=== PATIENT | male | born 1945 | race American Indian/Alaskan Native ===

== ENCOUNTER 2018-05-25 11:56 | Emergency (ER) | payer MEDICARE ==
[2018-05-25 12:45] LABS: Basophils % (Auto) 0.8 % (0.0-1.8); Eosinophils # (Auto) 0.4 K/mm3 (0.0-0.4); Hematocrit 46.9 % (35.5-45.6); Hemoglobin 15.2 gm/dl (11.8-15.2); Lymphocytes # (Auto) 1.8 K/mm3 (1.2-5.4); Lymphocytes % (Auto) 29.6 % (13.4-35.0); Mean Corpuscular HGB Conc 33 % (32-34); Mean Corpuscular Volume 79 fl (84-94); Monocytes # (Auto) 0.9 K/mm3 (0.0-0.8); Monocytes % (Auto) 15.5 % (0.0-7.3); Platelet Count 230 K/mm3 (140-440); Red Blood Count 5.97 M/mm3 (3.65-5.03); Red Cell Distribution Width 16.4 % (13.2-15.2)
[2018-05-25 12:48] LABS: Mean Corpuscular Hemoglobin 26 pg (28-32)
[2018-05-25] MEDS ORDERED: SOLU-Medrol IV ONE (12:52)
[2018-05-25] MEDS ORDERED: ATROVENT IH ONE (12:52)
[2018-05-25] MEDS ORDERED: PROVENTIL IH ONE (12:52)
[2018-05-25 12:58] LABS: BUN/Creatinine Ratio 14; Blood Urea Nitrogen 14 mg/dL (9-20); Calcium 9.6 mg/dL (8.4-10.2); Hemolysis Index 6
--- NOTE | 2018-05-25 12:59 | Emergency Department Report ---
ED Shortness of Breath HPI - General Chief Complaint: Dyspnea/Respdistress Stated Complaint: COPD Time Seen by Provider: 05/25/18 12:44 Source: patient Mode of arrival: Ambulatory Limitations: No Limitations - History of Present Illness Initial Comments: 73-year-old male with history of COPD presents to ED with complaints of shortness of breath x 3-4 days. He states he lives in [place], is here visiting. States he arrived in [place] yesterday. He reported shortness of breath prior to leaving [place]. States has been unable to sleep the last 2 nights due to difficulty breathing. Patient states has been using his nebulizer treatments at home, without improvement. Patient also reports productive cough. Denies fever or chills. Denies leg pain or swelling. Pt states he is not on home O2 MD Complaint: shortness of breath, cough -: days(s) (4) Severity: moderate Consistency: constant Improves With: bronchodilators Worsens With: coughing Known History Of: COPD Associated Symptoms: cough, sputum production Treatments Prior to Arrival: bronchodilator - Related Data Home Oxygen Therapy: No Previous Rx's Medication Instructions Recorded Last Taken Type Metoprolol [Lopressor TAB] 25 mg PO TID #90 tablet 09/05/15 Unknown Rx Pravastatin [Pravachol] 0.5 tab PO QHS #15 tablet 09/05/15 Unknown Rx Guaifenesin/Pseudoephedrne HCl 1 each PO DAILY PRN #20 tab.er.12h 10/11/15 Unknown Rx [Mucinex D ER 600-60 mg Tablet] levoFLOXacin [Levaquin TAB] 500 mg PO Q24HR #7 tablet 10/11/15 Unknown Rx Aspirin EC [Aspirin Enteric Coated 81 mg PO QDAY #30 tablet.dr 11/06/15 Unknown Rx TAB] HYDROcodone/APAP 5-325 [Stanley 1 each PO Q6H PRN #15 tablet 11/06/15 Unknown Rx 5-325 mg TAB] Multivitamin Tab [Multiple Vitamin 1 each PO QDAY #30 tablet 11/06/15 Unknown Rx TAB (Theragran)] Nicotine [Habitrol] 21 mg TD QDAY #14 patch 11/06/15 Unknown Rx Omeprazole [PriLOSEC] 40 mg PO QDAY #30 cap 11/06/15 Unknown Rx Pantoprazole [Protonix TAB] 40 mg PO DAILY #30 tablet 11/06/15 Unknown Rx Simvastatin [Zocor TAB] 10 mg PO QHS #30 tablet 11/06/15 Unknown Rx hydrALAZINE [Apresoline TAB] 25 mg PO TID #90 tablet 11/06/15 Unknown Rx Albuterol Sulfate [Albuterol 0.63% 0.63 mg IH TID PRN #1 box 01/28/16 Unknown Rx NEBS] Azithromycin [Zithromax Z-KENNA] 250 mg PO DAILY #1 pack 01/28/16 Unknown Rx Ipratropium/Albuter (Nf) 2 puff IH QID #120 inha 01/28/16 Unknown Rx [Combivent Inhaler] Mometasone Furoate [Asmanex Hfa] 13 gm IH DAILY #1 hfa.aer.ad 01/28/16 Unknown Rx predniSONE [Deltasone] 40 mg PO QDAY #10 tab 01/28/16 Unknown Rx ALBUTEROL Inhaler(NF) [VENTOLIN 1 puff IH Q4HRT PRN #1 inha 05/25/18 Unknown Rx Inhaler(NF)] Benzonatate [Tessalon Perles] 100 mg PO Q8HR PRN #20 capsule 05/25/18 Unknown Rx predniSONE [Prednisone] 50 mg PO DAILY #5 tablet 05/25/18 Unknown Rx Allergies Allergy/AdvReac Type Severity Reaction Status Date / Time No Known Allergies Allergy Unverified 09/13/13 11:20 ED Review of Systems ROS: Stated complaint: COPD Other details as noted in HPI Comment: All other systems reviewed and negative Constitutional: denies: chills, fever Respiratory: cough, shortness of breath Cardiovascular: denies: chest pain Musculoskeletal: other (denies leg pain or swelling) ED Past Medical Hx - Past Medical History Hx Hypertension: Yes Hx CVA: Yes (generalized weakness, walks with a cane) Hx Congestive Heart Failure: No Hx Arthritis: Yes Hx Psychiatric Treatment: Yes (schizoprenic) Hx Asthma: Yes Hx COPD: Yes Hx HIV: No Additional medical history: Hx of Dissection?-AAA - Surgical History Hx Pacemaker: No Hx Cholecystectomy: Yes Hx Appendectomy: Yes - Social History Smoking Status: Former Smoker Substance Use Type: Marijuana - Medications Home Medications: Home Medications Medication Instructions Recorded Confirmed Last Taken Type Metoprolol [Lopressor TAB] 25 mg PO TID #90 tablet 09/05/15 11/05/15 Unknown Rx Pravastatin [Pravachol] 0.5 tab PO QHS #15 tablet 09/05/15 11/05/15 Unknown Rx Guaifenesin/Pseudoephedrne HCl 1 each PO DAILY PRN #20 tab.er.12h 10/11/1511/04 Unknown Rx [Mucinex D ER 600-60 mg Tablet] levoFLOXacin [Levaquin TAB] 500 mg PO Q24HR #7 tablet 10/11/15 11/05/15 Unknown Rx Aspirin EC [Aspirin Enteric Coated 81 mg PO QDAY #30 tablet.dr 11/06/15 Unknown Rx TAB] HYDROcodone/APAP 5-325 [Stanley 1 each PO Q6H PRN #15 tablet 11/06/15 Unknown Rx 5-325 mg TAB] Multivitamin Tab [Multiple Vitamin 1 each PO QDAY #30 tablet 11/06/15 Unknown Rx TAB (Theragran)] Nicotine [Habitrol] 21 mg TD QDAY #14 patch 11/06/15 Unknown Rx Omeprazole [PriLOSEC] 40 mg PO QDAY #30 cap 11/06/15 Unknown Rx Pantoprazole [Protonix TAB] 40 mg PO DAILY #30 tablet 11/06/15 Unknown Rx Simvastatin [Zocor TAB] 10 mg PO QHS #30 tablet 11/06/15 Unknown Rx hydrALAZINE [Apresoline TAB] 25 mg PO TID #90 tablet 11/06/15 Unknown Rx Albuterol Sulfate [Albuterol 0.63% 0.63 mg IH TID PRN #1 box 01/28/16 Unknown Rx NEBS] Azithromycin [Zithromax Z-KENNA] 250 mg PO DAILY #1 pack 01/28/16 Unknown Rx Ipratropium/Albuter (Nf) 2 puff IH QID #120 inha 01/28/16 Unknown Rx [Combivent Inhaler] Mometasone Furoate [Asmanex Hfa] 13 gm IH DAILY #1 hfa.aer.ad 01/28/16 Unknown Rx predniSONE [Deltasone] 40 mg PO QDAY #10 tab 01/28/16 Unknown Rx ALBUTEROL Inhaler(NF) [VENTOLIN 1 puff IH Q4HRT PRN #1 inha 05/25/18 Unknown Rx Inhaler(NF)] Benzonatate [Tessalon Perles] 100 mg PO Q8HR PRN #20 capsule 05/25/18 Unknown Rx predniSONE [Prednisone] 50 mg PO DAILY #5 tablet 05/25/18 Unknown Rx ED Physical Exam - General Limitations: No Limitations General appearance: alert - Head Head exam: Present: atraumatic, normocephalic - Eye Eye exam: Present: normal appearance - ENT ENT exam: Present: mucous membranes moist - Neck Neck exam: Present: normal inspection - Respiratory Respiratory exam: Present: respiratory distress (moderate), decreased breath sounds, prolonged expiratory, other (tachypnea present) - Cardiovascular Cardiovascular Exam: Present: regular rate, normal rhythm - GI/Abdominal GI/Abdominal exam: Present: soft. Absent: distended, tenderness - Extremities Exam Extremities exam: Present: normal inspection. Absent: pedal edema, calf tenderness - Neurological Exam Neurological exam: Present: alert, oriented X3 - Psychiatric Psychiatric exam: Present: normal affect, normal mood - Skin Skin exam: Present: warm, dry, intact, normal color ED Course Vital Signs 05/25/18 05/25/18 05/25/18 12:03 12:46 13:00 Temperature 97.8 F Pulse Rate 84 83 78 Pulse Rate [ Anterior Bilateral] Respiratory 18 22 32 H Rate Respiratory Rate [Anterior Bilateral] Blood Pressure 140/102 142/95 O2 Sat by Pulse 92 97 Oximetry 05/25/18 05/25/18 05/25/18 13:20 13:30 14:00 Temperature Pulse Rate 77 82 Pulse Rate [ 72 Anterior Bilateral] Respiratory 27 H 19 Rate Respiratory 33 H Rate [Anterior Bilateral] Blood Pressure 135/95 125/89 O2 Sat by Pulse 99 100 Oximetry 05/25/18 05/25/18 14:30 15:00 Temperature Pulse Rate 84 85 Pulse Rate [ Anterior Bilateral] Respiratory 26 H 30 H Rate Respiratory Rate [Anterior Bilateral] Blood Pressure 134/83 133/67 O2 Sat by Pulse 94 93 Oximetry ED Medical Decision Making - Lab Data Result diagrams: 05/25/18 12:21 05/25/18 12:21 - EKG Data -: EKG Interpreted by De EKG shows normal: sinus rhythm, axis, intervals, QRS complexes, ST-T waves - EKG Data Interpretation: no acute changes - Radiology Data Radiology results: report reviewed, image reviewed FINAL REPORT EXAM: XR CHEST 1V AP HISTORY: Shortness of breath COMPARISON: CT of the chest performed on 08/05/2015 TECHNIQUE: Frontal and lateral views of the chest. FINDINGS: The cardiomediastinal silhouette is normal in appearance. The lungs are clear without focal consolidation. There is no pleural effusion or pneumothorax. There is no acute soft tissue or osseous abnormality. IMPRESSION: No acute cardiopulmonary disease. Transcribed By: JENNIFER Dictated By: DON PASCUAL MD Electronically Authenticated By: DON PASCUAL MD Signed Date/Time: 05/25/18 1904 - Medical Decision Making 72-year-old male with COPD exacerbation. EKG, troponin, chest x-ray normal. Neb treatment, steroids given. Patient moving air much better at this time. Feeling much better. O2 sats between 92-95% on room air, acceptable range for patient with history of COPD. Patient ambulated around the ER, no respiratory distress, no O2 desaturation. Patient feeling much better and states he is ready to go. Will discharge at this time - Differential Diagnosis COPD exacerbation, pneumonia, pulm edema Critical care attestation.: If time is entered above; I have spent that time in minutes in the direct care of this critically ill patient, excluding procedure time. ED Disposition Clinical Impression: COPD with acute exacerbation Disposition: DC-01 TO HOME OR SELFCARE Is pt being admited?: No Condition: Stable Instructions: Chronic Obstructive Pulmonary Disease (ED) Prescriptions: ALBUTEROL Inhaler(NF) [VENTOLIN Inhaler(NF)] 1 puff IH Q4HRT PRN #1 inha PRN Reason: Shortness Of Breath Benzonatate [Tessalon Perles] 100 mg PO Q8HR PRN #20 capsule PRN Reason: Cough predniSONE [Prednisone] 50 mg PO DAILY #5 tablet Referrals: PRIMARY CAREMD [Primary Care Provider] - 3-5 Days JEANINE BANERJEE MD [Staff Physician] - 3-5 Days [facility] [Provider Group] - 3-5 Days
--- NOTE | 2018-05-25 13:46 | XRay Report ---
FINAL REPORT EXAM: XR CHEST 1V AP HISTORY: Shortness of breath COMPARISON: CT of the chest performed on 08/05/2015 TECHNIQUE: Frontal and lateral views of the chest. FINDINGS: The cardiomediastinal silhouette is normal in appearance. The lungs are clear without focal consolidation. There is no pleural effusion or pneumothorax. There is no acute soft tissue or osseous abnormality. IMPRESSION: No acute cardiopulmonary disease.
[2018-05-25] MEDS ORDERED: MAGNESIUM SULFATE 2GM/50ML 2 GM/50 ML BAG IV ONE (13:52)
[2018-05-25 15:16] VITALS: BP 133/67
== END 2018-05-25 15:51 | disposition home or self-care (01) ==
LOC: ED 11:56
DX: J44.1 Chronic obstructive pulmonary disease with (acute) exacerbation (principal); I10 Essential (primary) hypertension; M19.90 Unspecified osteoarthritis, unspecified site; F20.9 Schizophrenia, unspecified; F12.10 Cannabis abuse, uncomplicated; Z87.891 Personal history of nicotine dependence; Z90.49 Acquired absence of other specified parts of digestive tract
CPT/HCPCS: 36415; 71045; 80048; 83880; 84484; 85025; 93005; 93010; 94640; 96365; 96375; 99284; J2930; J3475

== ENCOUNTER 2018-10-09 18:28 | Emergency (ER) | payer MEDICARE ==
[2018-10-09 19:07] LABS: Basophils % (Auto) 0.6 % (0.0-1.8); Eosinophils # (Auto) 0.4 K/mm3 (0.0-0.4); Eosinophils % (Auto) 6.2 % (0.0-4.3); Hemoglobin 15.2 gm/dl (11.8-15.2); Lymphocytes # (Auto) 1.9 K/mm3 (1.2-5.4); Lymphocytes % (Auto) 27.6 % (13.4-35.0); Mean Corpuscular HGB Conc 34 % (32-34); Mean Corpuscular Volume 82 fl (84-94); Monocytes # (Auto) 0.9 K/mm3 (0.0-0.8); Monocytes % (Auto) 12.3 % (0.0-7.3); Platelet Count 195 K/mm3 (140-440); Red Cell Distribution Width 16.1 % (13.2-15.2)
--- NOTE | 2018-10-09 19:25 | XRay Report ---
FINAL REPORT PROCEDURE: XR CHEST 1V AP TECHNIQUE: Chest radiograph anteroposterior view. CPT 39748 HISTORY: Shortness of breath COMPARISON: 08/09/2018 FINDINGS: Heart: Normal. Mediastinum/Vessels: Normal. Lungs/Pleural space: No infiltrate, effusion, or pneumothorax. Bony thorax: No acute osseous abnormality. Life support devices: None. IMPRESSION: No radiographic evidence of acute cardiopulmonary abnormality.
[2018-10-09 19:27] LABS: BUN/Creatinine Ratio 14; Blood Urea Nitrogen 11 mg/dL (9-20); Calcium 8.7 mg/dL (8.4-10.2); Hemolysis Index 8
[2018-10-09] MEDS ORDERED: PROVENTIL IH ONE (19:55)
[2018-10-09] MEDS ORDERED: ATROVENT IH ONE (19:55)
--- NOTE | 2018-10-09 21:12 | Emergency Department Report ---
ED Shortness of Breath HPI - General Chief Complaint: Dyspnea/Respdistress Stated Complaint: RESPIRATORY DISTRESS Time Seen by Provider: 10/09/18 19:26 Source: patient Mode of arrival: Ambulatory Limitations: No Limitations - History of Present Illness Initial Comments: 73-year-old male with history of COPD presents to ED in respiratory distress. Initial O2 sats 88% on room air upon EMS arrival. Patient was placed on CPAP, given albuterol, magnesium sulfate 2 g, Solu-Medrol 125 mg. MD Complaint: shortness of breath -: This afternoon Severity: moderate Consistency: other (now improved) Improves With: oxygen, bronchodilators Worsens With: nothing Known History Of: COPD Associated Symptoms: denies other symptoms Treatments Prior to Arrival: oxygen, bronchodilator, NIPPV - Related Data Previous Rx's Medication Instructions Recorded Last Taken Type Benzonatate [Tessalon Perles] 100 mg PO Q8HR PRN #20 capsule 05/25/18 Unknown Rx ALBUTEROL Inhaler (OR & NICU) 1 puff IH Q4H PRN 30 Days #30 inha 06/27/18 Unknown Rx [Proair] Aspirin EC [Aspirin Enteric Coated 81 mg PO QDAY #30 tablet.dr 06/27/18 Unknown Rx TAB] AtorvaSTATin [Lipitor] 20 mg PO QHS #30 tab 06/27/18 Unknown Rx Budesonide/Formoterol Fumarate 10.2 gm IH BID 30 Days hfa.aer.ad 06/27/18 Un known Rx [Symbicort 160-4.5 Mcg Inhaler] Nicotine [Habitrol] 21 mg TD QDAY #3 patch 06/27/18 Unknown Rx amLODIPine [Norvasc] 10 mg PO DAILY #30 tab 06/27/18 Unknown Rx predniSONE [Deltasone] 40 mg PO QDAY #3 tablet 06/27/18 Unknown Rx ALBUTEROL Inhaler (OR & NICU) 2 puff IH Q4HR PRN #1 inhalation 07/22/18 Unknown Rx [ProAir HFA Inhaler] Azithromycin [Zithromax Z-RAPHAEL] 250 mg PO DAILY #6 tablet 07/22/18 Unknown Rx Prednisone [predniSONE 10 mg 10 mg PO .TAPER #1 tab.ds.pk 07/22/18 Unknown Rx (6-Day Pack, 21 Tabs)] Albuterol Sulfate [Proair 90 mcg IH Q4HR PRN #2 aer.pow.ba 08/09/18 Unknown Rx Respiclick] Benzonatate [Tessalon Perles] 100 mg PO Q8HR PRN #30 capsule 08/09/18 Unknown Rx EPINEPHrine [Epipen 2-Raphael] 0.3 mg IM DAILY PRN #2 ml 08/09/18 Unknown Rx Ipratropium [Atrovent NEB] 0.5 mg IH Q4HR #2 ml 08/09/18 Unknown Rx predniSONE [Deltasone] 40 mg PO QDAY #8 tab 08/09/18 Unknown Rx ALBUTEROL Inhaler(NF) [VENTOLIN 1 puff IH Q4HR PRN #1 inha 10/09/18 Unknown Rx Inhaler(NF)] predniSONE [Prednisone] 50 mg PO DAILY #5 tablet 10/09/18 Unknown Rx Allergies Allergy/AdvReac Type Severity Reaction Status Date / Time No Known Allergies Allergy Verified 08/09/18 11:38 ED Review of Systems ROS: Stated complaint: RESPIRATORY DISTRESS Other details as noted in HPI Comment: All other systems reviewed and negative Constitutional: denies: chills, fever Respiratory: cough, shortness of breath Cardiovascular: denies: chest pain ED Past Medical Hx - Past Medical History Previous Medical History?: Yes Hx Hypertension: Yes Hx CVA: Yes (generalized weakness, walks with a cane) Hx Heart Attack/AMI: No Hx Congestive Heart Failure: No Hx Diabetes: No Hx Deep Vein Thrombosis: No Hx Pulmonary Embolism: No Hx GERD: No Hx Liver Disease: No Hx Renal Disease: No Hx Sickle Cell Disease: No Hx Arthritis: Yes Hx Headaches / Migraines: No Hx Seizures: No Hx Kidney Stones: No Hx Psychiatric Treatment: Yes (schizoprenic) Hx Asthma: Yes Hx COPD: Yes (emphysema) Hx Tuberculosis: No Hx Dementia: No Hx HIV: No Additional medical history: Hx of Dissection?-AAA - Surgical History Past Surgical History?: Yes Hx Coronary Stent: No Hx Open Heart Surgery: No Hx Pacemaker: No Hx Internal Defibrillator: No Hx Cholecystectomy: Yes Hx Appendectomy: Yes Hx Breast Surgery: No - Social History Smoking Status: Never Smoker Substance Use Type: None - Medications Home Medications: Home Medications Medication Instructions Recorded Confirmed Last Taken Type Benzonatate [Tessalon Perles] 100 mg PO Q8HR PRN #20 capsule 05/25/18 06/20/18 Unknown Rx ALBUTEROL Inhaler (OR & NICU) 1 puff IH Q4H PRN 30 Days #30 inha 06/27/18 Unknown Rx [Proair] Aspirin EC [Aspirin Enteric Coated 81 mg PO QDAY #30 tablet.dr 06/27/18 Unknown Rx TAB] AtorvaSTATin [Lipitor] 20 mg PO QHS #30 tab 06/27/18 Unknown Rx Budesonide/Formoterol Fumarate 10.2 gm IH BID 30 Days hfa.aer.ad 06/27/18 Unknown Rx [Symbicort 160-4.5 Mcg Inhaler] Nicotine [Habitrol] 21 mg TD QDAY #3 patch 06/27/18 Unknown Rx amLODIPine [Norvasc] 10 mg PO DAILY #30 tab 06/27/18 Unknown Rx predniSONE [Deltasone] 40 mg PO QDAY #3 tablet 06/27/18 Unknown Rx ALBUTEROL Inhaler (OR & NICU) 2 puff IH Q4HR PRN #1 inhalation 07/22/18 Unknown Rx [ProAir HFA Inhaler] Azithromycin [Zithromax Z-RAPHAEL] 250 mg PO DAILY #6 tablet 07/22/18 Unknown Rx Prednisone [predniSONE 10 mg 10 mg PO .TAPER #1 tab.ds.pk 07/22/18 Unknown Rx (6-Day Pack, 21 Tabs)] Albuterol Sulfate [Proair 90 mcg IH Q4HR PRN #2 aer.pow.ba 08/09/18 Unknown Rx Respiclick] Benzonatate [Tessalon Perles] 100 mg PO Q8HR PRN #30 capsule 08/09/18 Unknown Rx EPINEPHrine [Epipen 2-Raphael] 0.3 mg IM DAILY PRN #2 ml 08/09/18 Unknown Rx Ipratropium [Atrovent NEB] 0.5 mg IH Q4HR #2 ml 08/09/18 Unknown Rx predniSONE [Deltasone] 40 mg PO QDAY #8 tab 08/09/18 Unknown Rx ALBUTEROL Inhaler(NF) [VENTOLIN 1 puff IH Q4HR PRN #1 inha 10/09/18 Unknown Rx Inhaler(NF)] predniSONE [Prednisone] 50 mg PO DAILY #5 tablet 10/09/18 Unknown Rx ED Physical Exam - General Limitations: No Limitations General appearance: alert - Head Head exam: Present: atraumatic, normocephalic - Eye Eye exam: Present: normal appearance - ENT ENT exam: Present: mucous membranes moist - Neck Neck exam: Present: normal inspection - Respiratory Respiratory exam: Present: decreased breath sounds, other (tachypneic) - Cardiovascular Cardiovascular Exam: Present: regular rate, normal rhythm - GI/Abdominal GI/Abdominal exam: Present: soft. Absent: distended - Extremities Exam Extremities exam: Present: normal inspection - Neurological Exam Neurological exam: Present: alert, oriented X3 - Psychiatric Psychiatric exam: Present: normal affect, normal mood - Skin Skin exam: Present: warm, dry, intact, normal color ED Course Vital Signs 10/09/18 10/09/18 10/09/18 18:47 19:00 19:30 Temperature 98.2 F Pulse Rate 95 H 93 H Pulse Rate [ Anterior Bilateral Throughout] Respiratory 16 26 H Rate Respiratory Rate [Anterior Bilateral Throughout] Blood Pressure 144/92 137/93 O2 Sat by Pulse 95 96 95 Oximetry 10/09/18 10/09/18 10/09/18 20:00 20:08 21:00 Temperature Pulse Rate 98 H 100 H Pulse Rate [ 95 H Anterior Bilateral Throughout] Respiratory 16 15 Rate Respiratory 18 Rate [Anterior Bilateral Throughout] Blood Pressure 138/91 138/91 O2 Sat by Pulse 92 94 Oximetry 10/09/18 21:27 Temperature Pulse Rate Pulse Rate [ 92 H Anterior Bilateral Throughout] Respiratory Rate Respiratory 16 Rate [Anterior Bilateral Throughout] Blood Pressure O2 Sat by Pulse Oximetry - Reevaluation(s) Reevaluation #1: 10/09/18 21:10 Patient feeling much better at this time following neb treatment. States he is feeling much better and wants to go home. Granddaughter states pt looks much better and feels that he will be ok if discharged. ED Medical Decision Making - Lab Data Result diagrams: 10/09/18 18:45 10/09/18 18:45 - EKG Data -: EKG Interpreted by Me EKG shows normal: sinus rhythm, axis, intervals, QRS complexes, ST-T waves Rate: normal - EKG Data Interpretation: no acute changes - Radiology Data Radiology results: report reviewed, image reviewed - Medical Decision Making 73-year-old male COPD exacerbation. Initially presented on CPAP from EMS. This is immediately removed upon arrival is patient was feeling much better. Another albuterol nebulizer treatment was given. Workup unremarkable with normal chest x-ray, normal EKG, normal troponin. Patient feels much better following nebulizer treatment in ED as well. Will discharge home, O2 sats nml. Tachypnea improved. Return precautions given. Prescription for prednisone given. Outpatient follow-up advised. - Differential Diagnosis COPD, ACS, pneumonia Critical care attestation.: If time is entered above; I have spent that time in minutes in the direct care of this critically ill patient, excluding procedure time. ED Disposition Clinical Impression: COPD exacerbation Disposition: TO HOME OR SELFCARE Is pt being admited?: No Condition: Stable Instructions: Chronic Obstructive Pulmonary Disease (ED) Prescriptions: ALBUTEROL Inhaler(NF) [VENTOLIN Inhaler(NF)] 1 puff IH Q4HR PRN #1 inha PRN Reason: Wheezing predniSONE [Prednisone] 50 mg PO DAILY #5 tablet Referrals: KOJO HILLMANLIGUORI MD NEW [Primary Care Provider] - 3-5 Days RUT ALEJANDRE MD [Staff Physician] - 3-5 Days [facility] [Provider Group] - 3-5 Days Time of Disposition: 21:11
[2018-10-09 21:34] VITALS: BP 138/91
== END 2018-10-09 21:39 | disposition home or self-care (01) ==
LOC: ED 18:28
DX: J44.1 Chronic obstructive pulmonary disease with (acute) exacerbation (principal); I10 Essential (primary) hypertension; M19.90 Unspecified osteoarthritis, unspecified site; Z90.49 Acquired absence of other specified parts of digestive tract
CPT/HCPCS: 36415; 71045; 80048; 84484; 85025; 93005; 93010; 94640

== ENCOUNTER 2018-11-12 05:42 | Inpatient (IN) | payer MEDICARE ==
[2018-11-12] MEDS ORDERED: PROVENTIL IH ONE ×2 (05:50→13:36)
[2018-11-12] MEDS ORDERED: ATROVENT IH ONE (05:50)
[2018-11-12 06:11] LABS: Basophils % (Auto) 0.7 % (0.0-1.8); Eosinophils # (Auto) 0.3 K/mm3 (0.0-0.4); Eosinophils % (Auto) 4.8 % (0.0-4.3); Hematocrit 42.5 % (35.5-45.6); Hemoglobin 14.5 gm/dl (11.8-15.2); Lymphocytes # (Auto) 1.7 K/mm3 (1.2-5.4); Mean Corpuscular HGB Conc 34 % (32-34); Mean Corpuscular Volume 81 fl (84-94); Monocytes # (Auto) 0.7 K/mm3 (0.0-0.8); Monocytes % (Auto) 12.7 % (0.0-7.3); Platelet Count 184 K/mm3 (140-440); Red Blood Count 5.26 M/mm3 (3.65-5.03); Red Cell Distribution Width 15.5 % (13.2-15.2)
--- NOTE | 2018-11-12 06:13 | Emergency Department Report ---
ED Shortness of Breath HPI - General Chief Complaint: Dyspnea/Respdistress Stated Complaint: MATY Time Seen by Provider: 11/12/18 06:03 Source: patient, EMS Mode of arrival: Stretcher Limitations: No Limitations - History of Present Illness Initial Comments: Patient is a 73-year-old male emergency room with complaints of difficulties in breathing and respiratory distress. Patient states shortness of breath started yesterday and is worsening. Patient states his inhalers and nebulizer not working. Patient states that he was brought in by EMS and was given meds in route. Patient denies chest pain. Patient states his shortness of breath has improved with the medications. Patient states that his shortness of breath was better with rest and worse with exertion. Patient is currently on BiPAP. Per report from the nurse, the patient received 2 g of mag, albuterol and Solu-Medrol in route. MD Complaint: shortness of breath, cough -: Sudden - Related Data Home Medications Medication Instructions Recorded Confirmed Last Taken ALBUTEROL Inhaler(NF) [VENTOLIN 3 puff IH Q6H PRN 11/12/18 11/12/18 Unknown Inhaler(NF)] Budesonide/Formoterol Fumarate 1 puff IH BID 11/12/18 11/12/18 Unknown [Symbicort 160-4.5 Mcg Inhaler] Previous Rx's Medication Instructions Recorded Last Taken Type amLODIPine [Norvasc] 10 mg PO DAILY #30 tab 06/27/18 Unknown Rx Allergies Allergy/AdvReac Type Severity Reaction Status Date / Time No Known Allergies Allergy Verified 08/09/18 11:38 ED Review of Systems ROS: Stated complaint: MATY Other details as noted in HPI Constitutional: denies: chills, fever Eyes: denies: eye pain, eye discharge, vision change ENT: denies: ear pain, throat pain Respiratory: cough, shortness of breath, SOB with exertion, SOB at rest, wheezing Cardiovascular: denies: chest pain, palpitations Endocrine: no symptoms reported Gastrointestinal: denies: abdominal pain, nausea, diarrhea Genitourinary: denies: urgency, dysuria Musculoskeletal: denies: back pain, joint swelling, arthralgia Skin: denies: rash, lesions Neurological: denies: headache, weakness, paresthesias Psychiatric: denies: anxiety, depression Hematological/Lymphatic: denies: easy bleeding, easy bruising ED Past Medical Hx - Past Medical History Previous Medical History?: Yes Hx Hypertension: Yes Hx CVA: Yes (generalized weakness, walks with a cane) Hx Heart Attack/AMI: No Hx Congestive Heart Failure: No Hx Diabetes: No Hx Deep Vein Thrombosis: No Hx Pulmonary Embolism: No Hx GERD: No Hx Liver Disease: No Hx Renal Disease: No Hx Sickle Cell Disease: No Hx Arthritis: Yes Hx Headaches / Migraines: No Hx Seizures: No Hx Kidney Stones: No Hx Psychiatric Treatment: Yes (schizoprenic) Hx Asthma: Yes Hx COPD: Yes (emphysema) Hx Tuberculosis: No Hx Dementia: No Hx HIV: No Additional medical history: Hx of Dissection?-AAA - Surgical History Past Surgical History?: Yes Hx Coronary Stent: No Hx Open Heart Surgery: No Hx Pacemaker: No Hx Internal Defibrillator: No Hx Cholecystectomy: Yes Hx Appendectomy: Yes Hx Breast Surgery: No - Family History Family history: no significant - Social History Smoking Status: Never Smoker Substance Use Type: None - Medications Home Medications: Home Medications Medication Instructions Recorded Confirmed Last Taken Type amLODIPine [Norvasc] 10 mg PO DAILY #30 tab 06/27/18 11/12/18 Unknown Rx ALBUTEROL Inhaler(NF) [VENTOLIN 3 puff IH Q6H PRN 11/12/18 11/12/18 Unknown History Inhaler(NF)] Budesonide/Formoterol Fumarate 1 puff IH BID 11/12/18 11/12/18 Unknown History [Symbicort 160-4.5 Mcg Inhaler] ED Physical Exam - General Limitations: No Limitations General appearance: alert, in no apparent distress - Head Head exam: Present: atraumatic, normocephalic - Eye Eye exam: Present: normal appearance - ENT ENT exam: Present: mucous membranes moist - Neck Neck exam: Present: normal inspection - Respiratory Respiratory exam: Present: normal lung sounds bilaterally, other (patient on BiPAP). Absent: respiratory distress - Cardiovascular Cardiovascular Exam: Present: regular rate, normal rhythm. Absent: systolic murmur, diastolic murmur, rubs, gallop - GI/Abdominal GI/Abdominal exam: Present: soft, normal bowel sounds - Rectal Rectal exam: Present: deferred - Extremities Exam Extremities exam: Present: normal inspection - Back Exam Back exam: Present: normal inspection - Neurological Exam Neurological exam: Present: alert, oriented X3 - Psychiatric Psychiatric exam: Present: normal affect, normal mood - Skin Skin exam: Present: warm, dry, intact, normal color. Absent: rash ED Course Vital Signs 11/12/18 11/12/18 11/12/18 05:48 05:49 05:51 Temperature 97.4 F L Pulse Rate 85 82 Pulse Rate [ 82 Anterior Bilateral Throughout] Respiratory 14 29 H Rate Respiratory 29 H Rate [Anterior Bilateral Throughout] Blood Pressure 148/102 148/102 Blood Pressure [Left] O2 Sat by Pulse 96 100 Oximetry 11/12/18 11/12/18 11/12/18 05:57 07:50 09:16 Temperature Pulse Rate 83 84 Pulse Rate [ Anterior Bilateral Throughout] Respiratory 25 H 17 16 Rate Respiratory Rate [Anterior Bilateral Throughout] Blood Pressure 119/65 Blood Pressure 152/104 [Left] O2 Sat by Pulse 98 99 96 Oximetry 11/12/18 11/12/18 13:30 13:40 Temperature Pulse Rate 98 H Pulse Rate [ 108 H 105 H Anterior Bilateral Throughout] Respiratory Rate Respiratory 22 24 Rate [Anterior Bilateral Throughout] Blood Pressure 129/95 Blood Pressure [Left] O2 Sat by Pulse Oximetry - Reevaluation(s) Reevaluation #1: Patient states she is feeling better. Patient remains on BiPAP. Patient sat 97%. Lungs are clear. 11/12/18 07:14 - Consultations Consultation #1: Hospitalist consulted for admission. Hospitalist to admit patient and assume care of patient. Bridging orders are placed 11/12/18 07:27 ED Medical Decision Making - Lab Data Result diagrams: 11/12/18 06:00 11/12/18 06:00 - EKG Data -: EKG Interpreted by Me EKG shows normal: sinus rhythm, axis, intervals, QRS complexes, ST-T waves Rate: normal - EKG Data Interpretation: other (PVCs noted) - Radiology Data Radiology results: report reviewed, image reviewed interpreted by me: No acute findings on chest x-ray PROCEDURE: XR CHEST 1V AP TECHNIQUE: AP portable chest radiograph HISTORY: MATY COMPARISONS: 10/09/2018, CT 08/09/2018 FINDINGS: No mediastinal shift. Cardiac silhouette is not enlarged. No pneumothorax, effusion, or focal airspace disease. Linear bibasilar atelectasis/scarring. No acute skeletal findings. IMPRESSION: No acute pulmonary finding identified. - Medical Decision Making Patient is a 73-year-old male presents to emergency room with shortness of breath and wheezing. Patient found to have COPD exacerbation. Patient was admitted to the hospitalist service for further evaluation and treatment. Chest x-ray negative. EKG normal except for PVCs. Patient's labs unremarkable except for hypokalemia and hypoxemia - Differential Diagnosis shortness of breath. COPD exacerbation. Hypoxia Critical Care Time: Yes Critical care attestation.: If time is entered above; I have spent that time in minutes in the direct care of this critically ill patient, excluding procedure time. Critical Care Time: 35 minutes ED Disposition Clinical Impression: Hypoxia, COPD exacerbation, Acute exacerbation of chronic obstructive pulmonary disease (COPD), SOB (shortness of breath), Hypokalemia COPD (chronic obstructive pulmonary disease) Qualifiers: COPD type: unspecified COPD Qualified Code(s): J44.9 - Chronic obstructive pulmonary disease, unspecified Disposition: OP ADMIT IP TO THIS HOSP Is pt being admited?: Yes Does the pt Need Aspirin: No Condition: Critical Time of Disposition: 07:20
[2018-11-12 06:27] LABS: Alanine Aminotransferase 10 units/L (7-56); Albumin 4.2 g/dL (3.9-5); BUN/Creatinine Ratio 17; Blood Urea Nitrogen 12 mg/dL (9-20); Calcium 8.7 mg/dL (8.4-10.2); Hemolysis Index 7
--- NOTE | 2018-11-12 06:36 | XRay Report ---
PROCEDURE: XR CHEST 1V AP TECHNIQUE: AP portable chest radiograph HISTORY: MATY COMPARISONS: 10/09/2018, CT 08/09/2018 FINDINGS: No mediastinal shift. Cardiac silhouette is not enlarged. No pneumothorax, effusion, or focal airspac e disease. Linear bibasilar atelectasis/scarring. No acute skeletal findings. IMPRESSION: No acute pulmonary finding identified. This document is electronically signed by Tito Agee MD., November 12 2018 06:34:14 AM ET
[2018-11-12] MEDS: KCL 10MEQ/100ML 10 MEQ/100 ML BAG IV SCH ×3 (07:55→09:16)
[2018-11-12] MEDS ORDERED: KCL 10MEQ/100ML 10 MEQ/100 ML BAG IV ONE (09:09)
[2018-11-12] MEDS ORDERED: D50W (25GM) Syringe IV PRN (11:44)
[2018-11-12] MEDS ORDERED: NON-FORMULARY (Budesonide/Formoterol Fumarate [Symbicort 160-4.5 Mcg Inhaler] 1 PUFF) IH SCH (11:45)
--- NOTE | 2018-11-12 11:46 | History and Physical Report ---
History of Present Illness Date of examination: 11/12/18 Date of admission: 11/12/18 07:27 Chief complaint: Shortness of breath, cough -one day duration History of present illness: Patient is a 73-year-old male was a history of COPD started having cough with progressive shortness of breath yesterday at home. He was therefore brought emergency room by EMS. Patient denies any fever, no chest pain, orthopnea paroxysmal dyspnea. No abdominal pain, nausea or vomiting. At the emergency department patient was given multiple nebulizer treatments. Symptoms persisted with very minimal improvement. Patient states that his shortness of breath was exertional. At the emergency department patient was placed on BiPAP, given 2 g of magnesium sulfate and IV Solu-Medrol. Chest x-ray shows no acute pulmonary process. Potassium was 3.1 and A1c was 6.5. LDL was 123. Admission was therefore requested Past History Past Medical History: COPD, hypertension, hyperlipidemia Medications and Allergies Allergies Allergy/AdvReac Type Severity Reaction Status Date / Time No Known Allergies Allergy Verified 08/09/18 11:38 Home Medications Medication Instructions Recorded Confirmed Last Taken Type amLODIPine [Norvasc] 10 mg PO DAILY #30 tab 06/27/18 11/12/18 Unknown Rx ALBUTEROL Inhaler(NF) [VENTOLIN 3 puff IH Q6H PRN 11/12/18 11/12/18 Unknown History Inhaler(NF)] Budesonide/Formoterol Fumarate 1 puff IH BID 11/12/18 11/12/18 Unknown History [Symbicort 160-4.5 Mcg Inhaler] Active Meds: Active Medications Albuterol (Proventil) 2.5 mg IH Q4HRT [facility] Amlodipine Besylate (Norvasc) 10 mg PO DAILY [facility] Dextrose (D50w (25gm) Syringe) 50 ml IV PRN PRN PRN Reason: Hypoglycemia Enoxaparin Sodium (Lovenox) 40 mg SUB-Q QDAY [facility] Azithromycin 500 mg/ Sodium (Chloride) 250 mls @ 250 mls/hr IV Q24HR [facility] Miscellaneous Medication (Budesonide/Formoterol Fumarate [Symbicort 160-4.5 Mcg Inhaler]) 1 puff IH BID [facility] Review of systems Constitutional: Well Nouridhed and Well developed. Head: NC/ AT Eyes: Denies any visual impairments. No discharge from the eyes Nose: Denies any rhinorrhea or epistaxis Throats: Denies any post nasal drainage. Ears: Denies any hearing deficits Cardiovascular system: Denies any chest pain, shortness of breath, orthopnea, paroxysmal nocturnal dyspnea, or palpitation. Respiratory system: Has cough, difficulty breathing. no wheezing, pleuritic chest pain, Gastrointestinal system: Denies any abdominal pain, nausea vomiting, hematemesis or melena. Neurological system: Denies any headache, slurred speech, facial droop, lateralizing weakness Genitalia system: Denies any dysuria, urinary frequency or urgency, urethral discharge Skin: No rashes, hyperpigmented spots. Hematological: Denies any cervical tenderness hemorrhages or petechia. Immunological: Denies any multiple septic spots, Lymphatic: Denies any generalized lymphadenopathy. Endocrine: Denies any polyuria, polydipsia, polyphagia. No heat or cold intolerance. Musculoskeletal system: No joint pain or swelling. Psych: No visual, tactile, auditory or hallucination Exam - Physical Exam Narrative exam: Constitutional: Well-nourished well-developed. In no distress Head: Normocephalic atraumatic Eyes: Pupils are equal round and reactive to light Nose: No enlarged turbinates, no septal deviation. Mouth: Moist mucous membranes. Neck: Supple no thyromegaly. No bruit. No JVD Heart: Regular rate and rhythm, S1-S2 normal. No rubs murmurs or gallop Lungs: Decreased breath sounds bilaterally. no rales or rhonchi Abdomen: Soft, nontender. Bowel sound are present. Extremities: No edema, no cyanosis, no clubbing. Neuro: Alert oriented Oriented x3. No focal sensory or motor deficit. Skin: No rashes or hyperpigmented spots Musculoskeletal system: No joint pain or swelling Hematological: No petechia or subcutanous hemorrhages. Immunological: No multiple septic spots on the skin Lymphatic: No generalized lymphadenopathy Psychiatry: Euthymic. Calm. - Constitutional Vitals: Temp Pulse Resp BP Pulse Ox 97.4 F L 84 16 152/104 96 11/12/18 05:48 11/12/18 09:16 11/12/18 09:16 11/12/18 09:16 11/12/18 09:16 Results - Labs CBC & Chem 7: 11/12/18 06:00 11/12/18 06:00 Labs: Abnormal lab results 11/12/18 11/12/18 11/12/18 Range/Units 06:00 06:00 06:00 RBC 5.26 H (3.65-5.03) M/mm3 MCV 81 L (84-94) fl RDW 15.5 H (13.2-15.2) % Ogle % (Auto) 12.7 H (0.0-7.3) % Eos % (Auto) 4.8 H (0.0-4.3) % POC ABG pO2 (80-105) Potassium 3.1 L (3.6-5.0) mmol/L Creatinine 0.7 L (0.8-1.5) mg/dL Glucose 149 H (75-100) mg/dL Magnesium 2.70 H (1.7-2.3) mg/dL 11/12/18 Range/Units 06:22 RBC (3.65-5.03) M/mm3 MCV (84-94) fl RDW (13.2-15.2) % Ogle % (Auto) (0.0-7.3) % Eos % (Auto) (0.0-4.3) % POC ABG pO2 70 L (80-105) Potassium (3.6-5.0) mmol/L Creatinine (0.8-1.5) mg/dL Glucose (75-100) mg/dL Magnesium (1.7-2.3) mg/dL Assessment and Plan - COPD exacerbation Continue supplemental oxygen, bronchodilators, IV Solu-Medrol, IV azithromycin. -Hypokalemia Supplements. Check magnesium level. - Diabetes mellitus with A1c of 6.5% Commence pt on consistent carbohydrate diet - Hyperlipidemia with an LDL of 133 Commence patient on statins -DVT prophylaxis with Lovenox and GI with Pepcid Time spent during this admission process was 40 minutes in direct patient care, review of laboratory and radiological data, discussing With the patient.
[2018-11-12] MEDS ORDERED: NORVASC ONE (13:07)
[2018-11-12] MEDS ORDERED: SOLU-Medrol ONE (13:07)
[2018-11-12] MEDS ORDERED: PEPCID IV ONE (13:07)
[2018-11-12] MEDS ORDERED: LOVENOX SUB-Q ONE (13:07)
[2018-11-12 13:24] LABS: Chol/HDL Ratio 4.85 %
[2018-11-12] MEDS: PROVENTIL IH SCH ×4 (13:30→21:24)
[2018-11-12] MEDS: LOVENOX SUB-Q SCH (13:40)
[2018-11-12] MEDS: NORVASC PO SCH (13:40)
[2018-11-12] MEDS: ZITHROMAX 500 MG in NACL 0.9% 250ML 250 ML IV SCH (13:41)
[2018-11-12] MEDS: PEPCID IV SCH (13:41)
[2018-11-12] MEDS: SOLU-Medrol IV SCH ×2 (14:00→22:12)
[2018-11-12] MEDS: HumaLOG SUB-Q SCH ×2 (19:00→22:13)
[2018-11-12] MEDS ORDERED: HumaLOG SUB-Q ONE (19:28)
[2018-11-12] MEDS: PULMICORT IH SCH ×2 (20:51→21:23)
[2018-11-12] MEDS: BROVANA NEBU IH SCH (20:51)
[2018-11-13] MEDS: PROVENTIL IH SCH ×4 (00:45→17:33)
[2018-11-13] MEDS: SOLU-Medrol IV SCH ×2 (05:43→15:03)
[2018-11-13] MEDS: LOVENOX SUB-Q SCH (09:00)
[2018-11-13] MEDS: NORVASC PO SCH (09:02)
[2018-11-13] MEDS: PEPCID IV SCH (09:02)
[2018-11-13] MEDS: HumaLOG SUB-Q SCH ×3 (09:04→16:02)
[2018-11-13] MEDS: ZITHROMAX 500 MG in NACL 0.9% 250ML 250 ML IV SCH (09:08)
[2018-11-13 10:43] LABS: Creatinine,Urine 91.8 mg/dL (0.1-20.0)
--- NOTE | 2018-11-13 10:44 | Discharge Summary ---
Providers - Providers Date of Admission: 11/12/18 07:27 Date of discharge: 11/13/18 Attending physician: RUTHIE HOLGUIN none [facility] Reason for admission: shortness of breath, COPD exacerbation Condition: Critical Pertinent studies: Chest x-ray was unremarkable for any acute event Procedures: none Hospital course: Patient is a 73-year-old male was a history of COPD started having cough with progressive shortness of breath yesterday at home. He was therefore brought emergency room by EMS. Patient denies any fever, no chest pain, orthopnea paroxysmal dyspnea. No abdominal pain, nausea or vomiting. At the emergency department patient was given multiple nebulizer treatments. Symptoms persisted with very minimal improvement. Patient states that his shortness of breath was exertional. At the emergency department patient was placed on BiPAP, given 2 g of magnesium sulfate and IV Solu-Medrol. Chest x-ray shows no acute pulmonary process. Potassium was 3.1 and A1c was 6.5. LDL was 123. Admission was therefore requested. Patient was continued on DuoNeb, IV Solu-Medrol, IV azithromycin and potassium supplementation. Sliding scale insulin for diabetes mellitus new-onset. His symptoms have resolved. Patient stated that he needed to be discharged for very importance from situations need to take. He was advised that it was necessary to taper his Solu-Medrol however he stated he was feeling much better. Patient does want to be discharged today with a by mouth prednisone at a high dose and taper on an outpatient basis. 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 Disposition: TO HOME OR SELFCARE Time spent for discharge: >40 mins - Discharge Diagnoses (1) Acute exacerbation of chronic obstructive pulmonary disease (COPD) Status: Acute (2) COPD (chronic obstructive pulmonary disease) Status: Acute Qualifiers: COPD type: unspecified COPD Qualified Code(s): J44.9 - Chronic obstructive pulmonary disease, unspecified (3) COPD exacerbation Status: Acute (4) Hypokalemia Status: Acute (5) SOB (shortness of breath) Status: Acute (6) Acute respiratory failure Status: Acute Qualifiers: Core Measure Documentation - Palliative Care Palliative Care/ Comfort Measures: Not Applicable - Core Measures Any of the following diagnoses?: none Exam - Physical Exam Narrative exam: Constitutional: Well-nourished well-developed. In no distress Head: Normocephalic atraumatic Eyes: Pupils are equal round and reactive to light Nose: No enlarged turbinates, no septal deviation. Mouth: Moist mucous membranes. Neck: Supple no thyromegaly. No bruit. No JVD Heart: Regular rate and rhythm, S1-S2 normal. No rubs murmurs or gallop Lungs: Decreased breath sounds improved bilaterally. no rales or rhonchi Abdomen: Soft, nontender. Bowel sound are present. Extremities: No edema, no cyanosis, no clubbing. Neuro: Alert oriented Oriented x3. No focal sensory or motor deficit. Skin: No rashes or hyperpigmented spots Musculoskeletal system: No joint pain or swelling Hematological: No petechia or subcutanous hemorrhages. Immunological: No multiple septic spots on the skin Lymphatic: No generalized lymphadenopathy Psychiatry: Euthymic. Calm. - Constitutional Vitals: Temp Pulse Resp BP Pulse Ox 97.9 F 73 20 139/96 86 11/13/18 07:53 11/13/18 09:02 11/13/18 07:53 11/13/18 09:02 11/13/18 07:53 Plan Activity: fall precautions Weight Bearing Status: Non-Weight Bearing Diet: diabetic Follow up with: KOJO HILLMANDARFUR MD NEW [Primary Care Provider] - 7 Days Prescriptions: Glimepiride [Amaryl] 2 mg PO BID #60 tablet amLODIPine [Norvasc] 10 mg PO DAILY #30 tablet Prednisone [predniSONE 5 mg (6-Day Pack, 21 Tabs)] 5 mg PO .TAPER #1 tab.ds.pk ALBUTEROL NEB's [Proventil 0.083% NEBS] 2.5 mg IH Q4HRT #1 nebu Budesonide/Formoterol Fumarate [Symbicort 160-4.5 Mcg Inhaler] 1 puff IH BID #1 hfa.aer.ad ALBUTEROL Inhaler(NF) [VENTOLIN Inhaler(NF)] 3 puff IH Q6H PRN #100 inha PRN Reason: Wheezing Azithromycin [Zithromax] 500 mg IV Q24HR #5 vial
[2018-11-13] MEDS: PULMICORT IH SCH (11:13)
[2018-11-13] MEDS: BROVANA NEBU IH SCH (11:14)
[2018-11-13 11:27] LABS: Basophils % (Auto) 0.1 % (0.0-1.8); Hemoglobin 14.8 gm/dl (11.8-15.2); Lymphocytes # (Auto) 0.6 K/mm3 (1.2-5.4); Lymphocytes % (Auto) 6.2 % (13.4-35.0); Mean Corpuscular HGB Conc 34 % (32-34); Mean Corpuscular Volume 82 fl (84-94); Monocytes # (Auto) 0.7 K/mm3 (0.0-0.8); Monocytes % (Auto) 7.2 % (0.0-7.3); Platelet Count 220 K/mm3 (140-440); Red Blood Count 5.34 M/mm3 (3.65-5.03); Red Cell Distribution Width 15.1 % (13.2-15.2)
[2018-11-13 11:47] LABS: BUN/Creatinine Ratio 19; Blood Urea Nitrogen 13 mg/dL (9-20); Calcium 9.2 mg/dL (8.4-10.2); Hemolysis Index 19
[2018-11-13 17:23] VITALS: BP 120/83
== END 2018-11-13 17:35 | disposition home or self-care (01) | DRG 189 ==
LOC: ED 05:42 → 4A 07:27
PROVIDERS: ADMIT Family Medicine; ATTEND Family Medicine
PROC: 5A09357 Assistance with Respiratory Ventilation, Less than 24 Consecutive Hours, Continuous Positive Airway Pressure (ICD-10-PCS; principal; 2018-11-12)
PROC: 4A033R1 Measurement of Arterial Saturation, Peripheral, Percutaneous Approach (ICD-10-PCS; 2018-11-12)
DX: J96.01 Acute respiratory failure with hypoxia (principal); J44.1 Chronic obstructive pulmonary disease with (acute) exacerbation; E87.6 Hypokalemia; E11.9 Type 2 diabetes mellitus without complications; E78.5 Hyperlipidemia, unspecified; M19.90 Unspecified osteoarthritis, unspecified site; I10 Essential (primary) hypertension; Z79.899 Other long term (current) drug therapy; Z86.73 Personal history of transient ischemic attack (TIA), and cerebral infarction without residual deficits; Z90.49 Acquired absence of other specified parts of digestive tract
CPT/HCPCS: 36415; 71045; 80048; 80053; 80061; 82043; 82140; 82803; 82805; 82962; 83036; 83735; 85025; 93005; 93010; 94640; 94760; G0378; J0456; J1650; J1815; J2920; J3480; J7050

== ENCOUNTER 2019-01-12 08:53 | Emergency (ER) | payer MEDICARE ==
[2019-01-12] MEDS ORDERED: DUONEB *Not for PRN Use IH ONE ×2 (09:15→11:11)
[2019-01-12] MEDS ORDERED: PROVENTIL IH ONE (10:00)
[2019-01-12] MEDS ORDERED: NACL 0.9% 500 ML 500 ML IV ONE (10:00)
--- NOTE | 2019-01-12 10:05 | Emergency Department Report ---
ED General Adult HPI - General Chief complaint: Dyspnea/Respdistress Stated complaint: MATY Time Seen by Provider: 01/12/19 09:52 Source: patient, EMS (ems notes not available at time of chart dictation), RN notes reviewed, old records reviewed Mode of arrival: Stretcher Limitations: No Limitations - History of Present Illness Initial comments: This is a 73-year-old gentleman. I have evaluated this patient in the past. His past medical history includes COPD, supposed to be on home oxygen, reportedly noncompliant, asthma, hypertension, nicotine dependence, schizophrenia The patient is brought to the hospital by emergency medical services for rep orted shortness of breath and cough. The symptoms have been present for 3 weeks. They are painless. The increased physical exertion, and decreased with rest, and oxygen, and nebulizer therapy. Patient was given nebulizer therapy and oxygen in the emergency room prior to my evaluation. The patient endorses no complaints at this time, and states he is ready for discharge. He specifically denies headache, neck pain, chest pain, abdominal pain, urinary symptoms, musculoskeletal pain, rash, and easy bleeding, bruising. He has a chronic cough, chronic shortness of breath. However, these are not new, worsening or different, the patient states he is ready for discharge. -: Gradual, week(s) Quality: other Consistency: other Improves with: other Worsens with: other Associated Symptoms: shortness of breath - Related Data Previous Rx's Medication Instructions Recorded Last Taken Type ALBUTEROL Inhaler(NF) [VENTOLIN 3 puff IH Q6H PRN #100 inha 11/13/18 Unknown Rx Inhaler(NF)] ALBUTEROL NEB's [Proventil 0.083% 2.5 mg IH Q4HRT #1 nebu 11/13/18 Unknown Rx NEBS] Budesonide/Formoterol Fumarate 1 puff IH BID #1 hfa.aer.ad 11/13/18 Unknown Rx [Symbicort 160-4.5 Mcg Inhaler] amLODIPine [Norvasc] 10 mg PO DAILY #30 tablet 11/13/18 Unknown Rx ALPRAZolam [Xanax TAB] 0.25 mg PO Q12HR PRN #14 tablet 12/14/18 Unknown Rx Albuterol Sulfate [Albuterol 0.63% 0.63 mg IH TID PRN 30 Days ml 12/14/18 Unknown Rx NEBS] Azithromycin [Zithromax TAB] 500 mg PO QHS #5 tablet 12/14/18 Unknown Rx Prednisone [predniSONE 10 mg 10 mg PO .TAPER #1 tab.ds.pk 12/14/18 Unknown Rx (6-Day Pack, 21 Tabs)] Roflumilast [Daliresp] 500 mcg PO QDAY #30 tab 12/14/18 Unknown Rx Tiotropium [place] [Spiriva] 1 puff IH DAILY 30 Days cap.w.dev 12/14/18 Unknown Rx guaiFENesin [Robitussin] 200 mg PO Q6H PRN 7 Days tablet 12/14/18 Unknown Rx Albuterol Sulfate [Albuterol 0.63% 0.63 mg IH Q4HR PRN #2 ml 01/12/19 Unknown Rx NEBS] Albuterol Sulfate [Proair 90 mcg IH Q4HR PRN #2 aer.pow.ba 01/12/19 Unknown Rx Respiclick] Ipratropium (Nf) [Atrovent] 2 puff IH Q6HR PRN #5 inha 01/12/19 Unknown Rx Ipratropium [Atrovent NEB] 0.5 mg IH Q4HR #2 ml 01/12/19 Unknown Rx Allergies Allergy/AdvReac Type Severity Reaction Status Date / Time No Known Allergies Allergy Verified 08/09/18 11:38 ED Review of Systems ROS: Stated complaint: MATY Other details as noted in HPI Constitutional: denies: fever Eyes: denies: eye discharge ENT: congestion Respiratory: cough, shortness of breath, SOB with exertion, wheezing Cardiovascular: denies: chest pain Gastrointestinal: denies: abdominal pain, nausea, vomiting Genitourinary: denies: dysuria Musculoskeletal: denies: back pain Skin: denies: lesions Neurological: denies: headache Psychiatric: denies: anxiety Hematological/Lymphatic: denies: easy bleeding ED Past Medical Hx - Past Medical History Previous Medical History?: Yes Hx Hypertension: Yes Hx CVA: Yes (generalized weakness, walks with a cane) Hx Heart Attack/AMI: No Hx Congestive Heart Failure: Yes Hx Diabetes: Yes Hx Deep Vein Thrombosis: No Hx Pulmonary Embolism: No Hx GERD: No Hx Liver Disease: No Hx Renal Disease: No Hx Sickle Cell Disease: No Hx Arthritis: Yes Hx Headaches / Migraines: No Hx Seizures: No Hx Kidney Stones: No Hx Psychiatric Treatment: Yes (schizoprenic) Hx Asthma: Yes Hx COPD: Yes Hx Tuberculosis: No Hx Dementia: No Hx HIV: No Additional medical history: Hx of Dissection?-AAA - Surgical History Past Surgical History?: Yes Hx Coronary Stent: No Hx Open Heart Surgery: No Hx Pacemaker: No Hx Internal Defibrillator: No Hx Cholecystectomy: Yes Hx Appendectomy: Yes Hx Breast Surgery: No - Social History Smoking Status: Former Smoker Substance Use Type: None - Medications Home Medications: Home Medications Medication Instructions Recorded Confirmed Last Taken Type ALBUTEROL Inhaler(NF) [VENTOLIN 3 puff IH Q6H PRN #100 inha 11/13/18 12/11/18 Unknown Rx Inhaler(NF)] ALBUTEROL NEB's [Proventil 0.083% 2.5 mg IH Q4HRT #1 nebu 11/13/18 12/11/18 Unknown Rx NEBS] Budesonide/Formoterol Fumarate 1 puff IH BID #1 hfa.aer.ad 11/13/18 12/11/18 Unknown Rx [Symbicort 160-4.5 Mcg Inhaler] amLODIPine [Norvasc] 10 mg PO DAILY #30 tablet 11/13/18 12/11/18 Unknown Rx ALPRAZolam [Xanax TAB] 0.25 mg PO Q12HR PRN #14 tablet 12/14/18 Unknown Rx Albuterol Sulfate [Albuterol 0.63% 0.63 mg IH TID PRN 30 Days ml 12/14/18 Unknown Rx NEBS] Azithromycin [Zithromax TAB] 500 mg PO QHS #5 tablet 12/14/18 Unknown Rx Prednisone [predniSONE 10 mg 10 mg PO .TAPER #1 tab.ds.pk 12/14/18 Unknown Rx (6-Day Pack, 21 Tabs)] Roflumilast [Daliresp] 500 mcg PO QDAY #30 tab 12/14/18 Unknown Rx Tiotropium [place] [Spiriva] 1 puff IH DAILY 30 Days cap.w.dev 12/14/18 Unknown Rx guaiFENesin [Robitussin] 200 mg PO Q6H PRN 7 Days tablet 12/14/18 Unknown Rx Albuterol Sulfate [Albuterol 0.63% 0.63 mg IH Q4HR PRN #2 ml 01/12/19 Unknown Rx NEBS] Albuterol Sulfate [Proair 90 mcg IH Q4HR PRN #2 aer.pow.ba 01/12/19 Unknown Rx Respiclick] Ipratropium (Nf) [Atrovent] 2 puff IH Q6HR PRN #5 inha 01/12/19 Unknown Rx Ipratropium [Atrovent NEB] 0.5 mg IH Q4HR #2 ml 01/12/19 Unknown Rx ED Physical Exam - General Limitations: No Limitations General appearance: alert, in no apparent distress - Head Head exam: Present: atraumatic, normocephalic - Eye Eye exam: Present: normal appearance, EOMI. Absent: nystagmus - ENT ENT exam: Present: normal exam, normal orophraynx, mucous membranes moist, normal external ear exam - Neck Neck exam: Present: normal inspection, full ROM. Absent: tenderness, meningismus - Respiratory Respiratory exam: Present: decreased breath sounds. Absent: rales, rhonchi, stridor - Cardiovascular Cardiovascular Exam: Present: regular rate, normal rhythm, normal heart sounds. Absent: bradycardia, tachycardia, irregular rhythm, systolic murmur, diastolic murmur, rubs, gallop - GI/Abdominal GI/Abdominal exam: Present: soft. Absent: distended, tenderness, guarding, r ebound, rigid, pulsatile mass - Rectal Rectal exam: Present: deferred - Extremities Exam Extremities exam: Present: normal inspection, full ROM, other (2+ pulses noted in the bilateral upper, lower extremities. Compartments soft. No long bony tenderness. The pelvis is stable.). Absent: tenderness, calf tenderness - Back Exam Back exam: Present: normal inspection, full ROM. Absent: tenderness, CVA tenderness (R), CVA tenderness (L), paraspinal tenderness, vertebral tenderness - Neurological Exam Neurological exam: Present: alert, normal gait, other (Extraocular movements intact. Tongue midline. No facial droop. Facial sensation intact to light touch in the V1, V2, V3 distribution bilaterally. 5 and 5 strength in 4 extremities.. Sensation is intact to light touch in 4 extremities.). Absent: motor sensory deficit - Psychiatric Psychiatric exam: Present: flat affect - Skin Skin exam: Present: warm, dry, intact, normal color. Absent: rash ED Course Vital Signs 01/12/19 01/12/19 01/12/19 09:06 09:15 09:37 Temperature Pulse Rate 88 Respiratory 23 Rate Blood Pressure 126/86 137/94 O2 Sat by Pulse 93 91 92 Oximetry 01/12/19 01/12/19 01/12/19 09:45 10:00 10:15 Temperature Pulse Rate 86 84 82 Respiratory 34 H 29 H 17 Rate Blood Pressure 133/97 129/93 131/93 O2 Sat by Pulse 91 91 91 Oximetry 01/12/19 10:23 Temperature 97.7 F Pulse Rate Respiratory Rate Blood Pressure O2 Sat by Pulse Oximetry ED Medical Decision Making - Lab Data Result diagrams: 01/12/19 10:04 Vital Signs 01/12/19 01/12/19 01/12/19 09:06 09:15 09:37 Temperature Pulse Rate 88 Respiratory 23 Rate Blood Pressure 126/86 137/94 O2 Sat by Pulse 93 91 92 Oximetry 01/12/19 01/12/19 01/12/19 09:45 10:00 10:15 Temperature Pulse Rate 86 84 82 Respiratory 34 H 29 H 17 Rate Blood Pressure 133/97 129/93 131/93 O2 Sat by Pulse 91 91 91 Oximetry 01/12/19 10:23 Temperature 97.7 F Pulse Rate Respiratory Rate Blood Pressure O2 Sat by Pulse Oximetry Lab Results 01/12/19 01/12/19 Range/Units 10:04 10:04 PT 14.0 (12.2-14.9) Sec. INR 1.02 (0.87-1.13) APTT 37.7 H (24.2-36.6) Sec. Sodium 140 (137-145) mmol/L Potassium 3.9 (3.6-5.0) mmol/L Chloride 102.2 (98-107) mmol/L Carbon Dioxide 27 (22-30) mmol/L Anion Gap 15 mmol/L BUN 11 (9-20) mg/dL Creatinine 0.9 (0.8-1.5) mg/dL Estimated GFR > 60 ml/min BUN/Creatinine Ratio 12 % Glucose 116 H (75-100) mg/dL Calcium 9.0 (8.4-10.2) mg/dL Magnesium 2.20 (1.7-2.3) mg/dL Total Creatine Kinase 62 (55-170) units/L - EKG Data 01/12/19 10:45 This is a sinus rhythm, 84 bpm, borderline leftward axis, low voltage, QTC 447 ms, no endorsement of chest pain, motion artifact, this EKG is not consistent with ST elevation myocardial infarction. His EKG appears to be unchanged from prior EKG from 12/11/2018. - Radiology Data Radiology results: pending, report reviewed, image reviewed Print Report Referring Physician: FANG COOPER Patient Name: UBALDO DIAZ Date of : 1945 Sex: Male Report Date: 2019-01-12 Report Status: Finalized Findings [facility] [address] [place] [address] XRay Report Signed Patient: UBALDO DIAZ MR#: [id number] : 1945 Acct:[id number] Age/Sex: 73 / M ADM Date: 01/12/19 Loc: ED Attending Dr: Ordering Physician: FANG COOPER MD Date of Service: 01/12/19 Procedure(s): XR chest routine 2V Accession Number(s): [id number] cc: FANG COOPER MD Fluoro Time In Minutes: CHEST XRAY, 2 VIEWS: History: Shortness of breath. Findings: There is mild diffuse interstitial coarsening. The lungs are hyperexpanded but clear. No infiltrate, pleural fluid or pneumothorax is detected. The cardiac silhouette and pulmonary vasculature are within normal limits for technique. The bony thorax is unremarkable. IMPRESSION: Changes consistent with COPD. No acute cardiopulmonary process. No significant change since 12/11/18. Transcribed By: TTR Dictated By: REGINALD APPIAH JR, MD Electronically Authenticated By: REGINALD APPIAH JR, MD Signed Date/Time: 01/12/19 1045 - Medical Decision Making Differential diagnosis, including but not limited to: Oxygen noncompliance, chronic COPD, progression of COPD, bronchitis, pneumonia, pneumothorax Assessment and plan: 73-year-old gentleman with resolved shortness of breath. He is not tachycardic. O2 sat 93-95% on supplemental oxygen. We would expect this for patient who has chronic COPD. He endorses no leg pain, no leg swelling, he is not tachycardic, and he had a negative CT scan of the chest in November 2018 for evaluation of potential pulmonary embolus. I suspect that the patient is experiencing the natural history of his chronic COPD. He was counseled to remain compliant with home oxygen therapy. Case management saw and evaluated the patient, and got in touch with his home medical researcher supplier, and they stated to the disability case manager that they would come to the patient's house later on today, and reinstruct him as to the use of his home oxygen, and also instructed family members. The patient is currently resting comfortably, and his stretcher, does not appear to have significant work of breathing. The patient at this point in time does not meet criteria for hospitalization. He will be discharged with instructions to follow-up with an outpatient producer arborist manager and/or primary care doctor. Critical care attestation.: If time is entered above; I have spent that time in minutes in the direct care of this critically ill patient, excluding procedure time. ED Disposition Clinical Impression: Noncompliance COPD (chronic obstructive pulmonary disease) Qualifiers: COPD type: unspecified COPD Qualified Code(s): J44.9 - Chronic obstructive pulmonary disease, unspecified Disposition: DC-01 TO HOME OR SELFCARE Is pt being admited?: No Does the pt Need Aspirin: No Condition: Stable Instructions: Chronic Obstructive Pulmonary Disease (ED) Additional Instructions: Make certain to use the home oxygen as instructed by the medical researcher shift production associate. Use the breathing therapies as needed/directed. Noncompliance with home oxygen therapy may result in increased work of breathing, worsening shortness of breath, disability, and extreme cases, , paralysis, permanent loss of quality of life. Please continue current outpatient medications. Follow-up with the primary care doctor or radiology specialist within the next 7-10 days. Please return to the emergency room right away with new, worsened or different symptoms. Prescriptions: Albuterol Sulfate [Albuterol 0.63% NEBS] 0.63 mg IH Q4HR PRN #2 ml PRN Reason: Wheezing Ipratropium (Nf) [Atrovent] 2 puff IH Q6HR PRN #5 inha PRN Reason: Wheezing Ipratropium [Atrovent NEB] 0.5 mg IH Q4HR #2 ml Albuterol Sulfate [Proair Respiclick] 90 mcg IH Q4HR PRN #2 aer.pow.ba PRN Reason: Wheezing Referrals: STANLEY HAWLEY MD [Staff Physician] - 7-10 days [facility] [Provider Group] - 7-10 days
[2019-01-12 10:32] LABS: INR 1.02 (0.87-1.13)
[2019-01-12 10:34] LABS: Partial Thromboplastin Time 37.7 Sec. (24.2-36.6)
[2019-01-12 10:38] LABS: BUN/Creatinine Ratio 12; Blood Urea Nitrogen 11 mg/dL (9-20); Hemolysis Index 2
--- NOTE | 2019-01-12 10:50 | XRay Report ---
CHEST XRAY, 2 VIEWS: History: Shortness of breath. Findings: There is mild diffuse interstitial coarsening. The lungs are hyperexpanded but clear. No infiltrate, pleural fluid or pneumothorax is detected. The cardiac silhouette and pulmonary vasculature are within normal limits for technique. The bony thorax is unremarkable. IMPRESSION: Changes consistent with COPD. No acute cardiopulmonary process. No significant change since 12/11/18.
[2019-01-12 12:05] VITALS: BP 141/91
== END 2019-01-12 12:05 | disposition home or self-care (01) ==
LOC: ED 08:53
DX: J44.9 Chronic obstructive pulmonary disease, unspecified (principal); I11.0 Hypertensive heart disease with heart failure; I50.9 Heart failure, unspecified; M19.90 Unspecified osteoarthritis, unspecified site; Z86.73 Personal history of transient ischemic attack (TIA), and cerebral infarction without residual deficits; Z90.49 Acquired absence of other specified parts of digestive tract; Z87.891 Personal history of nicotine dependence
CPT/HCPCS: 36415; 71046; 80048; 82550; 83735; 85610; 85730; 93005; 93010; 94640; 99284; J7040

== ENCOUNTER 2019-01-14 18:31 | Inpatient (IN) | payer MEDICARE ==
--- NOTE | 2019-01-14 18:39 | Emergency Department Report ---
Blank Doc - Documentation Documentation: This is a 73-year-old male that presents with SOB. HX of COPD. This initial assessment/diagnostic orders/clinical plan/treatment(s) is/are subject to change based on patient's health status, clinical progression and re- assessment by fellow clinical providers in the ED. Further treatment and workup at subsequent clinical providers discretion. Patient/guardians urged not to elope from the ED as their condition may be serious if not clinically assessed and managed. Initial orders include: 1- Patient sent to MAIN ED for further evaluation and treatment 2- labs 3- EKG 4- CXR 5- O2 2 liters
[2019-01-14] MEDS ORDERED: MAGNESIUM SULFATE 2GM/50ML 2 GM/50 ML BAG IV ONE (19:01)
[2019-01-14] MEDS ORDERED: SOLU-Medrol IV ONE (19:01)
[2019-01-14] MEDS ORDERED: MAXIPIME/NS 2 GM/100 ML 2 GM/100 ML BAG IV ONE (19:01)
[2019-01-14] MEDS ORDERED: DUONEB *Not for PRN Use IH ONE ×2 (19:01→23:56)
--- NOTE | 2019-01-14 19:04 | Emergency Department Report ---
ED Shortness of Breath HPI - General Chief Complaint: Dyspnea/Respdistress Stated Complaint: MATY Time Seen by Provider: 01/14/19 18:57 Source: patient Mode of arrival: Wheelchair Limitations: No Limitations - History of Present Illness Initial Comments: Patient is a 73-year-old that presents emergency room with complaints of shortness of breath. Patient states he is having difficulties breathing. Patient states all the symptoms started today approximately 11 AM. Patient states he is having increased work to breathe. Patient denies chest pain. P atient denies cough. Patient denies fever and chills. She states she has a known history of COPD. MD Complaint: shortness of breath -: Sudden Severity: severe Improves With: oxygen, rest, bronchodilators Worsens With: exertion, movement, coughing, inspiration Known History Of: COPD Associated Symptoms: cough Treatments Prior to Arrival: none - Related Data Home Oxygen Therapy: Yes Home Oxygen Amount: 4 Liters Previous Rx's Medication Instructions Recorded Last Taken Type ALBUTEROL Inhaler(NF) [VENTOLIN 3 puff IH Q6H PRN #100 inha 11/13/18 Unknown Rx Inhaler(NF)] ALBUTEROL NEB's [Proventil 0.083% 2.5 mg IH Q4HRT #1 nebu 11/13/18 Unknown Rx NEBS] Budesonide/Formoterol Fumarate 1 puff IH BID #1 hfa.aer.ad 11/13/18 Unknown Rx [Symbicort 160-4.5 Mcg Inhaler] amLODIPine [Norvasc] 10 mg PO DAILY #30 tablet 11/13/18 Unknown Rx ALPRAZolam [Xanax TAB] 0.25 mg PO Q12HR PRN #14 tablet 12/14/18 Unknown Rx Albuterol Sulfate [Albuterol 0.63% 0.63 mg IH TID PRN 30 Days ml 12/14/18 Unknown Rx NEBS] Prednisone [predniSONE 10 mg 10 mg PO .TAPER #1 tab.ds.pk 12/14/18 Unknown Rx (6-Day Pack, 21 Tabs)] Roflumilast [Daliresp] 500 mcg PO QDAY #30 tab 12/14/18 Unknown Rx Tiotropium [place] [Spiriva] 1 puff IH DAILY 30 Days cap.w.dev 12/14/18 Unknown Rx guaiFENesin [Robitussin] 200 mg PO Q6H PRN 7 Days tablet 12/14/18 Unknown Rx Albuterol Sulfate [Albuterol 0.63% 0.63 mg IH Q4HR PRN #2 ml 01/12/19 Unknown Rx NEBS] Albuterol Sulfate [Proair 90 mcg IH Q4HR PRN #2 aer.pow.ba 01/12/19 Unknown Rx Respiclick] Ipratropium (Nf) [Atrovent] 2 puff IH Q6HR PRN #5 inha 01/12/19 Unknown Rx Ipratropium [Atrovent NEB] 0.5 mg IH Q4HR #2 ml 01/12/19 Unknown Rx Allergies Allergy/AdvReac Type Severity Reaction Status Date / Time No Known Allergies Allergy Verified 01/14/19 18:32 ED Review of Systems ROS: Stated complaint: MATY Other details as noted in HPI Constitutional: denies: chills, fever Eyes: denies: eye pain, eye discharge, vision change ENT: denies: ear pain, throat pain Respiratory: cough, shortness of breath, SOB with exertion, SOB at rest, wheezing Cardiovascular: denies: chest pain, palpitations Endocrine: no symptoms reported Gastrointestinal: denies: abdominal pain, nausea, diarrhea Genitourinary: denies: urgency, dysuria Musculoskeletal: denies: back pain, joint swelling, arthralgia Skin: denies: rash, lesions Neurological: denies: headache, weakness, paresthesias Psychiatric: denies: anxiety, depression Hematological/Lymphatic: denies: easy bleeding, easy bruising ED Past Medical Hx - Past Medical History Previous Medical History?: Yes Hx Hypertension: Yes Hx CVA: Yes (generalized weakness, walks with a cane) Hx Heart Attack/AMI: No Hx Congestive Heart Failure: Yes Hx Diabetes: Yes Hx Deep Vein Thrombosis: No Hx Pulmonary Embolism: No Hx GERD: No Hx Liver Disease: No Hx Renal Disease: No Hx Sickle Cell Disease: No Hx Arthritis: Yes Hx Headaches / Migraines: No Hx Seizures: No Hx Kidney Stones: No Hx Psychiatric Treatment: Yes (schizoprenic) Hx Asthma: Yes Hx COPD: Yes Hx Tuberculosis: No Hx Dementia: No Hx HIV: No Additional medical history: Hx of Dissection?-AAA - Surgical History Past Surgical History?: Yes Hx Coronary Stent: No Hx Open Heart Surgery: No Hx Pacemaker: No Hx Internal Defibrillator: No Hx Cholecystectomy: Yes Hx Appendectomy: Yes Hx Breast Surgery: No - Family History Family history: no significant - Social History Smoking Status: Never Smoker Substance Use Type: None - Medications Home Medications: Home Medications Medication Instructions Recorded Confirmed Last Taken Type ALBUTEROL Inhaler(NF) [VENTOLIN 3 puff IH Q6H PRN #100 inha 11/13/18 01/14/19 Unknown Rx Inhaler(NF)] ALBUTEROL NEB's [Proventil 0.083% 2.5 mg IH Q4HRT #1 nebu 11/13/18 01/14/19 Unknown Rx NEBS] Budesonide/Formoterol Fumarate 1 puff IH BID #1 hfa.aer.ad 11/13/18 01/14/19 Unknown Rx [Symbicort 160-4.5 Mcg Inhaler] amLODIPine [Norvasc] 10 mg PO DAILY #30 tablet 11/13/18 01/14/19 Unknown Rx ALPRAZolam [Xanax TAB] 0.25 mg PO Q12HR PRN #14 tablet 12/14/18 01/14/19 Unknown Rx Albuterol Sulfate [Albuterol 0.63% 0.63 mg IH TID PRN 30 Days ml 12/14/18 01/14/19 Unknown Rx NEBS] Prednisone [predniSONE 10 mg 10 mg PO .TAPER #1 tab.ds.pk 12/14/18 01/14/19 Unknown Rx (6-Day Pack, 21 Tabs)] Roflumilast [Daliresp] 500 mcg PO QDAY #30 tab 12/14/18 01/14/19 Unknown Rx Tiotropium [place] [Spiriva] 1 puff IH DAILY 30 Days cap.w.dev 12/14/18 01/14/19 Unknown Rx guaiFENesin [Robitussin] 200 mg PO Q6H PRN 7 Days tablet 12/14/18 01/14/19 Unknown Rx Albuterol Sulfate [Albuterol 0.63% 0.63 mg IH Q4HR PRN #2 ml 01/12/19 01/14/19 Unknown Rx NEBS] Albuterol Sulfate [Proair 90 mcg IH Q4HR PRN #2 aer.pow.ba 01/12/19 01/14/19 Unknown Rx Respiclick] Ipratropium (Nf) [Atrovent] 2 puff IH Q6HR PRN #5 inha 01/12/19 01/14/19 Unknown Rx Ipratropium [Atrovent NEB] 0.5 mg IH Q4HR #2 ml 01/12/19 01/14/19 Unknown Rx ED Physical Exam - General Limitations: No Limitations General appearance: alert, in distress - Head Head exam: Present: atraumatic, normocephalic - Eye Eye exam: Present: normal appearance, PERRL Pupils: Present: normal accommodation - ENT ENT exam: Present: mucous membranes moist - Neck Neck exam: Present: normal inspection - Respiratory Respiratory exam: Present: respiratory distress, wheezes, accessory muscle use, decreased breath sounds, prolonged expiratory - Cardiovascular Cardiovascular Exam: Present: regular rate, normal rhythm. Absent: systolic murmur, diastolic murmur, rubs, gallop - GI/Abdominal GI/Abdominal exam: Present: soft, normal bowel sounds. Absent: distended, tenderness, guarding - Rectal Rectal exam: Present: deferred - Extremities Exam Extremities exam: Present: normal inspection - Back Exam Back exam: Present: normal inspection - Neurological Exam Neurological exam: Present: alert, oriented X3 - Psychiatric Psychiatric exam: Present: normal affect, normal mood - Skin Skin exam: Present: warm, dry, intact, normal color. Absent: rash ED Course Vital Signs 01/14/19 01/14/19 01/14/19 18:36 19:15 19:48 Temperature 97.6 F 98.3 F Pulse Rate 107 H 104 H Pulse Rate [ 87 Anterior Bilateral] Respiratory 26 H 30 H Rate Respiratory 35 H Rate [Anterior Bilateral] Blood Pressure 137/88 Blood Pressure 121/80 [Left] O2 Sat by Pulse 87 90 Oximetry 01/14/19 01/14/19 01/14/19 19:58 20:00 20:30 Temperature Pulse Rate 86 84 Pulse Rate [ 91 H Anterior Bilateral] Respiratory 17 31 H Rate Respiratory 30 H Rate [Anterior Bilateral] Blood Pressure 129/85 129/85 Blood Pressure [Left] O2 Sat by Pulse 97 98 Oximetry 01/14/19 01/14/19 01/14/19 21:00 21:30 22:00 Temperature Pulse Rate 87 85 88 Pulse Rate [ Anterior Bilateral] Respiratory 21 25 H 41 H Rate Respiratory Rate [Anterior Bilateral] Blood Pressure 142/98 142/98 146/96 Blood Pressure [Left] O2 Sat by Pulse 97 97 94 Oximetry 01/14/19 01/14/19 22:30 23:37 Temperature Pulse Rate 83 Pulse Rate [ 90 Anterior Bilateral] Respiratory 22 Rate Respiratory 32 H Rate [Anterior Bilateral] Blood Pressure 142/98 Blood Pressure [Left] O2 Sat by Pulse 96 Oximetry - Reevaluation(s) Reevaluation #1: Initial evaluation done. Patient having increased work of breathing. Patient will be placed on BiPAP and given duo nebs as well as magnesium and Solu-Medrol. 01/14/19 19:03 Patient on BiPAP and work to breath has improved. Patient's distress has decreased. 01/14/19 19:39 Resting comfortably. Patient's work of breathing continues to improve. patient still having some retractions. 01/14/19 20:21 Reevaluation #2: Discussed all results with patient. Patient will be admitted to the hospitalist service. Patient agrees to plan of care. 01/14/19 20:32 Reevaluation #3: Patient became acutely worse. Patient removed his BiPAP because he said it was choking him. Patient has increased work of breathing respiratory distress. Patient wheezing. Patient be given another breathing treatment and replaced on BiPAP. 01/14/19 23:20 Patient's respiratory distress has improved. Patient's work to breathe has improved. Patient on BiPAP with duo neb going. Hospitalist updated with changes. 01/14/19 23:35 Patient resting. Patient will be transferred upstairs. 01/14/19 23:54 - Consultations Consultation #1: Hospitalist consultation for admission. Hospitalist to admit patient. Hospitalist to assume care patient. 01/14/19 20:32 ED Medical Decision Making - Lab Data Result diagrams: 01/14/19 18:45 01/14/19 18:45 - EKG Data -: EKG Interpreted by Me EKG shows normal: sinus rhythm, axis, intervals, QRS complexes, ST-T waves Rate: normal - Radiology Data Radiology results: report reviewed, image reviewed PROCEDURE: XR CHEST 1V AP TECHNIQUE: Chest radiograph single view. HISTORY: sob COMPARISONS: November 12, 2018 . FINDINGS: Heart: Normal. Mediastinum/Vessels: Normal. Lungs/Pleural space: Lungs are hyperinflated. Subsegmental atelectatic changes are noted in the right lung base. There are no confluent infiltrates or mass lesions. Pleural spaces are clear.. Bony thorax: No acute osseous abnormality. Life support devices: None. IMPRESSION: COPD No acute pulmonary process.. - Medical Decision Making Gennaro is a 73-year-old male that presents to emergency room with complaints of shortness of breath 1 day. Patient found to have respiratory distress and increased work of breathing. Patient was placed on BiPAP and his symptoms improve. Patient was also given multiple medications. Patient's labs are unremarkable. Patient states her negative. Patient will be admitted to the hospitalist service for further outpatient treatment. - Differential Diagnosis hypoxia. Shortness of breath. Respiratory distress. COPD exacerbation Critical Care Time: Yes Critical care attestation.: If time is entered above; I have spent that time in minutes in the direct care of this critically ill patient, excluding procedure time. Critical Care Time: 55 minutes ED Disposition Clinical Impression: Respiratory distress, SOB (shortness of breath), Hypoxia, COPD exacerbation COPD (chronic obstructive pulmonary disease) Qualifiers: COPD type: unspecified COPD Qualified Code(s): J44.9 - Chronic obstructive pulmonary disease, unspecified Disposition: OP ADMIT IP TO THIS HOSP Is pt being admited?: Yes Does the pt Need Aspirin: No Condition: Critical Time of Disposition: 20:31
[2019-01-14 19:15] LABS: Basophils # (Auto) 0.1 K/mm3 (0.0-0.1); Basophils % (Auto) 0.8 % (0.0-1.8); Eosinophils # (Auto) 0.3 K/mm3 (0.0-0.4); Eosinophils % (Auto) 3.8 % (0.0-4.3); Hematocrit 45.7 % (35.5-45.6); Hemoglobin 15.4 gm/dl (11.8-15.2); Lymphocytes # (Auto) 1.9 K/mm3 (1.2-5.4); Lymphocytes % (Auto) 25.5 % (13.4-35.0); Mean Corpuscular HGB Conc 34 % (32-34); Mean Corpuscular Volume 82 fl (84-94); Monocytes # (Auto) 1.1 K/mm3 (0.0-0.8); Platelet Count 206 K/mm3 (140-440); Red Blood Count 5.57 M/mm3 (3.65-5.03); Red Cell Distribution Width 17.9 % (13.2-15.2)
[2019-01-14 19:18] LABS: INR 0.96 (0.87-1.13)
[2019-01-14 19:19] LABS: Partial Thromboplastin Time 37.2 Sec. (24.2-36.6)
[2019-01-14 19:23] LABS: Alanine Aminotransferase 14 units/L (7-56); Albumin 4.5 g/dL (3.9-5); BUN/Creatinine Ratio 13; Blood Urea Nitrogen 12 mg/dL (9-20); Calcium 9.2 mg/dL (8.4-10.2); Hemolysis Index 3
[2019-01-14 19:36] LABS: Creatine Kinase MB 2.6 ng/mL (0.0-4.0)
--- NOTE | 2019-01-14 21:04 | XRay Report ---
PROCEDURE: XR CHEST 1V AP TECHNIQUE: Chest radiograph single view. HISTORY: sob COMPARISONS: November 12, 2018 . FINDINGS: Heart: Normal. Mediastinum/Vessels: Normal. Lungs/Pleural space: Lungs are hyperinflated. Subsegmental atelectatic changes are noted in the righ t lung base. There are no confluent infiltrates or mass lesions. Pleural spaces are clear.. Bony thorax: No acute osseous abnormality. Life support devices: None. IMPRESSION: COPD No acute pulmonary process.. This document is electronically signed by Carl Johnston MD., Jan 14 2019 09:02:29 PM ET
[2019-01-14] MEDS ORDERED: SODIUM CHLORIDE FLUSH SYRINGE 10 ML IV PRN (23:05)
[2019-01-14] MEDS ORDERED: TYLENOL PO PRN (23:05)
[2019-01-14] MEDS ORDERED: ZOFRAN IV PRN (23:05)
[2019-01-14] MEDS ORDERED: MORPHINE IV PRN (23:05)
[2019-01-14] MEDS ORDERED: PERCOCET 5/325 PO PRN (23:05)
[2019-01-14] MEDS ORDERED: D50W (25GM) Syringe IV PRN (23:13)
[2019-01-14] MEDS: DUONEB *Not for PRN Use IH SCH (23:37)
--- NOTE | 2019-01-14 23:39 | History and Physical Report ---
History of Present Illness Date of examination: 01/14/19 Date of admission: 01/14/19 23:05 Chief complaint: Shortness of breath History of present illness: Patient is a 73-year-old male with history of COPD on home oxygen (2-3 L) who presented to the ED on account of a day history of worsening shortness of breath. He has associated cough productive of whitish sputum, headaches and lightheadedness. He denies chest pain, fever, chills, palpitation, sore throat, runny nose or congestion, leg swelling, orthopnea or PND. No nausea, vomiting, syncope or loss of consciousness. No abdominal pain, constipation, diarrhea, dysuria or frequency. No reported history of ill contacts. Past History Past Medical History: arthritis, COPD, diabetes, hypertension, other (schizophrenia) Past Surgical History: appendectomy, cholecystectomy Social history: smoking (patient smoked cigarettes for 50 years but quit 3 years ago. He admits to occasional marijuana use. He denies alcohol or other illicit drug use) Family history: other (reviewed and noncontributory to COPD) Medications and Allergies Allergies Allergy/AdvReac Type Severity Reaction Status Date / Time No Known Allergies Allergy Verified 01/14/19 18:32 Home Medications Medication Instructions Recorded Confirmed Last Taken Type ALBUTEROL Inhaler(NF) [VENTOLIN 3 puff IH Q6H PRN #100 inha 11/13/18 01/14/19 Unknown Rx Inhaler(NF)] ALBUTEROL NEB's [Proventil 0.083% 2.5 mg IH Q4HRT #1 nebu 11/13/18 01/14/19 Unknown Rx NEBS] Budesonide/Formoterol Fumarate 1 puff IH BID #1 hfa.aer.ad 11/13/18 01/14/19 Unknown Rx [Symbicort 160-4.5 Mcg Inhaler] amLODIPine [Norvasc] 10 mg PO DAILY #30 tablet 11/13/18 01/14/19 Unknown Rx ALPRAZolam [Xanax TAB] 0.25 mg PO Q12HR PRN #14 tablet 12/14/18 01/14/19 Unknown Rx Albuterol Sulfate [Albuterol 0.63% 0.63 mg IH TID PRN 30 Days ml 12/14/18 01/14/19 Unknown Rx NEBS] Prednisone [predniSONE 10 mg 10 mg PO .TAPER #1 tab.ds.pk 12/14/18 01/14/19 Unknown Rx (6-Day Pack, 21 Tabs)] Roflumilast [Daliresp] 500 mcg PO QDAY #30 tab 12/14/18 01/14/19 Unknown Rx Tiotropium [place] [Spiriva] 1 puff IH DAILY 30 Days cap.w.dev 12/14/18 01/14/19 Unknown Rx guaiFENesin [Robitussin] 200 mg PO Q6H PRN 7 Days tablet 12/14/18 01/14/19 Unknown Rx Albuterol Sulfate [Albuterol 0.63% 0.63 mg IH Q4HR PRN #2 ml 01/12/19 01/14/19 Unknown Rx NEBS] Albuterol Sulfate [Proair 90 mcg IH Q4HR PRN #2 aer.pow.ba 01/12/19 01/14/19 Unknown Rx Respiclick] Ipratropium (Nf) [Atrovent] 2 puff IH Q6HR PRN #5 inha 01/12/19 01/14/19 Unknown Rx Ipratropium [Atrovent NEB] 0.5 mg IH Q4HR #2 ml 01/12/19 01/14/19 Unknown Rx Active Meds: Active Medications Acetaminophen (Tylenol) 650 mg PO Q4H PRN PRN Reason: Pain MILD(1-3)/Fever >100.5/PALACIOS Albuterol/Ipratropium (Duoneb *Not For Prn Use*) 1 ampul IH Q4HRT [facility] Last Admin: 01/14/19 23:37 Dose: 1 ampul Documented by: Dextrose (D50w (25gm) Syringe) 50 ml IV PRN PRN PRN Reason: Hypoglycemia Enoxaparin Sodium (Lovenox) 40 mg SUB-Q QDAY [facility] Guaifenesin (Mucinex Er) 600 mg PO BID DARBY Hydrocodone Bit/Homatropine Methylb (Hydromet) 5 ml PO Q6H PRN PRN Reason: Cough Azithromycin 500 mg/ Sodium (Chloride) 250 mls @ 250 mls/hr IV Q24HR [facility] Insulin Glargine (Lantus) 10 units SUB-Q QHS [facility] Insulin Human Lispro (Humalog) 0 unit SUB-Q ACHS DARBY; Protocol Methylprednisolone Sodium Succinate (Solu-Medrol) 125 mg IV Q6HR [facility]AR[facility] Morphine Sulfate (Morphine) 2 mg IV Q4H PRN PRN Reason: Pain, Moderate (4-6) Ondansetron HCl (Zofran) 4 mg IV Q8H PRN PRN Reason: Nausea And Vomiting Oxycodone/Acetaminophen (Percocet 5/325) 1 tab PO Q6H PRN PRN Reason: Pain, Moderate (4-6) Sodium Chloride (Sodium Chloride Flush Syringe 10 Ml) 10 ml IV BID DARBY Sodium Chloride (Sodium Chloride Flush Syringe 10 Ml) 10 ml IV PRN PRN PRN Reason: LINE FLUSH Review of Systems All systems: negative (except as documented in the HPI, 14 point system reviewed were negative) Exam - Constitutional Vitals: Temp Pulse Resp BP Pulse Ox 98.3 F 83 22 142/98 96 01/14/19 19:15 01/14/19 22:30 01/14/19 22:30 01/14/19 22:30 01/14/19 22:30 General appearance: Present: mild distress, other (on BiPAP) - EENT Eyes: Present: PERRL, EOM intact ENT: hearing intact, clear oral mucosa - Neck Neck: Present: supple - Respiratory Respiratory effort: labored Respiratory: bilateral: diminished - Cardiovascular Rhythm: regular Heart Sounds: Present: S1 & S2 - Extremities Extremities: pulses symmetrical, No edema - Abdominal General gastrointestinal: Present: soft, non-tender, normal bowel sounds Male genitourinary: Present: deferred - Integumentary Integumentary: Present: clear, warm, dry - Musculoskeletal Musculoskeletal: strength equal bilaterally - Psychiatric Psychiatric: appropriate mood/affect, intact judgment & insight - Neurologic Neurologic: CNII-XII intact Results - Labs CBC & Chem 7: 01/14/19 18:45 01/14/19 18:45 Labs: Laboratory Last Values WBC 7.3 K/mm3 (4.5-11.0) 01/14/19 18:45 RBC 5.57 M/mm3 (3.65-5.03) H 01/14/19 18:45 Hgb 15.4 gm/dl (11.8-15.2) H 01/14/19 18:45 Hct 45.7 % (35.5-45.6) H 01/14/19 18:45 MCV 82 fl (84-94) L 01/14/19 18:45 MCH 28 pg (28-32) 01/14/19 18:45 MCHC 34 % (32-34) 01/14/19 18:45 RDW 17.9 % (13.2-15.2) H 01/14/19 18:45 Plt Count 206 K/mm3 (140-440) 01/14/19 18:45 Lymph % (Auto) 25.5 % (13.4-35.0) 01/14/19 18:45 [place] % (Auto) 15.0 % (0.0-7.3) H 01/14/19 18:45 Eos % (Auto) 3.8 % (0.0-4.3) 01/14/19 18:45 Baso % (Auto) 0.8 % (0.0-1.8) 01/14/19 18:45 Lymph # 1.9 K/mm3 (1.2-5.4) 01/14/19 18:45 [place] # 1.1 K/mm3 (0.0-0.8) H 01/14/19 18:45 Eos # 0.3 K/mm3 (0.0-0.4) 01/14/19 18:45 Baso # 0.1 K/mm3 (0.0-0.1) 01/14/19 18:45 Seg Neutrophils % 54.9 % (40.0-70.0) 01/14/19 18:45 Seg Neutrophils # 4.0 K/mm3 (1.8-7.7) 01/14/19 18:45 PT 13.4 Sec. (12.2-14.9) 01/14/19 18:45 INR 0.96 (0.87-1.13) 01/14/19 18:45 APTT 37.2 Sec. (24.2-36.6) H 01/14/19 18:45 Sodium 141 mmol/L (137-145) 01/14/19 18:45 Potassium 3.6 mmol/L (3.6-5.0) 01/14/19 18:45 Chloride 102.8 mmol/L (98-107) 01/14/19 18:45 Carbon Dioxide 24 mmol/L (22-30) 01/14/19 18:45 18 mmol/L 01/14/19 18:45 BUN 12 mg/dL (9-20) 01/14/19 18:45 0.9 mg/dL (0.8-1.5) 01/14/19 18:45 Estimated GFR > 60 ml/min 01/14/19 18:45 13 % 01/14/19 18:45 Glucose 102 mg/dL (75-100) H 01/14/19 18:45 Calcium 9.2 mg/dL (8.4-10.2) 01/14/19 18:45 0.50 mg/dL (0.1-1.2) 01/14/19 18:45 AST 13 units/L (5-40) 01/14/19 18:45 ALT 14 units/L (7-56) 01/14/19 18:45 106 units/L (35-129) 01/14/19 18:45 61 units/L (55-170) 01/14/19 18:45 CK-MB (CK-2) 2.6 ng/mL (0.0-4.0) 01/14/19 18:45 CK-MB (CK-2) Rel Index 4.2 (0-4) H 01/14/19 18:45 < 0.010 ng/mL (0.00-0.029) 01/14/19 18:45 7.6 g/dL (6.3-8.2) 01/14/19 18:45 4.5 g/dL (3.9-5) 01/14/19 18:45 1.5 % 01/14/19 18:45 Assessment and Plan Assessment and plan: Acute COPD exacerbation -Probably secondary to acute bronchitis -On IV steroids, antibiotic, Mucinex and nebulizer breathing treatments Acute on chronic respiratory failure with hypoxia -On BiPAP -Continue oxygen supplementation as needed and duonebs Hypertension -Stable DM2 -Controlled Schizophrenia -Stable DVT prophylaxis with Lovenox Disposition: For discharge when medically stable Time spent: 40 minutes
[2019-01-15] MEDS ORDERED: XANAX PO PRN ×2 (00:23→10:00)
[2019-01-15] MEDS: MUCINEX ER PO SCH ×3 (00:35→21:33)
[2019-01-15] MEDS: SOLU-Medrol IV SCH ×5 (00:35→23:41)
[2019-01-15] MEDS: HYDROMET PO PRN ×2 (00:36→21:32)
[2019-01-15] MEDS: DUONEB *Not for PRN Use IH SCH ×5 (03:45→19:35)
--- NOTE | 2019-01-15 07:37 | Progress Note ---
Assessment and Plan Assessment and plan: Acute COPD exacerbation Probably secondary to acute bronchitis On IV steroids, antibiotic, Mucinex and nebulizer breathing treatments --Acute on chronic respiratory failure with hypoxia Secondary to COPD exacerbation, oxygen titrate O2 sats to more than 90% BiPAP as needed, evaluate for home oxygen at discharge --Hypertension; moderate control Continue current antihypertensives and when necessary medications --DM2;Accu-Chek sliding scale coverage and ADA diet and insulin as needed --Schizophrenia; Stable, continue current management --DVT prophylaxis with Lovenox Monitor closely and adjust management as needed Possible discharge in 1-2 days if stable Plan of care to the patient and his nurse History Interval history: Patient seen and examined medical records reviewed Admitted with acute on chronic respiratory failure Secondary to COPD exacerbation Patient feels slightly better, still has mild wheezing Vital signs reviewed Hospitalist Physical - Constitutional Vitals: Temp Pulse Resp BP Pulse Ox 98.2 F 87 18 146/97 97 01/15/19 04:18 01/15/19 04:18 01/15/19 04:18 01/15/19 04:18 01/15/19 04:18 General appearance: Present: mild distress, well-nourished, other (on BiPAP) - EENT Eyes: Present: PERRL, EOM intact - Neck Neck: Present: supple, normal ROM - Respiratory Respiratory effort: normal Respiratory: bilateral: diminished, rhonchi, wheezing, negative: rales - Cardiovascular Rhythm: regular Heart Sounds: Present: S1 & S2 - Extremities Extremities: no ischemia, No edema - Abdominal General gastrointestinal: soft, non-tender, non-distended, normal bowel sounds - Integumentary Integumentary: Present: clear, warm - Psychiatric Psychiatric: appropriate mood/affect, cooperative - Neurologic Neurologic: CNII-XII intact, moves all extremities Results - Labs CBC & Chem 7: 01/14/19 18:45 01/14/19 18:45 Labs: Laboratory Last Values WBC 7.3 K/mm3 (4.5-11.0) 01/14/19 18:45 RBC 5.57 M/mm3 (3.65-5.03) H 01/14/19 18:45 Hgb 15.4 gm/dl (11.8-15.2) H 01/14/19 18:45 Hct 45.7 % (35.5-45.6) H 01/14/19 18:45 MCV 82 fl (84-94) L 01/14/19 18:45 MCH 28 pg (28-32) 01/14/19 18:45 MCHC 34 % (32-34) 01/14/19 18:45 RDW 17.9 % (13.2-15.2) H 01/14/19 18:45 Plt Count 206 K/mm3 (140-440) 01/14/19 18:45 Lymph % (Auto) 25.5 % (13.4-35.0) 01/14/19 18:45 Mclennan % (Auto) 15.0 % (0.0-7.3) H 01/14/19 18:45 Eos % (Auto) 3.8 % (0.0-4.3) 01/14/19 18:45 Baso % (Auto) 0.8 % (0.0-1.8) 01/14/19 18:45 Lymph # 1.9 K/mm3 (1.2-5.4) 01/14/19 18:45 Mclennan # 1.1 K/mm3 (0.0-0.8) H 01/14/19 18:45 Eos # 0.3 K/mm3 (0.0-0.4) 01/14/19 18:45 Baso # 0.1 K/mm3 (0.0-0.1) 01/14/19 18:45 Seg Neutrophils % 54.9 % (40.0-70.0) 01/14/19 18:45 Seg Neutrophils # 4.0 K/mm3 (1.8-7.7) 01/14/19 18:45 PT 13.4 Sec. (12.2-14.9) 01/14/19 18:45 INR 0.96 (0.87-1.13) 01/14/19 18:45 APTT 37.2 Sec. (24.2-36.6) H 01/14/19 18:45 POC ABG pH 7.339 (7.35-7.45) L 01/14/19 23:56 POC ABG pCO2 41.6 (35-45) 01/14/19 23:56 POC ABG pO2 104 (80-105) 01/14/19 23:56 POC ABG HCO3 22.4 (22-26 mml/L) 01/14/19 23:56 POC ABG Total CO2 24 (23-27mmol/L) 01/14/19 23:56 POC ABG O2 Sat 98 01/14/19 23:56 POC ABG Base Excess -3 ((-2) - (+3)mmol/L) 01/14/19 23:56 40 % 01/14/19 23:56 Sodium 141 mmol/L (137-145) 01/14/19 18:45 Potassium 3.6 mmol/L (3.6-5.0) 01/14/19 18:45 Chloride 102.8 mmol/L (98-107) 01/14/19 18:45 Carbon Dioxide 24 mmol/L (22-30) 01/14/19 18:45 18 mmol/L 01/14/19 18:45 BUN 12 mg/dL (9-20) 01/14/19 18:45 0.9 mg/dL (0.8-1.5) 01/14/19 18:45 Estimated GFR > 60 ml/min 01/14/19 18:45 13 % 01/14/19 18:45 Glucose 102 mg/dL (75-100) H 01/14/19 18:45 Calcium 9.2 mg/dL (8.4-10.2) 01/14/19 18:45 0.50 mg/dL (0.1-1.2) 01/14/19 18:45 AST 13 units/L (5-40) 01/14/19 18:45 ALT 14 units/L (7-56) 01/14/19 18:45 106 units/L (35-129) 01/14/19 18:45 61 units/L (55-170) 01/14/19 18:45 CK-MB (CK-2) 2.6 ng/mL (0.0-4.0) 01/14/19 18:45 CK-MB (CK-2) Rel Index 4.2 (0-4) H 01/14/19 18:45 < 0.010 ng/mL (0.00-0.029) 01/15/19 00:52 7.6 g/dL (6.3-8.2) 01/14/19 18:45 4.5 g/dL (3.9-5) 01/14/19 18:45 1.5 % 01/14/19 18:45 Active Medications - Current Medications Current Medications: Generic Name Dose Route Start Last Admin Trade Name Freq PRN Reason Stop Dose Admin Acetaminophen 650 mg 01/14/19 23:05 Tylenol PO Q4H PRN Pain MILD(1-3)/Fever >100.5/PALACIOS Albuterol/Ipratropium 1 ampul 01/15/19 00:00 01/15/19 03:45 Duoneb *Not For Prn Use* IH Not Given Q4HRT [facility] Alprazolam 0.25 mg 01/15/19 00:23 01/15/19 02:25 Xanax PO 0.25 mg Q8H PRN Administration Anxiety Dextrose 50 ml 01/14/19 23:13 D50w (25gm) Syringe IV PRN PRN Hypoglycemia Enoxaparin Sodium 40 mg 01/15/19 10:00 Lovenox SUB-Q QDAY [facility] Guaifenesin 600 mg 01/14/19 23:45 01/15/19 00:35 Mucinex Er PO 600 mg BID [facility] Administration Hydrocodone Bit/Homatropine Methylb 5 ml 01/14/19 23:10 01/15/19 00:36 Hydromet PO 5 ml Q6H PRN Administration Cough Azithromycin 500 mg/ Sodium 250 mls @ 250 mls/hr 01/15/19 10:00 Chloride IV Q24HR [facility] Insulin Glargine 10 units 01/15/19 22:00 Lantus SUB-Q QHS [facility] Insulin Human Lispro 0 unit 01/15/19 07:30 Humalog SUB-Q ACHS [facility] Protocol Methylprednisolone Sodium Succinate 125 mg 01/15/19 00:00 01/15/19 05:14 Solu-Medrol IV 125 mg Q6HR [facility] Administration Morphine Sulfate 2 mg 01/14/19 23:05 Morphine IV Q4H PRN Pain, Moderate (4-6) Ondansetron HCl 4 mg 01/14/19 23:05 Zofran IV Q8H PRN Nausea And Vomiting Oxycodone/Acetaminophen 1 tab 01/14/19 23:05 Percocet 5/325 PO Q6H PRN Pain, Moderate (4-6) Sodium Chloride 10 ml 01/15/19 10:00 Sodium Chloride Flush Syringe 10 Ml IV BID DARBY Sodium Chloride 10 ml 01/14/19 23:05 Sodium Chloride Flush Syringe 10 Ml IV PRN PRN LINE FLUSH
[2019-01-15] MEDS: HumaLOG SUB-Q SCH ×4 (09:04→21:34)
[2019-01-15] MEDS: SPIRIVA IH SCH (10:22)
[2019-01-15] MEDS: LOVENOX SUB-Q SCH (10:55)
[2019-01-15] MEDS: SODIUM CHLORIDE FLUSH SYRINGE 10 ML IV SCH ×2 (10:56→21:34)
[2019-01-15] MEDS: NORVASC PO SCH (10:58)
[2019-01-15] MEDS: ZITHROMAX 500 MG in NACL 0.9% 250ML 250 ML IV SCH (11:09)
[2019-01-15] MEDS ORDERED: LANTUS SUB-Q SCH (22:00)
[2019-01-16] MEDS: DUONEB *Not for PRN Use IH SCH ×5 (00:04→15:00)
[2019-01-16] MEDS: SOLU-Medrol IV SCH ×2 (05:35→12:05)
[2019-01-16] MEDS: HumaLOG SUB-Q SCH ×2 (08:55→12:05)
[2019-01-16] MEDS: MUCINEX ER PO SCH (09:53)
[2019-01-16] MEDS: NORVASC PO SCH (09:53)
[2019-01-16] MEDS: LOVENOX SUB-Q SCH (09:53)
[2019-01-16] MEDS: ZITHROMAX 500 MG in NACL 0.9% 250ML 250 ML IV SCH (09:54)
[2019-01-16] MEDS: SODIUM CHLORIDE FLUSH SYRINGE 10 ML IV SCH (09:54)
[2019-01-16] MEDS: SPIRIVA IH SCH (10:00)
--- NOTE | 2019-01-16 15:47 | Discharge Summary ---
Providers - Providers Date of Admission: 01/14/19 23:05 Date of discharge: 01/16/19 Attending physician: YAMILE LYNNE Primary care physician: KELSEY ARREDONDO Hospitalization Reason for admission: Worsening shortness of breath Condition: Stable Pertinent studies: CXR : no acute abnormality Hospital course: 73-year-old male with history of COPD on home oxygen (2-3 L) was admitted through ER with history of worsening shortness of breath. He has associated cough productive of whitish sputum, headaches and lightheadedness. He denies chest pain, noted to be in acute on chronic resp failure requiring Bipap, due to acute exacerbation of COPD. Admitted,symptomatically managed,on tapering doses of steroids. Symptoms improved,today patient is comfortable,no new complaints,vitals stable,physical exam is unremarkable. Stable at discharge, advised to cont home o2 as before Diacharge Diagnosis: and management --Acute COPD exacerbation Probably secondary to acute bronchitis On IV steroids, antibiotic, Mucinex and nebulizer breathing treatments --Acute on chronic respiratory failure with hypoxia Secondary to COPD exacerbation, oxygen titrate O2 sats to more than 90% BiPAP as needed, evaluate for home oxygen at discharge --Hypertension; moderate control Continue current antihypertensives and when necessary medications --DM2;Accu-Chek sliding scale coverage and ADA diet and insulin as needed --Schizophrenia; Stable, continue current management --DVT prophylaxis with Lovenox Stable at discharge Disposition: DC-01 TO HOME OR SELFCARE Time spent for discharge: 32 min Core Measure Documentation - Palliative Care Palliative Care/ Comfort Measures: Not Applicable - Core Measures Any of the following diagnoses?: none Exam - Constitutional Vitals: Temp Pulse Resp BP Pulse Ox 98.8 F 95 H 18 142/94 96 01/16/19 11:31 01/16/19 12:37 01/16/19 12:37 01/16/19 11:31 01/16/19 11:30 General appearance: Present: no acute distress, well-nourished - EENT Eyes: Present: PERRL, EOM intact - Neck Neck: Present: supple, normal ROM - Respiratory Respiratory effort: normal Respiratory: bilateral: diminished, wheezing (scanty), negative: rales, rhonchi - Cardiovascular Rhythm: regular Heart Sounds: Present: S1 & S2 - Extremities Extremities: no ischemia, No edema - Abdominal General gastrointestinal: Present: soft, non-tender, non-distended, normal bowel sounds - Integumentary Integumentary: Present: clear, warm - Musculoskeletal Musculoskeletal: strength equal bilaterally - Psychiatric Psychiatric: appropriate mood/affect, cooperative - Neurologic Neurologic: CNII-XII intact, moves all extremities Plan Activity: advance as tolerated, fall precautions Diet: diabetic Follow up with: KELSEY ARREDONDO MD [Primary Care Provider] - 3-5 Days Prescriptions: guaiFENesin ER [Mucinex ER] 600 mg PO BID #30 tablet Prednisone [predniSONE 10 mg (6-Day Pack, 21 Tabs)] 10 mg PO .TAPER #1 tab.ds.pk Azithromycin [Zithromax Z-KENNA] 0 mg PO DAILY #1 tab
[2019-01-16 16:47] VITALS: BP 140/94
== END 2019-01-16 17:11 | disposition home or self-care (01) | DRG 189 ==
LOC: ED 18:31 → 4A 23:05
PROVIDERS: ADMIT Internal Medicine; ATTEND Internal Medicine
PROC: 4A033R1 Measurement of Arterial Saturation, Peripheral, Percutaneous Approach (ICD-10-PCS; principal; 2019-01-14)
PROC: 5A09357 Assistance with Respiratory Ventilation, Less than 24 Consecutive Hours, Continuous Positive Airway Pressure (ICD-10-PCS; 2019-01-14)
PROC: 5A09457 Assistance with Respiratory Ventilation, 24-96 Consecutive Hours, Continuous Positive Airway Pressure (ICD-10-PCS; 2019-01-15)
DX: J96.21 Acute and chronic respiratory failure with hypoxia (principal); J44.1 Chronic obstructive pulmonary disease with (acute) exacerbation; J44.0 Chronic obstructive pulmonary disease with (acute) lower respiratory infection; J20.9 Acute bronchitis, unspecified; E11.9 Type 2 diabetes mellitus without complications; F20.9 Schizophrenia, unspecified; M19.90 Unspecified osteoarthritis, unspecified site; I11.0 Hypertensive heart disease with heart failure; I50.9 Heart failure, unspecified; Z90.49 Acquired absence of other specified parts of digestive tract; Z87.891 Personal history of nicotine dependence; Z79.899 Other long term (current) drug therapy; Z86.73 Personal history of transient ischemic attack (TIA), and cerebral infarction without residual deficits
CPT/HCPCS: 36415; 36600; 71045; 71046; 80048; 80053; 82550; 82553; 82803; 82962; 83735; 84484; 85025; 85610; 85730; 87116; 93005; 93010; 94640; 94660; 94760; 96365; 96367; 96375; 99284; G0378; J0456; J0692; J1650; J1815; J2930; J3475; J7040; J7050

== ENCOUNTER 2019-02-22 04:38 | Inpatient (IN) | payer MEDICARE ==
[2019-02-22] MEDS ORDERED: PROVENTIL IH ONE ×3 (04:42→06:26)
--- NOTE | 2019-02-22 04:44 | Event Note ---
Date: 02/22/19 Medical screening examination: 73-year-old gentleman with chronic respiratory failure, noncompliant with therapy, still consuming tobacco, as per EMS, presenting with resolve cough, wheezing, shortness of breath 1 week. Patient given albuterol, steroids and magnesium in the field. This appears to have resolved patient's symptoms. Patient denies pain at this time, with the exception of frontal sinus headache secondary to coughing. Patient appears comfortable, we will obtain screening laboratory studies, EKG, x-ray of the chest, and given additional albuterol. Patient endorses no pulmonary embolism or DVT risk factors.
[2019-02-22] MEDS ORDERED: ATROVENT IH ONE ×2 (05:22→06:26)
[2019-02-22 05:32] LABS: Hematocrit 45.6 % (35.5-45.6); Hemoglobin 15.2 gm/dl (11.8-15.2); Mean Corpuscular HGB Conc 33 % (32-34); Mean Corpuscular Volume 83 fl (84-94); Platelet Count 187 K/mm3 (140-440); Red Blood Count 5.47 M/mm3 (3.65-5.03); Red Cell Distribution Width 17.4 % (13.2-15.2)
[2019-02-22 05:46] LABS: BUN/Creatinine Ratio 11; Blood Urea Nitrogen 11 mg/dL (9-20); Calcium 9.4 mg/dL (8.4-10.2); Hemolysis Index 10
[2019-02-22 05:50] LABS: INR 0.95 (0.87-1.13)
[2019-02-22] MEDS ORDERED: TESSALON PERLES PO ONE (06:13)
--- NOTE | 2019-02-22 06:17 | XRay Report ---
PROCEDURE: XR CHEST ROUTINE 2V TECHNIQUE: PA and lateral chest radiographs were obtained. HISTORY: Dyspnea COMPARISONS: 01/14/2019. FINDINGS: No mediastinal shift. Cardiac silhouette is not enlarged. Linear bibasilar atelectasis/scarring. Mil d hyperaeration of the lungs. No pneumothorax, effusion, or focal pulmonary opacity. No acute skeleta l finding. IMPRESSION: No acute pulmonary findings identified. This document is electronically signed by Tito Agee MD., February 22 2019 06:15:58 AM ET
[2019-02-22] MEDS ORDERED: MUCINEX ER PO ONE (06:24)
--- NOTE | 2019-02-22 06:48 | Emergency Department Report ---
ED Shortness of Breath HPI - General Chief Complaint: Dyspnea/Respdistress Stated Complaint: MATY Time Seen by Provider: 02/22/19 06:12 Source: patient, EMS, old records reviewed Mode of arrival: Stretcher Limitations: No Limitations - History of Present Illness Initial Comments: 73-year-old male with a past medical history of COPD on 2 to 3 L of home oxygen, asthma, CHF, diabetes, hypertension, and schizophrenia presents to Hospital complaints of shortness of breath with cough 2 weeks. Cough is productive of white foamy sputum. Symptoms acutely worsened this a.m. with a increased wheezing and dyspnea. Patient received albuterol 5 mg, Solu-Medrol 125 mg, and magnesium 2 g and routes with some improvement in symptoms but persistent wheezing. He had received an additional 5 mg of albuterol after ED arrival and prior to my evaluation. Patient has history of previous intubations but he cannot recall how many. He was recently admitted here in May require BiPAP support her COPD exacerbation. Patient apparently has seen Dr. George ortiz in the past but "I have not seen her in a long time". Patient denies fever. Patient complains of pain to the head and head secondary to cough. Patient states he stopped smoking one week ago that he was tired of coughing. - Related Data Previous Rx's Medication Instructions Recorded Last Taken Type ALBUTEROL Inhaler(NF) [VENTOLIN 3 puff IH Q6H PRN #100 inha 11/13/18 Unknown Rx Inhaler(NF)] ALBUTEROL NEB's [Proventil 0.083% 2.5 mg IH Q4HRT #1 nebu 11/13/18 Unknown Rx NEBS] Budesonide/Formoterol Fumarate 1 puff IH BID #1 hfa.aer.ad 11/13/18 Unknown Rx [Symbicort 160-4.5 Mcg Inhaler] amLODIPine [Norvasc] 10 mg PO DAILY #30 tablet 11/13/18 Unknown Rx ALPRAZolam [Xanax TAB] 0.25 mg PO Q12HR PRN #14 tablet 12/14/18 Unknown Rx Roflumilast [Daliresp] 500 mcg PO QDAY #30 tab 12/14/18 Unknown Rx Tiotropium Weiner [Spiriva] 1 puff IH DAILY 30 Days cap.w.dev 12/14/18 Unknown Rx guaiFENesin [Robitussin] 200 mg PO Q6H PRN 7 Days tablet 12/14/18 Unknown Rx Ipratropium (Nf) [Atrovent HFA 2 puff IH Q6HR PRN #5 inha 01/12/19 Unknown Rx 17MCG/PUFF] Ipratropium [Atrovent NEB] 0.5 mg IH Q4HR #2 ml 01/12/19 Unknown Rx Azithromycin [Zithromax Z-KENNA] 0 mg PO DAILY #1 tab 01/16/19 Unknown Rx Prednisone [predniSONE 10 mg 10 mg PO .TAPER #1 tab.ds.pk 01/16/19 Unknown Rx (6-Day Pack, 21 Tabs)] guaiFENesin ER [Mucinex ER] 600 mg PO BID #30 tablet 01/16/19 Unknown Rx Allergies Allergy/AdvReac Type Severity Reaction Status Date / Time No Known Allergies Allergy Verified 01/14/19 18:32 ED Review of Systems ROS: Stated complaint: MATY Other details as noted in HPI Comment: All other systems reviewed and negative ED Past Medical Hx - Past Medical History Previous Medical History?: Yes Hx Hypertension: Yes Hx CVA: Yes (generalized weakness, walks with a cane) Hx Heart Attack/AMI: No Hx Congestive Heart Failure: Yes Hx Diabetes: Yes Hx Deep Vein Thrombosis: No Hx Pulmonary Embolism: No Hx GERD: No Hx Liver Disease: No Hx Renal Disease: No Hx Sickle Cell Disease: No Hx Arthritis: Yes Hx Headaches / Migraines: No Hx Seizures: No Hx Kidney Stones: No Hx Psychiatric Treatment: Yes (schizoprenic) Hx Asthma: Yes Hx COPD: Yes Hx Tuberculosis: No Hx Dementia: No Hx HIV: No Additional medical history: Hx of Dissection?-AAA - Surgical History Past Surgical History?: Yes Hx Coronary Stent: No Hx Open Heart Surgery: No Hx Pacemaker: No Hx Internal Defibrillator: No Hx Cholecystectomy: Yes Hx Appendectomy: Yes Hx Breast Surgery: No - Social History Smoking Status: Never Smoker Substance Use Type: None - Medications Home Medications: Home Medications Medication Instructions Recorded Confirmed Last Taken Type ALBUTEROL Inhaler(NF) [VENTOLIN 3 puff IH Q6H PRN #100 inha 11/13/18 01/14/19 Unknown Rx Inhaler(NF)] ALBUTEROL NEB's [Proventil 0.083% 2.5 mg IH Q4HRT #1 nebu 11/13/18 01/14/19 Unknown Rx NEBS] Budesonide/Formoterol Fumarate 1 puff IH BID #1 hfa.aer.ad 11/13/18 01/14/19 Unknown Rx [Symbicort 160-4.5 Mcg Inhaler] amLODIPine [Norvasc] 10 mg PO DAILY #30 tablet 11/13/18 01/14/19 Unknown Rx ALPRAZolam [Xanax TAB] 0.25 mg PO Q12HR PRN #14 tablet 12/14/18 01/14/19 Unknown Rx Roflumilast [Daliresp] 500 mcg PO QDAY #30 tab 12/14/18 01/14/19 Unknown Rx Tiotropium Weiner [Spiriva] 1 puff IH DAILY 30 Days cap.w.dev 12/14/18 01/14/19 Unknown Rx guaiFENesin [Robitussin] 200 mg PO Q6H PRN 7 Days tablet 12/14/18 01/14/19 Unknown Rx Ipratropium (Nf) [Atrovent HFA 2 puff IH Q6HR PRN #5 inha 01/12/19 01/14/19 Unknown Rx 17MCG/PUFF] Ipratropium [Atrovent NEB] 0.5 mg IH Q4HR #2 ml 01/12/19 01/14/19 Unknown Rx Azithromycin [Zithromax Z-KENNA] 0 mg PO DAILY #1 tab 01/16/19 Unknown Rx Prednisone [predniSONE 10 mg 10 mg PO .TAPER #1 tab.ds.pk 01/16/19 Unknown Rx (6-Day Pack, 21 Tabs)] guaiFENesin ER [Mucinex ER] 600 mg PO BID #30 tablet 01/16/19 Unknown Rx ED Physical Exam - General Limitations: No Limitations - Other Other exam information: General: Mild distress secondary to dyspnea Head exam: Atraumatic, normocephalic Eyes exam: Normal appearance ENT: Moist mucous membrane Neck exam: Normal inspection, full range of motion, no meningismus nontender Respiratory exam: Diminished breath sounds, scattered wheezing, tachypnea and moderate accessory muscle use Cardiovascular: Normal rate and rhythm Abdomen: Soft, nondistended, and nontender, with normal bowel sounds, no rebound, or guarding Extremity: Full range of motion normal inspection no deformity, no calf t enderness Back: Normal Inspection, full range of motion, no tenderness Neurologic: Alert, oriented x3, cranial nerves intact, no motor or sensory deficit Psychiatric: normal affect, normal mood Skin: Warm, dry, intact ED Course Vital Signs 02/22/19 02/22/19 02/22/19 04:44 04:45 04:50 Temperature 97.8 F Pulse Rate 87 Pulse Rate [ Bilateral Throughout] Respiratory 11 L 44 H Rate Respiratory Rate [Bilateral Throughout] Blood Pressure 120/83 120/83 120/83 Blood Pressure 120/83 [Left] O2 Sat by Pulse 96 Oximetry 02/22/19 02/22/19 02/22/19 05:09 05:16 05:30 Temperature Pulse Rate 78 Pulse Rate [ Bilateral Throughout] Respiratory 22 Rate Respiratory Rate [Bilateral Throughout] Blood Pressure 120/83 130/91 130/91 Blood Pressure [Left] O2 Sat by Pulse 95 94 Oximetry 02/22/19 02/22/19 02/22/19 05:33 05:46 06:00 Temperature Pulse Rate 86 Pulse Rate [ 80 Bilateral Throughout] Respiratory 33 H Rate Respiratory 21 Rate [Bilateral Throughout] Blood Pressure 127/82 122/74 Blood Pressure 127/82 [Left] O2 Sat by Pulse 96 98 Oximetry 02/22/19 02/22/19 02/22/19 06:15 06:16 06:30 Temperature Pulse Rate 107 H 81 Pulse Rate [ 85 Bilateral Throughout] Respiratory 27 H 20 Rate Respiratory 24 Rate [Bilateral Throughout] Blood Pressure 122/74 128/83 Blood Pressure [Left] O2 Sat by Pulse 93 96 Oximetry 02/22/19 02/22/19 02/22/19 06:33 06:46 07:00 Temperature Pulse Rate 79 80 Pulse Rate [ 85 Bilateral Throughout] Respiratory 25 H 24 Rate Respiratory 25 H Rate [Bilateral Throughout] Blood Pressure 128/83 133/85 Blood Pressure [Left] O2 Sat by Pulse 96 97 Oximetry 02/22/19 02/22/19 02/22/19 07:16 07:30 07:46 Temperature Pulse Rate 82 88 86 Pulse Rate [ Bilateral Throughout] Respiratory 26 H 29 H 29 H Rate Respiratory Rate [Bilateral Throughout] Blood Pressure 133/85 124/83 124/83 Blood Pressure [Left] O2 Sat by Pulse 99 94 93 Oximetry 02/22/19 02/22/19 02/22/19 08:00 08:16 08:30 Temperature Pulse Rate 100 H 84 89 Pulse Rate [ Bilateral Throughout] Respiratory 18 29 H 27 H Rate Respiratory Rate [Bilateral Throughout] Blood Pressure 142/95 142/95 133/72 Blood Pressure [Left] O2 Sat by Pulse 92 91 90 Oximetry 02/22/19 08:46 Temperature Pulse Rate 89 Pulse Rate [ Bilateral Throughout] Respiratory 27 H Rate Respiratory Rate [Bilateral Throughout] Blood Pressure 133/72 Blood Pressure [Left] O2 Sat by Pulse 91 Oximetry - ABG Interpretation Ph: 7.37 PCO2: 38 PO2: 61 Bicarbonate: 22 Additional Comments: sat 91% on 2 L of O2 Interpretation: Hypoxia otherwise unremarkable ED Medical Decision Making - Lab Data Result diagrams: 02/22/19 05:18 02/22/19 05:18 Lab Results 02/22/19 02/22/19 02/22/19 Range/Units 05:18 05:18 05:18 WBC 6.2 (4.5-11.0) K/mm3 RBC 5.47 H (3.65-5.03) M/mm3 Hgb 15.2 (11.8-15.2) gm/dl Hct 45.6 (35.5-45.6) % MCV 83 L (84-94) fl MCH 28 (28-32) pg MCHC 33 (32-34) % RDW 17.4 H (13.2-15.2) % Plt Count 187 (140-440) K/mm3 PT (12.2-14.9) Sec. INR (0.87-1.13) Sodium 141 (137-145) mmol/L Potassium 3.7 (3.6-5.0) mmol/L Chloride 100.7 (98-107) mmol/L Carbon Dioxide 27 (22-30) mmol/L Anion Gap 17 mmol/L BUN 11 (9-20) mg/dL Creatinine 1.0 (0.8-1.5) mg/dL Estimated GFR > 60 ml/min BUN/Creatinine Ratio 11 % Glucose 129 H (75-100) mg/dL Calcium 9.4 (8.4-10.2) mg/dL Magnesium 3.00 H (1.7-2.3) mg/dL Total Creatine Kinase 50 L (55-170) units/L 02/22/19 Range/Units 05:18 WBC (4.5-11.0) K/mm3 RBC (3.65-5.03) M/mm3 Hgb (11.8-15.2) gm/dl Hct (35.5-45.6) % MCV (84-94) fl MCH (28-32) pg MCHC (32-34) % RDW (13.2-15.2) % Plt Count (140-440) K/mm3 PT 12.4 (12.2-14.9) Sec. INR 0.95 (0.87-1.13) Sodium (137-145) mmol/L Potassium (3.6-5.0) mmol/L Chloride (98-107) mmol/L Carbon Dioxide (22-30) mmol/L Anion Gap mmol/L BUN (9-20) mg/dL Creatinine (0.8-1.5) mg/dL Estimated GFR ml/min BUN/Creatinine Ratio % Glucose (75-100) mg/dL Calcium (8.4-10.2) mg/dL Magnesium (1.7-2.3) mg/dL Total Creatine Kinase (55-170) units/L - EKG Data -: EKG Interpreted by [place] EKG shows normal: sinus rhythm, axis (qrs 2), QRS complexes (qrsd 98), ST-T waves (no stemi) Rate: normal (77) - Radiology Data Radiology results: report reviewed PROCEDURE: XR CHEST ROUTINE 2V TECHNIQUE: PA and lateral chest radiographs were obtained. HISTORY: Dyspnea COMPARISONS: 01/14/2019. FINDINGS: No mediastinal shift. Cardiac silhouette is not enlarged. Linear bibasilar atelectasis/scarring. Mild hyperaeration of the lungs. No pneumothorax, effusion, or focal pulmonary opacity. No acute skeletal finding. IMPRESSION: No acute pulmonary findings identified. - Medical Decision Making copd exacerbation improving with treatment that includes albuterol, Atrovent, Solu-Medrol, magnesium, Tessalon Perles, and Mucinex Chest x-ray unremarkable Empirically treated with azithromycin IV Hospitalist informed for admission ABG ordered and requested and pending at time of dispo, reviewed after admission orders placed and only significant for hypoxia without any acid-base disturbance. - Differential Diagnosis COPD, CHF, pneumonia, bronchitis Critical Care Time: No Critical care attestation.: If time is entered above; I have spent that time in minutes in the direct care o f this critically ill patient, excluding procedure time. ED Disposition Clinical Impression: COPD with acute exacerbation, O2 dependent Disposition: DC-09 OP ADMIT IP TO THIS HOSP Is pt being admited?: Yes Condition: Stable Time of Disposition: 07:22 (DR Copeland/chuy)
[2019-02-22] MEDS ORDERED: ZITHROMAX 500 MG in NACL 0.9% 250ML 250 ML IV ONE (07:15)
[2019-02-22] MEDS ORDERED: XANAX PO PRN (08:40)
--- NOTE | 2019-02-22 08:40 | History and Physical Report ---
History of Present Illness Date of examination: 02/22/19 Date of admission: 02/22/19 08:31 Chief complaint: Worsening shortness of breath the last 2 weeks, worse since morning History of present illness: Very pleasant 73-year-old male patient with significant past medical history of COPD on 2 to 3 L of home oxygen dependent , CHF, diabetes, hypertension, and schizophrenia presents to the emergency room with the complaints of shortness of breath , cough with white sputumof 2 weeks duration. Symptoms became worsened this a.m. with worsening shortness of breath and wheezing . Patient was found to be hypoxic, requiring BiPAP, patient also received high-dose Solu-Medrol and nebulizer treatments in the emergency room with very minimal improvement. Patient denies any fever, denies chest pain or palpitations, Claims compliance with his medications, has h istory of ongoing tobacco use just quit a couple of weeks ago., Patient follows with Dr. Vazquez. Initial Chest x-ray no acute abnormalities noted, ABG 7.37/38.6/61/22.5/O2 sats 91%/on FiO2 of 28% At the time of my evaluation patient's symptoms slightly improved Denies nausea vomiting or abdominal pain On 3 L oxygen with intermittent BiPAP as needed Past History Past Medical History: arthritis, COPD, hypertension Medications and Allergies Allergies Allergy/AdvReac Type Severity Reaction Status Date / Time No Known Allergies Allergy Verified 01/14/19 18:32 Home Medications Medication Instructions Recorded Confirmed Last Taken Type ALBUTEROL Inhaler(NF) [VENTOLIN 3 puff IH Q6H PRN #100 inha 11/13/18 02/22/19 Unknown Rx Inhaler(NF)] ALBUTEROL NEB's [Proventil 0.083% 2.5 mg IH Q4HRT #1 nebu 11/13/18 02/22/19 Unknown Rx NEBS] Budesonide/Formoterol Fumarate 1 puff IH BID #1 hfa.aer.ad 11/13/18 02/22/19 Unknown Rx [Symbicort 160-4.5 Mcg Inhaler] amLODIPine [Norvasc] 10 mg PO DAILY #30 tablet 11/13/18 02/22/19 Unknown Rx ALPRAZolam [Xanax TAB] 0.25 mg PO Q12HR PRN #14 tablet 12/14/18 02/22/19 Unknown Rx Roflumilast [Daliresp] 500 mcg PO QDAY #30 tab 12/14/18 02/22/19 Unknown Rx Tiotropium [place] [Spiriva] 1 puff IH DAILY 30 Days cap.w.dev 12/14/18 02/22/19 Unknown Rx guaiFENesin [Robitussin] 200 mg PO Q6H PRN 7 Days tablet 12/14/18 02/22/19 Unknown Rx Ipratropium (Nf) [Atrovent HFA 2 puff IH Q6HR PRN #5 inha 01/12/19 02/22/19 Unknown Rx 17MCG/PUFF] Ipratropium [Atrovent NEB] 0.5 mg IH Q4HR #2 ml 01/12/19 02/22/19 Unknown Rx Azithromycin [Zithromax Z-KENNA] 0 mg PO DAILY #1 tab 01/16/19 02/22/19 Unknown Rx Prednisone [predniSONE 10 mg 10 mg PO .TAPER #1 tab.ds.pk 01/16/19 02/22/19 Unknown Rx (6-Day Pack, 21 Tabs)] guaiFENesin ER [Mucinex ER] 600 mg PO BID #30 tablet 01/16/19 02/22/19 Unknown Rx Review of Systems Constitutional: fatigue, weakness, no fever, no chills Ears, nose, mouth and throat: no nasal congestion, no nasal discharge Cardiovascular: shortness of breath, no chest pain, no orthopnea, no palpitations Respiratory: cough with sputum, shortness of breath, wheezing Gastrointestinal: no abdominal pain, no nausea, no vomiting Genitourinary Male: no dysuria, no hematuria, no flank pain Musculoskeletal: no myalgias, no arthritis Integumentary: no rash, no pruritis, no redness, no lesions Neurological: no weakness, no parathesias, no seizures, no syncope Psychiatric: no anxiety, no depression Endocrine: no cold intolerance, no heat intolerance, no polydipsia, no polyuria Hematologic/Lymphatic: no easy bruising, no easy bleeding Allergic/Immunologic: no urticaria, no allergic rhinitis Exam - Constitutional Vitals: Temp Pulse Resp BP Pulse Ox 97.8 F 85 25 H 127/82 99 02/22/19 04:50 02/22/19 06:33 02/22/19 06:33 02/22/19 06:00 02/22/19 06:00 General appearance: Present: mild distress, well-nourished - EENT Eyes: Present: PERRL, EOM intact - Neck Neck: Present: supple, normal ROM - Respiratory Respiratory effort: labored Respiratory: bilateral: diminished, rhonchi, wheezing, negative: rales - Cardiovascular Rhythm: regular Heart Sounds: Present: S1 & S2 (tachycardia) - Extremities Extremities: no ischemia, No edema - Abdominal General gastrointestinal: Present: soft, non-tender, non-distended, normal bowel sounds - Integumentary Integumentary: Present: clear, warm - Musculoskeletal Musculoskeletal: strength equal bilaterally - Psychiatric Psychiatric: appropriate mood/affect, cooperative - Neurologic Neurologic: CNII-XII intact, moves all extremities Results - Labs CBC & Chem 7: 02/22/19 05:18 02/22/19 05:18 Labs: Abnormal lab results 02/22/19 02/22/19 02/22/19 Range/Units 05:18 05:18 05:18 RBC 5.47 H (3.65-5.03) M/mm3 MCV 83 L (84-94) fl RDW 17.4 H (13.2-15.2) % Glucose 129 H (75-100) mg/dL Magnesium 3.00 H (1.7-2.3) mg/dL Total Creatine Kinase 50 L (55-170) units/L Assessment and Plan --Acute on chronic hypoxic respiratory failure Secondary to acute exacerbation of COPD Oxygen titrate to O2 sats more than 90% Nebulizers IV steroids IV antibiotics Inhalation steroids and supportive care --Acute exacerbation of COPD; About treatment, pulmonary consult Optimize medications --Acute bronchitis; oxygen Bronchodilators, empiric antibiotics, supportive care --History of tobacco use; patient quit 1 week ago Smoking cessation counseling and patch if needed --DVT prophylaxis; Lovenox --Full CODE STATUS Monitor the patient closely and adjust management as needed Plan of care reviewed with the patient and his nurse Follow-up pulmonary evaluation and recommendations Spent 50 minutes coordinating this admission
[2019-02-22] MEDS: PEPCID PO SCH ×2 (09:37→21:35)
[2019-02-22] MEDS: NORVASC PO SCH (09:37)
[2019-02-22] MEDS: MUCINEX ER PO SCH ×2 (09:37→21:35)
[2019-02-22] MEDS ORDERED: NON-FORMULARY (Budesonide/Formoterol Fumarate [Symbicort 160-4.5 Mcg Inhaler] 1 PUFF) IH SCH (10:00)
[2019-02-22] MEDS ORDERED: NON-FORMULARY (Roflumilast [Daliresp] 500 MCG) PO SCH (10:00)
[2019-02-22] MEDS ORDERED: DUONEB *Not for PRN Use IH ONE (11:47)
--- NOTE | 2019-02-22 13:43 | Consultation ---
History of Present Illness Consult date: 02/22/19 Requesting physician: YAMILE LYNNE Reason for consult: COPD History of present illness: 73 y/o male, who apparently follows Dr. Vazquez or did at some point admitted for [employer] exacerbation. Patient has been to the hospital every month since September. He has been admitted in October/November/and December. We saw him only one time for all these admits and that was in November. Does not remember the last time he saw George. Past History Past Medical History: arthritis, COPD, hypertension Medications and Allergies Allergies Allergy/AdvReac Type Severity Reaction Status Date / Time No Known Allergies Allergy Verified 01/14/19 18:32 Home Medications Medication Instructions Recorded Confirmed Last Taken Type ALBUTEROL Inhaler(NF) [VENTOLIN 3 puff IH Q6H PRN #100 inha 11/13/18 02/22/19 Unknown Rx Inhaler(NF)] ALBUTEROL NEB's [Proventil 0.083% 2.5 mg IH Q4HRT #1 nebu 11/13/18 02/22/19 Unk nown Rx NEBS] Budesonide/Formoterol Fumarate 1 puff IH BID #1 hfa.aer.ad 11/13/18 02/22/19 U nknown Rx [Symbicort 160-4.5 Mcg Inhaler] amLODIPine [Norvasc] 10 mg PO DAILY #30 tablet 11/13/18 02/22/19 Unknown Rx ALPRAZolam [Xanax TAB] 0.25 mg PO Q12HR PRN #14 tablet 12/14/18 02/22/19 Unknown Rx Roflumilast [Daliresp] 500 mcg PO QDAY #30 tab 12/14/18 02/22/19 Unknown Rx Tiotropium [place] [Spiriva] 1 puff IH DAILY 30 Days cap.w.dev 12/14/18 02/22/19 Unknown Rx guaiFENesin [Robitussin] 200 mg PO Q6H PRN 7 Days tablet 12/14/18 02/22/19 Unknown Rx Ipratropium (Nf) [Atrovent HFA 2 puff IH Q6HR PRN #5 inha 01/12/19 02/22/19 Unknown Rx 17MCG/PUFF] Ipratropium [Atrovent NEB] 0.5 mg IH Q4HR #2 ml 01/12/19 02/22/19 Unknown Rx Azithromycin [Zithromax Z-KENNA] 0 mg PO DAILY #1 tab 01/16/19 02/22/19 Unknown Rx Prednisone [predniSONE 10 mg 10 mg PO .TAPER #1 tab.ds.pk 01/16/19 02/22/19 Unknown Rx (6-Day Pack, 21 Tabs)] guaiFENesin ER [Mucinex ER] 600 mg PO BID #30 tablet 01/16/19 02/22/19 Unknown Rx Active Meds: Active Medications Albuterol (Proventil) 2.5 mg IH Q6HRT [facility] Albuterol/Ipratropium (Duoneb *Not For Prn Use*) 1 ampul IH Q6HRT [facility] Alprazolam (Xanax) 0.25 mg PO Q12H PRN PRN Reason: Anxiety Amlodipine Besylate (Norvasc) 10 mg PO DAILY [facility] Last Admin: 02/22/19 09:37 Dose: 10 mg Documented by: Arformoterol Tartrate (Brovana Nebu) 15 mcg IH Q12HRT [facility] Budesonide (Pulmicort) 1 mg IH Q12HRT [facility] Enoxaparin Sodium (Lovenox) 40 mg SUB-Q QDAY@2200 [facility] Famotidine (Pepcid) 20 mg PO BID [facility] Last Admin: 02/22/19 09:37 Dose: 20 mg Documented by: Guaifenesin (Mucinex Er) 600 mg PO BID [facility] Last Admin: 02/22/19 09:37 Dose: 600 mg Documented by: Levofloxacin/Dextrose (Levaquin 750mg/150ml) 750 mg in 150 mls @ 100 mls/hr IV Q24HR [facility]; Protocol Methylprednisolone Sodium Succinate (Solu-Medrol) 80 mg IV Q8HR [facility] Miscellaneous Medication (Roflumilast [Daliresp]) 500 mcg PO QDAY [facility] Zolpidem Tartrate (Ambien) 5 mg PO QHS PRN PRN Reason: Sleep Physical Examination Vital signs: Vital Signs BP 120/83 02/22/19 04:44 General appearance: no acute distress, alert Eyes: non-icteric ENT: oropharynx moist Neck: supple Effort: normal Ascultation: Bilateral: diminished breath sounds, wheezes Cardiovascular: regular rate and rhythm Gastrointestinal: normoactive bowel sounds, soft, non-tender, non-distended Results - Laboratory Findings CBC and BMP: 02/22/19 05:18 02/22/19 05:18 ABG POC ABG pH 7.372 (7.35-7.45) 02/22/19 08:47 POC ABG pCO2 38.6 (35-45) 02/22/19 08:47 POC ABG pO2 61 (80-105) L 02/22/19 08:47 POC ABG HCO3 22.5 (22-26 mml/L) 02/22/19 08:47 POC ABG Total CO2 24 (23-27mmol/L) 02/22/19 08:47 POC ABG O2 Sat 91 02/22/19 08:47 PT/INR, D-dimer PT 12.4 Sec. (12.2-14.9) 02/22/19 05:18 INR 0.95 (0.87-1.13) 02/22/19 05:18 Abnormal lab findings: Abnormal Labs 02/22/19 02/22/19 02/22/19 05:18 05:18 05:18 RBC 5.47 H MCV 83 L RDW 17.4 H POC ABG pO2 Glucose 129 H Magnesium 3.00 H Total Creatine Kinase 50 L 02/22/19 08:47 RBC MCV RDW POC ABG pO2 61 L Glucose Magnesium Total Creatine Kinase - Diagnostic Findings Chest x-ray: image reviewed (no evidence of acute lung disease) Assessment and Plan 73 y/o male with acute exacerbation of COPD. 1. Will change steroids to 60q6 2. Continue pulmicort and brovana 3. Stopped scheduled duonebs 4. Made albuterol PRN 5. Continue supplemental O2.
[2019-02-22] MEDS: LEVAQUIN 750MG/150ML 750 MG/150 ML BAG IV SCH (13:48)
[2019-02-22] MEDS ORDERED: PROVENTIL IH SCH (14:00)
[2019-02-22] MEDS ORDERED: DUONEB *Not for PRN Use IH SCH (14:00)
[2019-02-22] MEDS ORDERED: SOLU-Medrol IV SCH (14:00)
[2019-02-22] MEDS: SOLU-Medrol IV SCH ×2 (14:11→21:37)
[2019-02-22] MEDS: BROVANA NEBU IH SCH ×3 (15:01→20:55)
[2019-02-22] MEDS: PULMICORT IH SCH ×3 (15:01→20:54)
[2019-02-22] MEDS: PROVENTIL IH PRN (15:03)
[2019-02-22] MEDS: LOVENOX SUB-Q SCH (21:36)
[2019-02-22] MEDS ORDERED: AMBIEN PO PRN (22:00)
[2019-02-23] MEDS: XANAX PO PRN ×2 (01:53→21:08)
[2019-02-23] MEDS: SOLU-Medrol IV SCH ×4 (01:59→20:56)
[2019-02-23] MEDS: PULMICORT IH SCH ×2 (08:30→20:39)
[2019-02-23] MEDS: BROVANA NEBU IH SCH ×2 (08:31→20:40)
[2019-02-23] MEDS: PEPCID PO SCH ×2 (10:33→21:08)
[2019-02-23] MEDS: NORVASC PO SCH (10:33)
[2019-02-23] MEDS: MUCINEX ER PO SCH ×2 (10:33→21:08)
--- NOTE | 2019-02-23 12:11 | Progress Note ---
Assessment and Plan 73 y/o male with acute exacerbation of COPD. 1. Continue steroids at 60q6, could likely drop to PO today or tomorrow (60 daily) and then taper from there over 2 weeks time. 2. Continue pulmicort and brovana 3. Stopped scheduled duonebs 4. Made albuterol PRN 5. Continue supplemental O2. Subjective Date of service: 02/23/19 Interval history: No acute events. Patient up at the sink doing some form of exercises. Feels better. Objective Vital Signs - 12hr 02/23/19 02/23/19 02/23/19 01:56 07:29 08:29 Temperature 97.6 F 97.2 F L Pulse Rate 102 H 92 H Pulse Rate [ Bilateral Throughout] Respiratory 20 22 Rate Respiratory Rate [Bilateral Throughout] Blood Pressure 126/83 144/97 O2 Sat by Pulse 94 93 96 Oximetry 02/23/19 02/23/19 02/23/19 08:31 08:42 10:33 Temperature Pulse Rate 92 H Pulse Rate [ 98 H 100 H Bilateral Throughout] Respiratory Rate Respiratory 20 20 Rate [Bilateral Throughout] Blood Pressure 144/97 O2 Sat by Pulse Oximetry Constitutional: no acute distress, alert Eyes: non-icteric ENT: oropharynx moist Neck: supple Effort: normal Ascultation: Bilateral: diminished breath sounds, wheezes Cardiovascular: regular rate and rhythm Gastrointestinal: normoactive bowel sounds, soft, non-tender, non-distended CBC and BMP: 02/22/19 05:18 02/22/19 05:18 ABG, PT/INR, D-dimer: ABG POC ABG pH 7.372 (7.35-7.45) 02/22/19 08:47 POC ABG pCO2 38.6 (35-45) 02/22/19 08:47 POC ABG pO2 61 (80-105) L 02/22/19 08:47 POC ABG HCO3 22.5 (22-26 mml/L) 02/22/19 08:47 POC ABG Total CO2 24 (23-27mmol/L) 02/22/19 08:47 POC ABG O2 Sat 91 02/22/19 08:47 PT/INR, D-dimer PT 12.4 Sec. (12.2-14.9) 02/22/19 05:18 INR 0.95 (0.87-1.13) 02/22/19 05:18 Abnormal lab findings: Abnormal Labs 02/22/19 02/22/19 02/22/19 05:18 05:18 05:18 RBC 5.47 H MCV 83 L RDW 17.4 H POC ABG pO2 Glucose 129 H Magnesium 3.00 H Total Creatine Kinase 50 L 02/22/19 08:47 RBC MCV RDW POC ABG pO2 61 L Glucose Magnesium Total Creatine Kinase
[2019-02-23] MEDS: PROVENTIL IH PRN (14:10)
--- NOTE | 2019-02-23 14:37 | Progress Note ---
Assessment and Plan Assessment and plan: --Acute on chronic hypoxic respiratory failure Secondary to acute exacerbation of COPD Oxygen titrate to O2 sats more than 90% Nebulizers IV steroids IV antibiotics Inhalation steroids and supportive care --Acute exacerbation of COPD; Continue abover treatment --Acute bronchitis; oxygen Bronchodilators, empiric antibiotics, supportive care --History of tobacco use; patient quit 1 week ago Smoking cessation counseling and patch if needed --DVT prophylaxis; Lovenox --Full CODE STATUS Monitor the patient closely and adjust management as needed Plan of care reviewed with the patient and his nurse Follow-up pulmonary evaluation and recommendations Possible discharge in 1-2 days if stable Home PT, patient has home oxygen History Interval history: Patient seen and examined this morning medical records reviewed Slightly better still complains of shortness of breath and wheezing mild cough whitish sputum Denies chest pain, palpitations Alert awake oriented 3 Vital signs noted Hospitalist Physical - Constitutional Vitals: Temp Pulse Resp BP Pulse Ox 97.2 F L 92 H 20 144/97 96 02/23/19 07:29 02/23/19 10:33 02/23/19 08:42 02/23/19 10:33 02/23/19 08:29 General appearance: Present: mild distress, well-nourished - EENT Eyes: Present: PERRL, EOM intact - Neck Neck: Present: supple, normal ROM - Respiratory Respiratory effort: normal Respiratory: bilateral: diminished, rhonchi, negative: rales, wheezing - Cardiovascular Rhythm: regular Heart Sounds: Present: S1 & S2 - Extremities Extremities: no ischemia, No edema - Abdominal General gastrointestinal: soft, non-tender, non-distended, normal bowel sounds - Integumentary Integumentary: Present: clear, warm - Psychiatric Psychiatric: appropriate mood/affect, cooperative - Neurologic Neurologic: CNII-XII intact, moves all extremities Results - Labs CBC & Chem 7: 02/22/19 05:18 02/22/19 05:18 Labs: Laboratory Last Values WBC 6.2 K/mm3 (4.5-11.0) 02/22/19 05:18 RBC 5.47 M/mm3 (3.65-5.03) H 02/22/19 05:18 Hgb 15.2 gm/dl (11.8-15.2) 02/22/19 05:18 Hct 45.6 % (35.5-45.6) 02/22/19 05:18 MCV 83 fl (84-94) L 02/22/19 05:18 MCH 28 pg (28-32) 02/22/19 05:18 MCHC 33 % (32-34) 02/22/19 05:18 RDW 17.4 % (13.2-15.2) H 02/22/19 05:18 Plt Count 187 K/mm3 (140-440) 02/22/19 05:18 PT 12.4 Sec. (12.2-14.9) 02/22/19 05:18 INR 0.95 (0.87-1.13) 02/22/19 05:18 POC ABG pH 7.372 (7.35-7.45) 02/22/19 08:47 POC ABG pCO2 38.6 (35-45) 02/22/19 08:47 POC ABG pO2 61 (80-105) L 02/22/19 08:47 POC ABG HCO3 22.5 (22-26 mml/L) 02/22/19 08:47 POC ABG Total CO2 24 (23-27mmol/L) 02/22/19 08:47 POC ABG O2 Sat 91 02/22/19 08:47 POC ABG Base Excess -3 ((-2) - (+3)mmol/L) 02/22/19 08:47 28 % 02/22/19 08:47 Sodium 141 mmol/L (137-145) 02/22/19 05:18 Potassium 3.7 mmol/L (3.6-5.0) 02/22/19 05:18 Chloride 100.7 mmol/L (98-107) 02/22/19 05:18 Carbon Dioxide 27 mmol/L (22-30) 02/22/19 05:18 17 mmol/L 02/22/19 05:18 BUN 11 mg/dL (9-20) 02/22/19 05:18 1.0 mg/dL (0.8-1.5) 02/22/19 05:18 Estimated GFR > 60 ml/min 02/22/19 05:18 11 % 02/22/19 05:18 Glucose 129 mg/dL (75-100) H 02/22/19 05:18 Calcium 9.4 mg/dL (8.4-10.2) 02/22/19 05:18 Magnesium 3.00 mg/dL (1.7-2.3) H 02/22/19 05:18 50 units/L (55-170) L 02/22/19 05:18 Active Medications - Current Medications Current Medications: Generic Name Dose Route Start Last Admin Trade Name Freq PRN Reason Stop Dose Admin Albuterol 2.5 mg 02/22/19 13:44 02/22/19 15:03 Proventil IH 2.5 mg Q6H PRN Administration Dyspnea Alprazolam 0.25 mg 02/22/19 09:00 02/23/19 01:53 Xanax PO 0.25 mg Q12H PRN Administration Anxiety Amlodipine Besylate 10 mg 02/22/19 10:00 02/23/19 10:33 Norvasc PO 10 mg DAILY [facility] Administration Arformoterol Tartrate 15 mcg 02/22/19 10:00 02/23/19 08:31 Brovana Nebu IH 15 mcg Q12HRT [facility] Administration Budesonide 1 mg 02/22/19 10:00 02/23/19 08:30 Pulmicort IH 1 mg Q12HRT [facility] Administration Enoxaparin Sodium 40 mg 02/22/19 22:00 02/22/19 21:36 Lovenox SUB-Q 40 mg QDAY@2200 [facility] Administration Famotidine 20 mg 02/22/19 10:00 02/23/19 10:33 Pepcid PO 20 mg BID [facility]BY Administration Guaifenesin 600 mg 02/22/19 10:00 02/23/19 10:33 Mucinex Er PO 600 mg BID [facility]BY Administration Levofloxacin/Dextrose 750 mg in 150 mls @ 100 mls/hr 02/22/19 14:00 02/22/19 13:48 Levaquin 750mg/150ml IV 100 mls/hr Q24H [facility] Administration Protocol Methylprednisolone Sodium Succinate 60 mg 02/22/19 14:00 02/23/19 08:29 Solu-Medrol IV 60 mg Q6H [facility]BY Administration Miscellaneous Medication 500 mcg 02/22/19 10:00 Roflumilast [Daliresp] PO QDAY [facility] Zolpidem Tartrate 5 mg 02/22/19 22:00 02/22/19 21:43 Ambien PO 5 mg QHS PRN Administration Sleep
[2019-02-23] MEDS: LEVAQUIN 750MG/150ML 750 MG/150 ML BAG IV SCH (14:56)
[2019-02-23] MEDS: LOVENOX SUB-Q SCH (21:08)
[2019-02-24] MEDS: SOLU-Medrol IV SCH ×2 (01:04→09:50)
[2019-02-24] MEDS: PULMICORT IH SCH (06:59)
[2019-02-24] MEDS: BROVANA NEBU IH SCH (07:00)
[2019-02-24 07:57] VITALS: BP 132/90
--- NOTE | 2019-02-24 09:33 | Progress Note ---
Assessment and Plan 73 y/o male with acute exacerbation of COPD. 1. No objection to discharge today. Send out of Prednisone 60 daily for 3 days, 40 daily for 3 days, 20 daily for 3 days then 10 daily for 3 days then stop. 2. Resume home COPD regimen. 3. Follow up with George in 10-14 days. Subjective Date of service: 02/24/19 Interval history: No acute events. Objective Vital Signs - 12hr 02/23/19 02/24/19 02/24/19 23:00 02:09 02:34 Temperature 97.4 F L Pulse Rate 92 H Pulse Rate [ Bilateral Throughout] Respiratory 20 Rate Respiratory Rate [Bilateral Throughout] Blood Pressure 124/83 O2 Sat by Pulse 91 89 Oximetry 02/24/19 02/24/19 02/24/19 02:37 02:44 06:59 Temperature 97.4 F L Pulse Rate 92 H Pulse Rate [ Bilateral Throughout] Respiratory 20 20 Rate Respiratory Rate [Bilateral Throughout] Blood Pressure O2 Sat by Pulse 91 96 Oximetry 02/24/19 02/24/19 02/24/19 07:00 07:17 07:29 Temperature 97.7 F Pulse Rate 93 H Pulse Rate [ 92 H 89 Bilateral Throughout] Respiratory 22 Rate Respiratory 24 20 Rate [Bilateral Throughout] Blood Pressure 132/90 O2 Sat by Pulse 93 Oximetry Constitutional: no acute distress, alert Eyes: non-icteric ENT: oropharynx moist Neck: supple Effort: normal Ascultation: Bilateral: diminished breath sounds, wheezes Cardiovascular: regular rate and rhythm Gastrointestinal: normoactive bowel sounds, soft, non-tender, non-distended CBC and BMP: 02/22/19 05:18 02/22/19 05:18 ABG, PT/INR, D-dimer: ABG POC ABG pH 7.372 (7.35-7.45) 02/22/19 08:47 POC ABG pCO2 38.6 (35-45) 02/22/19 08:47 POC ABG pO2 61 (80-105) L 02/22/19 08:47 POC ABG HCO3 22.5 (22-26 mml/L) 02/22/19 08:47 POC ABG Total CO2 24 (23-27mmol/L) 02/22/19 08:47 POC ABG O2 Sat 91 02/22/19 08:47 PT/INR, D-dimer PT 12.4 Sec. (12.2-14.9) 02/22/19 05:18 INR 0.95 (0.87-1.13) 02/22/19 05:18 Abnormal lab findings: Abnormal Labs 02/22/19 02/22/19 02/22/19 05:18 05:18 05:18 RBC 5.47 H MCV 83 L RDW 17.4 H POC ABG pO2 Glucose 129 H Magnesium 3.00 H Total Creatine Kinase 50 L 02/22/19 08:47 RBC MCV RDW POC ABG pO2 61 L Glucose Magnesium Total Creatine Kinase
[2019-02-24] MEDS: MUCINEX ER PO SCH (09:50)
[2019-02-24] MEDS: PEPCID PO SCH (09:51)
[2019-02-24] MEDS: NORVASC PO SCH (09:51)
[2019-02-24] MEDS ORDERED: LEVAQUIN PO SCH (10:00)
--- NOTE | 2019-02-24 10:03 | Discharge Summary ---
Providers - Providers Date of Admission: 02/22/19 08:31 Date of discharge: 02/24/19 Attending physician: YAMILE LYNNE 02/22/19 12:24 Consult to Physician [CONS] Routine Comment: Consulting Provider: MURTAZA LÓPEZ Physician Instructions: Reason For Exam: Ac on Chr resp failure/COPD exacerbation 02/24/19 09:18 Physical Therapy Evaluation and Treat [CONS] Routine Comment: Reason For Exam: Weakness Primary care physician: KELSEY ARREDONDO Hospitalization Reason for admission: wordening shortness of breath and cough Condition: Stable Pertinent studies: CXR : no acute abnormality noted. Hospital course: Very pleasant 73-year-old male patient with significant past medical history of COPD on 2 to 3 L of home oxygen dependent , CHF, diabetes, hypertension, and schizophrenia presents to the emergency room with the complaints of shortness of breath , cough with white sputumof 2 weeks duration. Symptoms became worsened this a.m. with worsening shortness of breath and wheezing . Patient was found to be hypoxic, requiring BiPAP, patient also received high- dose Solu-Medrol and nebulizer treatments in the emergency room with very minimal improvement. Patient denies any fever, denies chest pain or palpitations, Claims compliance with his medications, has history of ongoing tobacco use just quit a couple of weeks ago., Patient follows with Dr. Vazquez. Initial Chest x-ray no acute abnormalities noted, ABG 7.37/38.6/61/22.5/O2 sats 91%/on FiO2 of 28%. Admitted,managed with o2,nebulisers,steroids and antibiotics,Evaluated by automatic equipment technician,medications optimised Symptoms significantly improved., Today patient is comfortable,no new complaints,vital signs stable. Physical exam prior to discharge is stable. Smoking cessation counselling done. Discharge Diagnosis: --Acute on chronic hypoxic respiratory failure Secondary to acute exacerbation of COPD Oxygen titrate to O2 sats more than 90% Nebulizers IV steroids IV antibiotics Inhalation steroids and supportive care --Acute exacerbation of COPD; Continue abover treatment --Acute bronchitis; oxygen Bronchodilators, empiric antibiotics, supportive care --History of tobacco use; patient quit 1 week ago Smoking cessation counseling and patch if needed Disposition: TO HOME OR SELFCARE Time spent for discharge: 32 min Core Measure Documentation - Palliative Care Palliative Care/ Comfort Measures: Not Applicable - Core Measures Any of the following diagnoses?: none Exam - Constitutional Vitals: Temp Pulse Resp BP Pulse Ox 97.7 F 93 H 22 132/90 93 02/24/19 07:29 02/24/19 09:51 02/24/19 07:29 02/24/19 09:51 02/24/19 07:29 General appearance: Present: no acute distress, well-nourished - EENT Eyes: Present: PERRL, EOM intact - Neck Neck: Present: supple, normal ROM - Respiratory Respiratory effort: normal Respiratory: bilateral: diminished, wheezing, negative: rales, rhonchi - Cardiovascular Rhythm: regular Heart Sounds: Present: S1 & S2 - Extremities Extremities: no ischemia, No edema - Abdominal General gastrointestinal: Present: soft, non-tender, non-distended, normal bowel sounds - Integumentary Integumentary: Present: clear, warm - Musculoskeletal Musculoskeletal: strength equal bilaterally, generalized weakness - Psychiatric Psychiatric: appropriate mood/affect, cooperative - Neurologic Neurologic: CNII-XII intact, moves all extremities Plan Activity: advance as tolerated, fall precautions Diet: regular Special Instructions: smoking cessation Additional Instructions: Continue home oxygen as before. If you have shortness of breath or chest pain contact and emergency Follow up with: KELSEY ARREDONDO MD [Primary Care Provider] - 7 Days RUT VAZQUEZ MD [Staff Physician] - 7 Days Prescriptions: predniSONE [Deltasone] 10 mg PO QDAY #40 tab levoFLOXacin [Levaquin TAB] 500 mg PO QDAY #5 tablet ALBUTEROL Inhaler (OR & NICU) [ProAir HFA Inhaler] 1 puff IH QID PRN #1 inha PRN Reason: Shortness Of Breath ALBUTEROL NEB's [Proventil 0.083% NEBS] 2.5 mg IH Q6H PRN 30 Days nebu PRN Reason: Dyspnea
== END 2019-02-24 12:35 | disposition home or self-care (01) | DRG 189 ==
LOC: ED 04:38 → 2B-ACE 08:31
PROVIDERS: ADMIT Internal Medicine; ATTEND Internal Medicine
PROC: 4A033R1 Measurement of Arterial Saturation, Peripheral, Percutaneous Approach (ICD-10-PCS; principal; 2019-02-22)
DX: J96.21 Acute and chronic respiratory failure with hypoxia (principal); J44.1 Chronic obstructive pulmonary disease with (acute) exacerbation; J44.0 Chronic obstructive pulmonary disease with (acute) lower respiratory infection; J20.9 Acute bronchitis, unspecified; F17.200 Nicotine dependence, unspecified, uncomplicated; I50.9 Heart failure, unspecified; I11.0 Hypertensive heart disease with heart failure; E11.9 Type 2 diabetes mellitus without complications; F20.9 Schizophrenia, unspecified; M19.90 Unspecified osteoarthritis, unspecified site; Z79.899 Other long term (current) drug therapy; Z71.6 Tobacco abuse counseling; Z99.81 Dependence on supplemental oxygen; Z90.49 Acquired absence of other specified parts of digestive tract
CPT/HCPCS: 36415; 36600; 71046; 80048; 82550; 82803; 83735; 85027; 85610; 93005; 93010; 94640; 94644; 94760; 96365; G0378; J0456; J1650; J1956; J2930; J7050

== ENCOUNTER 2019-04-04 06:28 | Inpatient (IN) | payer MEDICARE ==
[2019-04-04] MEDS ORDERED: MAGNESIUM SULFATE 2GM/50ML 2 GM/50 ML BAG IV ONE (06:35)
--- NOTE | 2019-04-04 06:41 | Emergency Department Report ---
ED Shortness of Breath HPI - General Chief Complaint: Dyspnea/Respdistress Stated Complaint: SHORTNESS OF BREATH Time Seen by Provider: 04/04/19 06:33 Source: patient, EMS Mode of arrival: Stretcher Limitations: No Limitations - History of Present Illness Initial Comments: 73-year-old male with a known history of chronic hypercapnic respiratory failure and frequent admissions for COPD exacerbation with home dependence the last admitted in January and discharged on 02/24/2019 for the same. Medics state he has been using his inhaler frequently for the last day without improvement. They state they found him on the scene with respiratory distress and a pulse oximetry of 91%. They placed him on BiPAP and transported him to this facility for further evaluation. Patient is on BiPAP and not currently able to provide much historical information. MD Complaint: shortness of breath -: days(s) Known History Of: COPD - Related Data Previous Rx's Medication Instructions Recorded Last Taken Type ALBUTEROL Inhaler(NF) [VENTOLIN 3 puff IH Q6H PRN #100 inha 11/13/18 Unknown Rx Inhaler(NF)] ALBUTEROL NEB's [Proventil 0.083% 2.5 mg IH Q4HRT #1 nebu 11/13/18 Unknown Rx NEBS] Budesonide/Formoterol Fumarate 1 puff IH BID #1 hfa.aer.ad 11/13/18 Unknown Rx [Symbicort 160-4.5 Mcg Inhaler] amLODIPine [Norvasc] 10 mg PO DAILY #30 tablet 11/13/18 Unknown Rx ALPRAZolam [Xanax TAB] 0.25 mg PO Q12HR PRN #14 tablet 12/14/18 Unknown Rx Roflumilast [Daliresp] 500 mcg PO QDAY #30 tab 12/14/18 Unknown Rx Tiotropium [place] [Spiriva] 1 puff IH DAILY 30 Days cap.w.dev 12/14/18 Unknown Rx guaiFENesin [Robitussin] 200 mg PO Q6H PRN 7 Days tablet 12/14/18 Unknown Rx Ipratropium (Nf) [Atrovent HFA 2 puff IH Q6HR PRN #5 inha 01/12/19 Unknown Rx 17MCG/PUFF] Ipratropium [Atrovent NEB] 0.5 mg IH Q4HR #2 ml 01/12/19 Unknown Rx guaiFENesin ER [Mucinex ER] 600 mg PO BID #30 tablet 01/16/19 Unknown Rx ALBUTEROL Inhaler (OR & NICU) 1 puff IH QID PRN #1 inha 02/24/19 Unknown Rx [ProAir HFA Inhaler] ALBUTEROL NEB's [Proventil 0.083% 2.5 mg IH Q6H PRN 30 Days nebu 02/24/19 Unknown Rx NEBS] levoFLOXacin [Levaquin TAB] 500 mg PO QDAY #5 tablet 02/24/19 Unknown Rx predniSONE [Deltasone] 10 mg PO QDAY #40 tab 02/24/19 Unknown Rx Allergies Allergy/AdvReac Type Severity Reaction Status Date / Time No Known Allergies Allergy Verified 01/14/19 18:32 ED Review of Systems ROS: Stated complaint: SHORTNESS OF BREATH Other details as noted in HPI Comment: Unobtainable due to pts medical conditions ED Past Medical Hx - Past Medical History Previous Medical History?: Yes Hx Hypertension: Yes Hx CVA: Yes (generalized weakness, walks with a cane) Hx Heart Attack/AMI: No Hx Congestive Heart Failure: Yes Hx Diabetes: Yes Hx Deep Vein Thrombosis: No Hx Pulmonary Embolism: No Hx GERD: No Hx Liver Disease: No Hx Renal Disease: No Hx Sickle Cell Disease: No Hx Arthritis: Yes Hx Headaches / Migraines: No Hx Seizures: No Hx Kidney Stones: No Hx Psychiatric Treatment: Yes (schizophrenic) Hx Asthma: Yes Hx COPD: Yes Hx Tuberculosis: No Hx Dementia: No Hx HIV: No Additional medical history: Hx of Dissection?-AAA - Surgical History Past Surgical History?: Yes Hx Coronary Stent: No Hx Open Heart Surgery: No Hx Pacemaker: No Hx Internal Defibrillator: No Hx Cholecystectomy: Yes Hx Appendectomy: Yes Hx Breast Surgery: No - Social History Smoking Status: Current Every Day Smoker - Medications Home Medications: Home Medications Medication Instructions Recorded Confirmed Last Taken Type ALBUTEROL Inhaler(NF) [VENTOLIN 3 puff IH Q6H PRN #100 inha 11/13/18 02/22/19 Unknown Rx Inhaler(NF)] ALBUTEROL NEB's [Proventil 0.083% 2.5 mg IH Q4HRT #1 nebu 11/13/18 02/22/19 Unknown Rx NEBS] Budesonide/Formoterol Fumarate 1 puff IH BID #1 hfa.aer.ad 11/13/18 02/22/19 Unknown Rx [Symbicort 160-4.5 Mcg Inhaler] amLODIPine [Norvasc] 10 mg PO DAILY #30 tablet 11/13/18 02/22/19 Unknown Rx ALPRAZolam [Xanax TAB] 0.25 mg PO Q12HR PRN #14 tablet 12/14/18 02/22/19 Unknown Rx Roflumilast [Daliresp] 500 mcg PO QDAY #30 tab 12/14/18 02/22/19 Unknown Rx Tiotropium [place] [Spiriva] 1 puff IH DAILY 30 Days cap.w.dev 12/14/18 02/22/19 Unknown Rx guaiFENesin [Robitussin] 200 mg PO Q6H PRN 7 Days tablet 12/14/18 02/22/19 Unknown Rx Ipratropium (Nf) [Atrovent HFA 2 puff IH Q6HR PRN #5 inha 01/12/19 02/22/19 Unknown Rx 17MCG/PUFF] Ipratropium [Atrovent NEB] 0.5 mg IH Q4HR #2 ml 01/12/19 02/22/19 Unknown Rx guaiFENesin ER [Mucinex ER] 600 mg PO BID #30 tablet 01/16/19 02/22/19 Unknown Rx ALBUTEROL Inhaler (OR & NICU) 1 puff IH QID PRN #1 inha 02/24/19 Unknown Rx [ProAir HFA Inhaler] ALBUTEROL NEB's [Proventil 0.083% 2.5 mg IH Q6H PRN 30 Days nebu 02/24/19 Unknown Rx NEBS] levoFLOXacin [Levaquin TAB] 500 mg PO QDAY #5 tablet 02/24/19 Unknown Rx predniSONE [Deltasone] 10 mg PO QDAY #40 tab 02/24/19 Unknown Rx ED Physical Exam - General Limitations: Physical Limitation General appearance: in no apparent distress, lethargic - Head Head exam: Present: atraumatic, normocephalic - Eye Eye exam: Present: normal appearance. Absent: scleral icterus (on BiPAP) - ENT ENT exam: Present: mucous membranes moist - Neck Neck exam: Present: normal inspection. Absent: meningismus - Respiratory Respiratory exam: Present: other (patient is moving air adequately. He has assisted ventilation with BiPAP. He has somewhat decreased breath sounds with prolonged expiratory phase. I don't appreciate active wheezing.) - Cardiovascular Cardiovascular Exam: Present: regular rate, normal rhythm. Absent: systolic murmur, diastolic murmur, rubs, gallop - GI/Abdominal GI/Abdominal exam: Present: soft. Absent: distended, tenderness, guarding, rebound - Extremities Exam Extremities exam: Present: normal inspection - Back Exam Back exam: Present: normal inspection - Neurological Exam Neurological exam: Present: alert, oriented X3, CN II-XII intact. Absent: motor sensory deficit - Psychiatric Psychiatric exam: Present: flat affect - Skin Skin exam: Present: warm, dry, intact, normal color. Absent: rash ED Course Vital Signs 04/04/19 04/04/19 04/04/19 06:30 06:37 07:02 Temperature 98.1 F Pulse Rate 90 77 75 Pulse Rate [ 77 Anterior Bilateral Throughout] Respiratory 35 H 22 23 Rate Respiratory 36 H Rate [Anterior Bilateral Throughout] Blood Pressure 125/87 130/83 Blood Pressure 132/94 [Right] O2 Sat by Pulse 93 99 95 Oximetry 04/04/19 04/04/19 04/04/19 07:06 07:10 08:01 Temperature Pulse Rate 75 Pulse Rate [ 78 Anterior Bilateral Throughout] Respiratory 22 22 Rate Respiratory 32 H Rate [Anterior Bilateral Throughout] Blood Pressure 130/83 Blood Pressure [Right] O2 Sat by Pulse 95 Oximetry 04/04/19 04/04/19 04/04/19 08:28 08:31 08:34 Temperature Pulse Rate 81 95 H 82 Pulse Rate [ Anterior Bilateral Throughout] Respiratory 19 42 H 18 Rate Respiratory Rate [Anterior Bilateral Throughout] Blood Pressure Blood Pressure 130/84 [Right] O2 Sat by Pulse 94 93 94 Oximetry - Reevaluation(s) Reevaluation #1: Pulse oximetry 93%, improved work of breathing, no wheezes, patient agrees he is ready to remove BiPAP. 04/04/19 07:30 Reevaluation #2: Patient was some residual use, normal work of breathing. Will order another neb and admit to the hospitalist service. 04/04/19 09:43 ED Medical Decision Making - Lab Data Result diagrams: 04/04/19 06:48 04/04/19 06:48 Laboratory Results - last 24 hr 04/04/19 04/04/19 04/04/19 06:48 06:48 06:48 WBC 6.9 RBC 5.49 H Hgb 15.4 H Hct 46.3 H MCV 84 MCH 28 MCHC 33 RDW 16.4 H Plt Count 195 Lymph % (Auto) 26.2 [place] % (Auto) 14.9 H Eos % (Auto) 4.8 H Baso % (Auto) 0.7 Lymph # 1.8 [place] # 1.0 H Eos # 0.3 Baso # 0.1 Seg Neutrophils % 53.4 Seg Neutrophils # 3.7 PT 13.0 INR 1.01 APTT 38.0 H Sodium 137 Potassium 3.7 Chloride 101.3 Carbon Dioxide 24 Anion Gap 15 BUN 10 Creatinine 0.9 Estimated GFR > 60 BUN/Creatinine Ratio 11 Glucose 134 H Calcium 9.3 Magnesium 2.10 Total Bilirubin 0.60 Direct Bilirubin < 0.2 AST 9 ALT 9 Alkaline Phosphatase 100 Troponin T NT-Pro-B Natriuret Pep 51.90 Total Protein 7.3 Albumin 4.2 Albumin/Globulin Ratio 1.4 Plasma/Serum Alcohol 04/04/19 04/04/19 06:48 06:48 WBC RBC Hgb Hct MCV MCH MCHC RDW Plt Count Lymph % (Auto) [place] % (Auto) Eos % (Auto) Baso % (Auto) Lymph # [place] # Eos # Baso # Seg Neutrophils % Seg Neutrophils # PT INR APTT Sodium Potassium Chloride Carbon Dioxide Anion Gap BUN Creatinine Estimated GFR BUN/Creatinine Ratio Glucose Calcium Magnesium Total Bilirubin Direct Bilirubin AST ALT Alkaline Phosphatase Troponin T < 0.010 NT-Pro-B Natriuret Pep Total Protein Albumin Albumin/Globulin Ratio Plasma/Serum Alcohol < 0.01 - EKG Data -: EKG Interpreted by Nd EKG shows normal: sinus rhythm, axis, intervals, ST-T waves Rate: normal - EKG Data Interpretation: other (inferior Q's consistent with old inferior zone ) - Radiology Data Radiology results: report reviewed, image reviewed findings on chest x-ray Critical care attestation.: If time is entered above; I have spent that time in minutes in the direct care of this critically ill patient, excluding procedure time. ED Disposition Clinical Impression: COPD with acute exacerbation Chronic respiratory failure Qualifiers: Respiratory failure complication: unspecified whether with hypoxia or hypercapnia Qualified Code(s): J96.10 - Chronic respiratory failure, unspecified whether with hypoxia or hypercapnia Disposition: DC-09 OP ADMIT IP TO THIS HOSP Is pt being admited?: Yes Does the pt Need Aspirin: Yes Condition: Stable Instructions: Chronic Obstructive Pulmonary Disease (ED) Time of Disposition: 09:44
[2019-04-04] MEDS ORDERED: PROVENTIL IH ONE (06:42)
[2019-04-04] MEDS ORDERED: ATROVENT IH ONE (06:42)
--- NOTE | 2019-04-04 07:02 | XRay Report ---
CHEST 2 VIEWS INDICATION: MATY. COMPARISON: 02/22/2015 FINDINGS: Support devices: None. Heart: Within normal limits. Lungs/pleura: No acute air space or interstitial disease. No pneumothorax. Additional findings: None. IMPRESSION: 1. No acute findings. Signer Name: Alberto Hughes MD Signed: 04/04/2019 6:57 AM Workstation Name: [id number]
[2019-04-04 07:21] LABS: Basophils # (Auto) 0.1 K/mm3 (0.0-0.1); Basophils % (Auto) 0.7 % (0.0-1.8); Eosinophils # (Auto) 0.3 K/mm3 (0.0-0.4); Eosinophils % (Auto) 4.8 % (0.0-4.3); Hematocrit 46.3 % (35.5-45.6); Hemoglobin 15.4 gm/dl (11.8-15.2); Lymphocytes # (Auto) 1.8 K/mm3 (1.2-5.4); Lymphocytes % (Auto) 26.2 % (13.4-35.0); Mean Corpuscular HGB Conc 33 % (32-34); Mean Corpuscular Volume 84 fl (84-94); Monocytes % (Auto) 14.9 % (0.0-7.3); Platelet Count 195 K/mm3 (140-440); Red Blood Count 5.49 M/mm3 (3.65-5.03); Red Cell Distribution Width 16.4 % (13.2-15.2)
[2019-04-04 07:29] LABS: Alanine Aminotransferase 9 units/L (7-56); Albumin 4.2 g/dL (3.9-5); BUN/Creatinine Ratio 11; Blood Urea Nitrogen 10 mg/dL (9-20); Calcium 9.3 mg/dL (8.4-10.2); Hemolysis Index 9
[2019-04-04 07:32] LABS: INR 1.01 (0.87-1.13)
[2019-04-04 07:33] LABS: Bilirubin,Direct < 0.2 mg/dL (0-0.2)
[2019-04-04] MEDS ORDERED: BABY ASPIRIN PO ONE (09:45)
[2019-04-04] MEDS ORDERED: DUONEB *Not for PRN Use IH ONE (09:47)
--- NOTE | 2019-04-04 11:24 | History and Physical Report ---
History of Present Illness Date of examination: 04/04/19 Date of admission: 04/04/19 09:46 Chief complaint: COPD exac History of present illness: 73-year-old male with a known history of chronic hypercapnic respiratory failure and frequent admissions for COPD exacerbation with home oxygen. The patient was last admitted in January and discharged on 02/24/2019 for the same. EMS reports he has been using his inhaler frequently for the last day without improvement. EMS reports that upon arrival to the scene, he was found to be in respiratory distress with a pulse oximetry of 91%. He was placed on BiPAP and transported to our facility for further evaluation. Patient is on BiPAP and not currently able to provide much historical information. Patient follows commands. No reports of nausea vomiting or diarrhea. Past History Past Medical History: COPD Past Surgical History: No surgical history Social history: smoking Family history: no significant family history Medications and Allergies Allergies Allergy/AdvReac Type Severity Reaction Status Date / Time No Known Allergies Allergy Verified 01/14/19 18:32 Home Medications Medication Instructions Recorded Confirmed Last Taken Type ALBUTEROL Inhaler(NF) [VENTOLIN 3 puff IH Q6H PRN #100 inha 11/13/18 02/22/19 Unknown Rx Inhaler(NF)] ALBUTEROL NEB's [Proventil 0.083% 2.5 mg IH Q4HRT #1 nebu 11/13/18 02/22/19 Unknown Rx NEBS] Budesonide/Formoterol Fumarate 1 puff IH BID #1 hfa.aer.ad 11/13/18 02/22/19 Unknown Rx [Symbicort 160-4.5 Mcg Inhaler] amLODIPine [Norvasc] 10 mg PO DAILY #30 tablet 11/13/18 02/22/19 Unknown Rx ALPRAZolam [Xanax TAB] 0.25 mg PO Q12HR PRN #14 tablet 12/14/18 02/22/19 Unknown Rx Roflumilast [Daliresp] 500 mcg PO QDAY #30 tab 12/14/18 02/22/19 Unknown Rx Tiotropium [place] [Spiriva] 1 puff IH DAILY 30 Days cap.w.dev 12/14/18 02/22/19 Unknown Rx guaiFENesin [Robitussin] 200 mg PO Q6H PRN 7 Days tablet 12/14/18 02/22/19 Unknown Rx Ipratropium (Nf) [Atrovent HFA 2 puff IH Q6HR PRN #5 inha 01/12/19 02/22/19 Unknown Rx 17MCG/PUFF] Ipratropium [Atrovent NEB] 0.5 mg IH Q4HR #2 ml 01/12/19 02/22/19 Unknown Rx guaiFENesin ER [Mucinex ER] 600 mg PO BID #30 tablet 01/16/19 02/22/19 Unknown Rx ALBUTEROL Inhaler (OR & NICU) 1 puff IH QID PRN #1 inha 02/24/19 Unknown Rx [ProAir HFA Inhaler] ALBUTEROL NEB's [Proventil 0.083% 2.5 mg IH Q6H PRN 30 Days nebu 02/24/19 Unknown Rx NEBS] levoFLOXacin [Levaquin TAB] 500 mg PO QDAY #5 tablet 02/24/19 Unknown Rx predniSONE [Deltasone] 10 mg PO QDAY #40 tab 02/24/19 Unknown Rx Review of Systems All systems: negative Exam - Constitutional Vitals: Temp Pulse Resp BP Pulse Ox 98.1 F 93 H 20 128/88 95 04/04/19 06:37 04/04/19 10:45 04/04/19 10:45 04/04/19 10:45 04/04/19 10:45 General appearance: Present: no acute distress, well-nourished - EENT Eyes: Present: PERRL ENT: hearing intact, clear oral mucosa - Neck Neck: Present: supple, normal ROM - Respiratory Respiratory effort: normal Respiratory: bilateral: diminished, wheezing - Cardiovascular Heart Sounds: Present: S1 & S2. Absent: rub, click - Extremities Extremities: pulses symmetrical, No edema Peripheral Pulses: within normal limits - Abdominal General gastrointestinal: Present: soft, non-tender, non-distended, normal bowel sounds Male genitourinary: Present: normal - Integumentary Integumentary: Present: clear, warm, dry - Musculoskeletal Musculoskeletal: gait normal, strength equal bilaterally - Psychiatric Psychiatric: appropriate mood/affect, intact judgment & insight - Neurologic Neurologic: CNII-XII intact, moves all extremities Results - Labs CBC & Chem 7: 04/04/19 06:48 04/04/19 06:48 Labs: Laboratory Last Values WBC 6.9 K/mm3 (4.5-11.0) 04/04/19 06:48 RBC 5.49 M/mm3 (3.65-5.03) H 04/04/19 06:48 Hgb 15.4 gm/dl (11.8-15.2) H 04/04/19 06:48 Hct 46.3 % (35.5-45.6) H 04/04/19 06:48 MCV 84 fl (84-94) 04/04/19 06:48 MCH 28 pg (28-32) 04/04/19 06:48 MCHC 33 % (32-34) 04/04/19 06:48 RDW 16.4 % (13.2-15.2) H 04/04/19 06:48 Plt Count 195 K/mm3 (140-440) 04/04/19 06:48 Lymph % (Auto) 26.2 % (13.4-35.0) 04/04/19 06:48 [place] % (Auto) 14.9 % (0.0-7.3) H 04/04/19 06:48 Eos % (Auto) 4.8 % (0.0-4.3) H 04/04/19 06:48 Baso % (Auto) 0.7 % (0.0-1.8) 04/04/19 06:48 Lymph # 1.8 K/mm3 (1.2-5.4) 04/04/19 06:48 [place] # 1.0 K/mm3 (0.0-0.8) H 04/04/19 06:48 Eos # 0.3 K/mm3 (0.0-0.4) 04/04/19 06:48 Baso # 0.1 K/mm3 (0.0-0.1) 04/04/19 06:48 Seg Neutrophils % 53.4 % (40.0-70.0) 04/04/19 06:48 Seg Neutrophils # 3.7 K/mm3 (1.8-7.7) 04/04/19 06:48 PT 13.0 Sec. (12.2-14.9) 04/04/19 06:48 INR 1.01 (0.87-1.13) 04/04/19 06:48 APTT 38.0 Sec. (24.2-36.6) H 04/04/19 06:48 Sodium 137 mmol/L (137-145) 04/04/19 06:48 Potassium 3.7 mmol/L (3.6-5.0) 04/04/19 06:48 Chloride 101.3 mmol/L (98-107) 04/04/19 06:48 Carbon Dioxide 24 mmol/L (22-30) 04/04/19 06:48 15 mmol/L 04/04/19 06:48 BUN 10 mg/dL (9-20) 04/04/19 06:48 0.9 mg/dL (0.8-1.5) 04/04/19 06:48 Estimated GFR > 60 ml/min 04/04/19 06:48 11 % 04/04/19 06:48 Glucose 134 mg/dL (75-100) H 04/04/19 06:48 Calcium 9.3 mg/dL (8.4-10.2) 04/04/19 06:48 Magnesium 2.10 mg/dL (1.7-2.3) 04/04/19 06:48 0.60 mg/dL (0.1-1.2) 04/04/19 06:48 < 0.2 mg/dL (0-0.2) 04/04/19 06:48 AST 9 units/L (5-40) 04/04/19 06:48 ALT 9 units/L (7-56) 04/04/19 06:48 100 units/L (35-129) 04/04/19 06:48 < 0.010 ng/mL (0.00-0.029) 04/04/19 06:48 NT-Pro-B Natriuret Pep 51.90 pg/mL (0-900) 04/04/19 06:48 7.3 g/dL (6.3-8.2) 04/04/19 06:48 4.2 g/dL (3.9-5) 04/04/19 06:48 1.4 % 04/04/19 06:48 Plasma/Serum Alcohol < 0.01 % (0-0.07) 04/04/19 06:48 Assessment and Plan Assessment and plan: Acute on chronic hypoxic respiratory failure. Etiology is Secondary to acute exacerbation of COPD Continue BiPAP as clinically indicated. Oxygen titrate to O2 sats more than 92% Bronchodilator/Nebulizers, IV steroids, IV antibiotics Inhalation steroids and supportive care --Acute exacerbation of COPD; Continue above treatment --Acute bronchitis Empiric antibiotics, supportive care --History of tobacco use; Smoking cessation counseling and patch if needed --DVT prophylaxis; Lovenox --Full CODE STATUS
[2019-04-04] MEDS ORDERED: SODIUM CHLORIDE FLUSH SYRINGE 10 ML IV PRN (11:25)
[2019-04-04] MEDS ORDERED: ZOFRAN IV PRN (11:25)
[2019-04-04] MEDS ORDERED: TYLENOL PO PRN (11:25)
[2019-04-04] MEDS ORDERED: PROVENTIL IH PRN (11:25)
--- NOTE | 2019-04-04 12:49 | Consultation ---
History of Present Illness Consult date: 04/04/19 Requesting physician: WES WASHINGTON Reason for consult: dyspnea, COPD History of present illness: 73 y/o male with known COPD, unsure if he has ever followed up in our office but we have seen him in the hospital at least twice before this admission who presents with acute exacerbation of COPD. Patient is a very very poor historian and will not answer questions with a direct answer. Patient states that he does not know what meds that she should be on for COPD and also states that he has been out of medication but unsure of what the meds do. Granddaughter at bedside who does not know the medications as well. Remainder is negative. Past History Past Medical History: COPD, hypertension Past Surgical History: No surgical history Social history: smoking Family history: no significant family history Medications and Allergies Allergies Allergy/AdvReac Type Severity Reaction Status Date / Time No Known Allergies Allergy Verified 01/14/19 18:32 Home Medications Medication Instructions Recorded Confirmed Last Taken Type ALBUTEROL Inhaler(NF) [VENTOLIN 3 puff IH Q6H PRN #100 inha 11/13/18 02/22/19 Unknown Rx Inhaler(NF)] ALBUTEROL NEB's [Proventil 0.083% 2.5 mg IH Q4HRT #1 nebu 11/13/18 02/22/19 Unknown Rx NEBS] Budesonide/Formoterol Fumarate 1 puff IH BID #1 hfa.aer.ad 11/13/18 02/22/19 Unknown Rx [Symbicort 160-4.5 Mcg Inhaler] amLODIPine [Norvasc] 10 mg PO DAILY #30 tablet 11/13/18 02/22/19 Unknown Rx ALPRAZolam [Xanax TAB] 0.25 mg PO Q12HR PRN #14 tablet 12/14/18 02/22/19 Unknown Rx Roflumilast [Daliresp] 500 mcg PO QDAY #30 tab 12/14/18 02/22/19 Unknown Rx Tiotropium [place] [Spiriva] 1 puff IH DAILY 30 Days cap.w.dev 12/14/18 02/22/19 Unknown Rx guaiFENesin [Robitussin] 200 mg PO Q6H PRN 7 Days tablet 12/14/18 02/22/19 Unknown Rx Ipratropium (Nf) [Atrovent HFA 2 puff IH Q6HR PRN #5 inha 01/12/19 02/22/19 Unknown Rx 17MCG/PUFF] Ipratropium [Atrovent NEB] 0.5 mg IH Q4HR #2 ml 01/12/19 02/22/19 Unknown Rx guaiFENesin ER [Mucinex ER] 600 mg PO BID #30 tablet 01/16/19 02/22/19 Unknown Rx ALBUTEROL Inhaler (OR & NICU) 1 puff IH QID PRN #1 inha 02/24/19 Unknown Rx [ProAir HFA Inhaler] ALBUTEROL NEB's [Proventil 0.083% 2.5 mg IH Q6H PRN 30 Days nebu 02/24/19 Unknown Rx NEBS] levoFLOXacin [Levaquin TAB] 500 mg PO QDAY #5 tablet 02/24/19 Unknown Rx predniSONE [Deltasone] 10 mg PO QDAY #40 tab 02/24/19 Unknown Rx Active Meds: Active Medications Acetaminophen (Tylenol) 650 mg PO Q4H PRN PRN Reason: Pain MILD(1-3)/Fever >100.5/PALACIOS Albuterol/Ipratropium (Duoneb *Not For Prn Use*) 1 ampul IH Q4HRT DARBY Budesonide (Pulmicort) 0.5 mg IH Q12HRT DARBY Enoxaparin Sodium (Lovenox) 40 mg SUB-Q QDAY DARBY Methylprednisolone Sodium Succinate (Solu-Medrol) 60 mg IV Q6HR DARBY Ondansetron HCl (Zofran) 4 mg IV Q8H PRN PRN Reason: Nausea And Vomiting Sodium Chloride (Sodium Chloride Flush Syringe 10 Ml) 10 ml IV BID DARBY Sodium Chloride (Sodium Chloride Flush Syringe 10 Ml) 10 ml IV PRN PRN PRN Reason: LINE FLUSH Review of Systems All systems: negative Physical Examination Vital signs: Vital Signs Pulse Resp BP Pulse Ox 77 36 H 125/87 93 04/04/19 06:30 04/04/19 06:30 04/04/19 06:30 04/04/19 06:30 General appearance: no acute distress, alert, appears uncomfortable Eyes: non-icteric ENT: oropharynx moist Neck: supple Effort: mildly labored Ascultation: Bilateral: diminished breath sounds, wheezes Percussion: Bilateral: not dull Tactile fremitus: Bilateral: normal Cardiovascular: regular rate and rhythm Gastrointestinal: normoactive bowel sounds, soft, non-distended Integumentary: normal Extremities: pulses normal Musculoskeletal: no deformities normal mental status, non-focal exam Results - Laboratory Findings CBC and BMP: 04/04/19 06:48 04/04/19 06:48 PT/INR, D-dimer PT 13.0 Sec. (12.2-14.9) 04/04/19 06:48 INR 1.01 (0.87-1.13) 04/04/19 06:48 Abnormal lab findings: Abnormal Labs 04/04/19 04/04/19 04/04/19 06:48 06:48 06:48 RBC 5.49 H Hgb 15.4 H Hct 46.3 H RDW 16.4 H [place] % (Auto) 14.9 H Eos % (Auto) 4.8 H [place] # 1.0 H APTT 38.0 H Glucose 134 H - Diagnostic Findings Chest x-ray: image reviewed (Hyperinflation without evidence of acute air space disease) Assessment and Plan 73 y/o male with acute exacerbation of COPD 1. Increase roids to 60q6 2. Added scheduled duonebs 3. Continue BID pulmicort 4. Supplemental oxygen to keep sats >88% 5. BP control 6. Watch volume status Thank you for this consult. Will continue to follow along with you.
[2019-04-04] MEDS ORDERED: SOLU-Medrol IV SCH ×2 (14:00→18:00)
[2019-04-04] MEDS: DUONEB *Not for PRN Use IH SCH ×3 (15:44→23:30)
[2019-04-04] MEDS: SOLU-Medrol IV SCH (18:46)
[2019-04-04] MEDS: PULMICORT IH SCH (20:45)
[2019-04-04] MEDS: SODIUM CHLORIDE FLUSH SYRINGE 10 ML IV SCH (22:08)
[2019-04-05] MEDS: SOLU-Medrol IV SCH ×4 (00:07→19:03)
[2019-04-05] MEDS: DUONEB *Not for PRN Use IH SCH ×6 (03:39→23:15)
[2019-04-05 04:48] LABS: Basophils % (Auto) 0.2 % (0.0-1.8); Hematocrit 45.4 % (35.5-45.6); Hemoglobin 15.2 gm/dl (11.8-15.2); Lymphocytes # (Auto) 0.7 K/mm3 (1.2-5.4); Lymphocytes % (Auto) 9.1 % (13.4-35.0); Mean Corpuscular HGB Conc 33 % (32-34); Mean Corpuscular Volume 84 fl (84-94); Monocytes # (Auto) 0.4 K/mm3 (0.0-0.8); Monocytes % (Auto) 5.5 % (0.0-7.3); Platelet Count 196 K/mm3 (140-440); Red Blood Count 5.41 M/mm3 (3.65-5.03); Red Cell Distribution Width 16.3 % (13.2-15.2)
[2019-04-05 04:59] LABS: BUN/Creatinine Ratio 21; Blood Urea Nitrogen 17 mg/dL (9-20); Calcium 9.3 mg/dL (8.4-10.2); Hemolysis Index 5
--- NOTE | 2019-04-05 08:40 | XRay Report ---
CHEST 1 VIEW 04/05/2019 8:17 AM INDICATION / CLINICAL INFORMATION: COPD exacerbation. COMPARISON: 04/04/19 FINDINGS: SUPPORT DEVICES: None. HEART / MEDIASTINUM: No significant abnormality. LUNGS / PLEURA: No significant pulmonary or pleural abnormality. No pneumothorax. ADDITIONAL FINDINGS: No significant additional findings. IMPRESSION: 1. No acute findings. No significant change. Signer Name: Norm Goetz MD Signed: 04/05/2019 8:35 AM Workstation Name: [id number]
[2019-04-05] MEDS: PULMICORT IH SCH ×2 (09:29→19:53)
[2019-04-05] MEDS: SODIUM CHLORIDE FLUSH SYRINGE 10 ML IV SCH ×2 (09:37→23:07)
[2019-04-05] MEDS: LOVENOX SUB-Q SCH (09:37)
--- NOTE | 2019-04-05 09:57 | Progress Note ---
Assessment and Plan Assessment and plan: Acute on chronic hypoxic respiratory failure. Etiology is Secondary to acute exacerbation of COPD Continue BiPAP as clinically indicated. Oxygen titrate to O2 sats more than 92% Bronchodilator/Nebulizers, IV steroids, IV antibiotics Taper steroids per pulmonology. Inhalation steroids and supportive care --Acute exacerbation of COPD; Continue above treatment --Acute bronchitis Empiric antibiotics, supportive care --History of tobacco use; Smoking cessation counseling and patch if needed --DVT prophylaxis; Lovenox --Full CODE STATUS History Interval history: No new issues overnight. Patient still with shortness of breath on exertion. Hospitalist Physical - Constitutional Vitals: Temp Pulse Resp BP Pulse Ox 97.7 F 105 H 18 120/82 94 04/05/19 07:58 04/05/19 09:49 04/05/19 09:49 04/05/19 07:58 04/05/19 09:31 General appearance: Present: no acute distress, well-nourished - EENT Eyes: Present: PERRL, EOM intact ENT: hearing intact, clear oral mucosa, dentition normal - Neck Neck: Present: supple, normal ROM - Respiratory Respiratory effort: normal Respiratory: bilateral: diminished, wheezing - Cardiovascular Rhythm: regular Heart Sounds: Present: S1 & S2. Absent: gallop, rub - Extremities Extremities: no ischemia, No edema, Full ROM - Abdominal General gastrointestinal: soft, non-tender, non-distended, normal bowel sounds - Integumentary Integumentary: Present: clear, warm, dry - Neurologic Neurologic: CNII-XII intact, moves all extremities Results - Labs CBC & Chem 7: 04/05/19 04:16 04/05/19 04:16 Labs: Laboratory Last Values WBC 7.4 K/mm3 (4.5-11.0) 04/05/19 04:16 RBC 5.41 M/mm3 (3.65-5.03) H 04/05/19 04:16 Hgb 15.2 gm/dl (11.8-15.2) 04/05/19 04:16 Hct 45.4 % (35.5-45.6) 04/05/19 04:16 MCV 84 fl (84-94) 04/05/19 04:16 MCH 28 pg (28-32) 04/05/19 04:16 MCHC 33 % (32-34) 04/05/19 04:16 RDW 16.3 % (13.2-15.2) H 04/05/19 04:16 Plt Count 196 K/mm3 (140-440) 04/05/19 04:16 Lymph % (Auto) 9.1 % (13.4-35.0) L 04/05/19 04:16 [place] % (Auto) 5.5 % (0.0-7.3) 04/05/19 04:16 Eos % (Auto) 0.0 % (0.0-4.3) 04/05/19 04:16 Baso % (Auto) 0.2 % (0.0-1.8) 04/05/19 04:16 Lymph # 0.7 K/mm3 (1.2-5.4) L 04/05/19 04:16 [place] # 0.4 K/mm3 (0.0-0.8) 04/05/19 04:16 Eos # 0.0 K/mm3 (0.0-0.4) 04/05/19 04:16 Baso # 0.0 K/mm3 (0.0-0.1) 04/05/19 04:16 Seg Neutrophils % 85.2 % (40.0-70.0) H 04/05/19 04:16 Seg Neutrophils # 6.3 K/mm3 (1.8-7.7) 04/05/19 04:16 PT 13.0 Sec. (12.2-14.9) 04/04/19 06:48 INR 1.01 (0.87-1.13) 04/04/19 06:48 APTT 38.0 Sec. (24.2-36.6) H 04/04/19 06:48 POC ABG pH 7.392 (7.35-7.45) 04/04/19 16:33 POC ABG pCO2 38.9 (35-45) 04/04/19 16:33 POC ABG pO2 80 (80-105) 04/04/19 16:33 POC ABG HCO3 23.6 (22-26 mml/L) 04/04/19 16:33 POC ABG Total CO2 25 (23-27mmol/L) 04/04/19 16:33 POC ABG O2 Sat 96 04/04/19 16:33 POC ABG Base Excess -1 ((-2) - (+3)mmol/L) 04/04/19 16:33 35 % 04/04/19 16:33 Sodium 137 mmol/L (137-145) 04/05/19 04:16 Potassium 4.1 mmol/L (3.6-5.0) 04/05/19 04:16 Chloride 100.4 mmol/L (98-107) 04/05/19 04:16 Carbon Dioxide 24 mmol/L (22-30) 04/05/19 04:16 17 mmol/L 04/05/19 04:16 BUN 17 mg/dL (9-20) 04/05/19 04:16 0.8 mg/dL (0.8-1.5) 04/05/19 04:16 Estimated GFR > 60 ml/min 04/05/19 04:16 21 % 04/05/19 04:16 Glucose 160 mg/dL (75-100) H 04/05/19 04:16 Calcium 9.3 mg/dL (8.4-10.2) 04/05/19 04:16 Magnesium 2.10 mg/dL (1.7-2.3) 04/04/19 06:48 0.60 mg/dL (0.1-1.2) 04/04/19 06:48 < 0.2 mg/dL (0-0.2) 04/04/19 06:48 AST 9 units/L (5-40) 04/04/19 06:48 ALT 9 units/L (7-56) 04/04/19 06:48 100 units/L (35-129) 04/04/19 06:48 < 0.010 ng/mL (0.00-0.029) 04/04/19 06:48 NT-Pro-B Natriuret Pep 51.90 pg/mL (0-900) 04/04/19 06:48 7.3 g/dL (6.3-8.2) 04/04/19 06:48 4.2 g/dL (3.9-5) 04/04/19 06:48 1.4 % 04/04/19 06:48 Plasma/Serum Alcohol < 0.01 % (0-0.07) 04/04/19 06:48 Active Medications - Current Medications Current Medications: Generic Name Dose Route Start Last Admin Trade Name Freq PRN Reason Stop Dose Admin Acetaminophen 650 mg 04/04/19 11:25 Tylenol PO Q4H PRN Pain MILD(1-3)/Fever >100.5/PALACIOS Albuterol/Ipratropium 1 ampul 04/04/19 16:00 04/05/19 09:29 Duoneb *Not For Prn Use* IH 1 ampul Q4HRT DARBY Administration Budesonide 0.5 mg 04/04/19 20:00 04/05/19 09:29 Pulmicort IH 0.5 mg Q12HRT DARBY Administration Enoxaparin Sodium 40 mg 04/05/19 10:00 04/05/19 09:37 Lovenox SUB-Q 40 mg QDAY DARBY Administration Methylprednisolone Sodium Succinate 60 mg 04/04/19 18:00 04/05/19 05:57 Solu-Medrol IV 60 mg Q6HR DARBY Administration Ondansetron HCl 4 mg 04/04/19 11:25 Zofran IV Q8H PRN Nausea And Vomiting Sodium Chloride 10 ml 04/04/19 22:00 04/05/19 09:37 Sodium Chloride Flush Syringe 10 Ml IV 10 ml BID DARBY Administration Sodium Chloride 10 ml 04/04/19 11:25 Sodium Chloride Flush Syringe 10 Ml IV PRN PRN LINE FLUSH
--- NOTE | 2019-04-05 11:41 | Progress Note ---
Assessment and Plan 73 y/o male with acute exacerbation of COPD 1. Increase roids to 60q6, continue through tomorrow, then consider switching to oral prednisone 2. Added scheduled duonebs, continue these through tomorrow and then switch to PRN 3. Continue BID pulmicort 4. Supplemental oxygen to keep sats >88% 5. BP control 6. Watch volume status 7. Hopeful for discharge in the next 24-36 hours. Thank you for this consult. Will continue to follow along with you. Subjective Date of service: 04/05/19 Interval history: No acute events. Down to room air. Good sats. Objective Vital Signs - 12hr 04/05/19 04/05/19 04/05/19 02:43 03:39 07:58 Temperature 97.7 F 97.7 F Pulse Rate 95 H 89 Pulse Rate [ 106 H Anterior Bilateral Throughout] Respiratory 20 20 Rate Respiratory 20 Rate [Anterior Bilateral Throughout] Blood Pressure 120/82 Blood Pressure 149/93 [Right] O2 Sat by Pulse 93 96 Oximetry 04/05/19 04/05/19 09:31 09:49 Temperature Pulse Rate Pulse Rate [ 105 H Anterior Bilateral Throughout] Respiratory Rate Respiratory 18 Rate [Anterior Bilateral Throughout] Blood Pressure Blood Pressure [Right] O2 Sat by Pulse 94 Oximetry Constitutional: no acute distress, alert, appears uncomfortable Eyes: non-icteric ENT: oropharynx moist Neck: supple Effort: mildly labored Ascultation: Bilateral: diminished breath sounds, wheezes Percussion: Bilateral: not dull Tactile fremitus: Bilateral: normal Cardiovascular: regular rate and rhythm Gastrointestinal: normoactive bowel sounds, soft, non-distended Integumentary: normal Extremities: pulses normal Neurologic: normal mental status, non-focal exam CBC and BMP: 04/05/19 04:16 04/05/19 04:16 ABG, PT/INR, D-dimer: ABG POC ABG pH 7.392 (7.35-7.45) 04/04/19 16:33 POC ABG pCO2 38.9 (35-45) 04/04/19 16:33 POC ABG pO2 80 (80-105) 04/04/19 16:33 POC ABG HCO3 23.6 (22-26 mml/L) 04/04/19 16:33 POC ABG Total CO2 25 (23-27mmol/L) 04/04/19 16:33 POC ABG O2 Sat 96 04/04/19 16:33 PT/INR, D-dimer PT 13.0 Sec. (12.2-14.9) 04/04/19 06:48 INR 1.01 (0.87-1.13) 04/04/19 06:48 Abnormal lab findings: Abnormal Labs 04/04/19 04/04/19 04/04/19 06:48 06:48 06:48 RBC 5.49 H Hgb 15.4 H Hct 46.3 H RDW 16.4 H Lymph % (Auto) [place] % (Auto) 14.9 H Eos % (Auto) 4.8 H Lymph # [place] # 1.0 H Seg Neutrophils % APTT 38.0 H Glucose 134 H 04/05/19 04/05/19 04:16 04:16 RBC 5.41 H Hgb Hct RDW 16.3 H Lymph % (Auto) 9.1 L [place] % (Auto) Eos % (Auto) Lymph # 0.7 L [place] # Seg Neutrophils % 85.2 H APTT Glucose 160 H
[2019-04-05] MEDS ORDERED: MIRALAX 3350 PO PRN (12:00)
[2019-04-06] MEDS: SOLU-Medrol IV SCH ×5 (00:31→23:28)
[2019-04-06] MEDS: DUONEB *Not for PRN Use IH SCH ×5 (04:00→20:15)
[2019-04-06] MEDS: PULMICORT IH SCH ×2 (08:44→20:15)
[2019-04-06] MEDS: SODIUM CHLORIDE FLUSH SYRINGE 10 ML IV SCH ×2 (09:32→22:10)
[2019-04-06] MEDS: LOVENOX SUB-Q SCH (09:32)
--- NOTE | 2019-04-06 09:52 | Progress Note ---
Assessment and Plan Assessment and plan: Acute on chronic hypoxic respiratory failure. Etiology is Secondary to acute exacerbation of COPD Continue BiPAP as clinically indicated. Oxygen titrate to O2 sats more than 92% Bronchodilator/Nebulizers, IV steroids, IV antibiotics Taper steroids per pulmonology. Inhalation steroids and supportive care --Acute exacerbation of COPD; Continue above treatment --Acute bronchitis Empiric antibiotics, supportive care --History of tobacco use; Smoking cessation counseling and patch if needed --DVT prophylaxis; Lovenox --Full CODE STATUS --Disposition Patient will likely discharge in a.m. History Interval history: No new issues overnight. Patient still with shortness of breath on exertion. Hospitalist Physical - Constitutional Vitals: Temp Pulse Resp BP Pulse Ox 98.2 F 89 20 151/89 98 04/06/19 07:45 04/06/19 07:45 04/06/19 07:45 04/06/19 07:45 04/06/19 07:45 General appearance: Present: no acute distress, well-nourished - EENT Eyes: Present: PERRL, EOM intact ENT: hearing intact, clear oral mucosa, dentition normal - Neck Neck: Present: supple, normal ROM - Respiratory Respiratory effort: normal Respiratory: bilateral: wheezing - Cardiovascular Rhythm: regular Heart Sounds: Present: S1 & S2. Absent: gallop, rub - Extremities Extremities: no ischemia, No edema, Full ROM - Abdominal General gastrointestinal: soft, non-tender, non-distended, normal bowel sounds - Integumentary Integumentary: Present: clear, warm, dry - Neurologic Neurologic: CNII-XII intact, moves all extremities Results - Labs CBC & Chem 7: 04/05/19 04:16 04/05/19 04:16 Labs: Laboratory Last Values WBC 7.4 K/mm3 (4.5-11.0) 04/05/19 04:16 RBC 5.41 M/mm3 (3.65-5.03) H 04/05/19 04:16 Hgb 15.2 gm/dl (11.8-15.2) 04/05/19 04:16 Hct 45.4 % (35.5-45.6) 04/05/19 04:16 MCV 84 fl (84-94) 04/05/19 04:16 MCH 28 pg (28-32) 04/05/19 04:16 MCHC 33 % (32-34) 04/05/19 04:16 RDW 16.3 % (13.2-15.2) H 04/05/19 04:16 Plt Count 196 K/mm3 (140-440) 04/05/19 04:16 Lymph % (Auto) 9.1 % (13.4-35.0) L 04/05/19 04:16 [place] % (Auto) 5.5 % (0.0-7.3) 04/05/19 04:16 Eos % (Auto) 0.0 % (0.0-4.3) 04/05/19 04:16 Baso % (Auto) 0.2 % (0.0-1.8) 04/05/19 04:16 Lymph # 0.7 K/mm3 (1.2-5.4) L 04/05/19 04:16 [place] # 0.4 K/mm3 (0.0-0.8) 04/05/19 04:16 Eos # 0.0 K/mm3 (0.0-0.4) 04/05/19 04:16 Baso # 0.0 K/mm3 (0.0-0.1) 04/05/19 04:16 Seg Neutrophils % 85.2 % (40.0-70.0) H 04/05/19 04:16 Seg Neutrophils # 6.3 K/mm3 (1.8-7.7) 04/05/19 04:16 PT 13.0 Sec. (12.2-14.9) 04/04/19 06:48 INR 1.01 (0.87-1.13) 04/04/19 06:48 APTT 38.0 Sec. (24.2-36.6) H 04/04/19 06:48 POC ABG pH 7.392 (7.35-7.45) 04/04/19 16:33 POC ABG pCO2 38.9 (35-45) 04/04/19 16:33 POC ABG pO2 80 (80-105) 04/04/19 16:33 POC ABG HCO3 23.6 (22-26 mml/L) 04/04/19 16:33 POC ABG Total CO2 25 (23-27mmol/L) 04/04/19 16:33 POC ABG O2 Sat 96 04/04/19 16:33 POC ABG Base Excess -1 ((-2) - (+3)mmol/L) 04/04/19 16:33 35 % 04/04/19 16:33 Sodium 137 mmol/L (137-145) 04/05/19 04:16 Potassium 4.1 mmol/L (3.6-5.0) 04/05/19 04:16 Chloride 100.4 mmol/L (98-107) 04/05/19 04:16 Carbon Dioxide 24 mmol/L (22-30) 04/05/19 04:16 17 mmol/L 04/05/19 04:16 BUN 17 mg/dL (9-20) 04/05/19 04:16 0.8 mg/dL (0.8-1.5) 04/05/19 04:16 Estimated GFR > 60 ml/min 04/05/19 04:16 21 % 04/05/19 04:16 Glucose 160 mg/dL (75-100) H 04/05/19 04:16 Calcium 9.3 mg/dL (8.4-10.2) 04/05/19 04:16 Magnesium 2.10 mg/dL (1.7-2.3) 04/04/19 06:48 0.60 mg/dL (0.1-1.2) 04/04/19 06:48 < 0.2 mg/dL (0-0.2) 04/04/19 06:48 AST 9 units/L (5-40) 04/04/19 06:48 ALT 9 units/L (7-56) 04/04/19 06:48 100 units/L (35-129) 04/04/19 06:48 < 0.010 ng/mL (0.00-0.029) 04/04/19 06:48 NT-Pro-B Natriuret Pep 51.90 pg/mL (0-900) 04/04/19 06:48 7.3 g/dL (6.3-8.2) 04/04/19 06:48 4.2 g/dL (3.9-5) 04/04/19 06:48 1.4 % 04/04/19 06:48 Plasma/Serum Alcohol < 0.01 % (0-0.07) 04/04/19 06:48 Active Medications - Current Medications Current Medications: Generic Name Dose Route Start Last Admin Trade Name Freq PRN Reason Stop Dose Admin Acetaminophen 650 mg 04/04/19 11:25 Tylenol PO Q4H PRN Pain MILD(1-3)/Fever >100.5/PALACIOS Albuterol/Ipratropium 1 ampul 04/04/19 16:00 04/06/19 08:44 Duoneb *Not For Prn Use* IH 1 ampul Q4HRT DARBY Administration Budesonide 0.5 mg 04/04/19 20:00 04/06/19 08:44 Pulmicort IH 0.5 mg Q12HRT DARBY Administration Enoxaparin Sodium 40 mg 04/05/19 10:00 04/06/19 09:32 Lovenox SUB-Q 40 mg QDAY DARBY Administration Methylprednisolone Sodium Succinate 60 mg 04/04/19 18:00 04/06/19 06:47 Solu-Medrol IV 60 mg Q6HR DARBY Administration Ondansetron HCl 4 mg 04/04/19 11:25 Zofran IV Q8H PRN Nausea And Vomiting Polyethylene Glycol 17 gm 04/05/19 12:00 Miralax 3350 PO QDAY PRN Constipation Sodium Chloride 10 ml 04/04/19 22:00 04/06/19 09:32 Sodium Chloride Flush Syringe 10 Ml IV 10 ml BID DARBY Administration Sodium Chloride 10 ml 04/04/19 11:25 Sodium Chloride Flush Syringe 10 Ml IV PRN PRN LINE FLUSH
--- NOTE | 2019-04-06 12:30 | Progress Note ---
Assessment and Plan 73 y/o male with acute exacerbation of COPD 1. Per patient, feels good enough to go home. Asked nursing to walk and measure pulse ox. If he drops below 88, he should be instructed to wear oxygen with exertion. Can assess resting O2 sats as well. 2. If discharged send out on Prednisone 60 daily for 4 days, then 40 daily for 4 days, then 20 daily for 4 days then 10 daily for 4 days then stop. 3. Resume home COPD regimen. 4. Will arrange follow up with me in 2 weeks from tomorrow. 5. No objection to discharge Subjective Date of service: 04/06/19 Interval history: No acute events. Back on oxygen this am. Per patient does have oxygen at home but unable to say if he is suppose to use it 18/03. Getting Neb treatment. Objective Vital Signs - 12hr 04/06/19 04/06/19 04/06/19 03:19 07:45 08:44 Temperature 97.7 F 98.2 F Pulse Rate 88 89 Pulse Rate [ 85 Anterior Bilateral Throughout] Respiratory 20 20 Rate Respiratory 20 Rate [Anterior Bilateral Throughout] Blood Pressure 144/97 151/89 O2 Sat by Pulse 95 98 96 Oximetry Constitutional: no acute distress, alert, appears uncomfortable Eyes: non-icteric ENT: oropharynx moist Neck: supple Effort: mildly labored Ascultation: Bilateral: diminished breath sounds, wheezes Percussion: Bilateral: not dull Tactile fremitus: Bilateral: normal Cardiovascular: regular rate and rhythm Gastrointestinal: normoactive bowel sounds, soft, non-distended Integumentary: normal Extremities: pulses normal Neurologic: normal mental status, non-focal exam CBC and BMP: 04/05/19 04:16 04/05/19 04:16 ABG, PT/INR, D-dimer: ABG POC ABG pH 7.392 (7.35-7.45) 04/04/19 16:33 POC ABG pCO2 38.9 (35-45) 04/04/19 16:33 POC ABG pO2 80 (80-105) 04/04/19 16:33 POC ABG HCO3 23.6 (22-26 mml/L) 04/04/19 16:33 POC ABG Total CO2 25 (23-27mmol/L) 04/04/19 16:33 POC ABG O2 Sat 96 04/04/19 16:33 PT/INR, D-dimer PT 13.0 Sec. (12.2-14.9) 04/04/19 06:48 INR 1.01 (0.87-1.13) 04/04/19 06:48 Abnormal lab findings: Abnormal Labs 04/04/19 04/04/19 04/04/19 06:48 06:48 06:48 RBC 5.49 H Hgb 15.4 H Hct 46.3 H RDW 16.4 H Lymph % (Auto) [place] % (Auto) 14.9 H Eos % (Auto) 4.8 H Lymph # [place] # 1.0 H Seg Neutrophils % APTT 38.0 H Glucose 134 H 04/05/19 04/05/19 04:16 04:16 RBC 5.41 H Hgb Hct RDW 16.3 H Lymph % (Auto) 9.1 L [place] % (Auto) Eos % (Auto) Lymph # 0.7 L [place] # Seg Neutrophils % 85.2 H APTT Glucose 160 H
[2019-04-07] MEDS: DUONEB *Not for PRN Use IH SCH ×6 (00:37→15:00)
[2019-04-07] MEDS: SOLU-Medrol IV SCH ×2 (05:39→13:43)
[2019-04-07] MEDS: PULMICORT IH SCH (07:41)
[2019-04-07] MEDS: LOVENOX SUB-Q SCH (10:31)
[2019-04-07] MEDS: SODIUM CHLORIDE FLUSH SYRINGE 10 ML IV SCH (10:32)
--- NOTE | 2019-04-07 12:29 | Progress Note ---
Assessment and Plan 73 y/o male with acute exacerbation of COPD No new recs for today. Same as yesterday. Please see below. 1. Per patient, feels good enough to go home. Asked nursing to walk and measure pulse ox. If he drops below 88, he should be instructed to wear oxygen with exertion. Can assess resting O2 sats as well. 2. If discharged send out on Prednisone 60 daily for 4 days, then 40 daily for 4 days, then 20 daily for 4 days then 10 daily for 4 days then stop. 3. Resume home COPD regimen. 4. Will arrange follow up with me in 2 weeks from tomorrow. 5. No objection to discharge Subjective Date of service: 04/07/19 Interval history: Desatted while walking and appears to be low on Room air if I am reading the documentation in the nurses notes correctly. Had some run of VTACH on yesterday. Pulm status is stable. Objective Vital Signs - 12hr 04/07/19 04/07/19 04/07/19 02:52 03:00 07:42 Temperature 97.8 F Pulse Rate 90 Pulse Rate [ 91 H 89 Anterior Bilateral Throughout] Respiratory 20 Rate Respiratory 22 20 Rate [Anterior Bilateral Throughout] Blood Pressure 138/96 [Right] O2 Sat by Pulse 95 Oximetry 04/07/19 04/07/19 07:43 07:50 Temperature 97.4 F L Pulse Rate 86 Pulse Rate [ Anterior Bilateral Throughout] Respiratory 22 Rate Respiratory Rate [Anterior Bilateral Throughout] Blood Pressure 133/99 [Right] O2 Sat by Pulse 95 93 Oximetry Constitutional: no acute distress, alert, appears uncomfortable Eyes: non-icteric ENT: oropharynx moist Neck: supple Effort: mildly labored Ascultation: Bilateral: diminished breath sounds, wheezes Percussion: Bilateral: not dull Tactile fremitus: Bilateral: normal Cardiovascular: regular rate and rhythm Gastrointestinal: normoactive bowel sounds, soft, non-distended Integumentary: normal Extremities: pulses normal Neurologic: normal mental status, non-focal exam CBC and BMP: 04/05/19 04:16 04/05/19 04:16 ABG, PT/INR, D-dimer: ABG POC ABG pH 7.392 (7.35-7.45) 04/04/19 16:33 POC ABG pCO2 38.9 (35-45) 04/04/19 16:33 POC ABG pO2 80 (80-105) 04/04/19 16:33 POC ABG HCO3 23.6 (22-26 mml/L) 04/04/19 16:33 POC ABG Total CO2 25 (23-27mmol/L) 04/04/19 16:33 POC ABG O2 Sat 96 04/04/19 16:33 PT/INR, D-dimer PT 13.0 Sec. (12.2-14.9) 04/04/19 06:48 INR 1.01 (0.87-1.13) 04/04/19 06:48 Abnormal lab findings: Abnormal Labs 04/04/19 04/04/19 04/04/19 06:48 06:48 06:48 RBC 5.49 H Hgb 15.4 H Hct 46.3 H RDW 16.4 H Lymph % (Auto) [place] % (Auto) 14.9 H Eos % (Auto) 4.8 H Lymph # [place] # 1.0 H Seg Neutrophils % APTT 38.0 H Glucose 134 H 04/05/19 04/05/19 04:16 04:16 RBC 5.41 H Hgb Hct RDW 16.3 H Lymph % (Auto) 9.1 L [place] % (Auto) Eos % (Auto) Lymph # 0.7 L [place] # Seg Neutrophils % 85.2 H APTT Glucose 160 H
--- NOTE | 2019-04-07 13:25 | Discharge Summary ---
Providers - Providers Date of Admission: 04/04/19 09:46 Date of discharge: 04/07/19 Attending physician: FANG BLAKE 04/04/19 11:25 Consult to Physician [CONS] Routine Comment: Consulting Provider: MURTAZA LÓPEZ Physician Instructions: Reason For Exam: copd EXAC 04/06/19 08:59 Physical Therapy Evaluation and Treat [CONS] Routine Comment: Reason For Exam: Weakness [facility] Condition: Fair Disposition: DC-01 TO HOME OR SELFCARE - Discharge Diagnoses (1) Acute and chronic respiratory failure Status: Acute Qualifiers: Respiratory failure complication: hypoxia Qualified Code(s): J96.21 - Acute and chronic respiratory failure with hypoxia (2) Acute exacerbation of chronic obstructive pulmonary disease (COPD) Status: Acute (3) COPD exacerbation Status: Acute (4) HTN (hypertension) Status: Chronic Qualifiers: Hypertension type: essential hypertension Qualified Code(s): I10 - Essential (primary) hypertension (5) O2 dependent Status: Acute Core Measure Documentation - Palliative Care Palliative Care/ Comfort Measures: Not Applicable - Core Measures Any of the following diagnoses?: none Exam - Constitutional Vitals: Temp Pulse Resp BP Pulse Ox 97.4 F L 86 22 133/99 93 04/07/19 07:50 04/07/19 07:50 04/07/19 07:50 04/07/19 07:50 04/07/19 07:50 Plan Activity: advance as tolerated Diet: low fat, low cholesterol, low salt Additional Instructions: 1.Follow up with PCP in 1 week. 2.Follow up with Dr. López, Pulm in 1 week Care Plan Goals: Get better Plan of Treatment: 1.Follow up with PCP in 1 week. 2.Follow up with Dr. López, Pulmonology in 2 weeks Assessment: Acute on chronic respiratory failure due to COPD exacerbation [facility] Care Provider[facility] - 3-5 Days Prescriptions: ALBUTEROL NEB's [Proventil 0.083% NEBS] 2.5 mg IH Q6H PRN 30 Days nebu PRN Reason: Dyspnea
[2019-04-07 13:39] VITALS: BP 138/95
== END 2019-04-07 16:10 | disposition home or self-care (01) | DRG 189 ==
LOC: ED 06:28 → 2B-ACE 09:46
PROVIDERS: ADMIT Hospitalist; ATTEND Internal Medicine
PROC: 4A033R1 Measurement of Arterial Saturation, Peripheral, Percutaneous Approach (ICD-10-PCS; principal; 2019-04-04)
PROC: 5A09357 Assistance with Respiratory Ventilation, Less than 24 Consecutive Hours, Continuous Positive Airway Pressure (ICD-10-PCS; 2019-04-04)
DX: J96.21 Acute and chronic respiratory failure with hypoxia (principal); J44.1 Chronic obstructive pulmonary disease with (acute) exacerbation; J44.0 Chronic obstructive pulmonary disease with (acute) lower respiratory infection; J20.9 Acute bronchitis, unspecified; M19.90 Unspecified osteoarthritis, unspecified site; F17.210 Nicotine dependence, cigarettes, uncomplicated; Z99.81 Dependence on supplemental oxygen
CPT/HCPCS: 36415; 36600; 71045; 80048; 80076; 80320; 82803; 83735; 83880; 84484; 85025; 85610; 85730; 93005; 93010; 94640; 94644; 94760; 96365; 96375; G0378; G0480; J1650; J2930; J3475

== ENCOUNTER 2019-04-11 16:41 | Emergency (ER) | payer MEDICARE ==
[2019-04-11 17:10] VITALS: BP 151/106
--- NOTE | 2019-04-11 17:45 | Emergency Department Report ---
Chief Complaint: Skin Rash Stated Complaint: RASH ON STOMACH Time Seen by Provider: 04/11/19 17:38 - HPI History of Present Illness: 73 y/o male comes in for a bruise on his abdomen after receiving a Lovenox shot last week. Patient denies any pain. - ROS Review of Systems: Bruise on abdomen. - Exam Vital Signs: Vital Signs 04/11/19 17:06 Temperature 97.8 F Pulse Rate 73 Respiratory 16 Rate Blood Pressure 151/106 O2 Sat by Pulse 93 Oximetry Physical Exam: Bruise on abdomen. Non tender MSE screening note: Focused history and physical exam performed. Due to findings the following was ordered: Patient is stable to be discharge. Patient has no indication for further er evaluation. No threat for limb loss or . ED Disposition for MSE Condition: Stable
== END 2019-04-11 21:54 | disposition home or self-care (01) ==
LOC: ED 16:41
DX: R21 Rash and other nonspecific skin eruption (principal)
CPT/HCPCS: 99282

== ENCOUNTER 2019-09-01 11:53 | Emergency (ER) | payer MEDICARE ==
[2019-09-01] MEDS ORDERED: ALBUTEROL 2.5 MG/3 ML NEBU IH ONE (12:48)
[2019-09-01] MEDS ORDERED: MAGNESIUM SULFATE 2 GM/50 ML BAG IV ONE (12:48)
[2019-09-01] MEDS ORDERED: IPRATROPIUM 0.02% NEBU 2.5 ML IH ONE (12:48)
[2019-09-01] MEDS ORDERED: methylPREDNISolone Sod Succinate 125 MG/2 ML INJ IV ONE (12:48)
--- NOTE | 2019-09-01 13:31 | XRay Report ---
CHEST 1 VIEW INDICATION: Dyspnea for 2 days. COMPARISON: 04/05/2019 FINDINGS: Support devices: None. Heart: Within normal limits. Lungs/Pleura: No acute air space or interstitial disease. Additional findings: None. IMPRESSION: No acute findings. Signer Name: Serge Knapp Jr, MD Signed: 09/01/2019 1:27 PM Workstation Name: [id number]
[2019-09-01 13:57] LABS: INR 1.02 (0.87-1.13)
[2019-09-01 13:58] LABS: Partial Thromboplastin Time 38.3 Sec. (24.2-36.6)
--- NOTE | 2019-09-01 14:00 | Emergency Department Report ---
ED General Adult HPI - General Chief complaint: Dyspnea/Respdistress Stated complaint: DIFFICULTY BREATHING Time Seen by Provider: 09/01/19 12:37 Source: patient, EMS Mode of arrival: Stretcher Limitations: No Limitations - History of Present Illness Initial comments: The patient presents to the emergency department with a chief complaint of shortness of breath. Patient has a history of COPD and states for the last 2 weeks he's had difficulty with his breathing. Patient states he wears oxygen at home but does not know how many liters. Patient denies any chest pain, number pain, or headache. -: Gradual Severity scale (0 -10): 0 Improves with: none Worsens with: none Associated Symptoms: denies other symptoms Treatments Prior to Arrival: none - Related Data Previous Rx's Medication Instructions Recorded Last Taken Type ALBUTEROL Inhaler(NF) [VENTOLIN 3 puff IH Q6H PRN #100 inha 11/13/18 Unknown Rx Inhaler(NF)] ALBUTEROL NEB's [Proventil 0.083% 2.5 mg IH Q4HRT #1 nebu 11/13/18 Unknown Rx NEBS] Budesonide/Formoterol Fumarate 1 puff IH BID #1 hfa.aer.ad 11/13/18 Unknown Rx [Symbicort 160-4.5 Mcg Inhaler] amLODIPine 10 mg PO DAILY #30 tablet 11/13/18 Unknown Rx ALPRAZolam [Xanax TAB] 0.25 mg PO Q12HR PRN #14 tablet 12/14/18 Unknown Rx Roflumilast [Daliresp] 500 mcg PO QDAY #30 tab 12/14/18 Unknown Rx Tiotropium Robards [Spiriva] 1 puff IH DAILY 30 Days cap.w.dev 12/14/18 Unknown Rx guaiFENesin [Robitussin] 200 mg PO Q6H PRN 7 Days tablet 12/14/18 Unknown Rx Ipratropium (Nf) [Atrovent HFA 2 puff IH Q6HR PRN #5 inha 01/12/19 Unknown Rx 17MCG/PUFF] Ipratropium [Atrovent NEB] 0.5 mg IH Q4HR #2 ml 01/12/19 Unknown Rx guaiFENesin ER [Mucinex ER] 600 mg PO BID #30 tablet 01/16/19 Unknown Rx Albuterol INH(or & Nicu Only) 1 puff IH QID PRN #1 inha 02/24/19 Unknown Rx [ProAir HFA Inhaler] ALBUTEROL NEB's [Proventil 0.083% 2.5 mg IH Q6H PRN 30 Days nebu 04/07/19 Unknown Rx NEBS] Famotidine [Pepcid] 20 mg PO BID #30 tablet 04/07/19 Unknown Rx predniSONE [Deltasone] 20 mg PO QDAY #26 tab 04/07/19 Unknown Rx Albuterol INH(or & Nicu Only) 2 puff IH Q4HR PRN #1 inhalation 09/01/19 Unknown Rx [ProAir HFA Inhaler] Azithromycin [Zithromax Z-KENNA] 250 mg PO DAILY #6 tablet 09/01/19 Unknown Rx predniSONE [Deltasone] 20 mg PO DAILY #15 tablet 09/01/19 Unknown Rx Allergies Allergy/AdvReac Type Severity Reaction Status Date / Time No Known Allergies Allergy Verified 09/01/19 12:38 ED Review of Systems ROS: Stated complaint: DIFFICULTY BREATHING Other details as noted in HPI Comment: All other systems reviewed and negative Constitutional: denies: chills, fever Eyes: denies: eye pain, eye discharge, vision change ENT: denies: ear pain, throat pain Respiratory: shortness of breath. denies: cough, wheezing Cardiovascular: denies: chest pain, palpitations Endocrine: no symptoms reported Gastrointestinal: denies: abdominal pain, nausea, diarrhea Genitourinary: denies: urgency, dysuria Musculoskeletal: denies: back pain, joint swelling, arthralgia Skin: denies: rash, lesions Neurological: denies: headache, weakness, paresthesias Psychiatric: denies: anxiety, depression Hematological/Lymphatic: denies: easy bleeding, easy bruising ED Past Medical Hx - Past Medical History Previous Medical History?: Yes Hx Hypertension: Yes Hx CVA: Yes (generalized weakness, walks with a cane) Hx Heart Attack/AMI: No Hx Congestive Heart Failure: Yes Hx Diabetes: Yes Hx Deep Vein Thrombosis: No Hx Pulmonary Embolism: No Hx GERD: No Hx Liver Disease: No Hx Renal Disease: No Hx Sickle Cell Disease: No Hx Arthritis: Yes Hx Headaches / Migraines: No Hx Seizures: No Hx Kidney Stones: No Hx Psychiatric Treatment: Yes (schizophrenic) Hx Asthma: Yes Hx COPD: Yes Hx Tuberculosis: No Hx Dementia: No Hx HIV: No Additional medical history: Hx of Dissection?-AAA - Surgical History Past Surgical History?: Yes Hx Coronary Stent: No Hx Open Heart Surgery: No Hx Pacemaker: No Hx Internal Defibrillator: No Hx Cholecystectomy: Yes Hx Appendectomy: Yes Hx Breast Surgery: No - Social History Smoking Status: Current Some Day Smoker Substance Use Type: Marijuana - Medications Home Medications: Home Medications Medication Instructions Recorded Confirmed Last Taken Type ALBUTEROL Inhaler(NF) [VENTOLIN 3 puff IH Q6H PRN #100 inha 11/13/18 04/06/19 Unknown Rx Inhaler(NF)] ALBUTEROL NEB's [Proventil 0.083% 2.5 mg IH Q4HRT #1 nebu 11/13/18 04/06/19 Unknown Rx NEBS] Budesonide/Formoterol Fumarate 1 puff IH BID #1 hfa.aer.ad 11/13/18 04/06/19 Unknown Rx [Symbicort 160-4.5 Mcg Inhaler] amLODIPine 10 mg PO DAILY #30 tablet 11/13/18 04/06/19 Unknown Rx ALPRAZolam [Xanax TAB] 0.25 mg PO Q12HR PRN #14 tablet 12/14/18 04/06/19 Unknown Rx Roflumilast [Daliresp] 500 mcg PO QDAY #30 tab 12/14/18 04/06/19 Unknown Rx Tiotropium Robards [Spiriva] 1 puff IH DAILY 30 Days cap.w.dev 12/14/18 04/06/19 Unknown Rx guaiFENesin [Robitussin] 200 mg PO Q6H PRN 7 Days tablet 12/14/18 04/06/19 Unknown Rx Ipratropium (Nf) [Atrovent HFA 2 puff IH Q6HR PRN #5 inha 01/12/19 04/06/19 Unknown Rx 17MCG/PUFF] Ipratropium [Atrovent NEB] 0.5 mg IH Q4HR #2 ml 01/12/19 04/06/19 Unknown Rx guaiFENesin ER [Mucinex ER] 600 mg PO BID #30 tablet 01/16/19 04/06/19 Unknown Rx Albuterol INH(or & Nicu Only) 1 puff IH QID PRN #1 inha 02/24/19 04/06/19 Unknown Rx [ProAir HFA Inhaler] ALBUTEROL NEB's [Proventil 0.083% 2.5 mg IH Q6H PRN 30 Days nebu 04/07/19 Unknown Rx NEBS] Famotidine [Pepcid] 20 mg PO BID #30 tablet 04/07/19 Unknown Rx predniSONE [Deltasone] 20 mg PO QDAY #26 tab 04/07/19 Unknown Rx Albuterol INH(or & Nicu Only) 2 puff IH Q4HR PRN #1 inhalation 09/01/19 Unknown Rx [ProAir HFA Inhaler] Azithromycin [Zithromax Z-KENNA] 250 mg PO DAILY #6 tablet 09/01/19 Unknown Rx predniSONE [Deltasone] 20 mg PO DAILY #15 tablet 09/01/19 Unknown Rx ED Physical Exam - General Limitations: No Limitations General appearance: alert, in no apparent distress - Head Head exam: Present: atraumatic, normocephalic - Eye Eye exam: Present: normal appearance, PERRL, EOMI - ENT ENT exam: Present: mucous membranes moist - Neck Neck exam: Present: normal inspection - Respiratory Respiratory exam: Present: respiratory distress (mild respiratory distress; Diminished breath sounds throughout) - Cardiovascular Cardiovascular Exam: Present: regular rate, normal rhythm. Absent: systolic murmur, diastolic murmur, rubs, gallop - GI/Abdominal GI/Abdominal exam: Present: soft, normal bowel sounds. Absent: distended, tenderness - Rectal Rectal exam: Present: deferred - Extremities Exam Extremities exam: Present: normal inspection - Back Exam Back exam: Present: normal inspection - Neurological Exam Neurological exam: Present: alert, oriented X3, CN II-XII intact. Absent: motor sensory deficit - Psychiatric Psychiatric exam: Present: normal affect, normal mood - Skin Skin exam: Present: warm, dry, intact, normal color. Absent: rash ED Course Vital Signs 09/01/19 09/01/19 09/01/19 12:30 12:34 12:45 Temperature 98.2 F Pulse Rate 97 H 87 Respiratory 19 40 H Rate Blood Pressure 129/91 121/76 Blood Pressure 121/92 [Right] O2 Sat by Pulse 93 87 Oximetry 09/01/19 09/01/19 09/01/19 13:15 13:30 13:45 Temperature Pulse Rate Respiratory Rate Blood Pressure 131/86 122/89 131/86 Blood Pressure [Right] O2 Sat by Pulse 93 94 95 Oximetry ED Medical Decision Making - Lab Data Result diagrams: 09/01/19 13:13 09/01/19 13:13 Lab Results 09/01/19 09/01/19 09/01/19 Range/Units 13:13 13:13 13:13 WBC 7.0 (4.5-11.0) K/mm3 RBC 5.95 H (3.65-5.03) M/mm3 Hgb 16.7 H (11.8-15.2) gm/dl Hct 49.4 H (35.5-45.6) % MCV 83 L (84-94) fl MCH 28 (28-32) pg MCHC 34 (32-34) % RDW 15.9 H (13.2-15.2) % Plt Count 201 (140-440) K/mm3 Lymph % (Auto) 8.1 L (13.4-35.0) % [place] % (Auto) 6.9 (0.0-7.3) % Eos % (Auto) 0.8 (0.0-4.3) % Baso % (Auto) 0.5 (0.0-1.8) % Lymph # 0.6 L (1.2-5.4) K/mm3 [place] # 0.5 (0.0-0.8) K/mm3 Eos # 0.1 (0.0-0.4) K/mm3 Baso # 0.0 (0.0-0.1) K/mm3 Seg Neutrophils % 83.7 H (40.0-70.0) % Seg Neutrophils # 5.9 (1.8-7.7) K/mm3 PT 13.5 (12.2-14.9) Sec. INR 1.02 (0.87-1.13) APTT 38.3 H (24.2-36.6) Sec. Sodium 136 L (137-145) mmol/L Potassium 3.9 (3.6-5.0) mmol/L Chloride 98.6 (98-107) mmol/L Carbon Dioxide 23 (22-30) mmol/L Anion Gap 18 mmol/L BUN 13 (9-20) mg/dL Creatinine 0.9 (0.8-1.5) mg/dL Estimated GFR > 60 ml/min BUN/Creatinine Ratio 14 % Glucose 109 H (75-100) mg/dL Lactic Acid (0.7-2.0) mmol/L Calcium 9.3 (8.4-10.2) mg/dL Total Bilirubin 0.90 (0.1-1.2) mg/dL AST 11 (5-40) units/L ALT 9 (7-56) units/L Alkaline Phosphatase 115 (35-129) units/L Total Protein 7.2 (6.3-8.2) g/dL Albumin 4.2 (3.9-5) g/dL Albumin/Globulin Ratio 1.4 % 09/01/19 Range/Units 13:13 WBC (4.5-11.0) K/mm3 RBC (3.65-5.03) M/mm3 Hgb (11.8-15.2) gm/dl Hct (35.5-45.6) % MCV (84-94) fl MCH (28-32) pg MCHC (32-34) % RDW (13.2-15.2) % Plt Count (140-440) K/mm3 Lymph % (Auto) (13.4-35.0) % [place] % (Auto) (0.0-7.3) % Eos % (Auto) (0.0-4.3) % Baso % (Auto) (0.0-1.8) % Lymph # (1.2-5.4) K/mm3 [place] # (0.0-0.8) K/mm3 Eos # (0.0-0.4) K/mm3 Baso # (0.0-0.1) K/mm3 Seg Neutrophils % (40.0-70.0) % Seg Neutrophils # (1.8-7.7) K/mm3 PT (12.2-14.9) Sec. INR (0.87-1.13) APTT (24.2-36.6) Sec. Sodium (137-145) mmol/L Potassium (3.6-5.0) mmol/L Chloride (98-107) mmol/L Carbon Dioxide (22-30) mmol/L Anion Gap mmol/L BUN (9-20) mg/dL Creatinine (0.8-1.5) mg/dL Estimated GFR ml/min BUN/Creatinine Ratio % Glucose (75-100) mg/dL Lactic Acid 0.90 (0.7-2.0) mmol/L Calcium (8.4-10.2) mg/dL Total Bilirubin (0.1-1.2) mg/dL AST (5-40) units/L ALT (7-56) units/L Alkaline Phosphatase (35-129) units/L Total Protein (6.3-8.2) g/dL Albumin (3.9-5) g/dL Albumin/Globulin Ratio % - EKG Data -: EKG Interpreted by Ri EKG shows normal: sinus rhythm Rate: normal - Radiology Data Radiology results: report reviewed - Medical Decision Making Patient received continuous breathing treatment with 10 mg of albuterol and 1 mg Atrovent Patient received IV steroids and IV magnesium Repeat exam was done at 1615 and the patient states he is greatly improved On repeat examination there is wheezing at the end of the expiratory phase is improvement from initial lung exam Patient offered admission but politely declined Critical Care Time: Yes Critical care time in (mins) excluding proc time.: 35 Critical care attestation.: If time is entered above; I have spent that time in minutes in the direct care of this critically ill patient, excluding procedure time. ED Disposition Clinical Impression: COPD with exacerbation Disposition: DC-01 TO HOME OR SELFCARE Is pt being admited?: No Does the pt Need Aspirin: No Condition: Stable Instructions: Chronic Obstructive Pulmonary Disease (ED) Additional Instructions: return if worse Referrals: PRIMARY MD MARYBEL [Primary Care Provider] - 3-5 Days [facility] [Provider Group] - 3-5 Days [facility] [Provider Group] - 3-5 Days RUTHIE HOLGUIN MD [Staff Physician] - 3-5 Days Time of Disposition: 16:28
[2019-09-01 14:04] LABS: Alanine Aminotransferase 9 units/L (7-56); Albumin 4.2 g/dL (3.9-5); BUN/Creatinine Ratio 14; Blood Urea Nitrogen 13 mg/dL (9-20); Calcium 9.3 mg/dL (8.4-10.2); Hemolysis Index 8
[2019-09-01 14:09] LABS: Basophils % (Auto) 0.5 % (0.0-1.8); Eosinophils # (Auto) 0.1 K/mm3 (0.0-0.4); Eosinophils % (Auto) 0.8 % (0.0-4.3); Hematocrit 49.4 % (35.5-45.6); Hemoglobin 16.7 gm/dl (11.8-15.2); Lymphocytes # (Auto) 0.6 K/mm3 (1.2-5.4); Lymphocytes % (Auto) 8.1 % (13.4-35.0); Mean Corpuscular HGB Conc 34 % (32-34); Mean Corpuscular Volume 83 fl (84-94); Monocytes # (Auto) 0.5 K/mm3 (0.0-0.8); Monocytes % (Auto) 6.9 % (0.0-7.3); Platelet Count 201 K/mm3 (140-440); Red Blood Count 5.95 M/mm3 (3.65-5.03); Red Cell Distribution Width 15.9 % (13.2-15.2)
[2019-09-01 17:50] VITALS: BP 131/96
== END 2019-09-01 17:22 | disposition home or self-care (01) ==
LOC: ED 11:53
DX: J44.1 Chronic obstructive pulmonary disease with (acute) exacerbation (principal); I11.0 Hypertensive heart disease with heart failure; I50.9 Heart failure, unspecified; E11.9 Type 2 diabetes mellitus without complications; F17.200 Nicotine dependence, unspecified, uncomplicated; F12.10 Cannabis abuse, uncomplicated; Z86.73 Personal history of transient ischemic attack (TIA), and cerebral infarction without residual deficits
CPT/HCPCS: 36415; 71045; 80053; 82140; 85025; 85610; 85730; 87040; 93005; 93010; 94640; 96365; 96375; 99291; J2930; J3475

== ENCOUNTER 2019-10-10 03:28 | Inpatient (IN) | payer MEDICARE ==
[2019-10-10] MEDS ORDERED: MAGNESIUM SULFATE 2 GM/50 ML BAG IV ONE (03:48)
[2019-10-10] MEDS ORDERED: methylPREDNISolone Sod Succinate 125 MG/2 ML INJ IV ONE (03:48)
[2019-10-10] MEDS ORDERED: IPRATROPIUM/ALBUTEROL SULFATE 3 ML AMPUL.NEB IH ONE (03:49)
--- NOTE | 2019-10-10 03:53 | Emergency Department Report ---
ED Shortness of Breath HPI - General Chief Complaint: Dyspnea/Respdistress Stated Complaint: DIFFICULTY IN BREATHING Time Seen by Provider: 10/10/19 03:28 Source: patient, EMS Mode of arrival: Stretcher Limitations: No Limitations - History of Present Illness Initial Comments: Patient is a 74-year-old male that presents emergency room with difficulties in breathing and shortness of breath. Patient dates his symptoms been going off for a week. Patient states he is been out of his inhaler for 1 week. Patient states his symptoms are worsening. Patient denies chest pain. Patient states his shortness of breath is better with rest and worse with exertion. Patient has had multiple visits to the ER for COPD exacerbation. Patient denies fever and chills. Patient also complains of cough. Patient complains of wheezing. Patient denies nausea vomiting. MD Complaint: shortness of breath -: Sudden, week(s) Severity: severe Consistency: constant Improves With: oxygen, rest, bronchodilators, upright position Worsens With: lying flat, exertion Known History Of: COPD Context: medication noncompliance Associated Symptoms: cough - Related Data Home Oxygen Therapy: No Previous Rx's Medication Instructions Recorded Last Taken Type ALBUTEROL Inhaler(NF) [VENTOLIN 3 puff IH Q6H PRN #100 inha 11/13/18 Unknown Rx Inhaler(NF)] ALBUTEROL NEB's [Proventil 0.083% 2.5 mg IH Q4HRT #1 nebu 11/13/18 Unknown Rx NEBS] Budesonide/Formoterol Fumarate 1 puff IH BID #1 hfa.aer.ad 11/13/18 Unknown Rx [Symbicort 160-4.5 Mcg Inhaler] amLODIPine 10 mg PO DAILY #30 tablet 11/13/18 Unknown Rx ALPRAZolam [Xanax TAB] 0.25 mg PO Q12HR PRN #14 tablet 12/14/18 Unknown Rx Roflumilast [Daliresp] 500 mcg PO QDAY #30 tab 12/14/18 Unknown Rx Tiotropium Lottie [Spiriva] 1 puff IH DAILY 30 Days cap.w.dev 12/14/18 Unknown Rx guaiFENesin [Robitussin] 200 mg PO Q6H PRN 7 Days tablet 12/14/18 Unknown Rx Ipratropium (Nf) [Atrovent HFA 2 puff IH Q6HR PRN #5 inha 01/12/19 Unknown Rx 17MCG/PUFF] Ipratropium [Atrovent NEB] 0.5 mg IH Q4HR #2 ml 01/12/19 Unknown Rx guaiFENesin ER [Mucinex ER] 600 mg PO BID #30 tablet 01/16/19 Unknown Rx Albuterol INH(or & Nicu Only) 1 puff IH QID PRN #1 inha 02/24/19 Unknown Rx [ProAir HFA Inhaler] ALBUTEROL NEB's [Proventil 0.083% 2.5 mg IH Q6H PRN 30 Days nebu 04/07/19 Unknown Rx NEBS] Famotidine [Pepcid] 20 mg PO BID #30 tablet 04/07/19 Unknown Rx predniSONE [Deltasone] 20 mg PO QDAY #26 tab 04/07/19 Unknown Rx Albuterol INH(or & Nicu Only) 2 puff IH Q4HR PRN #1 inhalation 09/01/19 Unknown Rx [ProAir HFA Inhaler] Azithromycin [Zithromax Z-KENNA] 250 mg PO DAILY #6 tablet 09/01/19 Unknown Rx predniSONE [Deltasone] 20 mg PO DAILY #15 tablet 09/01/19 Unknown Rx Allergies Allergy/AdvReac Type Severity Reaction Status Date / Time No Known Allergies Allergy Verified 09/01/19 12:38 ED Review of Systems ROS: Stated complaint: DIFFICULTY IN BREATHING Other details as noted in HPI Constitutional: denies: chills, fever Eyes: denies: eye pain, eye discharge, vision change ENT: denies: ear pain, throat pain Respiratory: shortness of breath, SOB with exertion, SOB at rest. denies: cou gh, wheezing Cardiovascular: denies: chest pain, palpitations Endocrine: no symptoms reported Gastrointestinal: denies: abdominal pain, nausea, diarrhea Genitourinary: denies: urgency, dysuria Musculoskeletal: denies: back pain, joint swelling, arthralgia Skin: denies: rash, lesions Neurological: denies: headache, weakness, paresthesias Psychiatric: denies: anxiety, depression Hematological/Lymphatic: denies: easy bleeding, easy bruising ED Past Medical Hx - Past Medical History Previous Medical History?: Yes Hx Hypertension: Yes Hx CVA: Yes (generalized weakness, walks with a cane) Hx Heart Attack/AMI: No Hx Congestive Heart Failure: Yes Hx Diabetes: Yes Hx Deep Vein Thrombosis: No Hx Pulmonary Embolism: No Hx GERD: No Hx Liver Disease: No Hx Renal Disease: No Hx Sickle Cell Disease: No Hx Arthritis: Yes Hx Headaches / Migraines: No Hx Seizures: No Hx Kidney Stones: No Hx Psychiatric Treatment: Yes (schizophrenic) Hx Asthma: Yes Hx COPD: Yes Hx Tuberculosis: No Hx Dementia: No Hx HIV: No Additional medical history: Hx of Dissection?-AAA - Surgical History Past Surgical History?: Yes Hx Coronary Stent: No Hx Open Heart Surgery: No Hx Pacemaker: No Hx Internal Defibrillator: No Hx Cholecystectomy: Yes Hx Appendectomy: Yes Hx Breast Surgery: No - Family History Family history: no significant - Social History Smoking Status: Never Smoker Substance Use Type: None - Medications Home Medications: Home Medications Medication Instructions Recorded Confirmed Last Taken Type ALBUTEROL Inhaler(NF) [VENTOLIN 3 puff IH Q6H PRN #100 inha 11/13/18 04/06/19 Unknown Rx Inhaler(NF)] ALBUTEROL NEB's [Proventil 0.083% 2.5 mg IH Q4HRT #1 nebu 11/13/18 04/06/19 Unknown Rx NEBS] Budesonide/Formoterol Fumarate 1 puff IH BID #1 hfa.aer.ad 11/13/18 04/06/19 Unknown Rx [Symbicort 160-4.5 Mcg Inhaler] amLODIPine 10 mg PO DAILY #30 tablet 11/13/18 04/06/19 Unknown Rx ALPRAZolam [Xanax TAB] 0.25 mg PO Q12HR PRN #14 tablet 12/14/18 04/06/19 Unknown Rx Roflumilast [Daliresp] 500 mcg PO QDAY #30 tab 12/14/18 04/06/19 Unknown Rx Tiotropium Lottie [Spiriva] 1 puff IH DAILY 30 Days cap.w.dev 12/14/18 04/06/19 Unknown Rx guaiFENesin [Robitussin] 200 mg PO Q6H PRN 7 Days tablet 12/14/18 04/06/19 Unknown Rx Ipratropium (Nf) [Atrovent HFA 2 puff IH Q6HR PRN #5 inha 01/12/19 04/06/19 Unknown Rx 17MCG/PUFF] Ipratropium [Atrovent NEB] 0.5 mg IH Q4HR #2 ml 01/12/19 04/06/19 Unknown Rx guaiFENesin ER [Mucinex ER] 600 mg PO BID #30 tablet 01/16/19 04/06/19 Unknown Rx Albuterol INH(or & Nicu Only) 1 puff IH QID PRN #1 inha 02/24/19 04/06/19 U nknown Rx [ProAir HFA Inhaler] ALBUTEROL NEB's [Proventil 0.083% 2.5 mg IH Q6H PRN 30 Days nebu 04/07/19 Unknown Rx NEBS] Famotidine [Pepcid] 20 mg PO BID #30 tablet 04/07/19 Unknown Rx predniSONE [Deltasone] 20 mg PO QDAY #26 tab 04/07/19 Unknown Rx Albuterol INH(or & Nicu Only) 2 puff IH Q4HR PRN #1 inhalation 09/01/19 Unknown Rx [ProAir HFA Inhaler] Azithromycin [Zithromax Z-KENNA] 250 mg PO DAILY #6 tablet 09/01/19 Unknown Rx predniSONE [Deltasone] 20 mg PO DAILY #15 tablet 09/01/19 Unknown Rx ED Physical Exam - General Limitations: No Limitations General appearance: alert, in distress - Head Head exam: Present: atraumatic, normocephalic - Eye Eye exam: Present: normal appearance - ENT ENT exam: Present: mucous membranes moist - Neck Neck exam: Present: normal inspection - Respiratory Respiratory exam: Present: respiratory distress, wheezes - Cardiovascular Cardiovascular Exam: Present: regular rate, normal rhythm. Absent: systolic murmur, diastolic murmur, rubs, gallop - GI/Abdominal GI/Abdominal exam: Present: soft, normal bowel sounds - Rectal Rectal exam: Present: deferred - Extremities Exam Extremities exam: Present: normal inspection - Back Exam Back exam: Present: normal inspection - Neurological Exam Neurological exam: Present: alert, oriented X3 - Psychiatric Psychiatric exam: Present: normal affect, normal mood - Skin Skin exam: Present: warm, dry, intact, normal color. Absent: rash ED Course - Reevaluation(s) Reevaluation #1: Initial evaluation done. Patient will be given magnesium Reim, placed on BiPAP, DuoNeb. Respiratory consulted. Patient brought in by EMS and already placed on oxygen and given Solu-Medrol and albuterol. 10/10/19 03:28 Reevaluation #2: Patient on BiPAP and patient has improved. Patient's work to breathe has decreased. 10/10/19 04:07 Reevaluation #3: I I discussed all results with patient. I discussed plan of care with patient. Patient agrees with plan of care and admission. Patient to be admitted to the hospitalist service. 10/10/19 05:08 - Consultations Consultation #1: Hospitalist consulted for admission. Hospitalist to admit patient. Bridge orders placed. 10/10/19 05:08 ED Medical Decision Making - Lab Data Result diagrams: 10/10/19 04:14 10/10/19 04:14 - EKG Data -: EKG Interpreted by Me EKG shows normal: sinus rhythm, axis, intervals, QRS complexes, ST-T waves - Radiology Data Radiology results: report reviewed, image reviewed CHEST 1 VIEW INDICATION / CLINICAL INFORMATION: Dyspnea. COMPARISON: 09/01/2019 FINDINGS: SUPPORT DEVICES: None. HEART / MEDIASTINUM: No significant abnormality. LUNGS / PLEURA: There is perihilar and basilar interstitial change characteristic of edema. There are low lung volumes. No pneumothorax thorax is seen. ADDITIONAL FINDINGS: No significant additional findings. - Medical Decision Making Patient is a 74-year-old male that presents emergency room with complaints of shortness of breath and difficulty breathing. Patient has a long history of COPD exacerbations. Patient has been seen here multiple times. Patient found to have increased work of breathing and hypoxia and placed on BiPAP. Patient oxygen work to breathe improved. Patient clinical findings are consistent with a COPD exacerbation. Patient had a chest x-ray done which shows pulmonary edema. Patient given multiple medications to improve his breathing, to include magnesium and DuoNeb. Patient was given Solu-Medrol and albuterol in route by EMS. Patient admitted to the hospitalist service and into the [facility] for further evaluation and treatment. - Differential Diagnosis copd exac. chf exac. sob. [place]. hypoxia. Critical Care Time: Yes Critical care time in (mins) excluding proc time.: 45 Critical care attestation.: If time is entered above; I have spent that time in minutes in the direct care of this critically ill patient, excluding procedure time. Critical Care Time: 45 minutes ED Disposition Clinical Impression: COPD exacerbation, Acute exacerbation of chronic obstructive pulmonary disease (COPD), SOB (shortness of breath) COPD (chronic obstructive pulmonary disease) Qualifiers: COPD type: unspecified COPD Qualified Code(s): J44.9 - Chronic obstructive pulmonary disease, unspecified Acute respiratory failure Qualifiers: Respiratory failure complication: hypoxia Qualified Code(s): J96.01 - Acute respiratory failure with hypoxia Disposition: 09 OP ADMIT IP TO THIS HOSP Is pt being admited?: Yes Does the pt Need Aspirin: No Condition: Critical Time of Disposition: 05:09
--- NOTE | 2019-10-10 04:35 | XRay Report ---
CHEST 1 VIEW INDICATION / CLINICAL INFORMATION: Dyspnea. COMPARISON: 09/01/2019 FINDINGS: SUPPORT DEVICES: None. HEART / MEDIASTINUM: No significant abnormality. LUNGS / PLEURA: There is perihilar and basilar interstitial change characteristic of edema. There are low lung volumes. No pneumothorax thorax is seen. ADDITIONAL FINDINGS: No significant additional findings. Signer Name: Julian Bal MD Signed: 10/10/2019 4:30 AM Workstation Name: [id number]
[2019-10-10 04:39] LABS: Alanine Aminotransferase 11 units/L (7-56); Albumin 4.6 g/dL (3.9-5); BUN/Creatinine Ratio 21; Blood Urea Nitrogen 19 mg/dL (9-20); Calcium 9.5 mg/dL (8.4-10.2); Hemolysis Index 1
[2019-10-10 04:45] LABS: Basophils % (Auto) 0.6 % (0.0-1.8); Eosinophils % (Auto) 2.4 % (0.0-4.3); Hematocrit 47.3 % (35.5-45.6); Hemoglobin 15.7 gm/dl (11.8-15.2); Lymphocytes % (Auto) 17.7 % (13.4-35.0); Mean Corpuscular HGB Conc 33 % (32-34); Mean Corpuscular Volume 85 fl (84-94); Monocytes % (Auto) 9.7 % (0.0-7.3); Platelet Count 199 K/mm3 (140-440); Red Cell Distribution Width 16.2 % (13.2-15.2)
[2019-10-10 04:46] LABS: Basophils # (Auto) 0.1 K/mm3 (0.0-0.1); Eosinophils # (Auto) 0.2 K/mm3 (0.0-0.4); Lymphocytes # (Auto) 1.5 K/mm3 (1.2-5.4); Monocytes # (Auto) 0.8 K/mm3 (0.0-0.8)
[2019-10-10] MEDS ORDERED: FUROSEMIDE 40 MG/4 ML INJ IV ONE (05:06)
--- NOTE | 2019-10-10 15:04 | History and Physical Report ---
History of Present Illness Date of examination: 10/10/19 Date of admission: 10/10/19 05:10 Chief complaint: SOB History of present illness: Patient is a 74 yo AA man with a history of hypertension, tobacco dependency, chronic hypoxic respirartory failure on home O2 due to end stage COPD, OA with a cane, CHF, CVA, DM type 2, schizophrenia, AAA and CAD s/p coronary stent who presented to [facility] ED with severe constant sudden onset SOB pulse Ox in the 80s on 2 liters aggravated by exertion, lying flat, improved by sitting upright and the bipap machine. Patient was given solumedrol and albuterol prior to arrival. PMH: as hpi PSH: appendectomy, cholecystectomy, kidney stone removal, [facility]: +tob but quit 2 months ago, denies ETOH, +marijuana FH: hypertension ROS: Constitutional: denies: fever ENT: denies: throat or neck pain Respiratory: +: cough, shortness of breath Cardiovascular: denies: chest pain Endocrine: denies unexplained weight loss or gain Gastrointestinal: denies: abdominal pain, nausea Genitourinary: denies: dysuria Rectal: denies no incontinence, no bleeding, no itching, no discharge Musculoskeletal: denies swelling, myaglia, muscle weakness Skin: denies: rash Neurological: denies: headache Hematological/Lymphatic: denies: easy bleeding or easy bruising Allergic/Immunologic: no urticaria, no allergic rhinitis, no anaphylaxis Psych: denies sadness or hopelessness, SI/HI Medications and Allergies Allergies Allergy/AdvReac Type Severity Reaction Status Date / Time No Known Allergies Allergy Verified 09/01/19 12:38 Home Medications Medication Instructions Recorded Confirmed Last Taken Type ALBUTEROL Inhaler(NF) [VENTOLIN 3 puff IH Q6H PRN #100 inha 11/13/18 04/06/19 Unknown Rx Inhaler(NF)] ALBUTEROL NEB's [Proventil 0.083% 2.5 mg IH Q4HRT #1 nebu 11/13/18 04/06/19 Unknown Rx NEBS] Budesonide/Formoterol Fumarate 1 puff IH BID #1 hfa.aer.ad 11/13/18 04/06/19 Unknown Rx [Symbicort 160-4.5 Mcg Inhaler] amLODIPine 10 mg PO DAILY #30 tablet 11/13/18 04/06/19 Unknown Rx ALPRAZolam [Xanax TAB] 0.25 mg PO Q12HR PRN #14 tablet 12/14/18 04/06/19 Unknown Rx Roflumilast [Daliresp] 500 mcg PO QDAY #30 tab 12/14/18 04/06/19 Unknown Rx Tiotropium [place] [Spiriva] 1 puff IH DAILY 30 Days cap.w.dev 12/14/18 04/06/19 Unknown Rx guaiFENesin [Robitussin] 200 mg PO Q6H PRN 7 Days tablet 12/14/18 04/06/19 Un known Rx Ipratropium (Nf) [Atrovent HFA 2 puff IH Q6HR PRN #5 inha 01/12/19 04/06/19 Unknown Rx 17MCG/PUFF] Ipratropium [Atrovent NEB] 0.5 mg IH Q4HR #2 ml 01/12/19 04/06/19 Unknown Rx guaiFENesin ER [Mucinex ER] 600 mg PO BID #30 tablet 01/16/19 04/06/19 Unknown Rx Albuterol INH(or & Nicu Only) 1 puff IH QID PRN #1 inha 02/24/19 04/06/19 Unknown Rx [ProAir HFA Inhaler] ALBUTEROL NEB's [Proventil 0.083% 2.5 mg IH Q6H PRN 30 Days nebu 04/07/19 Unknown Rx NEBS] Famotidine [Pepcid] 20 mg PO BID #30 tablet 04/07/19 Unknown Rx predniSONE [Deltasone] 20 mg PO QDAY #26 tab 04/07/19 Unknown Rx Albuterol INH(or & Nicu Only) 2 puff IH Q4HR PRN #1 inhalation 09/01/19 Unknown Rx [ProAir HFA Inhaler] Azithromycin [Zithromax Z-KENNA] 250 mg PO DAILY #6 tablet 09/01/19 Unknown Rx predniSONE [Deltasone] 20 mg PO DAILY #15 tablet 09/01/19 Unknown Rx Exam - Physical Exam Narrative exam: Gen: thin frial, ill appearing, mild increase accessory, comfortable on bipap, easily arousable and Orientated x 3 HEENT: NCAT, EOMI, PERRL, OP Clear Neck: supple, no adenopathy, no thyromegaly, no JVD CVS/Heart: RRR, normal S1S2, pulses present bilaterally Chest/Lungs: diminished with exp wheezing, Symmetrical chest expansion, good air entry bilaterally GI/Abdomen: soft, NTND, epigastric surgery scar, good bowel sounds, no guarding or rebound /Bladder: no suprapubic tenderness, no CVA or paraspinal tenderness Extermity/Skin: no c/c/e, no obvious rash MSK: FROM x 4 Neuro: CN 2-12 grossly intact, no new focal deficits Psych: calm - Constitutional Vitals: Temp Pulse Resp BP Pulse Ox 72 20 130/84 99 10/10/19 12:40 10/10/19 12:40 10/10/19 12:40 10/10/19 12:40 Results - Labs CBC & Chem 7: 10/10/19 04:14 10/10/19 04:14 Labs: Laboratory Last Values WBC 8.7 K/mm3 (4.5-11.0) 10/10/19 04:14 RBC 5.60 M/mm3 (3.65-5.03) H 10/10/19 04:14 Hgb 15.7 gm/dl (11.8-15.2) H 10/10/19 04:14 Hct 47.3 % (35.5-45.6) H 10/10/19 04:14 MCV 85 fl (84-94) 10/10/19 04:14 MCH 28 pg (28-32) 10/10/19 04:14 MCHC 33 % (32-34) 10/10/19 04:14 RDW 16.2 % (13.2-15.2) H 10/10/19 04:14 Plt Count 199 K/mm3 (140-440) 10/10/19 04:14 Lymph % (Auto) 17.7 % (13.4-35.0) 10/10/19 04:14 [place] % (Auto) 9.7 % (0.0-7.3) H 10/10/19 04:14 Eos % (Auto) 2.4 % (0.0-4.3) 10/10/19 04:14 Baso % (Auto) 0.6 % (0.0-1.8) 10/10/19 04:14 Lymph # 1.5 K/mm3 (1.2-5.4) 10/10/19 04:14 [place] # 0.8 K/mm3 (0.0-0.8) 10/10/19 04:14 Eos # 0.2 K/mm3 (0.0-0.4) 10/10/19 04:14 Baso # 0.1 K/mm3 (0.0-0.1) 10/10/19 04:14 Add Manual Diff Complete 10/10/19 04:14 Seg Neutrophils % 69.6 % (40.0-70.0) 10/10/19 04:14 Seg Neutrophils # 6.0 K/mm3 (1.8-7.7) 10/10/19 04:14 Sodium 140 mmol/L (137-145) 10/10/19 04:14 Potassium 3.4 mmol/L (3.6-5.0) L 10/10/19 04:14 Chloride 100.3 mmol/L (98-107) 10/10/19 04:14 Carbon Dioxide 25 mmol/L (22-30) 10/10/19 04:14 Anion Gap 18 mmol/L 10/10/19 04:14 BUN 19 mg/dL (9-20) 10/10/19 04:14 Creatinine 0.9 mg/dL (0.8-1.5) 10/10/19 04:14 Estimated GFR > 60 ml/min 10/10/19 04:14 BUN/Creatinine Ratio 21 % 10/10/19 04:14 Glucose 159 mg/dL (75-100) H 10/10/19 04:14 Lactic Acid 1.40 mmol/L (0.7-2.0) 10/10/19 04:14 Calcium 9.5 mg/dL (8.4-10.2) 10/10/19 04:14 Total Bilirubin 0.60 mg/dL (0.1-1.2) 10/10/19 04:14 AST 12 units/L (5-40) 10/10/19 04:14 ALT 11 units/L (7-56) 10/10/19 04:14 Alkaline Phosphatase 103 units/L (35-129) 10/10/19 04:14 Total Creatine Kinase 55 units/L (55-170) 10/10/19 04:14 CK-MB (CK-2) 2.0 ng/mL (0.0-4.0) 10/10/19 04:14 CK-MB (CK-2) Rel Index 3.6 (0-4) 10/10/19 04:14 Troponin T < 0.010 ng/mL (0.00-0.029) 10/10/19 09:50 NT-Pro-B Natriuret Pep 71.86 pg/mL (0-900) 10/10/19 05:40 Total Protein 7.3 g/dL (6.3-8.2) 10/10/19 04:14 Albumin 4.6 g/dL (3.9-5) 10/10/19 04:14 Albumin/Globulin Ratio 1.7 % 10/10/19 04:14 Assessment and Plan Assessment and plan: Patient is a 74 yo AA man with a history of hypertension, tobacco dependency, chronic hypoxic respirartory failure on home O2 due to end stage COPD, OA with a cane, CHF, CVA, DM type 2, schizophrenia, AAA and CAD s/p coronary stent who presented to [facility] ED with severe constant sudden onset SOB pulse Ox in the 80s on 2 liters aggravated by exertion, lying flat, improved by sitting upright and the bipap machine. Patient was given solumedrol and albuterol prior to arrival. * pCXR Impression: No significant additional findings. 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
[2019-10-10] MEDS ORDERED: DEXTROSE 50% IN WATER (25GM) 50 ML SYRINGE IV PRN (15:06)
[2019-10-10] MEDS ORDERED: ACETAMINOPHEN 325 MG TAB PO PRN (15:09)
[2019-10-10] MEDS ORDERED: POLYETHYLENE GLYCOL 3350 17 GM POWDER PO PRN (15:09)
[2019-10-10] MEDS ORDERED: METOCLOPRAMIDE 10 MG/2 ML INJ IV PRN (15:10)
[2019-10-10] MEDS: IPRATROPIUM/ALBUTEROL SULFATE 3 ML AMPUL.NEB IH SCH ×2 (16:09→20:53)
[2019-10-10] MEDS: methylPREDNISolone Sod Succinate 125 MG/2 ML INJ IV SCH (19:19)
[2019-10-10] MEDS: ARFORMOTEROL 15 MCG/2 ML NEBU IH SCH (20:53)
[2019-10-10] MEDS: BUDESONIDE 0.25 MG/2 ML NEBU IH SCH (20:59)
[2019-10-10] MEDS: ENOXAPARIN 40 MG/0.4 ML INJ SUB-Q SCH (22:05)
[2019-10-10] MEDS: cefTRIAXone/NS 1 GM/50 ML 1 GM/50 ML BAG IV SCH (22:05)
[2019-10-10] MEDS: AZITHROMYCIN 500 MG in SODIUM CHLORIDE 0.9% 250ML 250 ML IV SCH (22:06)
[2019-10-10] MEDS: INSULIN LISPRO 100 UNIT/ML SUB-Q SCH (22:40)
[2019-10-11] MEDS: methylPREDNISolone Sod Succinate 125 MG/2 ML INJ IV SCH ×3 (00:32→18:12)
[2019-10-11] MEDS: ALBUTEROL 2.5 MG/3 ML NEBU IH PRN (04:29)
[2019-10-11 06:57] LABS: Hematocrit 47.3 % (35.5-45.6); Hemoglobin 16.2 gm/dl (11.8-15.2); Mean Corpuscular HGB Conc 34 % (32-34); Mean Corpuscular Volume 84 fl (84-94); Platelet Count 203 K/mm3 (140-440); Red Blood Count 5.63 M/mm3 (3.65-5.03); Red Cell Distribution Width 16.2 % (13.2-15.2)
[2019-10-11 07:13] LABS: BUN/Creatinine Ratio 25; Blood Urea Nitrogen 20 mg/dL (9-20); Calcium 9.3 mg/dL (8.4-10.2); Hemolysis Index 8
[2019-10-11] MEDS: IPRATROPIUM/ALBUTEROL SULFATE 3 ML AMPUL.NEB IH SCH ×4 (08:31→19:36)
[2019-10-11] MEDS: BUDESONIDE 0.25 MG/2 ML NEBU IH SCH ×2 (08:31→19:36)
[2019-10-11] MEDS: ARFORMOTEROL 15 MCG/2 ML NEBU IH SCH ×2 (08:31→19:36)
--- NOTE | 2019-10-11 08:54 | Progress Note ---
Assessment and Plan Assessment and plan: Patient is a 74 yo AA man with a history of hypertension, tobacco dependency, chronic hypoxic respirartory failure on home O2 due to end stage COPD, OA with a cane, CHF, CVA, DM type 2, schizophrenia, AAA and CAD s/p coronary stent who presented to [facility] ED with severe constant sudden onset SOB pulse Ox in the 80s on 2 liters aggravated by exertion, lying flat, improved by sitting upright and the bipap machine. Patient was given solumedrol and albuterol prior to arrival. * pCXR Impression: No significant additional findings. Acute on chronic hypoxic respiratory failure: NIPPV weaned off, continue o2 therapy AE of COPD: treat with iv abx, iv steroids, atc nebulizer, consult Harvest Worker Hypokalemia: replete and monitor bmp closely Type 2 DM: treat with SSI, accucheck, ADA diet Tobacco dependency: auto club travel counselor on stopping DVT ppx sq lovenox full code transfer to [facility] wean steriods, hopefully d/c in 1-2 days History Interval history: Patient was seen and examined. Follow-up on current diagnosis copd, sob better due to bipap which has been weaned off. Overnight uneventful as no events directly reported to me. Patient denies any chest pain, nausea/vomiting or severe headaches. Imaging, nursing note, chart, labs and old chart reviewed. Discussed with patient. Hospitalist Physical - Physical exam Narrative exam: Gen: thin frial, ill appearing, mild increase accessory, comfortable on bipap, easily arousable and Orientated x 3 HEENT: NCAT, EOMI, PERRL, OP Clear Neck: supple, no adenopathy, no thyromegaly, no JVD CVS/Heart: RRR, normal S1S2, pulses present bilaterally Chest/Lungs: diminished with exp wheezing, Symmetrical chest expansion, good air entry bilaterally GI/Abdomen: soft, NTND, epigastric surgery scar, good bowel sounds, no guarding or rebound /Bladder: no suprapubic tenderness, no CVA or paraspinal tenderness Extermity/Skin: no c/c/e, no obvious rash MSK: FROM x 4 Neuro: CN 2-12 grossly intact, no new focal deficits Psych: calm - Constitutional Vitals: Temp Pulse Resp BP Pulse Ox 98.7 F 85 16 96/63 96 10/11/19 03:31 10/11/19 08:33 10/11/19 08:33 10/11/19 04:00 10/11/19 08:34 Results - Labs CBC & Chem 7: 10/11/19 05:53 10/11/19 05:53 Labs: Laboratory Last Values WBC 8.8 K/mm3 (4.5-11.0) 10/11/19 05:53 RBC 5.63 M/mm3 (3.65-5.03) H 10/11/19 05:53 Hgb 16.2 gm/dl (11.8-15.2) H 10/11/19 05:53 Hct 47.3 % (35.5-45.6) H 10/11/19 05:53 MCV 84 fl (84-94) 10/11/19 05:53 MCH 29 pg (28-32) 10/11/19 05:53 MCHC 34 % (32-34) 10/11/19 05:53 RDW 16.2 % (13.2-15.2) H 10/11/19 05:53 Plt Count 203 K/mm3 (140-440) 10/11/19 05:53 Lymph % (Auto) 17.7 % (13.4-35.0) 10/10/19 04:14 [place] % (Auto) 9.7 % (0.0-7.3) H 10/10/19 04:14 Eos % (Auto) 2.4 % (0.0-4.3) 10/10/19 04:14 Baso % (Auto) 0.6 % (0.0-1.8) 10/10/19 04:14 Lymph # 1.5 K/mm3 (1.2-5.4) 10/10/19 04:14 [place] # 0.8 K/mm3 (0.0-0.8) 10/10/19 04:14 Eos # 0.2 K/mm3 (0.0-0.4) 10/10/19 04:14 Baso # 0.1 K/mm3 (0.0-0.1) 10/10/19 04:14 Add Manual Diff Complete 10/10/19 04:14 Seg Neutrophils % 69.6 % (40.0-70.0) 10/10/19 04:14 Seg Neutrophils # 6.0 K/mm3 (1.8-7.7) 10/10/19 04:14 Sodium 137 mmol/L (137-145) 10/11/19 05:53 Potassium 3.9 mmol/L (3.6-5.0) 10/11/19 05:53 Chloride 97.4 mmol/L (98-107) L 10/11/19 05:53 Carbon Dioxide 20 mmol/L (22-30) L 10/11/19 05:53 Anion Gap 24 mmol/L 10/11/19 05:53 BUN 20 mg/dL (9-20) 10/11/19 05:53 Creatinine 0.8 mg/dL (0.8-1.5) 10/11/19 05:53 Estimated GFR > 60 ml/min 10/11/19 05:53 BUN/Creatinine Ratio 25 % 10/11/19 05:53 Glucose 255 mg/dL (75-100) H 10/11/19 05:53 POC Glucose 119 (70-105) H 10/10/19 22:07 Lactic Acid 1.40 mmol/L (0.7-2.0) 10/10/19 04:14 Calcium 9.3 mg/dL (8.4-10.2) 10/11/19 05:53 Magnesium 2.30 mg/dL (1.7-2.3) 10/11/19 05:53 Total Bilirubin 0.60 mg/dL (0.1-1.2) 10/10/19 04:14 AST 12 units/L (5-40) 10/10/19 04:14 ALT 11 units/L (7-56) 10/10/19 04:14 Alkaline Phosphatase 103 units/L (35-129) 10/10/19 04:14 Total Creatine Kinase 55 units/L (55-170) 10/10/19 04:14 CK-MB (CK-2) 2.0 ng/mL (0.0-4.0) 10/10/19 04:14 CK-MB (CK-2) Rel Index 3.6 (0-4) 10/10/19 04:14 Troponin T < 0.010 ng/mL (0.00-0.029) 10/10/19 09:50 NT-Pro-B Natriuret Pep 71.86 pg/mL (0-900) 10/10/19 05:40 Total Protein 7.3 g/dL (6.3-8.2) 10/10/19 04:14 Albumin 4.6 g/dL (3.9-5) 10/10/19 04:14 Albumin/Globulin Ratio 1.7 % 10/10/19 04:14 Active Medications - Current Medications Current Medications: Generic Name Dose Route Start Last Admin Trade Name Freq PRN Reason Stop Dose Admin Acetaminophen 650 mg 10/10/19 15:09 10/10/19 22:07 Tylenol PO 650 mg Q6H PRN Administration Non Cardiac Pain or Temp>100.5 Albuterol 2.5 mg 10/10/19 15:06 10/11/19 04:29 Proventil IH 2.5 mg Q4HRT PRN Administration Shortness Of Breath Albuterol/Ipratropium 1 ampul 10/10/19 16:00 10/11/19 08:31 Duoneb *Not For Prn Use* IH 1 ampul QIDRT DARBY Administration Arformoterol Tartrate 15 mcg 10/10/19 20:00 10/11/19 08:31 Brovana Nebu IH 15 mcg Q12HRT DARBY Administration Budesonide 0.25 mg 10/10/19 20:00 10/11/19 08:31 Pulmicort IH 0.25 mg Q12HRT DARBY Administration Dextrose 50 ml 10/10/19 15:06 D50w (25gm) Syringe IV Q30MIN PRN Hypoglycemia Protocol Enoxaparin Sodium 40 mg 10/10/19 22:00 10/10/19 22:05 Enoxaparin SUB-Q 40 mg QDAY@2200 DARBY Administration Azithromycin 500 mg/ Sodium 250 mls @ 250 mls/hr 10/10/19 16:00 10/10/19 22:06 Chloride IV 250 mls/hr Q24HR DARBY Administration Protocol Ceftriaxone Sodium 1 gm in 50 mls @ 100 mls/hr 10/10/19 17:00 10/10/19 22:05 Rocephin/Ns 1 Gm/50 Ml IV 100 mls/hr Q24H DARBY Administration Protocol Insulin Human Lispro 0 unit 10/10/19 16:30 10/10/19 22:40 Humalog SUB-Q Not Given ACHS DARBY Protocol Methylprednisolone Sodium Succinate 80 mg 10/10/19 16:00 10/11/19 00:32 Solu-Medrol IV 80 mg Q8H DARBY Administration Metoclopramide HCl 10 mg 10/10/19 15:10 Reglan IV Q8H PRN Nausea And Vomiting Pantoprazole Sodium 40 mg 10/11/19 10:00 Protonix PO QDAY DARBY Polyethylene Glycol 17 gm 10/10/19 15:09 Miralax 3350 PO QDAY PRN Constipation
[2019-10-11] MEDS: INSULIN LISPRO 100 UNIT/ML SUB-Q SCH ×4 (09:47→22:25)
[2019-10-11] MEDS: PANTOPRAZOLE 40 MG TAB PO SCH (10:28)
[2019-10-11] MEDS: AZITHROMYCIN 500 MG in SODIUM CHLORIDE 0.9% 250ML 250 ML IV SCH ×2 (10:37→13:25)
--- NOTE | 2019-10-11 13:30 | Consultation ---
History of Present Illness Consult date: 10/11/19 Requesting physician: SHONA AL Reason for consult: dyspnea, COPD History of present illness: 74 y/o male with acute exacerbation of COPD. Briefly required bipap but then weaned back down to baseline nasal cannula. Past History Past Medical History: COPD, hypertension Past Surgical History: bowel surgery (unable to obtain) Social history: no significant social history Family history: no significant family history Medications and Allergies Allergies Allergy/AdvReac Type Severity Reaction Status Date / Time No Known Allergies Allergy Verified 09/01/19 12:38 Home Medications Medication Instructions Recorded Confirmed Last Taken Type ALBUTEROL Inhaler(NF) [VENTOLIN 3 puff IH Q6H PRN #100 inha 11/13/18 04/06/19 1 Day Ago Rx Inhaler(NF)] ~10/09/19 3 puff ALBUTEROL NEB's [Proventil 0.083% 2.5 mg IH Q4HRT #1 nebu 11/13/18 04/06/19 1 Day Ago Rx NEBS] ~10/09/19 2.5mg Budesonide/Formoterol Fumarate 1 puff IH BID #1 hfa.aer.ad 11/13/18 04/06/19 1 Day Ago Rx [Symbicort 160-4.5 Mcg Inhaler] ~10/09/19 1 puff amLODIPine 10 mg PO DAILY #30 tablet 11/13/18 10/10/19 1 Day Ago Rx ~10/09/19 10 mg ALPRAZolam [Xanax TAB] 0.25 mg PO Q12HR PRN #14 tablet 12/14/18 04/06/19 1 Day Ago Rx ~10/09/19 0.25mg Roflumilast [Daliresp] 500 mcg PO QDAY #30 tab 12/14/18 10/10/19 1 Day Ago Rx ~10/09/19 500 mcg Tiotropium [place] [Spiriva] 1 puff IH DAILY 30 Days cap.w.dev 12/14/18 10/10/19 1 Day Ago Rx ~10/09/19 1 puff guaiFENesin [Robitussin] 200 mg PO Q6H PRN 7 Days tablet 12/14/18 10/10/19 1 Day Ago Rx ~10/09/19 200 MG Ipratropium (Nf) [Atrovent HFA 2 puff IH Q6HR PRN #5 inha 01/12/19 04/06/19 1 Day Ago Rx 17MCG/PUFF] ~10/09/19 2 puffs Ipratropium [Atrovent NEB] 0.5 mg IH Q4HR #2 ml 01/12/19 10/10/19 1 Day Ago Rx ~10/09/19 0.5 guaiFENesin ER [Mucinex ER] 600 mg PO BID #30 tablet 01/16/19 10/10/19 1 Day Ago Rx ~10/09/19 600 mg Albuterol INH(or & Nicu Only) 1 puff IH QID PRN #1 inha 02/24/19 04/06/19 1 Day Ago Rx [ProAir HFA Inhaler] ~10/09/19 1 puff ALBUTEROL NEB's [Proventil 0.083% 2.5 mg IH Q6H PRN 30 Days nebu 04/07/19 3 Days Ago Rx NEBS] ~10/07/19 2.5 Famotidine [Pepcid] 20 mg PO BID #30 tablet 04/07/19 1 Day Ago Rx ~10/09/19 20 mg predniSONE [Deltasone] 20 mg PO QDAY #26 tab 04/07/19 10/10/19 1 Day Ago Rx ~10/09/19 40 MG Albuterol INH(or & Nicu Only) 2 puff IH Q4HR PRN #1 inhalation 09/01/19 1 Day Ago Rx [ProAir HFA Inhaler] ~10/09/19 2 puffs Azithromycin [Zithromax Z-KENNA] 250 mg PO DAILY #6 tablet 09/01/19 1 Month Ago Rx ~09/09/19 250 predniSONE [Deltasone] 20 mg PO DAILY MDD 40MG 10/10/19 10/10/19 1 Day Ago History ~10/09/19 40 MG Active Meds: Active Medications Acetaminophen (Tylenol) 650 mg PO Q6H PRN PRN Reason: Non Cardiac Pain or Temp>100.5 Last Admin: 10/10/19 22:07 Dose: 650 mg Documented by: Albuterol (Proventil) 2.5 mg IH Q4HRT PRN PRN Reason: Shortness Of Breath Last Admin: 10/11/19 04:29 Dose: 2.5 mg Documented by: Albuterol/Ipratropium (Duoneb *Not For Prn Use*) 1 ampul IH QIDRT [facility] Last Admin: 10/11/19 12:53 Dose: Not Given Documented by: Arformoterol Tartrate (Brovana Nebu) 15 mcg IH Q12HRT [facility] Last Admin: 10/11/19 08:31 Dose: 15 mcg Documented by: Budesonide (Pulmicort) 0.25 mg IH Q12HRT [facility] Last Admin: 10/11/19 08:31 Dose: 0.25 mg Documented by: Dextrose (D50w (25gm) Syringe) 50 ml IV Q30MIN PRN; Protocol PRN Reason: Hypoglycemia Enoxaparin Sodium (Enoxaparin) 40 mg SUB-Q QDAY@2200 [facility] Last Admin: 10/10/19 22:05 Dose: 40 mg Documented by: Azithromycin 500 mg/ Sodium (Chloride) 250 mls @ 250 mls/hr IV Q24HR [facility]; Protocol Last Admin: 10/11/19 10:37 Dose: 250 mls/hr Documented by: Ceftriaxone Sodium (Rocephin/Ns 1 Gm/50 Ml) 1 gm in 50 mls @ 100 mls/hr IV Q24H [facility]; Protocol Last Admin: 10/10/19 22:05 Dose: 100 mls/hr Documented by: Insulin Human Lispro (Humalog) 0 unit SUB-Q ACHS [facility]; Protocol Last Admin: 10/11/19 09:47 Dose: Not Given Documented by: Methylprednisolone Sodium Succinate (Solu-Medrol) 80 mg IV Q8H [facility] Last Admin: 10/11/19 08:00 Dose: 80 mg Documented by: Metoclopramide HCl (Reglan) 10 mg IV Q8H PRN PRN Reason: Nausea And Vomiting Pantoprazole Sodium (Protonix) 40 mg PO QDAY [facility] Last Admin: 10/11/19 10:28 Dose: 40 mg Documented by: Polyethylene Glycol (Miralax 3350) 17 gm PO QDAY PRN PRN Reason: Constipation Physical Examination Vital signs: Vital Signs Pulse Resp BP Pulse Ox 79 21 133/96 96 10/10/19 04:30 10/10/19 04:30 10/10/19 04:30 10/10/19 04:30 General appearance: no acute distress Eyes: non-icteric ENT: oropharynx moist Neck: supple Effort: normal Ascultation: Bilateral: diminished breath sounds Results - Laboratory Findings CBC and BMP: 10/11/19 05:53 10/11/19 05:53 Abnormal lab findings: Abnormal Labs 10/10/19 10/10/19 10/10/19 04:14 04:14 22:07 RBC 5.60 H Hgb 15.7 H Hct 47.3 H RDW 16.2 H [place] % (Auto) 9.7 H Potassium 3.4 L Chloride Carbon Dioxide Glucose 159 H POC Glucose 119 H 10/11/19 10/11/19 05:53 05:53 RBC 5.63 H Hgb 16.2 H Hct 47.3 H RDW 16.2 H [place] % (Auto) Potassium Chloride 97.4 L Carbon Dioxide 20 L Glucose 255 H POC Glucose - Diagnostic Findings Chest x-ray: image reviewed (no acute lung disease) Assessment and Plan 74 y/o male with COPD exacerbation, now weaned off bipap 1. Will continue IV steroids today, suggest switching to 60 PO tomorrow and start weaning process 2. Continue inhaled therapy 3. stable for transfer to [facility].
[2019-10-11] MEDS: cefTRIAXone/NS 1 GM/50 ML 1 GM/50 ML BAG IV SCH (20:58)
[2019-10-11] MEDS: ENOXAPARIN 40 MG/0.4 ML INJ SUB-Q SCH (21:24)
[2019-10-11] MEDS ORDERED: hydrALAZINE 20 MG/1 ML INJ IV PRN (21:40)
[2019-10-12] MEDS: methylPREDNISolone Sod Succinate 125 MG/2 ML INJ IV SCH ×2 (00:07→08:00)
[2019-10-12] MEDS: ALBUTEROL 2.5 MG/3 ML NEBU IH PRN (04:05)
[2019-10-12 05:36] VITALS: BP 167/100
[2019-10-12] MEDS: INSULIN LISPRO 100 UNIT/ML SUB-Q SCH ×2 (07:30→11:30)
[2019-10-12] MEDS: BUDESONIDE 0.25 MG/2 ML NEBU IH SCH (07:50)
[2019-10-12] MEDS: ARFORMOTEROL 15 MCG/2 ML NEBU IH SCH (07:51)
[2019-10-12] MEDS: IPRATROPIUM/ALBUTEROL SULFATE 3 ML AMPUL.NEB IH SCH ×3 (07:51→16:30)
[2019-10-12] MEDS: AZITHROMYCIN 500 MG in SODIUM CHLORIDE 0.9% 250ML 250 ML IV SCH (09:29)
[2019-10-12] MEDS: PANTOPRAZOLE 40 MG TAB PO SCH (09:31)
--- NOTE | 2019-10-12 10:47 | Discharge Summary ---
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 Patient was given solumedrol and albuterol prior to arrival. * pCXR Impression: No significant additional findings. Discharge Diangoses: Acute on chronic hypoxic respiratory failure: NIPPV weaned off, continue o2 therapy, back down to his baseline nasal canula, 3L AE of COPD: treat with iv abx, iv steroids, atc nebulizer, consult Curriculum Counselor Hypokalemia: replete and monitor bmp closely Type 2 DM: treat with SSI, accucheck, ADA diet Tobacco dependency: funeral counselor on stopping Insomnia: recommend Melatonin DVT ppx sq lovenox full code Disposition: DC-01 TO HOME OR SELFCARE Time spent for discharge: 33 minutes Core Measure Documentation - Palliative Care Palliative Care/ Comfort Measures: Not Applicable - Core Measures Any of the following diagnoses?: none - VTE Discharge Requirements Deep Vein Thrombosis/Pulmonary Embolism Present on Admission: No Has pt received <5 days of overlap therapy or INR<2.0: No Anticoagulant overlap therapy prescribed at discharge: No Contraindication No Overlap Therapy order at DC: Not Indicated Exam - Physical Exam Narrative exam: Gen: thin frial, NAD, Orientated x 3 HEENT: NCAT, EOMI, PERRL, OP Clear Neck: supple, no adenopathy, no thyromegaly, no JVD CVS/Heart: RRR, normal S1S2, pulses present bilaterally Chest/Lungs: diminished with exp wheezing but improved, Symmetrical chest ex pansion, good air entry bilaterally GI/Abdomen: soft, NTND, epigastric surgery scar, good bowel sounds, no guarding or rebound /Bladder: no suprapubic tenderness, no CVA or paraspinal tenderness Extermity/Skin: no c/c/e, no obvious rash MSK: FROM x 4 Neuro: CN 2-12 grossly intact, no new focal deficits Psych: calm - Constitutional Vitals: Temp Pulse Resp BP Pulse Ox 97.1 F L 94 H 20 167/100 96 10/12/19 05:34 10/12/19 08:21 10/12/19 08:21 10/12/19 05:34 10/12/19 07:51 Plan Activity: other (no strenous activity unless cleared by PCP) Diet: low salt, diabetic Special Instructions: record daily BP diary, record blood sugar diary (twice a day with meals), smoking cessation Durable Medical Equipment Needed Upon Discharge: Oxygen Follow up with: KELSEY ARREDONDO MD [Staff Physician] - 7 Days MURTAZA LÓPEZ MD [Staff Physician] - 10 Days Prescriptions: Ipratropium [Atrovent NEB] 0.5 mg IH Q4HR #2 ml cefUROXime [Ceftin] 2 tab PO BID #20 tablet Roflumilast [Daliresp] 500 mcg PO QDAY #30 tab predniSONE [Deltasone] 1 dose PO QDAY 28 Days #91 tab polyethylene glycoL 3350 [Miralax 3350] 17 gm PO QDAY PRN #15 powd.pack PRN Reason: Constipation guaiFENesin ER [Mucinex ER] 600 mg PO BID PRN #30 tablet PRN Reason: Cough Albuterol INH(or & Nicu Only) [ProAir HFA Inhaler] 2 puff IH Q4HR PRN #1 inhalation PRN Reason: Shortness Of Breath Pantoprazole [Protonix TAB] 40 mg PO QDAY #30 tablet ALBUTEROL NEB's [Proventil 0.083% NEBS] 2.5 mg IH Q4HRT PRN #1 nebu PRN Reason: Shortness Of Breath Tiotropium [place] [Spiriva] 1 puff IH DAILY 30 Days cap.w.dev Budesonide/Formoterol Fumarate [Symbicort 160-4.5 Mcg Inhaler] 1 puff IH BID #1 hfa.aer.ad ALPRAZolam [Xanax TAB] 0.25 mg PO Q12HR PRN #14 tablet PRN Reason: Anxiety Ipratropium/Albuterol Sulfate [DUONEB *Not for PRN Use*] 1 ampul IH QIDRT 7 Days #28 ampul.neb
--- NOTE | 2019-10-12 13:01 | Progress Note ---
Assessment and Plan 74 y/o male with COPD exacerbation, now weaned off bipap 1. IMS to discharge today 2. Same recs in regards to steroids 3. Will arrange follow up. Subjective Date of service: 10/12/19 Interval history: No acute events. Stable Objective Vital Signs - 12hr 10/12/19 10/12/19 10/12/19 04:00 04:05 05:34 Temperature 97.1 F L Pulse Rate 109 H 89 Pulse Rate [ 90 Anterior Bilateral Throughout] Respiratory 20 Rate Respiratory 20 Rate [Anterior Bilateral Throughout] Blood Pressure 167/100 O2 Sat by Pulse 87 Oximetry 10/12/19 10/12/19 07:51 08:21 Temperature Pulse Rate Pulse Rate [ 94 H Anterior Bilateral Throughout] Respiratory Rate Respiratory 20 Rate [Anterior Bilateral Throughout] Blood Pressure O2 Sat by Pulse 96 Oximetry Constitutional: no acute distress Eyes: non-icteric ENT: oropharynx moist Neck: supple Effort: normal Ascultation: Bilateral: diminished breath sounds CBC and BMP: 10/11/19 05:53 10/11/19 05:53 Abnormal lab findings: Abnormal Labs 10/10/19 10/10/19 10/10/19 04:14 04:14 22:07 RBC 5.60 H Hgb 15.7 H Hct 47.3 H RDW 16.2 H Swisher % (Auto) 9.7 H Potassium 3.4 L Chloride Carbon Dioxide Glucose 159 H POC Glucose 119 H 10/11/19 10/11/19 10/11/19 05:53 05:53 16:17 RBC 5.63 H Hgb 16.2 H Hct 47.3 H RDW 16.2 H Swisher % (Auto) Potassium Chloride 97.4 L Carbon Dioxide 20 L Glucose 255 H POC Glucose 284 H 10/11/19 10/12/19 10/12/19 21:26 08:13 12:04 RBC Hgb Hct RDW Swisher % (Auto) Potassium Chloride Carbon Dioxide Glucose POC Glucose 248 H 169 H 239 H
== END 2019-10-12 16:44 | disposition home or self-care (01) | DRG 189 ==
LOC: ED 03:28 → IMCU 05:10 → 3A 10-11 14:44
PROVIDERS: ADMIT Internal Medicine; ATTEND Internal Medicine
PROC: 5A09357 Assistance with Respiratory Ventilation, Less than 24 Consecutive Hours, Continuous Positive Airway Pressure (ICD-10-PCS; principal; 2019-10-10)
DX: J96.21 Acute and chronic respiratory failure with hypoxia (principal); J44.1 Chronic obstructive pulmonary disease with (acute) exacerbation; E87.6 Hypokalemia; E11.8 Type 2 diabetes mellitus with unspecified complications; F17.200 Nicotine dependence, unspecified, uncomplicated; M19.90 Unspecified osteoarthritis, unspecified site; I50.9 Heart failure, unspecified; I11.0 Hypertensive heart disease with heart failure; F20.9 Schizophrenia, unspecified; G47.00 Insomnia, unspecified; F12.90 Cannabis use, unspecified, uncomplicated; I25.10 Atherosclerotic heart disease of native coronary artery without angina pectoris; Z99.81 Dependence on supplemental oxygen; Z95.5 Presence of coronary angioplasty implant and graft; Z86.73 Personal history of transient ischemic attack (TIA), and cerebral infarction without residual deficits; Z71.6 Tobacco abuse counseling; Z79.899 Other long term (current) drug therapy; Z90.49 Acquired absence of other specified parts of digestive tract; Z87.442 Personal history of urinary calculi; Z82.49 Family history of ischemic heart disease and other diseases of the circulatory system
CPT/HCPCS: 36415; 71045; 80048; 80053; 82140; 82550; 82553; 82962; 83735; 83880; 84484; 85025; 85027; 93005; 93010; 94640; 94760; 96365; 96375; 99406; G0378; J0456; J0696; J1650; J1815; J1940; J2930; J3475; J7050

== ENCOUNTER 2019-10-28 19:06 | Emergency (ER) | payer MEDICARE ==
[2019-10-28] MEDS ORDERED: IPRATROPIUM 0.02% NEBU 2.5 ML IH ONE (19:56)
[2019-10-28] MEDS ORDERED: ALBUTEROL 2.5 MG/3 ML NEBU IH ONE (19:56)
[2019-10-28] MEDS ORDERED: methylPREDNISolone Sod Succinate 125 MG/2 ML INJ IV ONE (19:57)
--- NOTE | 2019-10-28 20:20 | XRay Report ---
Chest single view INDICATION: Dyspnea IMPRESSION: Emphysema. Minimal bibasilar airspace densities. The upper lungs are clear. The heart siz e is normal. Signer Name: Zeke Vincent MD Signed: 10/28/2019 8:16 PM Workstation Name: [id number]
[2019-10-28 20:34] LABS: Basophils % (Auto) 0.7 % (0.0-1.8); Eosinophils # (Auto) 0.1 K/mm3 (0.0-0.4); Eosinophils % (Auto) 1.5 % (0.0-4.3); Hematocrit 46.1 % (35.5-45.6); Hemoglobin 15.6 gm/dl (11.8-15.2); Lymphocytes # (Auto) 1.1 K/mm3 (1.2-5.4); Lymphocytes % (Auto) 17.1 % (13.4-35.0); Mean Corpuscular HGB Conc 34 % (32-34); Mean Corpuscular Volume 84 fl (84-94); Monocytes # (Auto) 0.4 K/mm3 (0.0-0.8); Platelet Count 192 K/mm3 (140-440); Red Cell Distribution Width 15.8 % (13.2-15.2)
--- NOTE | 2019-10-28 20:53 | Emergency Department Report ---
ED General Adult HPI - General Chief complaint: Dyspnea/Respdistress Stated complaint: MATY Time Seen by Provider: 10/28/19 19:36 Source: patient, EMS Mode of arrival: Stretcher Limitations: No Limitations - History of Present Illness Initial comments: The patient presents to the emergency department via EMS with a chief complaint of increased shortness of breath for the last 1 to 2 weeks. Patient states that he has been using his nebulizer treatment [id number] to no avail. Patient complains of wheezing and denies any chest pain. Patient denies fever cough at home. -: Gradual Severity scale (0 -10): 0 Consistency: constant Improves with: none Worsens with: none Associated Symptoms: denies other symptoms Treatments Prior to Arrival: none - Related Data Previous Rx's Medication Instructions Recorded Last Taken Type ALBUTEROL NEB's [Proventil 0.083% 2.5 mg IH Q4HRT PRN #1 nebu 10/12/19 Unknown Rx NEBS] ALPRAZolam [Xanax TAB] 0.25 mg PO Q12HR PRN #14 tablet 10/12/19 Unknown Rx Acetaminophen [Acetaminophen TAB] 1 tab PO Q6H PRN #15 tablet 10/12/19 Unknown Rx Albuterol INH(or & Nicu Only) 2 puff IH Q4HR PRN #1 inhalation 10/12/19 Unknown Rx [ProAir HFA Inhaler] Amlodipine Besylate [Norvasc] 10 mg PO QDAY #30 tablet 10/12/19 Unknown Rx Budesonide/Formoterol Fumarate 1 puff IH BID #1 hfa.aer.ad 10/12/19 Unknown Rx [Symbicort 160-4.5 Mcg Inhaler] Ipratropium [Atrovent NEB] 0.5 mg IH Q4HR #2 ml 10/12/19 Unknown Rx Ipratropium/Albuterol Sulfate 1 ampul IH QIDRT 7 Days #28 10/12/19 Unknown Rx [DUONEB *Not for PRN Use*] ampul.neb Lispro Insulin [HumaLOG] 0 unit SUB-Q ACHS units 10/12/19 Unknown Rx Melatonin [Melatonin 5MG CHEW] 5 mg PO QHS PRN #15 tab.chew 10/12/19 Unknown Rx Pantoprazole [Protonix TAB] 40 mg PO QDAY #30 tablet 10/12/19 Unknown Rx Roflumilast [Daliresp] 500 mcg PO QDAY #30 tab 10/12/19 Unknown Rx Tiotropium [place] [Spiriva] 1 puff IH DAILY 30 Days cap.w.dev 10/12/19 Unknown Rx cefUROXime [Ceftin] 2 tab PO BID #20 tablet 10/12/19 Unknown Rx guaiFENesin ER [Mucinex ER] 600 mg PO BID PRN #30 tablet 10/12/19 Unknown Rx polyethylene glycoL 3350 [Miralax 17 gm PO QDAY PRN #15 powd.pack 10/12/19 Unknown Rx 3350] predniSONE [Deltasone] 1 dose PO QDAY 28 Days #91 tab 10/12/19 Unknown Rx Albuterol Sulfate [Albuterol 0.63% 0.63 mg IH Q4HR PRN #30 ml 10/28/19 Unknown Rx NEBS] Azithromycin [Zithromax Z-KENNA] 250 mg PO DAILY #6 tablet 10/28/19 Unknown Rx predniSONE [Deltasone] 20 mg PO DAILY #15 tablet 10/28/19 Unknown Rx Allergies Allergy/AdvReac Type Severity Reaction Status Date / Time No Known Allergies Allergy Verified 09/01/19 12:38 ED Review of Systems ROS: Stated complaint: MATY Other details as noted in HPI Comment: All other systems reviewed and negative Constitutional: denies: chills, fever Eyes: denies: eye pain, eye discharge, vision change ENT: denies: ear pain, throat pain Respiratory: denies: cough, shortness of breath, wheezing Cardiovascular: denies: chest pain, palpitations Endocrine: no symptoms reported Gastrointestinal: denies: abdominal pain, nausea, diarrhea Genitourinary: denies: urgency, dysuria Musculoskeletal: denies: back pain, joint swelling, arthralgia Skin: denies: rash, lesions Neurological: denies: headache, weakness, paresthesias Psychiatric: denies: anxiety, depression Hematological/Lymphatic: denies: easy bleeding, easy bruising ED Past Medical Hx - Past Medical History Previous Medical History?: Yes Hx Hypertension: Yes Hx CVA: Yes (generalized weakness, walks with a cane) Hx Heart Attack/AMI: No Hx Congestive Heart Failure: Yes Hx Diabetes: Yes Hx Deep Vein Thrombosis: No Hx Pulmonary Embolism: No Hx GERD: No Hx Liver Disease: No Hx Renal Disease: No Hx Sickle Cell Disease: No Hx Arthritis: Yes Hx Headaches / Migraines: No Hx Seizures: No Hx Kidney Stones: No Hx Psychiatric Treatment: Yes (schizophrenic) Hx Asthma: Yes Hx COPD: Yes Hx Tuberculosis: No Hx Dementia: No Hx HIV: No Additional medical history: Hx of Dissection?-AAA - Surgical History Past Surgical History?: Yes Hx Coronary Stent: No Hx Open Heart Surgery: No Hx Pacemaker: No Hx Internal Defibrillator: No Hx Cholecystectomy: Yes Hx Appendectomy: Yes Hx Breast Surgery: No - Social History Smoking Status: Former Smoker Substance Use Type: None - Medications Home Medications: Home Medications Medication Instructions Recorded Confirmed Last Taken Type ALBUTEROL NEB's [Proventil 0.083% 2.5 mg IH Q4HRT PRN #1 nebu 10/12/19 Unknown Rx NEBS] ALPRAZolam [Xanax TAB] 0.25 mg PO Q12HR PRN #14 tablet 10/12/19 Unknown Rx Acetaminophen [Acetaminophen TAB] 1 tab PO Q6H PRN #15 tablet 10/12/19 Unknown Rx Albuterol INH(or & Nicu Only) 2 puff IH Q4HR PRN #1 inhalation 10/12/19 Unknown Rx [ProAir HFA Inhaler] Amlodipine Besylate [Norvasc] 10 mg PO QDAY #30 tablet 10/12/19 Unknown Rx Budesonide/Formoterol Fumarate 1 puff IH BID #1 hfa.aer.ad 10/12/19 Unknown Rx [Symbicort 160-4.5 Mcg Inhaler] Ipratropium [Atrovent NEB] 0.5 mg IH Q4HR #2 ml 10/12/19 Unknown Rx Ipratropium/Albuterol Sulfate 1 ampul IH QIDRT 7 Days #28 10/12/19 Unknown Rx [DUONEB *Not for PRN Use*] ampul.neb Lispro Insulin [HumaLOG] 0 unit SUB-Q ACHS units 10/12/19 Unknown Rx Melatonin [Melatonin 5MG CHEW] 5 mg PO QHS PRN #15 tab.chew 10/12/19 Unknown Rx Pantoprazole [Protonix TAB] 40 mg PO QDAY #30 tablet 10/12/19 Unknown Rx Roflumilast [Daliresp] 500 mcg PO QDAY #30 tab 10/12/19 Unknown Rx Tiotropium [place] [Spiriva] 1 puff IH DAILY 30 Days cap.w.dev 10/12/19 Unknown Rx cefUROXime [Ceftin] 2 tab PO BID #20 tablet 10/12/19 Unknown Rx guaiFENesin ER [Mucinex ER] 600 mg PO BID PRN #30 tablet 10/12/19 Unknown Rx polyethylene glycoL 3350 [Miralax 17 gm PO QDAY PRN #15 powd.pack 10/12/19 Unknown Rx 3350] predniSONE [Deltasone] 1 dose PO QDAY 28 Days #91 tab 10/12/19 Unknown Rx Albuterol Sulfate [Albuterol 0.63% 0.63 mg IH Q4HR PRN #30 ml 10/28/19 Unknown Rx NEBS] Azithromycin [Zithromax Z-KENNA] 250 mg PO DAILY #6 tablet 10/28/19 Unknown Rx predniSONE [Deltasone] 20 mg PO DAILY #15 tablet 10/28/19 Unknown Rx ED Physical Exam - General Limitations: No Limitations General appearance: alert, in no apparent distress - Head Head exam: Present: atraumatic, normocephalic - Eye Eye exam: Present: normal appearance - ENT ENT exam: Present: mucous membranes moist - Neck Neck exam: Present: normal inspection - Respiratory Respiratory exam: Present: wheezes (end expiratory wheezing). Absent: respiratory distress - Cardiovascular Cardiovascular Exam: Present: regular rate, normal rhythm. Absent: systolic murmur, diastolic murmur, rubs, gallop - GI/Abdominal GI/Abdominal exam: Present: soft, normal bowel sounds - Rectal Rectal exam: Present: deferred - Extremities Exam Extremities exam: Present: normal inspection - Back Exam Back exam: Present: normal inspection - Neurological Exam Neurological exam: Present: alert, oriented X3 - Psychiatric Psychiatric exam: Present: normal affect, normal mood - Skin Skin exam: Present: warm, dry, intact, normal color. Absent: rash ED Course Vital Signs 10/28/19 10/28/19 10/28/19 19:20 20:46 21:15 Temperature 97.6 F Pulse Rate 80 89 Pulse Rate [ 87 Bilateral Throughout] Respiratory 24 26 H Rate Respiratory 19 Rate [Bilateral Throughout] Blood Pressure 139/91 151/121 Blood Pressure 139/91 [Left] O2 Sat by Pulse 93 94 Oximetry 10/28/19 21:45 Temperature Pulse Rate 83 Pulse Rate [ Bilateral Throughout] Respiratory 25 H Rate Respiratory Rate [Bilateral Throughout] Blood Pressure 126/87 Blood Pressure [Left] O2 Sat by Pulse 94 Oximetry ED Medical Decision Making - Lab Data Result diagrams: 10/28/19 20:16 10/28/19 20:16 Lab Results 10/28/19 10/28/19 Range/Units 20:16 20:16 WBC 6.6 (4.5-11.0) K/mm3 RBC 5.50 H (3.65-5.03) M/mm3 Hgb 15.6 H (11.8-15.2) gm/dl Hct 46.1 H (35.5-45.6) % MCV 84 (84-94) fl MCH 28 (28-32) pg MCHC 34 (32-34) % RDW 15.8 H (13.2-15.2) % Plt Count 192 (140-440) K/mm3 Lymph % (Auto) 17.1 (13.4-35.0) % Whiteside % (Auto) 6.0 (0.0-7.3) % Eos % (Auto) 1.5 (0.0-4.3) % Baso % (Auto) 0.7 (0.0-1.8) % Lymph # 1.1 L (1.2-5.4) K/mm3 Whiteside # 0.4 (0.0-0.8) K/mm3 Eos # 0.1 (0.0-0.4) K/mm3 Baso # 0.0 (0.0-0.1) K/mm3 Seg Neutrophils % 74.7 H (40.0-70.0) % Seg Neutrophils # 4.9 (1.8-7.7) K/mm3 Sodium 137 (137-145) mmol/L Potassium 3.6 (3.6-5.0) mmol/L Chloride 100.9 (98-107) mmol/L Carbon Dioxide 22 (22-30) mmol/L Anion Gap 18 mmol/L BUN 13 (9-20) mg/dL Creatinine 0.7 L (0.8-1.5) mg/dL Estimated GFR > 60 ml/min BUN/Creatinine Ratio 19 % Glucose 122 H (75-100) mg/dL Calcium 9.2 (8.4-10.2) mg/dL Total Bilirubin 0.60 (0.1-1.2) mg/dL AST 11 (5-40) units/L ALT 10 (7-56) units/L Alkaline Phosphatase 102 (35-129) units/L NT-Pro-B Natriuret Pep 82.90 (0-900) pg/mL Total Protein 7.0 (6.3-8.2) g/dL Albumin 4.2 (3.9-5) g/dL Albumin/Globulin Ratio 1.5 % - Radiology Data Radiology results: report reviewed - Medical Decision Making Patient received 125 mg Solu-Medrol and a continuous breathing treatment On repeat evaluation at 10 PM the patient states he feels greatly improved and would like to go home Critical care attestation.: If time is entered above; I have spent that time in minutes in the direct care of this critically ill patient, excluding procedure time. ED Disposition Clinical Impression: COPD (chronic obstructive pulmonary disease) Disposition: DC-01 TO HOME OR SELFCARE Is pt being admited?: No Does the pt Need Aspirin: No Condition: Stable Instructions: Chronic Obstructive Pulmonary Disease (ED) Additional Instructions: return if worse Referrals: [facility] [Provider Group] - 3-5 Days [facility] [Provider Group] - 3-5 Days Time of Disposition: 22:16
[2019-10-28 21:01] LABS: Alanine Aminotransferase 10 units/L (7-56); Albumin 4.2 g/dL (3.9-5); BUN/Creatinine Ratio 19; Blood Urea Nitrogen 13 mg/dL (9-20); Calcium 9.2 mg/dL (8.4-10.2); Hemolysis Index 2
[2019-10-28 23:56] VITALS: BP 142/75
== END 2019-10-28 22:30 | disposition home or self-care (01) ==
LOC: ED 19:06
DX: J44.9 Chronic obstructive pulmonary disease, unspecified (principal); I11.0 Hypertensive heart disease with heart failure; I50.9 Heart failure, unspecified; E11.9 Type 2 diabetes mellitus without complications; M19.90 Unspecified osteoarthritis, unspecified site; F20.9 Schizophrenia, unspecified; Z90.49 Acquired absence of other specified parts of digestive tract; Z86.73 Personal history of transient ischemic attack (TIA), and cerebral infarction without residual deficits; Z87.891 Personal history of nicotine dependence; Z79.899 Other long term (current) drug therapy
CPT/HCPCS: 36415; 71045; 80053; 83880; 85025; 94640; 96374; 99284; J2930; 94644

== ENCOUNTER 2019-12-07 06:50 | Emergency (ER) | payer MEDICARE ==
[2019-12-07] MEDS ORDERED: methylPREDNISolone Sod Succinate 125 MG/2 ML INJ IV ONE (07:26)
--- NOTE | 2019-12-07 07:33 | Emergency Department Report ---
ED Shortness of Breath HPI - General Chief Complaint: Dyspnea/Respdistress Stated Complaint: MATY Time Seen by Provider: 12/07/19 07:08 Source: EMS Mode of arrival: Stretcher Limitations: No Limitations - History of Present Illness Initial Comments: Patient is 74 years old male with history of COPD. Patient brought to the emergency room from home via EMS for evaluation of shortness of breath, difficulty breathing and wheezing for the last 3 days. Patient stated that he was doing well but he ran out of his breathing treatment. Patient received albu terol 5mg by EMS and stated that his symptoms is completely resolved. Patient denied any fever or chills. Patient also denied any chest pain, abdominal pain, nausea or vomiting or diarrhea. Patient stated that he has been self quarantining himself for more than a month now and he does not have any contact with patient who are suspected or confirmed COVID-19. MD Complaint: shortness of breath, cough -: days(s) (3) Severity: moderate Consistency: now resolved Known History Of: COPD Treatments Prior to Arrival: bronchodilator - Related Data Home Oxygen Therapy: No Previous Rx's Medication Instructions Recorded Last Taken Type ALBUTEROL NEB's [Proventil 0.083% 2.5 mg IH Q4HRT PRN #1 nebu 10/12/19 Unknown Rx NEBS] ALPRAZolam [Xanax TAB] 0.25 mg PO Q12HR PRN #14 tablet 10/12/19 Unknown Rx Acetaminophen [Acetaminophen TAB] 1 tab PO Q6H PRN #15 tablet 10/12/19 Unknown Rx Albuterol INH(or & Nicu Only) 2 puff IH Q4HR PRN #1 inhalation 10/12/19 Unknown Rx [ProAir HFA Inhaler] Amlodipine Besylate [Norvasc] 10 mg PO QDAY #30 tablet 10/12/19 Unknown Rx Budesonide/Formoterol Fumarate 1 puff IH BID #1 hfa.aer.ad 10/12/19 Unknown Rx [Symbicort 160-4.5 Mcg Inhaler] Ipratropium [Atrovent NEB] 0.5 mg IH Q4HR #2 ml 10/12/19 Unknown Rx Ipratropium/Albuterol Sulfate 1 ampul IH QIDRT 7 Days #28 10/12/19 Unknown Rx [DUONEB *Not for PRN Use*] ampul.neb Lispro Insulin [HumaLOG] 0 unit SUB-Q ACHS units 10/12/19 Unknown Rx Melatonin [Melatonin 5MG CHEW] 5 mg PO QHS PRN #15 tab.chew 10/12/19 Unknown Rx Pantoprazole [Protonix TAB] 40 mg PO QDAY #30 tablet 10/12/19 Unknown Rx Roflumilast [Daliresp] 500 mcg PO QDAY #30 tab 10/12/19 Unknown Rx Tiotropium [place] [Spiriva] 1 puff IH DAILY 30 Days cap.w.dev 10/12/19 Unknown Rx cefUROXime [Ceftin] 2 tab PO BID #20 tablet 10/12/19 Unknown Rx guaiFENesin ER [Mucinex ER] 600 mg PO BID PRN #30 tablet 10/12/19 Unknown Rx polyethylene glycoL 3350 [Miralax 17 gm PO QDAY PRN #15 powd.pack 10/12/19 Unknown Rx 3350] predniSONE [Deltasone] 1 dose PO QDAY 28 Days #91 tab 10/12/19 Unknown Rx Albuterol Sulfate [Albuterol 0.63% 0.63 mg IH Q4HR PRN #30 ml 10/28/19 Unknown Rx NEBS] Azithromycin [Zithromax Z-KENNA] 250 mg PO DAILY #6 tablet 10/28/19 Unknown Rx predniSONE [Deltasone] 20 mg PO DAILY #15 tablet 10/28/19 Unknown Rx Allergies Allergy/AdvReac Type Severity Reaction Status Date / Time No Known Allergies Allergy Verified 09/01/19 12:38 ED Review of Systems ROS: Stated complaint: MATY Other details as noted in HPI Comment: All other systems reviewed and negative Constitutional: denies: chills, fever Respiratory: cough, shortness of breath, SOB with exertion, SOB at rest, wheezing. denies: orthopnea Cardiovascular: denies: chest pain, palpitations, dyspnea on exertion Gastrointestinal: denies: abdominal pain, nausea, vomiting, diarrhea, constipation, hematemesis, melena, hematochezia Musculoskeletal: denies: back pain Neurological: denies: headache, weakness, numbness, paresthesias, confusion, a bnormal gait ED Past Medical Hx - Past Medical History Previous Medical History?: Yes Hx Hypertension: Yes Hx CVA: Yes (generalized weakness, walks with a cane) Hx Heart Attack/AMI: No Hx Congestive Heart Failure: Yes Hx Diabetes: Yes Hx Deep Vein Thrombosis: No Hx Pulmonary Embolism: No Hx GERD: No Hx Liver Disease: No Hx Renal Disease: No Hx Sickle Cell Disease: No Hx Arthritis: Yes Hx Headaches / Migraines: No Hx Seizures: No Hx Kidney Stones: No Hx Psychiatric Treatment: Yes (schizophrenic) Hx Asthma: Yes Hx COPD: Yes Hx Tuberculosis: No Hx Dementia: No Hx HIV: No Additional medical history: Hx of Dissection?-AAA - Surgical History Past Surgical History?: Yes Hx Coronary Stent: No Hx Open Heart Surgery: No Hx Pacemaker: No Hx Internal Defibrillator: No Hx Cholecystectomy: Yes Hx Appendectomy: Yes Hx Breast Surgery: No - Social History Smoking Status: Never Smoker Substance Use Type: None - Medications Home Medications: Home Medications Medication Instructions Recorded Confirmed Last Taken Type ALBUTEROL NEB's [Proventil 0.083% 2.5 mg IH Q4HRT PRN #1 nebu 10/12/19 Unknown Rx NEBS] ALPRAZolam [Xanax TAB] 0.25 mg PO Q12HR PRN #14 tablet 10/12/19 Unknown Rx Acetaminophen [Acetaminophen TAB] 1 tab PO Q6H PRN #15 tablet 10/12/19 Unknown Rx Albuterol INH(or & Nicu Only) 2 puff IH Q4HR PRN #1 inhalation 10/12/19 Unknown Rx [ProAir HFA Inhaler] Amlodipine Besylate [Norvasc] 10 mg PO QDAY #30 tablet 10/12/19 Unknown Rx Budesonide/Formoterol Fumarate 1 puff IH BID #1 hfa.aer.ad 10/12/19 Unknown Rx [Symbicort 160-4.5 Mcg Inhaler] Ipratropium [Atrovent NEB] 0.5 mg IH Q4HR #2 ml 10/12/19 Unknown Rx Ipratropium/Albuterol Sulfate 1 ampul IH QIDRT 7 Days #28 10/12/19 Unknown Rx [DUONEB *Not for PRN Use*] ampul.neb Lispro Insulin [HumaLOG] 0 unit SUB-Q ACHS units 10/12/19 Unknown Rx Melatonin [Melatonin 5MG CHEW] 5 mg PO QHS PRN #15 tab.chew 10/12/19 Unknown Rx Pantoprazole [Protonix TAB] 40 mg PO QDAY #30 tablet 10/12/19 Unknown Rx Roflumilast [Daliresp] 500 mcg PO QDAY #30 tab 10/12/19 Unknown Rx Tiotropium [place] [Spiriva] 1 puff IH DAILY 30 Days cap.w.dev 10/12/19 Unknown Rx cefUROXime [Ceftin] 2 tab PO BID #20 tablet 10/12/19 Unknown Rx guaiFENesin ER [Mucinex ER] 600 mg PO BID PRN #30 tablet 10/12/19 Unknown Rx polyethylene glycoL 3350 [Miralax 17 gm PO QDAY PRN #15 powd.pack 10/12/19 Unknown Rx 3350] predniSONE [Deltasone] 1 dose PO QDAY 28 Days #91 tab 10/12/19 Unknown Rx Albuterol Sulfate [Albuterol 0.63% 0.63 mg IH Q4HR PRN #30 ml 10/28/19 Unknown Rx NEBS] Azithromycin [Zithromax Z-KENNA] 250 mg PO DAILY #6 tablet 10/28/19 Unknown Rx predniSONE [Deltasone] 20 mg PO DAILY #15 tablet 10/28/19 Unknown Rx ED Physical Exam - General Limitations: No Limitations General appearance: alert, in no apparent distress - Head Head exam: Present: atraumatic, normocephalic, normal inspection - Eye Eye exam: Present: normal appearance - ENT ENT exam: Present: normal exam, normal orophraynx, mucous membranes moist - Neck Neck exam: Present: normal inspection, full ROM. Absent: tenderness, meningismus, lymphadenopathy, thyromegaly - Respiratory Respiratory exam: Present: normal lung sounds bilaterally - Cardiovascular Cardiovascular Exam: Present: regular rate, normal rhythm, normal heart sounds - GI/Abdominal GI/Abdominal exam: Present: soft, normal bowel sounds. Absent: distended, tenderness, guarding, rebound, rigid, organomegaly, mass, bruit, pulsatile mass, hernia - Extremities Exam Extremities exam: Present: normal inspection, full ROM, normal capillary refill. Absent: pedal edema, calf tenderness - Back Exam Back exam: Present: normal inspection, full ROM. Absent: CVA tenderness (R), CVA tenderness (L), muscle spasm, paraspinal tenderness, vertebral tenderness - Neurological Exam Neurological exam: Present: alert, oriented X3, CN II-XII intact, normal gait, reflexes normal. Absent: motor sensory deficit - Psychiatric Psychiatric exam: Present: normal mood - Skin Skin exam: Present: warm, intact, normal color. Absent: cyanosis, diaphoretic ED Medical Decision Making - Lab Data Result diagrams: 12/07/19 07:29 12/07/19 07:29 - Radiology Data Radiology results: report reviewed - Medical Decision Making Patient is 74 years old male with history of COPD. Patient brought to the emergency room from home via EMS for evaluation of shortness of breath, difficulty breathing and wheezing for the last 3 days. Patient stated that he was doing well but he ran out of his breathing treatment. Patient received albuterol 5mg by EMS and stated that his symptoms is completely resolved. Patient denied any fever or chills. Patient also denied any chest pain, abdominal pain, nausea or vomiting or diarrhea. Patient stated that he has been self quarantining himself for more than a month now and he does not have any contact with patient who are suspected or confirmed COVID-19. Patient remained asymptomatic in the ER. Labs reviewed and is unremarkable. Chest x-ray is negative for acute finding. Patient given prescription for albuterol, prednisone and Levaquin and advised to follow-up with his primary care physician in the next 2 to 3 days and to return to the ER if he develop any new symptoms. Critical care attestation.: If time is entered above; I have spent that time in minutes in the direct care of this critically ill patient, excluding procedure time. ED Disposition Clinical Impression: COPD exacerbation, Bronchitis Disposition: DC-01 TO HOME OR SELFCARE Is pt being admited?: No Condition: Stable Instructions: Chronic Obstructive Pulmonary Disease (ED), Acute Bronchitis (ED)
--- NOTE | 2019-12-07 08:32 | XRay Report ---
CHEST 1 VIEW INDICATION / CLINICAL INFORMATION: Dyspnea. COMPARISON: 10/28/2019 FINDINGS: SUPPORT DEVICES: No significant change in position. HEART / MEDIASTINUM: The cardiomediastinal silhouette has not significantly changed in the interim. LUNGS / PLEURA: COPD type changes. No significant pulmonary or pleural abnormality. No pneumothorax. Signer Name: Zeke Vincent MD Signed: 12/07/2019 8:28 AM Workstation Name: [id number]
[2019-12-07 08:38] LABS: Basophils % (Auto) 0.6 % (0.0-1.8); Hematocrit 45.5 % (35.5-45.6); Hemoglobin 15.7 gm/dl (11.8-15.2); Lymphocytes # (Auto) 2.7 K/mm3 (1.2-5.4); Lymphocytes % (Auto) 36.1 % (13.4-35.0); Mean Corpuscular HGB Conc 35 % (32-34); Mean Corpuscular Volume 84 fl (84-94); Monocytes % (Auto) 12.2 % (0.0-7.3); Platelet Count 223 K/mm3 (140-440); Red Blood Count 5.41 M/mm3 (3.65-5.03); Red Cell Distribution Width 15.2 % (13.2-15.2)
[2019-12-07 08:39] LABS: Eosinophils # (Auto) 0.2 K/mm3 (0.0-0.4); Monocytes # (Auto) 0.9 K/mm3 (0.0-0.8)
[2019-12-07 11:09] LABS: Alanine Aminotransferase 11 units/L (7-56); Albumin 4.3 g/dL (3.9-5); BUN/Creatinine Ratio 11; Blood Urea Nitrogen 11 mg/dL (9-20); Calcium 9.6 mg/dL (8.4-10.2); Hemolysis Index 2
== END 2019-12-07 12:15 | disposition home or self-care (01) ==
LOC: ED 06:50
DX: J44.1 Chronic obstructive pulmonary disease with (acute) exacerbation (principal); I11.0 Hypertensive heart disease with heart failure; I50.9 Heart failure, unspecified; E11.9 Type 2 diabetes mellitus without complications; M19.90 Unspecified osteoarthritis, unspecified site; J44.9 Chronic obstructive pulmonary disease, unspecified; F20.9 Schizophrenia, unspecified; Z79.899 Other long term (current) drug therapy; Z86.73 Personal history of transient ischemic attack (TIA), and cerebral infarction without residual deficits; Z90.49 Acquired absence of other specified parts of digestive tract
CPT/HCPCS: 36415; 71045; 80053; 84484; 85025; 96374; 99284; J2930

== ENCOUNTER 2020-01-27 07:26 | Emergency (ER) | payer MEDICARE ==
[2020-01-27] MEDS ORDERED: IPRATROPIUM 0.02% NEBU 2.5 ML IH ONE (07:40)
[2020-01-27] MEDS ORDERED: ALBUTEROL 2.5 MG/3 ML NEBU IH ONE (07:40)
[2020-01-27] MEDS ORDERED: MAGNESIUM SULFATE 2 GM/50 ML BAG IV ONE (07:41)
--- NOTE | 2020-01-27 08:03 | Emergency Department Report ---
ED Shortness of Breath HPI - General Chief Complaint: Dyspnea/Respdistress Stated Complaint: MATY Time Seen by Provider: 01/27/20 07:40 Source: patient, EMS Mode of arrival: Stretcher Limitations: No Limitations - History of Present Illness Initial Comments: 74-year-old male with history of COPD presents to ED with difficulty breathing since yesterday. Patient denies fever, cough, chest pain, body aches, vomiting or diarrhea, loss of smell or taste. Patient transported to ED by EMS. Patient was given Solu-Medrol, albuterol in route. Patient reports tobacco use. Patient reports he uses home O2 as needed. MD Complaint: shortness of breath -: days(s) (1) Severity: moderate Consistency: constant Improves With: bronchodilators Worsens With: exertion Known History Of: COPD Treatments Prior to Arrival: bronchodilator - Related Data Home Oxygen Therapy: Yes Previous Rx's Medication Instructions Recorded Last Taken Type Amlodipine Besylate [Norvasc] 10 mg PO QDAY #30 tablet 10/12/19 Unknown Rx Budesonide/Formoterol Fumarate 1 puff IH DAILY #1 hfa.aer.ad 12/07/19 Unknown Rx [Symbicort 160-4.5 Mcg Inhaler] Albuterol Sulfate [Proventil Hfa] 2 puff IH Q4HR PRN #1 hfa.aer.ad 01/27/20 Unknown Rx predniSONE [Deltasone] 50 mg PO QDAY #5 tab 01/27/20 Unknown Rx Allergies Allergy/AdvReac Type Severity Reaction Status Date / Time No Known Allergies Allergy Verified 09/01/19 12:38 ED Review of Systems ROS: Stated complaint: MATY Other details as noted in HPI Comment: All other systems reviewed and negative Constitutional: denies: chills, fever Respiratory: shortness of breath. denies: cough Cardiovascular: denies: chest pain Gastrointestinal: denies: vomiting, diarrhea ED Past Medical Hx - Past Medical History Hx Hypertension: Yes Hx CVA: Yes (generalized weakness, walks with a cane) Hx Heart Attack/AMI: No Hx Congestive Heart Failure: Yes Hx Diabetes: Yes Hx Deep Vein Thrombosis: No Hx Pulmonary Embolism: No Hx GERD: No Hx Liver Disease: No Hx Renal Disease: No Hx Sickle Cell Disease: No Hx Arthritis: Yes Hx Headaches / Migraines: No Hx Seizures: No Hx Kidney Stones: No Hx Psychiatric Treatment: Yes (schizophrenic) Hx Asthma: Yes Hx COPD: Yes Hx Tuberculosis: No Hx Dementia: No Hx HIV: No Additional medical history: Hx of Dissection?-AAA - Surgical History Hx Coronary Stent: No Hx Open Heart Surgery: No Hx Pacemaker: No Hx Internal Defibrillator: No Hx Cholecystectomy: Yes Hx Appendectomy: Yes Hx Breast Surgery: No - Social History Smoking Status: Current Every Day Smoker - Medications Home Medications: Home Medications Medication Instructions Recorded Confirmed Last Taken Type Amlodipine Besylate [Norvasc] 10 mg PO QDAY #30 tablet 10/12/19 01/27/20 Unknown Rx Budesonide/Formoterol Fumarate 1 puff IH DAILY #1 hfa.aer.ad 12/07/19 01/27/20 Unknown Rx [Symbicort 160-4.5 Mcg Inhaler] Albuterol Sulfate [Proventil Hfa] 2 puff IH Q4HR PRN #1 hfa.aer.ad 01/27/20 Unknown Rx predniSONE [Deltasone] 50 mg PO QDAY #5 tab 01/27/20 Unknown Rx ED Physical Exam - General Limitations: No Limitations General appearance: alert - Head Head exam: Present: atraumatic, normocephalic - Eye Eye exam: Present: normal appearance - ENT ENT exam: Present: mucous membranes moist - Neck Neck exam: Present: normal inspection - Respiratory Respiratory exam: Present: wheezes (faint), decreased breath sounds - Cardiovascular Cardiovascular Exam: Present: regular rate, normal rhythm - GI/Abdominal GI/Abdominal exam: Absent: distended - Extremities Exam Extremities exam: Present: normal inspection - Neurological Exam Neurological exam: Present: alert, oriented X3 - Psychiatric Psychiatric exam: Present: normal affect, normal mood - Skin Skin exam: Present: warm, dry, intact, normal color ED Course Vital Signs 01/27/20 01/27/20 01/27/20 07:36 07:46 07:47 Temperature 98.1 F Pulse Rate 92 H 92 H 93 H Pulse Rate [ Anterior Bilateral Throughout] Respiratory 16 16 16 Rate Respiratory Rate [Anterior Bilateral Throughout] Blood Pressure Blood Pressure 149/97 [Right] O2 Sat by Pulse 96 95 96 Oximetry 01/27/20 01/27/20 01/27/20 08:00 08:16 08:30 Temperature Pulse Rate 90 87 93 H Pulse Rate [ Anterior Bilateral Throughout] Respiratory 22 32 H 21 Rate Respiratory Rate [Anterior Bilateral Throughout] Blood Pressure 145/94 145/94 145/94 Blood Pressure [Right] O2 Sat by Pulse 94 94 92 Oximetry 01/27/20 01/27/20 01/27/20 08:39 08:46 09:00 Temperature Pulse Rate 92 H 88 Pulse Rate [ 92 H Anterior Bilateral Throughout] Respiratory 23 24 Rate Respiratory 20 Rate [Anterior Bilateral Throughout] Blood Pressure 145/94 138/78 Blood Pressure [Right] O2 Sat by Pulse 91 93 Oximetry 01/27/20 01/27/20 01/27/20 09:16 09:38 09:46 Temperature Pulse Rate 85 108 H 91 H Pulse Rate [ Anterior Bilateral Throughout] Respiratory 21 25 H 25 H Rate Respiratory Rate [Anterior Bilateral Throughout] Blood Pressure 138/78 156/93 156/93 Blood Pressure [Right] O2 Sat by Pulse 91 96 93 Oximetry 01/27/20 01/27/20 01/27/20 10:00 10:16 10:30 Temperature Pulse Rate 92 H 88 96 H Pulse Rate [ Anterior Bilateral Throughout] Respiratory 21 22 18 Rate Respiratory Rate [Anterior Bilateral Throughout] Blood Pressure 158/95 158/95 158/95 Blood Pressure [Right] O2 Sat by Pulse 90 93 Oximetry ED Medical Decision Making - Lab Data Result diagrams: 01/27/20 07:56 01/27/20 07:52 - EKG Data -: EKG Interpreted by Nh EKG shows normal: sinus rhythm, axis, intervals, QRS complexes, ST-T waves Rate: normal - EKG Data Interpretation: no acute changes - Radiology Data Radiology results: report reviewed, image reviewed - Medical Decision Making 74 yo M w/ COPD exacerbation. Improved w/ nebs and mag sulfate. CXR negative. Vitals stable. Pt feeling much better, able to ambulate w/ assistance to b athroom, feels ok for discharge home. Outpt f/u advised. Prescriptions given. Return precautions given. - Differential Diagnosis COPD, ACS, pneumonia Critical care attestation.: If time is entered above; I have spent that time in minutes in the direct care of this critically ill patient, excluding procedure time. ED Disposition Clinical Impression: Acute exacerbation of chronic obstructive pulmonary disease (COPD) Disposition: DC- TO HOME OR SELFCARE Is pt being admited?: No Condition: Stable Instructions: Chronic Obstructive Pulmonary Disease (ED) Prescriptions: predniSONE [Deltasone] 50 mg PO QDAY #5 tab Albuterol Sulfate [Proventil Hfa] 2 puff IH Q4HR PRN #1 hfa.aer.ad PRN Reason: Wheezing Referrals: PRIMARY CARE, [Primary Care Provider] - 3-5 Days [facility] [Provider Group] - 3-5 Days Time of Disposition: 10:04
[2020-01-27 08:04] LABS: Basophils % (Auto) 0.3 % (0.0-1.8); Eosinophils % (Auto) 0.1 % (0.0-4.3); Hematocrit 47.3 % (35.5-45.6); Lymphocytes # (Auto) 0.9 K/mm3 (1.2-5.4); Lymphocytes % (Auto) 13.4 % (13.4-35.0); Mean Corpuscular HGB Conc 34 % (32-34); Mean Corpuscular Volume 84 fl (84-94); Monocytes # (Auto) 0.2 K/mm3 (0.0-0.8); Platelet Count 214 K/mm3 (140-440); Red Blood Count 5.66 M/mm3 (3.65-5.03); Red Cell Distribution Width 15.1 % (13.2-15.2)
[2020-01-27 08:26] LABS: BUN/Creatinine Ratio 20; Blood Urea Nitrogen 18 mg/dL (9-20); Calcium 9.8 mg/dL (8.4-10.2); Hemolysis Index 9
--- NOTE | 2020-01-27 09:44 | XRay Report ---
CHEST 1 VIEW INDICATION / CLINICAL INFORMATION: sob. COMPARISON: 12/07/2019 FINDINGS: SUPPORT DEVICES: None. HEART / MEDIASTINUM: No significant abnormality. LUNGS / PLEURA: No significant pulmonary or pleural abnormality. No pneumothorax. ADDITIONAL FINDINGS: There are mild to moderate COPD changes. IMPRESSION: 1. No significant change Signer Name: Grupo Beck MD Signed: 01/27/2020 9:40 AM Workstation Name: [id number]
[2020-01-27 11:11] VITALS: BP 158/95
== END 2020-01-27 10:30 | disposition home or self-care (01) ==
LOC: ED 07:26
DX: J44.1 Chronic obstructive pulmonary disease with (acute) exacerbation (principal); I11.0 Hypertensive heart disease with heart failure; I50.9 Heart failure, unspecified; E11.9 Type 2 diabetes mellitus without complications; F17.200 Nicotine dependence, unspecified, uncomplicated; Z86.73 Personal history of transient ischemic attack (TIA), and cerebral infarction without residual deficits; Z79.899 Other long term (current) drug therapy
CPT/HCPCS: 36415; 71045; 80048; 84484; 85025; 93005; 94640; 96365; 99284; J3475; 94644

== ENCOUNTER 2020-02-16 10:52 | Emergency (ER) | payer MEDICARE ==
[2020-02-16] MEDS ORDERED: IPRATROPIUM/ALBUTEROL SULFATE 3 ML AMPUL.NEB IH ONE (11:10)
--- NOTE | 2020-02-16 11:12 | Emergency Department Report ---
ED Shortness of Breath HPI - General Chief Complaint: Dyspnea/Respdistress Stated Complaint: MATY Time Seen by Provider: 02/16/20 11:07 Source: patient, EMS Mode of arrival: Stretcher Limitations: No Limitations - History of Present Illness Initial Comments: Chief complaint: "I have COPD. I cannot breathe." HPI: This is a 74-year-old male with history of COPD, hypertension, arthritis, CVA, diabetes mellitus, hypertension, schizophrenia who presents with shortness of breath. [place] the [place] he was picked up by EMS. He received 125 mg of Solu-Medrol in route. Oxygen on scene 85 to 80%. He does have home oxygen as needed. He has dry cough. He is frustrated because his primary doctor only provided MDI. He currently needs nebulizer solution. He denies pain. Denies fever. Tobacco dependency, MD Complaint: shortness of breath -: Gradual, days(s) (2) Severity: moderate Consistency: constant Improves With: bronchodilators Worsens With: exertion Known History Of: COPD, congestive heart failure Associated Symptoms: denies other symptoms - Related Data Previous Rx's Medication Instructions Recorded Last Taken Type Amlodipine Besylate [Norvasc] 10 mg PO QDAY #30 tablet 10/12/19 Unknown Rx Budesonide/Formoterol Fumarate 1 puff IH DAILY #1 hfa.aer.ad 12/07/19 Unknown Rx [Symbicort 160-4.5 Mcg Inhaler] Albuterol Sulfate [Proventil Hfa] 2 puff IH Q4HR PRN #1 hfa.aer.ad 01/27/20 Unknown Rx predniSONE [Deltasone] 50 mg PO QDAY #5 tab 01/27/20 Unknown Rx ALBUTEROL NEB's [Proventil 0.083% 2.5 mg IH TID PRN #1 box 02/16/20 Unknown Rx NEBS] Albuterol INH(or & Nicu Only) 2 puff IH Q6H PRN #8.5 gram 02/16/20 Unknown Rx [ProAir HFA Inhaler] Allergies Allergy/AdvReac Type Severity Reaction Status Date / Time No Known Allergies Allergy Verified 09/01/19 12:38 ED Review of Systems ROS: Stated complaint: MATY Other details as noted in HPI Comment: All other systems reviewed and negative Constitutional: denies: fever, malaise Respiratory: cough, shortness of breath. denies: wheezing Cardiovascular: denies: chest pain Gastrointestinal: denies: abdominal pain, nausea, vomiting ED Past Medical Hx - Past Medical History Previous Medical History?: Yes Hx Hypertension: Yes Hx CVA: Yes (generalized weakness, walks with a cane) Hx Heart Attack/AMI: No Hx Congestive Heart Failure: Yes Hx Diabetes: Yes Hx Deep Vein Thrombosis: No Hx Pulmonary Embolism: No Hx GERD: No Hx Liver Disease: No Hx Renal Disease: No Hx Sickle Cell Disease: No Hx Arthritis: Yes Hx Headaches / Migraines: No Hx Seizures: No Hx Kidney Stones: No Hx Psychiatric Treatment: Yes (schizophrenic) Hx Asthma: Yes Hx COPD: Yes Hx Tuberculosis: No Hx Dementia: No Hx HIV: No Additional medical history: Hx of Dissection?-AAA - Surgical History Hx Coronary Stent: No Hx Open Heart Surgery: No Hx Pacemaker: No Hx Internal Defibrillator: No Hx Cholecystectomy: Yes Hx Appendectomy: Yes Hx Breast Surgery: No - Social History Smoking Status: Current Every Day Smoker - Medications Home Medications: Home Medications Medication Instructions Recorded Confirmed Last Taken Type Amlodipine Besylate [Norvasc] 10 mg PO QDAY #30 tablet 10/12/19 01/27/20 Unknown Rx Budesonide/Formoterol Fumarate 1 puff IH DAILY #1 hfa.aer.ad 12/07/19 01/27/20 Unknown Rx [Symbicort 160-4.5 Mcg Inhaler] Albuterol Sulfate [Proventil Hfa] 2 puff IH Q4HR PRN #1 hfa.aer.ad 01/27/20 Unknown Rx predniSONE [Deltasone] 50 mg PO QDAY #5 tab 01/27/20 Unknown Rx ALBUTEROL NEB's [Proventil 0.083% 2.5 mg IH TID PRN #1 box 02/16/20 Unknown Rx NEBS] Albuterol INH(or & Nicu Only) 2 puff IH Q6H PRN #8.5 gram 02/16/20 Unknown Rx [ProAir HFA Inhaler] ED Physical Exam - General Limitations: No Limitations General appearance: alert, in no apparent distress, other (Speaking full word sentences) - Head Head exam: Present: atraumatic, normocephalic - Eye Eye exam: Present: normal appearance - ENT ENT exam: Present: mucous membranes moist - Neck Neck exam: Present: normal inspection - Respiratory Respiratory exam: Present: decreased breath sounds. Absent: respiratory distress, wheezes, rales, rhonchi - Cardiovascular Cardiovascular Exam: Present: regular rate, normal rhythm, normal heart sounds. Absent: systolic murmur, diastolic murmur, rubs, gallop - GI/Abdominal GI/Abdominal exam: Present: soft, normal bowel sounds. Absent: distended, tenderness, guarding, rebound - Rectal Rectal exam: Present: deferred - Extremities Exam Extremities exam: Present: pedal edema - Neurological Exam Neurological exam: Present: alert, oriented X3 - Psychiatric Psychiatric exam: Present: normal affect, normal mood. Absent: anxious, homicidal ideation, suicidal ideation - Skin Skin exam: Present: warm, dry, intact, normal color. Absent: rash ED Course Vital Signs 02/16/20 02/16/20 11:02 11:53 Temperature 97.7 F Pulse Rate 94 H Pulse Rate [ 84 Bilateral] Respiratory 22 Rate Respiratory 23 Rate [Bilateral ] Blood Pressure 132/103 [Left] O2 Sat by Pulse 95 Oximetry ED Medical Decision Making - Lab Data Result diagrams: 02/16/20 11:13 02/16/20 11:13 - EKG Data -: EKG Interpreted by Ia EKG shows normal: sinus rhythm, axis, intervals - EKG Data Interpretation: nonspecific ST-T wave ariela 02/16/20 11:16 Multiple PVCs - Radiology Data Radiology results: report reviewed No acute findings - Medical Decision Making Mild COPD exacerbation. Patient is currently laying supine comfortably without any work of breathing. Subjectively improved with DuoNeb. He received IV Solu- Medrol in route. I prescribed albuterol MDI and nebulizer solution. He is discharged home in improved stable condition. This gentleman has history of chronic respiratory failure requiring oxygen supplementation. He does not require portable oxygen. He only uses portable oxygen as needed. Critical care attestation.: If time is entered above; I have spent that time in minutes in the direct care of this critically ill patient, excluding procedure time. ED Disposition Clinical Impression: COPD (chronic obstructive pulmonary disease), COPD exacerbation, Acute exacerbation of chronic obstructive pulmonary disease (COPD), O2 dependent Disposition: - TO HOME OR SELFCARE Is pt being admited?: No Does the pt Need Aspirin: No Condition: Stable Instructions: Chronic Obstructive Pulmonary Disease (ED) Prescriptions: Albuterol INH(or & Nicu Only) [ProAir HFA Inhaler] 2 puff IH Q6H PRN #8.5 gram PRN Reason: Shortness Of Breath ALBUTEROL NEB's [Proventil 0.083% NEBS] 2.5 mg IH TID PRN #1 box PRN Reason: Wheezing
[2020-02-16 11:43] LABS: Basophils # (Auto) 0.1 K/mm3 (0.0-0.1); Basophils % (Auto) 0.7 % (0.0-1.8); Eosinophils % (Auto) 0.1 % (0.0-4.3); Hematocrit 48.4 % (35.5-45.6); Hemoglobin 16.7 gm/dl (11.8-15.2); Lymphocytes # (Auto) 1.4 K/mm3 (1.2-5.4); Lymphocytes % (Auto) 13.5 % (13.4-35.0); Mean Corpuscular HGB Conc 35 % (32-34); Mean Corpuscular Volume 85 fl (84-94); Monocytes # (Auto) 1.5 K/mm3 (0.0-0.8); Monocytes % (Auto) 14.7 % (0.0-7.3); Platelet Count 218 K/mm3 (140-440); Red Blood Count 5.67 M/mm3 (3.65-5.03); Red Cell Distribution Width 15.4 % (13.2-15.2)
--- NOTE | 2020-02-16 11:53 | XRay Report ---
CHEST 1 VIEW 02/16/2020 10:45 AM INDICATION / CLINICAL INFORMATION: Dyspnea. COMPARISON: 01/27/2020 FINDINGS: SUPPORT DEVICES: None. HEART / MEDIASTINUM: Normal heart size. Atherosclerosis in the thoracic aorta. LUNGS / PLEURA: No significant pulmonary or pleural abnormality. No pneumothorax. ADDITIONAL FINDINGS: No significant additional findings. IMPRESSION: 1. No acute findings. Signer Name: Floyd Suarez MD Signed: 02/16/2020 11:49 AM Workstation Name: [id number]
[2020-02-16 12:06] LABS: Calcium 9.9 mg/dL (8.4-10.2)
[2020-02-16 13:07] VITALS: BP 150/106
== END 2020-02-16 13:45 | disposition home or self-care (01) ==
LOC: ED 10:52
DX: J44.1 Chronic obstructive pulmonary disease with (acute) exacerbation (principal); Z99.81 Dependence on supplemental oxygen; I11.0 Hypertensive heart disease with heart failure; I50.9 Heart failure, unspecified; E11.9 Type 2 diabetes mellitus without complications; F17.200 Nicotine dependence, unspecified, uncomplicated; M19.90 Unspecified osteoarthritis, unspecified site; Z90.49 Acquired absence of other specified parts of digestive tract; Z86.73 Personal history of transient ischemic attack (TIA), and cerebral infarction without residual deficits; Z79.899 Other long term (current) drug therapy
CPT/HCPCS: 36415; 71045; 80048; 85025; 93005; 94640; 94644

== ENCOUNTER 2020-03-30 04:21 | Emergency (ER) | payer MEDICARE ==
[2020-03-30] MEDS ORDERED: ASPIRIN 325 MG TAB PO ONE (04:42)
[2020-03-30 04:50] VITALS: BP 142/95
--- NOTE | 2020-03-30 05:23 | Emergency Department Report ---
Chief Complaint: Chest Pain Stated Complaint: LF CHEST PAIN Time Seen by Provider: 03/30/20 05:19 - HPI History of Present Illness: Patient is a 74-year-old gentleman who just left our emergency department and and was waiting for Who is presenting with some pain in the left lateral chest under the axilla. Patient denies any cough congestion or shortness of breath. He did receive a neb treatment on his visit several hours ago. Patient states that the nursing staff made him sign and just now however nursing staff stated that the patient wanted to sign back and. Regardless the patient states that he knows what this pain is from. He states he sleeps on the bed mattresses and is very achy especially in his shoulders and back often. - ROS Review of Systems: All systems are reviewed and are negative - Exam Vital Signs: Vital Signs 03/30/20 04:47 Temperature 98 F Pulse Rate 98 H Respiratory 22 Rate Blood Pressure 142/95 [Left] O2 Sat by Pulse 96 Oximetry Physical Exam: Lungs are clear to auscultation patient appears alert and oriented x3 in no acute distress. His abdomen is soft and nontender. Heart tones within normal limits MSE screening note: Focused history and physical exam performed. Due to findings the following was ordered: ED Medical Decision Making - EKG Data -: EKG Interpreted by [facility] EKG shows normal: sinus rhythm, axis, intervals, QRS complexes, ST-T waves Rate: normal - EKG Data Interpretation: normal EKG - Medical Decision Making Patient has no new medical emergency at this time will be discharged to follow- up with outpatient resources ED Disposition for MSE Clinical Impression: Atypical chest pain, Musculoskeletal chest pain Disposition: MED SCREENING EXAM-LEFT Is pt being admited?: No Does the pt Need Aspirin: No Condition: Stable Instructions: Musculoskeletal Pain (ED) Referrals: PRIMARY CARE, [Primary Care Provider] - 3-5 Days Time of Disposition:
== END 2020-03-30 05:25 | disposition left against medical advice (07) ==
LOC: ED 04:21
DX: R07.89 Other chest pain (principal); M79.10 Myalgia, unspecified site; Z53.21 Procedure and treatment not carried out due to patient leaving prior to being seen by health care provider
CPT/HCPCS: 93005

== ENCOUNTER 2020-05-20 08:34 | Emergency (ER) | payer MEDICARE ==
[2020-05-20] MEDS ORDERED: MAGNESIUM SULFATE 2 GM/50 ML BAG IV ONE ×2 (09:36→12:15)
[2020-05-20] MEDS ORDERED: ALBUTEROL 2.5 MG/3 ML NEBU IH ONE (09:36)
[2020-05-20] MEDS ORDERED: IPRATROPIUM 0.02% NEBU 2.5 ML IH ONE (09:36)
[2020-05-20] MEDS ORDERED: ACETAMINOPHEN 325 MG TAB PO ONE (09:39)
--- NOTE | 2020-05-20 09:40 | Emergency Department Report ---
ED General Adult HPI - General Chief complaint: Dyspnea/Respdistress Stated complaint: DIFFICULTY BREATHING PUI?: No Time Seen by Provider: 05/20/20 08:52 Source: patient, RN notes reviewed, old records reviewed Mode of arrival: Stretcher Limitations: Physical Limitation - History of Present Illness Initial comments: The patient was evaluated in the emergency department for symptoms described in the history of present illness. He/she was evaluated in the context of the global COVID-19 pandemic, which necessitated consideration that the patient might be at risk for infection with the virus that causes COVID-19. [facility] protocols and algorithms that pertain to the evaluation of patients at risk for COVID-19 are in a state of rapid change based on information released by regulatory bodies including the CDC and federal and state organizations. These policies and algorithms were followed during the patient's care in the emergency department. Please note that these policies, procedures and recommendations changed on a rapid basis. The patient is a 75-year-old gentleman. His past medical history includes hypertension, tobacco dependency, chronic hypoxic respiratory failure, on home oxygen, secondary to end-stage COPD, arthritis, cane, congestive heart failure, CHF, stroke, type 2 diabetes, schizophrenia, AAA, heart disease with stent The patient is brought to the hospital by emergency medical services with a complaint of painless shortness of breath. EMS treated the patient as per the prehospital protocol. The patient feels improved at this time. He has a chronic cough. He denies headache, neck pain, chest pain, abdominal pain. He denies urinary symptoms. He has nontraumatic lower extremity pain, which he did not notice, until I palpated his left lower extremity The patient is on chronic home oxygen. -: Gradual, days(s) Location: left, lower extremity Severity scale (0 -10): 0 Quality: aching Consistency: intermittent Improves with: medication, rest Worsens with: other (Movement and palpation) - Related Data Previous Rx's Medication Instructions Recorded Last Taken Type Amlodipine Besylate [Norvasc] 10 mg PO QDAY #30 tablet 10/12/19 05/20/20 Rx Albuterol Sulfate [Proventil Hfa] 2 puff IH Q4HR PRN #1 hfa.aer.ad 01/27/20 05/20/20 Rx ALBUTEROL NEB's [Proventil 0.083% 2.5 mg IH TID PRN #1 box 02/16/20 05/20/20 Rx NEBS] Albuterol Mdi (or & Nicu Only) 2 puff IH Q6H PRN #8.5 gram 05/20/20 Unknown Rx [ProAir HFA Inhaler] Budesonide/Formoterol Fumarate 1 puff IH DAILY PRN #1 inh 05/20/20 Unknown Rx [Symbicort 160-4.5 Mcg Inhaler] predniSONE [Deltasone] 40 mg PO QDAY #8 tab 05/20/20 Unknown Rx Allergies Allergy/AdvReac Type Severity Reaction Status Date / Time No Known Allergies Allergy Verified 09/01/19 12:38 ED Review of Systems ROS: Stated complaint: DIFFICULTY BREATHING Other details as noted in HPI Eyes: denies: eye discharge ENT: congestion Respiratory: cough, shortness of breath, wheezing Cardiovascular: denies: chest pain Gastrointestinal: denies: abdominal pain Musculoskeletal: myalgia Skin: denies: lesions Neurological: weakness (Chronic) ED Past Medical Hx - Past Medical History Previous Medical History?: Yes Hx Hypertension: Yes Hx CVA: Yes (generalized weakness, walks with a cane) Hx Heart Attack/AMI: No Hx Congestive Heart Failure: Yes Hx Diabetes: Yes Hx Deep Vein Thrombosis: No Hx Pulmonary Embolism: No Hx GERD: No Hx Liver Disease: No Hx Renal Disease: No Hx Sickle Cell Disease: No Hx Arthritis: Yes Hx Headaches / Migraines: No Hx Seizures: No Hx Kidney Stones: No Hx Psychiatric Treatment: Yes (schizophrenic) Hx Asthma: Yes Hx COPD: Yes Hx Tuberculosis: No Hx Dementia: No Hx HIV: No Additional medical history: Hx of Dissection?-AAA - Surgical History Past Surgical History?: Yes Hx Coronary Stent: No Hx Open Heart Surgery: No Hx Pacemaker: No Hx Internal Defibrillator: No Hx Cholecystectomy: Yes Hx Appendectomy: Yes Hx Breast Surgery: No - Social History Smoking Status: Former Smoker Substance Use Type: None - Medications Home Medications: Home Medications Medication Instructions Recorded Confirmed Last Taken Type Amlodipine Besylate [Norvasc] 10 mg PO QDAY #30 tablet 10/12/19 05/20/20 05/20/20 Rx Albuterol Sulfate [Proventil Hfa] 2 puff IH Q4HR PRN #1 hfa.aer.ad 01/27/20 05/20/20 05/20/20 Rx ALBUTEROL NEB's [Proventil 0.083% 2.5 mg IH TID PRN #1 box 02/16/20 05/20/20 05/20/20 Rx NEBS] Albuterol Mdi (or & Nicu Only) 2 puff IH Q6H PRN #8.5 gram 05/20/20 Unknown Rx [ProAir HFA Inhaler] Budesonide/Formoterol Fumarate 1 puff IH DAILY PRN #1 inh 05/20/20 Unknown Rx [Symbicort 160-4.5 Mcg Inhaler] predniSONE [Deltasone] 40 mg PO QDAY #8 tab 05/20/20 Unknown Rx ED Physical Exam - General Limitations: No Limitations, Physical Limitation General appearance: alert, in no apparent distress - Head Head exam: Present: atraumatic, normocephalic - Eye Eye exam: Present: normal appearance, EOMI. Absent: nystagmus - ENT ENT exam: Present: normal exam, normal orophraynx, mucous membranes moist, normal external ear exam - Neck Neck exam: Present: normal inspection, full ROM. Absent: tenderness, meningismus - Respiratory Respiratory exam: Present: rhonchi, decreased breath sounds. Absent: respiratory distress, wheezes, rales, stridor, chest wall tenderness - Cardiovascular Cardiovascular Exam: Present: regular rate, normal rhythm, normal heart sounds. Absent: bradycardia, tachycardia, irregular rhythm, systolic murmur, diastolic murmur, rubs, gallop - GI/Abdominal GI/Abdominal exam: Present: soft. Absent: distended, tenderness, guarding, rebound, rigid, pulsatile mass - Rectal Rectal exam: Present: deferred - Extremities Exam Extremities exam: Present: normal inspection, full ROM, calf tenderness (There is left lower extremity calf tenderness), other (2+ pulses noted in the bilateral upper and lower extremities. There is no long bony tenderness. The muscular compartments are soft. The pelvis is stable. There is no palpable cord.). Absent: pedal edema - Back Exam Back exam: Present: normal inspection. Absent: tenderness, CVA tenderness (R), CVA tenderness (L), paraspinal tenderness, vertebral tenderness - Neurological Exam Neurological exam: Present: alert, other (No facial droop. Tongue midline. Extraocular movements intact bilaterally. Facial sensation intact to light touch in V1, V2, V3 distribution bilaterally. 5 and a 5 strength in 4 extremities. Sensation intact to light touch in 4 extremities.). Absent: motor sensory deficit - Psychiatric Psychiatric exam: Present: flat affect - Skin Skin exam: Present: warm, dry, intact, normal color. Absent: rash ED Course Vital Signs 05/20/20 05/20/20 05/20/20 08:56 09:00 09:15 Temperature 97.8 F Pulse Rate 81 80 80 Pulse Rate [ Anterior Bilateral Throughout] Respiratory 22 23 20 Rate Respiratory Rate [Anterior Bilateral Throughout] Blood Pressure 133/85 127/84 Blood Pressure 133/85 [Left] O2 Sat by Pulse 94 92 90 Oximetry 05/20/20 05/20/20 05/20/20 09:30 09:45 09:50 Temperature Pulse Rate 79 80 Pulse Rate [ 103 H Anterior Bilateral Throughout] Respiratory 22 25 H Rate Respiratory 22 Rate [Anterior Bilateral Throughout] Blood Pressure 127/84 138/97 Blood Pressure [Left] O2 Sat by Pulse 89 90 Oximetry 05/20/20 05/20/20 05/20/20 10:00 10:15 10:30 Temperature Pulse Rate 73 84 79 Pulse Rate [ Anterior Bilateral Throughout] Respiratory 22 25 H 23 Rate Respiratory Rate [Anterior Bilateral Throughout] Blood Pressure 138/97 133/90 133/90 Blood Pressure [Left] O2 Sat by Pulse 92 92 91 Oximetry 05/20/20 05/20/20 05/20/20 10:46 10:57 11:00 Temperature Pulse Rate 78 77 81 Pulse Rate [ Anterior Bilateral Throughout] Respiratory 24 18 20 Rate Respiratory Rate [Anterior Bilateral Throughout] Blood Pressure 124/88 141/91 Blood Pressure 133/82 [Left] O2 Sat by Pulse 95 94 95 Oximetry 05/20/20 05/20/20 05/20/20 11:07 11:15 11:30 Temperature Pulse Rate 78 79 Pulse Rate [ Anterior Bilateral Throughout] Respiratory 24 23 Rate Respiratory Rate [Anterior Bilateral Throughout] Blood Pressure 132/93 145/96 Blood Pressure [Left] O2 Sat by Pulse 92 90 89 Oximetry 05/20/20 05/20/20 05/20/20 11:45 12:00 12:15 Temperature Pulse Rate 77 76 83 Pulse Rate [ Anterior Bilateral Throughout] Respiratory 24 24 17 Rate Respiratory Rate [Anterior Bilateral Throughout] Blood Pressure 140/96 138/94 139/93 Blood Pressure [Left] O2 Sat by Pulse 91 90 92 Oximetry - Reevaluation(s) Reevaluation #1: 05/20/20 10:59 Differential diagnosis, including but not limited to: Asthma, bronchitis, COPD exacerbation, pneumonia DVT, muscular pain/strain Assessment and plan: 75-year-old gentleman with chronic respiratory failure, on chronic home oxygen, likely presenting with underlying and expected progression of end-stage COPD. He is afebrile with reassuring vital signs, saturating at 90 to 94% on supplemental oxygen, acceptable for chronic COPD. His laboratory studies and EKG were fairly unremarkable, he felt improved after acetaminophen, and a left lower extremity DVT study was negative for thrombus. Patient states he has access to his medications, he states that he has home oxygen He does not meet criteria for hospitalization or admission at this time, he will need to follow-up with his outpatient vice president fixed income for his chronic progressive disease. He is not acutely decompensated at this point time such that he requires inpatient hospitalization Reevaluation #2: 05/20/20 13:16 Patient in no acute distress. Ate a full meal tray without difficulty. Arterial blood gas demonstrates hypoxemia, while oxygen adjusted, will discuss with pulmonology on-call. Reevaluation #3: 05/20/20 13:32 Patient reevaluated multiple times while here in this emergency room. He ate a full meal without difficulty, and is resting comfortably in his stretcher. I contacted pulmonology on-call, Dr. Murtaza Terrazas, and we discussed the patient's history, physical, and pertinent laboratory studies. We are both of the opinion that the patient does not require hospitalization at this time. The patient may go home on his chronic home oxygen, and may up titrate as needed, return precautions were reviewed ED Medical Decision Making - Lab Data Result diagrams: 05/20/20 10:21 05/20/20 10:21 Vital Signs 05/20/20 08:56 Temperature 97.8 F Pulse Rate 81 Respiratory 22 Rate Blood Pressure 133/85 [Left] O2 Sat by Pulse 94 Oximetry Lab Results 05/20/20 05/20/20 Range/Units 10:21 10:21 WBC 6.1 (4.5-11.0) K/mm3 RBC 5.51 H (3.65-5.03) M/mm3 Hgb 15.8 H (11.8-15.2) gm/dl Hct 46.6 H (35.5-45.6) % MCV 85 (84-94) fl MCH 29 (28-32) pg MCHC 34 (32-34) % RDW 15.2 (13.2-15.2) % Plt Count 209 (140-440) K/mm3 Lymph % (Auto) 13.6 (13.4-35.0) % [place] % (Auto) 3.5 (0.0-7.3) % Eos % (Auto) 2.2 (0.0-4.3) % Baso % (Auto) 0.6 (0.0-1.8) % Lymph # (Auto) 0.8 L (1.2-5.4) K/mm3 [place] # (Auto) 0.2 (0.0-0.8) K/mm3 Eos # (Auto) 0.1 (0.0-0.4) K/mm3 Baso # (Auto) 0.0 (0.0-0.1) K/mm3 Seg Neutrophils % 80.1 H (40.0-70.0) % Seg Neutrophils # 4.9 (1.8-7.7) K/mm3 PT 13.3 (12.2-14.9) Sec. INR 1.00 (0.87-1.13) Lab Results 05/20/20 05/20/20 05/20/20 Range/Units 10:21 10:21 10:21 WBC 6.1 (4.5-11.0) K/mm3 RBC 5.51 H (3.65-5.03) M/mm3 Hgb 15.8 H (11.8-15.2) gm/dl Hct 46.6 H (35.5-45.6) % MCV 85 (84-94) fl MCH 29 (28-32) pg MCHC 34 (32-34) % RDW 15.2 (13.2-15.2) % Plt Count 209 (140-440) K/mm3 Lymph % (Auto) 13.6 (13.4-35.0) % [place] % (Auto) 3.5 (0.0-7.3) % Eos % (Auto) 2.2 (0.0-4.3) % Baso % (Auto) 0.6 (0.0-1.8) % Lymph # (Auto) 0.8 L (1.2-5.4) K/mm3 [place] # (Auto) 0.2 (0.0-0.8) K/mm3 Eos # (Auto) 0.1 (0.0-0.4) K/mm3 Baso # (Auto) 0.0 (0.0-0.1) K/mm3 Seg Neutrophils % 80.1 H (40.0-70.0) % Seg Neutrophils # 4.9 (1.8-7.7) K/mm3 PT 13.3 (12.2-14.9) Sec. INR 1.00 (0.87-1.13) Sodium 137 (137-145) mmol/L Potassium 3.6 (3.6-5.0) mmol/L Chloride 100.3 (98-107) mmol/L Carbon Dioxide 22 (22-30) mmol/L Anion Gap 18 mmol/L BUN 13 (9-20) mg/dL Creatinine 0.8 (0.8-1.3) mg/dL Estimated GFR > 60 ml/min BUN/Creatinine Ratio 16 % Glucose 145 H (75-100) mg/dL Calcium 9.1 (8.4-10.2) mg/dL Magnesium 2.70 H (1.7-2.3) mg/dL Total Bilirubin 0.60 (0.1-1.2) mg/dL AST 12 (5-40) units/L ALT 13 (7-56) units/L Alkaline Phosphatase 101 (35-129) units/L Troponin T (0.00-0.029) ng/mL Total Protein 7.0 (6.3-8.2) g/dL Albumin 4.2 (3.9-5) g/dL Albumin/Globulin Ratio 1.5 % 09/25/20 Range/Units 10:21 WBC (4.5-11.0) K/mm3 RBC (3.65-5.03) M/mm3 Hgb (11.8-15.2) gm/dl Hct (35.5-45.6) % MCV (84-94) fl MCH (28-32) pg MCHC (32-34) % RDW (13.2-15.2) % Plt Count (140-440) K/mm3 Lymph % (Auto) (13.4-35.0) % [place] % (Auto) (0.0-7.3) % Eos % (Auto) (0.0-4.3) % Baso % (Auto) (0.0-1.8) % Lymph # (Auto) (1.2-5.4) K/mm3 [place] # (Auto) (0.0-0.8) K/mm3 Eos # (Auto) (0.0-0.4) K/mm3 Baso # (Auto) (0.0-0.1) K/mm3 Seg Neutrophils % (40.0-70.0) % Seg Neutrophils # (1.8-7.7) K/mm3 PT (12.2-14.9) Sec. INR (0.87-1.13) Sodium (137-145) mmol/L Potassium (3.6-5.0) mmol/L Chloride (98-107) mmol/L Carbon Dioxide (22-30) mmol/L Anion Gap mmol/L BUN (9-20) mg/dL Creatinine (0.8-1.3) mg/dL Estimated GFR ml/min BUN/Creatinine Ratio % Glucose (75-100) mg/dL Calcium (8.4-10.2) mg/dL Magnesium (1.7-2.3) mg/dL Total Bilirubin (0.1-1.2) mg/dL AST (5-40) units/L ALT (7-56) units/L Alkaline Phosphatase (35-129) units/L Troponin T < 0.010 (0.00-0.029) ng/mL Total Protein (6.3-8.2) g/dL Albumin (3.9-5) g/dL Albumin/Globulin Ratio % - EKG Data -: EKG Interpreted by Ca EKG shows normal: sinus rhythm Rate: normal - EKG Data Interpretation: unchanged when compared t 05/20/20 10:58 EKG today shows a sinus rhythm, 82 bpm, there is a normal axis, with low voltage, PVCs, QTC 444 ms, the EKG appears to be unchanged from prior EKG from March 2020, the EKG is not a STEMI. - Radiology Data Radiology results: report reviewed, image reviewed Print Report Referring Physician: FANG COOPER Patient Name: UBALDO DIAZ Date of : 1945 Sex: Male Report Date: 2020-05-20 Report Status: Finalized Findings [facility] [address] [place] [address] XRay Report Signed Patient: UBALDO DIAZ MR#: [id number] : 1945 Acct:[id number] Age/Sex: 75 / M ADM Date: 05/20/20 Loc: ED Attending Dr: Ordering Physician: FANG COOPER MD Date of Service: 05/20/20 Procedure(s): XR chest 1V ap Accession Number(s): [id number] cc: FANG COOPER MD Fluoro Time In Minutes: CHEST 1 VIEW 9:42 AM INDICATION / CLINICAL INFORMATION: Dyspnea. COMPARISON: 02/16/20. FINDINGS: SUPPORT DEVICES: None. HEART / MEDIASTINUM: The heart size is normal with a left ventricular configuration. Mild ectasia of the aortic arch is stable. LUNGS / PLEURA: Mild bibasilar subsegmental parenchymal disease, right greater than left, has increased. No pneumothorax. ADDITIONAL FINDINGS: No significant additional findings. IMPRESSION: Increasing bibasilar subsegmental atelectasis, greater on the right. Signer Name: Usman Bazzi MD Signed: 05/20/2020 10:18 AM Workstation Name: [id number] Transcribed By: RT Dictated By: Usman Bazzi MD Electronically Authenticated By: Usman Bazzi MD Signed Date/Time: 05/20/20 1018 DD/ 1016 TD/TT: Critical care attestation.: If time is entered above; I have spent that time in minutes in the direct care of this critically ill patient, excluding procedure time. ED Disposition Clinical Impression: COPD (chronic obstructive pulmonary disease), Left leg pain, Chronic respiratory failure Disposition: DC-01 TO HOME OR SELFCARE Is pt being admited?: No Does the pt Need Aspirin: No Condition: Good Instructions: Chronic Obstructive Pulmonary Disease (ED) Additional Instructions: Continue current outpatient medications. Take the breathing medications as needed/directed. Follow-up with a primary care doctor or vice president fixed income within the next week. Patient may take [id number] Tylenol as needed for his leg pain. Please return to the emergency room right away with new pain, worsened pain, migration of pain, projectile vomiting, change in mental status, confusion, inability to tolerate liquid feeds, new, worsened or different symptoms not present on the initial emergency room evaluation. Please continue home oxygen, at 2 to 3 L, patient may temporarily increase oxygen as needed, if he becomes symptomatic, and if oxygen saturation drops below 88%. However, patient should make every effort to rest, and down titrate oxygen as tolerated, he should follow-up with a local realty specialist within the next week, please return to the emergency room right away with any n ew, worsened or different symptoms not present on the initial emergency room evaluation. Prescriptions: predniSONE [Deltasone] 40 mg PO QDAY #8 tab Albuterol Mdi (or & Nicu Only) [ProAir HFA Inhaler] 2 puff IH Q6H PRN #8.5 gram PRN Reason: Shortness Of Breath Budesonide/Formoterol Fumarate [Symbicort 160-4.5 Mcg Inhaler] 1 puff IH DAILY PRN #1 inh PRN Reason: Shortness Of Breath Referrals: MURTAZA TERRAZAS MD [Staff Physician] - 3-5 Days
--- NOTE | 2020-05-20 10:22 | XRay Report ---
CHEST 1 VIEW 9:42 AM INDICATION / CLINICAL INFORMATION: Dyspnea. COMPARISON: 02/16/20. FINDINGS: SUPPORT DEVICES: None. HEART / MEDIASTINUM: The heart size is normal with a left ventricular configuration. Mild ectasia of the aortic arch is stable. LUNGS / PLEURA: Mild bibasilar subsegmental parenchymal disease, right greater than left, has increas ed. No pneumothorax. ADDITIONAL FINDINGS: No significant additional findings. IMPRESSION: Increasing bibasilar subsegmental atelectasis, greater on the right. Signer Name: Usman Bazzi MD Signed: 05/20/2020 10:18 AM Workstation Name: [id number]
[2020-05-20 10:36] LABS: Basophils % (Auto) 0.6 % (0.0-1.8); Eosinophils # (Auto) 0.1 K/mm3 (0.0-0.4); Eosinophils % (Auto) 2.2 % (0.0-4.3); Hematocrit 46.6 % (35.5-45.6); Hemoglobin 15.8 gm/dl (11.8-15.2); Lymphocytes # (Auto) 0.8 K/mm3 (1.2-5.4); Lymphocytes % (Auto) 13.6 % (13.4-35.0); Mean Corpuscular HGB Conc 34 % (32-34); Mean Corpuscular Volume 85 fl (84-94); Monocytes # (Auto) 0.2 K/mm3 (0.0-0.8); Monocytes % (Auto) 3.5 % (0.0-7.3); Platelet Count 209 K/mm3 (140-440); Red Blood Count 5.51 M/mm3 (3.65-5.03); Red Cell Distribution Width 15.2 % (13.2-15.2)
[2020-05-20 10:58] LABS: Alanine Aminotransferase 13 units/L (7-56); Albumin 4.2 g/dL (3.9-5); BUN/Creatinine Ratio 16; Blood Urea Nitrogen 13 mg/dL (9-20); Calcium 9.1 mg/dL (8.4-10.2); Hemolysis Index 12
--- NOTE | 2020-05-20 11:03 | Vascular Lab Report ---
DUPLEX DOPPLER LOWER EXTREMITY VEINS, LEFT INDICATION: lle pain, dyspnea. TECHNIQUE: Duplex doppler imaging was performed through the veins of the left lower extremity using venous compr ession and other maneuvers. COMPARISON: No relevant prior imaging study available. FINDINGS: Left Common femoral vein: Negative. Left Superficial femoral vein: Negative. Left Popliteal vein: Negative. Left Calf veins: Negative. Additional findings: None.. IMPRESSION: 1. No sonographic evidence for DVT in the left lower extremity. Signer Name: Alberto Hughes MD Signed: 05/20/2020 10:59 AM Workstation Name: [id number]
[2020-05-20 11:58] LABS: ABG Base Excess 0.3 mmol/L (-2.0-3.0); ABG HCO3 24.7 mmol/L (20.0-26.0); ABG Methemoglobin 0.6 % (0.0-1.5); ABG Oxygen Saturation 92.6 % (95.0-99.0); ABG PCO2 39.3 mm Hg; ABG PH 7.416 pH Units (7.350-7.450); ABG PO2 60.3 mm Hg (80.0-90.0)
[2020-05-20] MEDS ORDERED: ACETAMINOPHEN 325 MG TAB ONE (12:15)
[2020-05-20 13:41] VITALS: BP 128/96
== END 2020-05-20 14:15 | disposition home or self-care (01) ==
LOC: ED 08:34
DX: J96.10 Chronic respiratory failure, unspecified whether with hypoxia or hypercapnia (principal); J44.9 Chronic obstructive pulmonary disease, unspecified; M79.605 Pain in left leg; I50.9 Heart failure, unspecified; I11.0 Hypertensive heart disease with heart failure; E11.9 Type 2 diabetes mellitus without complications; M19.91 Primary osteoarthritis, unspecified site; F20.9 Schizophrenia, unspecified; Z86.73 Personal history of transient ischemic attack (TIA), and cerebral infarction without residual deficits; Z90.49 Acquired absence of other specified parts of digestive tract; Z87.891 Personal history of nicotine dependence; Z79.899 Other long term (current) drug therapy
CPT/HCPCS: 36415; 71045; 80053; 82550; 82803; 83735; 84484; 85025; 85610; 93005; 93971; 94640; 96365; 99285; J3475; 94644; 94760

== ENCOUNTER 2020-05-27 05:20 | Emergency (ER) | payer MEDICARE ==
[2020-05-27] MEDS ORDERED: IPRATROPIUM 0.02% NEBU 2.5 ML IH ONE ×2 (05:32→05:35)
[2020-05-27] MEDS ORDERED: ALBUTEROL 2.5 MG/3 ML NEBU IH ONE ×2 (05:33→05:35)
--- NOTE | 2020-05-27 05:39 | Emergency Department Report ---
Chief Complaint: Dyspnea/Respdistress Stated Complaint: DIFFICULTY IN BREATHING Time Seen by Provider: 05/27/20 05:30 - HPI History of Present Illness: Patient is a 75-year-old male that presents emergency room with complaints of shortness of breath. Patient brought in by EMS. EMS states the patient was having increased work to breathe, difficulty breathing, shortness of breath, hypoxia. Patient's initial O2 saturation 90%. Patient placed on BiPAP, given IV mag, albuterol and Solu-Medrol in route. - ROS Review of Systems: Review of systems negative except for shortness of breath. - Exam Vital Signs: Vital Signs 05/27/20 05:48 Temperature 98.7 F Pulse Rate 80 Respiratory 25 H Rate Blood Pressure 127/84 [Right] O2 Sat by Pulse 97 Oximetry Physical Exam: Patient is in acute distress, with increased work to breathe. Lungs are wheezing throughout, increased work to breathe. Cardiac exam reveals the first and second heart sounds normal. No murmurs, rubs or gallops. MSE screening note: Focused history and physical exam performed. Due to findings the following was ordered: Patient in room 1. Patient placed on BiPAP. Patient was given 10 mg albuterol with Atrovent. Labs have been ordered. Chest x-ray ordered. ED Disposition for MSE Clinical Impression: Acute dyspnea
--- NOTE | 2020-05-27 05:58 | XRay Report ---
CHEST 1 VIEW 05/27/2020 4:51 AM INDICATION / CLINICAL INFORMATION: Dyspnea. COMPARISON: Chest x-ray on 05/20/2020 FINDINGS: SUPPORT DEVICES: None. HEART / MEDIASTINUM: No significant abnormality. LUNGS / PLEURA: No significant pulmonary or pleural abnormality. No pneumothorax. ADDITIONAL FINDINGS: No significant additional findings. IMPRESSION: 1. No acute findings. Signer Name: Floyd Suarez MD Signed: 05/27/2020 5:53 AM Workstation Name: [id number]
[2020-05-27 06:04] LABS: Basophils % (Auto) 0.5 % (0.0-1.8); Eosinophils # (Auto) 0.4 K/mm3 (0.0-0.4); Eosinophils % (Auto) 4.5 % (0.0-4.3); Hematocrit 44.8 % (35.5-45.6); Hemoglobin 15.2 gm/dl (11.8-15.2); Lymphocytes # (Auto) 1.8 K/mm3 (1.2-5.4); Mean Corpuscular HGB Conc 34 % (32-34); Mean Corpuscular Volume 85 fl (84-94); Monocytes # (Auto) 0.7 K/mm3 (0.0-0.8); Monocytes % (Auto) 7.9 % (0.0-7.3); Platelet Count 220 K/mm3 (140-440); Red Cell Distribution Width 15.6 % (13.2-15.2)
[2020-05-27] MEDS ORDERED: LACTATED RINGERS 500 ML IV ONE (06:12)
--- NOTE | 2020-05-27 06:13 | Emergency Department Report ---
ED General Adult HPI - General Chief complaint: Dyspnea/Respdistress Stated complaint: DIFFICULTY IN BREATHING PUI?: No Time Seen by Provider: 05/27/20 05:30 Source: patient, EMS ( EMS documentation not available at time of chart dictation ), RN notes reviewed, old records reviewed Mode of arrival: Stretcher Limitations: Physical Limitation - History of Present Illness Initial comments: The patient was evaluated in the emergency department for symptoms described in the history of present illness. He/she was evaluated in the context of the global COVID-19 pandemic, which necessitated consideration that the patient might be at risk for infection with the virus that causes COVID-19. Institutional protocols and algorithms that pertain to the evaluation of patients at risk for COVID-19 are in a state of rapid change based on information released by regulatory bodies including the CDC and federal and state organizations. These policies and algorithms were followed during the patient's care in the emergency department. Please note that these policies, procedures and recommendations changed on a rapid basis. Patient is a 75-year-old gentleman. I am very familiar with this patient. He has a past medical history of hypertension, tobacco dependency, chronic hypoxic respiratory failure, on home oxygen, due to end-stage COPD, arthritis, CHF, stroke, type 2 diabetes, schizophrenia, AAA, CAD with stent. I saw this patient a few days ago for COPD exacerbation. He was observed in this emergency room for hours, clinically improved, and discharged. Today, he is brought to the hospital by emergency medical services with a complaint of painless shortness of breath. Apparently, the patient was in moderate to severe respiratory distress upon EMS arrival, he was started on CPAP at 100%, he was given Solu-Medrol, mag, and albuterol. Upon my initial evaluation, he is on BiPAP, and he states he feels much improv ed. Denies headache, neck pain, abdominal pain. He has right-sided chest pressure, started a few days ago, which is now resolved. Today, he does not complain of leg pain or leg swelling. He recently had a lower extremity DVT study which was negative. He feels much improved after the aforementioned interventions. This is similar to prior COPD exacerbations. He also endorses chronic cough, an d chronic mucus production. He is not sure if he is taking all of his medications -: Sudden Consistency: now resolved Improves with: other Worsens with: none - Related Data Previous Rx's Medication Instructions Recorded Last Taken Type Amlodipine Besylate [Norvasc] 10 mg PO QDAY #30 tablet 10/12/19 05/20/20 Rx Albuterol Sulfate [Proventil Hfa] 2 puff IH Q4HR PRN #1 hfa.aer.ad 01/27/20 05/20/20 Rx ALBUTEROL NEB's [Proventil 0.083% 2.5 mg IH TID PRN #1 box 02/16/20 05/20/20 Rx NEBS] Albuterol Mdi (or & Nicu Only) 2 puff IH Q6H PRN #8.5 gram 05/20/20 Unknown Rx [ProAir HFA Inhaler] Budesonide/Formoterol Fumarate 1 puff IH DAILY PRN #1 inh 05/20/20 Unknown Rx [Symbicort 160-4.5 Mcg Inhaler] predniSONE [Deltasone] 40 mg PO QDAY #8 tab 05/20/20 Unknown Rx Albuterol Sulfate [Proair 90 mcg IH Q4HR PRN #2 aer.pow.ba 05/27/20 Unknown Rx Respiclick] Doxycycline Hyclate 100 mg PO BID #9 tablet.dr 05/27/20 Unknown Rx Ipratropium (Nf) [Atrovent] 2 puff IH Q6HR PRN #1 inha 05/27/20 Unknown Rx predniSONE [Deltasone] 40 mg PO QDAY #8 tab 05/27/20 Unknown Rx Allergies Allergy/AdvReac Type Severity Reaction Status Date / Time No Known Allergies Allergy Verified 09/01/19 12:38 ED Review of Systems ROS: Stated complaint: DIFFICULTY IN BREATHING Other details as noted in HPI Constitutional: malaise. denies: fever ENT: congestion Respiratory: cough, shortness of breath, SOB with exertion, SOB at rest Cardiovascular: denies: syncope Gastrointestinal: denies: abdominal pain Genitourinary: denies: dysuria Musculoskeletal: myalgia Neurological: weakness Hematological/Lymphatic: denies: easy bleeding ED Past Medical Hx - Past Medical History Previous Medical History?: Yes Hx Hypertension: Yes Hx CVA: Yes (generalized weakness, walks with a cane) Hx Heart Attack/AMI: No Hx Congestive Heart Failure: Yes Hx Diabetes: Yes Hx Deep Vein Thrombosis: No Hx Pulmonary Embolism: No Hx GERD: No Hx Liver Disease: No Hx Renal Disease: No Hx Sickle Cell Disease: No Hx Arthritis: Yes Hx Headaches / Migraines: No Hx Seizures: No Hx Kidney Stones: No Hx Psychiatric Treatment: Yes (schizophrenic) Hx Asthma: Yes Hx COPD: Yes Hx Tuberculosis: No Hx Dementia: No Hx HIV: No Additional medical history: Hx of Dissection?-AAA - Surgical History Past Surgical History?: Yes Hx Coronary Stent: No Hx Open Heart Surgery: No Hx Pacemaker: No Hx Internal Defibrillator: No Hx Cholecystectomy: Yes Hx Appendectomy: Yes Hx Breast Surgery: No - Social History Smoking Status: Current Some Day Smoker Substance Use Type: None - Medications Home Medications: Home Medications Medication Instructions Recorded Confirmed Last Taken Type Amlodipine Besylate [Norvasc] 10 mg PO QDAY #30 tablet 10/12/19 05/20/20 05/20/20 Rx Albuterol Sulfate [Proventil Hfa] 2 puff IH Q4HR PRN #1 hfa.aer.ad 01/27/20 05/20/20 05/20/20 Rx ALBUTEROL NEB's [Proventil 0.083% 2.5 mg IH TID PRN #1 box 02/16/20 05/20/20 05/20/20 Rx NEBS] Albuterol Mdi (or & Nicu Only) 2 puff IH Q6H PRN #8.5 gram 05/20/20 Unknown Rx [ProAir HFA Inhaler] Budesonide/Formoterol Fumarate 1 puff IH DAILY PRN #1 inh 05/20/20 Unknown Rx [Symbicort 160-4.5 Mcg Inhaler] predniSONE [Deltasone] 40 mg PO QDAY #8 tab 05/20/20 Unknown Rx Albuterol Sulfate [Proair 90 mcg IH Q4HR PRN #2 aer.pow.ba 05/27/20 Unknown Rx Respiclick] Doxycycline Hyclate 100 mg PO BID #9 tablet.dr 05/27/20 Unknown Rx Ipratropium (Nf) [Atrovent] 2 puff IH Q6HR PRN #1 inha 05/27/20 Unknown Rx predniSONE [Deltasone] 40 mg PO QDAY #8 tab 05/27/20 Unknown Rx ED Physical Exam - General Limitations: Physical Limitation General appearance: alert, obese - Head Head exam: Present: atraumatic, normocephalic - Eye Eye exam: Present: normal appearance, EOMI. Absent: nystagmus - ENT ENT exam: Present: normal exam, normal orophraynx, mucous membranes moist, normal external ear exam - Neck Neck exam: Present: normal inspection, full ROM. Absent: tenderness, meni ngismus - Respiratory Respiratory exam: Present: decreased breath sounds. Absent: respiratory distress, wheezes, rales, rhonchi, stridor - Cardiovascular Cardiovascular Exam: Present: regular rate, normal rhythm, normal heart sounds. Absent: bradycardia, tachycardia, irregular rhythm, systolic murmur, diastolic murmur, rubs, gallop - GI/Abdominal GI/Abdominal exam: Present: soft. Absent: distended, tenderness, guarding, rebound, rigid, pulsatile mass - Rectal Rectal exam: Present: deferred - Extremities Exam Extremities exam: Present: normal inspection, full ROM, pedal edema, other (2+ pulses noted in the bilateral upper and lower extremities. There is no palpable cord. negative Homans sign. Muscular compartments are soft. The pelvis is stable.). Absent: calf tenderness - Back Exam Back exam: Present: normal inspection, full ROM. Absent: tenderness, CVA tenderness (R), CVA tenderness (L), paraspinal tenderness, vertebral tenderness - Neurological Exam Neurological exam: Present: alert, oriented X3, other (No facial droop. Tongue midline. Extraocular movements intact bilaterally. Facial sensation intact to light touch in V1, V2, V3 distribution bilaterally. 5 and a 5 strength in 4 extremities. Sensation intact to light touch in 4 extremities.) - Psychiatric Psychiatric exam: Present: flat affect - Skin Skin exam: Present: warm, dry, intact, normal color. Absent: rash ED Course Vital Signs 05/27/20 05/27/20 05/27/20 05:48 05:56 06:01 Temperature 98.7 F Pulse Rate 80 77 Pulse Rate [ 77 Bilateral] Respiratory 25 H 20 Rate Respiratory 20 Rate [Bilateral ] Blood Pressure 127/84 Blood Pressure 127/84 [Right] O2 Sat by Pulse 97 99 Oximetry - Reevaluation(s) Reevaluation #1: 05/27/20 06:52 Differential diagnosis, including but not limited to: COPD exacerbation, bron chitis, pneumonia Assessment and plan: 75-year-old gentleman who is a frequent utilizer of this emergency room, with a probable COPD exacerbation. He initially came in on positive pressure ventilation, and we have been able to wean him off of his positive pressure ventilation. He is resting comfortably on his stretcher, on supplemental oxygen chronically, he does not appear to be in any acute distress. We will observe the patient in this emergency room, and if no clinical decompensation, discharge home. We will also have case management consultation placed to assist with home management. Reevaluation #2: 05/27/20 08:24 Reassessed. Sleeping comfortably in stretcher, and in no acute distress. Arterial blood gas pending. Saturating at 96% on constant supplemental oxygen. Reevaluation #3: 05/27/20 09:25 Patient reassessed multiple times. He is resting comfortably at this time in no acute distress. He is breathing spontaneously, and evenly, and he continues to saturate at 96% on chronic supplemental oxygen. His arterial blood gases reviewed and appreciated, and appears to be essentially unchanged from prior. We discussed history, physical, pertinent laboratory studies and imaging studies with pulmonology on-call, Dr. Murtaza Terrazas. We are both in agreement that the patient is medically suitable for discharge at this point time, as he is in no respiratory distress at the moment. Reevaluation #4: 05/27/20 10:00 Final reassessment. Patient has been here for 4-1/2 hours without clinical decompensation. He does not require positive pressure ventilation. He does not have any wheezing at this time. His oxygenation is adequate. This is most likely an exacerbation of this patient's chronic COPD, but at the moment, he does not require hospitalization or further inpatient treatment. He can follow- up with an outpatient insurance manager or primary care doctor ED Medical Decision Making - Lab Data Result diagrams: 05/27/20 05:52 05/27/20 05:52 Vital Signs 05/27/20 05/27/20 05/27/20 05:48 05:56 06:01 Temperature 98.7 F Pulse Rate 80 77 Pulse Rate [ 77 Bilateral] Respiratory 25 H 20 Rate Respiratory 20 Rate [Bilateral ] Blood Pressure 127/84 Blood Pressure 127/84 [Right] O2 Sat by Pulse 97 99 Oximetry Lab Results 05/27/20 05/27/20 05/27/20 Range/Units 05:52 05:52 05:52 WBC 9.1 (4.5-11.0) K/mm3 RBC 5.30 H (3.65-5.03) M/mm3 Hgb 15.2 (11.8-15.2) gm/dl Hct 44.8 (35.5-45.6) % MCV 85 (84-94) fl MCH 29 (28-32) pg MCHC 34 (32-34) % RDW 15.6 H (13.2-15.2) % Plt Count 220 (140-440) K/mm3 Lymph % (Auto) 20.0 (13.4-35.0) % [place] % (Auto) 7.9 H (0.0-7.3) % Eos % (Auto) 4.5 H (0.0-4.3) % Baso % (Auto) 0.5 (0.0-1.8) % Lymph # (Auto) 1.8 (1.2-5.4) K/mm3 [place] # (Auto) 0.7 (0.0-0.8) K/mm3 Eos # (Auto) 0.4 (0.0-0.4) K/mm3 Baso # (Auto) 0.0 (0.0-0.1) K/mm3 Seg Neutrophils % 67.1 (40.0-70.0) % Seg Neutrophils # 6.1 (1.8-7.7) K/mm3 PT (12.2-14.9) Sec. INR (0.87-1.13) Sodium 137 (137-145) mmol/L Potassium 3.6 (3.6-5.0) mmol/L Chloride 99.6 (98-107) mmol/L Carbon Dioxide 28 (22-30) mmol/L Anion Gap 13 mmol/L BUN 13 (9-20) mg/dL Creatinine 0.8 (0.8-1.3) mg/dL Estimated GFR > 60 ml/min BUN/Creatinine Ratio 16 % Glucose 139 H (75-100) mg/dL Lactic Acid 0.70 (0.7-2.0) mmol/L Calcium 9.1 (8.4-10.2) mg/dL Total Bilirubin 0.60 (0.1-1.2) mg/dL AST 13 (5-40) units/L ALT 13 (7-56) units/L Alkaline Phosphatase 102 (35-129) units/L Total Protein 6.6 (6.3-8.2) g/dL Albumin 4.1 (3.9-5) g/dL Albumin/Globulin Ratio 1.6 % 05/27/20 Range/Units 05:52 WBC (4.5-11.0) K/mm3 RBC (3.65-5.03) M/mm3 Hgb (11.8-15.2) gm/dl Hct (35.5-45.6) % MCV (84-94) fl MCH (28-32) pg MCHC (32-34) % RDW (13.2-15.2) % Plt Count (140-440) K/mm3 Lymph % (Auto) (13.4-35.0) % [place] % (Auto) (0.0-7.3) % Eos % (Auto) (0.0-4.3) % Baso % (Auto) (0.0-1.8) % Lymph # (Auto) (1.2-5.4) K/mm3 [place] # (Auto) (0.0-0.8) K/mm3 Eos # (Auto) (0.0-0.4) K/mm3 Baso # (Auto) (0.0-0.1) K/mm3 Seg Neutrophils % (40.0-70.0) % Seg Neutrophils # (1.8-7.7) K/mm3 PT 13.3 (12.2-14.9) Sec. INR 0.99 (0.87-1.13) Sodium (137-145) mmol/L Potassium (3.6-5.0) mmol/L Chloride (98-107) mmol/L Carbon Dioxide (22-30) mmol/L Anion Gap mmol/L BUN (9-20) mg/dL Creatinine (0.8-1.3) mg/dL Estimated GFR ml/min BUN/Creatinine Ratio % Glucose (75-100) mg/dL Lactic Acid (0.7-2.0) mmol/L Calcium (8.4-10.2) mg/dL Total Bilirubin (0.1-1.2) mg/dL AST (5-40) units/L ALT (7-56) units/L Alkaline Phosphatase (35-129) units/L Total Protein (6.3-8.2) g/dL Albumin (3.9-5) g/dL Albumin/Globulin Ratio % - EKG Data -: EKG Interpreted by Me EKG shows normal: sinus rhythm Rate: normal - EKG Data Interpretation: unchanged when compared t 05/27/20 06:51 Sinus rhythm, 74 bpm, borderline leftward axis deviation, QTC is prolonged, minimal motion artifact, the EKG is not a STEMI, the EKG appears to be unchanged from prior EKG from April 2020 The EKG is not a STEMI. - Radiology Data Radiology results: report reviewed, image reviewed Print Report Referring Physician: MAHIN HENDERSON III Patient Name: UBALDO DIAZ Date of : 1945 Sex: Male Report Date: 2020-05-27 Report Status: Finalized Findings [facility] [address] [place] [address] XRay Report Signed Patient: UBALDO DIAZ MR#: [id number] : 1945 Acct: [id number] Age/Sex: 75 / M ADM Date: 05/27/20 Loc: ED Attending Dr: Ordering Physician: MAHIN HENDERSON III, MD Date of Service: 05/27/20 Procedure(s): XR chest 1V ap Accession Number(s): [id number] cc: AMHIN HENDERSON III, MD Fluoro Time In Minutes: CHEST 1 VIEW 05/27/2020 4:51 AM INDICATION / CLINICAL INFORMATION: Dyspnea. COMPARISON: Chest x-ray on 05/20/2020 FINDINGS: SUPPORT DEVICES: None. HEART / MEDIASTINUM: No significant abnormality. LUNGS / PLEURA: No significant pulmonary or pleural abnormality. No pneumothorax. ADDITIONAL FINDINGS: No significant additional findings. IMPRESSION: 1. No acute findings. Signer Name: Floyd Suarez MD Signed: 05/27/2020 5:53 AM Workstation Name: [id number] Transcribed By: CB Dictated By: Floyd Suarez MD Electronically Authenticated By: Floyd Suarez MD Signed Date/Time: 05/27/20552 DD/ 2 TD/TT: Critical care attestation.: If time is entered above; I have spent that time in minutes in the direct care of this critically ill patient, excluding procedure time. ED Disposition Clinical Impression: COPD (chronic obstructive pulmonary disease) Qualifiers: COPD type: unspecified COPD Qualified Code(s): J44.9 - Chronic obstructive pulmonary disease, unspecified Disposition: DC- TO HOME OR SELFCARE Is pt being admited?: No Does the pt Need Aspirin: No Condition: Stable Instructions: Chronic Obstructive Pulmonary Disease (ED) Additional Instructions: Take the medications as directed. Follow-up with a insurance manager within the next 3 to 5 days. Continue home oxygen. Continue home outpatient medications otherwise. Please return to the emergency room right away with new pain, worsening pain, migration of pain, projectile vomiting, change in mental status, confusion, inability to tolerate liquid feeds, new, worsened or different symptoms not present on the initial emergency room evaluation. Referrals: MURTAZA TERRAZAS MD [Staff Physician] - 3-5 Days MARTELL CHRISTIANSEN MD [Staff Physician] - 3-5 Days
[2020-05-27 06:22] LABS: Alanine Aminotransferase 13 units/L (7-56); Albumin 4.1 g/dL (3.9-5); BUN/Creatinine Ratio 16; Blood Urea Nitrogen 13 mg/dL (9-20); Calcium 9.1 mg/dL (8.4-10.2); Hemolysis Index 18
[2020-05-27 06:47] LABS: INR 0.99 (0.87-1.13)
[2020-05-27 08:27] LABS: ABG Base Excess -1.3 mmol/L (-2.0-3.0); ABG HCO3 23.6 mmol/L (20.0-26.0); ABG Methemoglobin 0.7 % (0.0-1.5); ABG PCO2 40.4 mm Hg; ABG PH 7.385 pH Units (7.350-7.450); ABG PO2 59.2 mm Hg (80.0-90.0)
[2020-05-27] MEDS ORDERED: DOXYCYCLINE 100 MG CAP PO ONE (10:02)
[2020-05-27 10:07] VITALS: BP 140/95
== END 2020-05-27 10:55 | disposition home or self-care (01) ==
LOC: ED 05:20
DX: J44.9 Chronic obstructive pulmonary disease, unspecified (principal); I50.9 Heart failure, unspecified; I11.0 Hypertensive heart disease with heart failure; E11.9 Type 2 diabetes mellitus without complications; M19.91 Primary osteoarthritis, unspecified site; F20.9 Schizophrenia, unspecified; Z86.73 Personal history of transient ischemic attack (TIA), and cerebral infarction without residual deficits; F17.200 Nicotine dependence, unspecified, uncomplicated; Z90.49 Acquired absence of other specified parts of digestive tract; Z79.899 Other long term (current) drug therapy
CPT/HCPCS: 36415; 71045; 80053; 82140; 82550; 82803; 83735; 85025; 85610; 93005; 94644; 99285; J7120

== ENCOUNTER 2020-05-30 02:50 | Emergency (ER) | payer MEDICARE ==
[2020-05-30] MEDS ORDERED: IPRATROPIUM 0.02% NEBU 2.5 ML IH ONE ×3 (02:56→03:20)
[2020-05-30] MEDS ORDERED: ALBUTEROL 2.5 MG/3 ML NEBU IH ONE ×3 (02:56→03:20)
--- NOTE | 2020-05-30 03:04 | Emergency Department Report ---
ED Shortness of Breath HPI - General Chief Complaint: Dyspnea/Respdistress Stated Complaint: SOB Time Seen by Provider: 05/30/20 02:55 Source: patient, EMS, old records reviewed Mode of arrival: Stretcher Limitations: No Limitations, Other - History of Present Illness Initial Comments: Mr. Anderson is a 75-year-old male with history of hypertension, COPD, oxygen dependence, tobacco dependence, congestive heart failure, CVA, schizophrenia who presents with shortness of breath which began earlier this morning. He arrived via EMS with CPAP in place. Patient received albuterol 5 mg in route as well as Solu-Medrol and magnesium. Patient denies any pain. He has nonproductive cough. MD Complaint: shortness of breath, cough -: Gradual, This morning Severity: severe Consistency: constant Improves With: bronchodilators, other (BiPAP) Known History Of: COPD, congestive heart failure - Related Data Previous Rx's Medication Instructions Recorded Last Taken Type Amlodipine Besylate [Norvasc] 10 mg PO QDAY #30 tablet 10/12/19 05/20/20 Rx Albuterol Sulfate [Proventil Hfa] 2 puff IH Q4HR PRN #1 hfa.aer.ad 01/27/20 05/20/20 Rx ALBUTEROL NEB's [Proventil 0.083% 2.5 mg IH TID PRN #1 box 02/16/20 05/20/20 Rx NEBS] Albuterol Mdi (or & Nicu Only) 2 puff IH Q6H PRN #8.5 gram 05/20/20 Unknown Rx [ProAir HFA Inhaler] Budesonide/Formoterol Fumarate 1 puff IH DAILY PRN #1 inh 05/20/20 Unknown Rx [Symbicort 160-4.5 Mcg Inhaler] predniSONE [Deltasone] 40 mg PO QDAY #8 tab 05/20/20 Unknown Rx Albuterol Sulfate [Proair 90 mcg IH Q4HR PRN #2 aer.pow.ba 05/27/20 Unknown Rx Respiclick] Doxycycline Hyclate 100 mg PO BID #9 tablet. 05/27/20 Unknown Rx Ipratropium (Nf) [Atrovent] 2 puff IH Q6HR PRN #1 inha 05/27/20 Unknown Rx predniSONE [Deltasone] 40 mg PO QDAY #8 tab 10/02/20 Unknown Rx Allergies Allergy/AdvReac Type Severity Reaction Status Date / Time No Known Allergies Allergy Verified 09/01/19 12:38 ED Review of Systems ROS: Stated complaint: SOB Other details as noted in HPI Comment: All other systems reviewed and negative Constitutional: denies: fever, malaise Respiratory: cough, shortness of breath Cardiovascular: denies: chest pain Gastrointestinal: denies: abdominal pain, nausea, vomiting ED Past Medical Hx - Past Medical History Previous Medical History?: Yes Hx Hypertension: Yes Hx CVA: Yes (generalized weakness, walks with a cane) Hx Heart Attack/AMI: No Hx Congestive Heart Failure: Yes Hx Diabetes: Yes Hx Deep Vein Thrombosis: No Hx Pulmonary Embolism: No Hx GERD: No Hx Liver Disease: No Hx Renal Disease: No Hx Sickle Cell Disease: No Hx Arthritis: Yes Hx Headaches / Migraines: No Hx Seizures: No Hx Kidney Stones: No Hx Psychiatric Treatment: Yes (schizophrenic) Hx Asthma: Yes Hx COPD: Yes Hx Tuberculosis: No Hx Dementia: No Hx HIV: No Additional medical history: Hx of Dissection?-AAA - Surgical History Past Surgical History?: Yes Hx Coronary Stent: No Hx Open Heart Surgery: No Hx Pacemaker: No Hx Internal Defibrillator: No Hx Cholecystectomy: Yes Hx Appendectomy: Yes Hx Breast Surgery: No - Social History Smoking Status: Current Every Day Smoker Substance Use Type: Marijuana - Medications Home Medications: Home Medications Medication Instructions Recorded Confirmed Last Taken Type Amlodipine Besylate [Norvasc] 10 mg PO QDAY #30 tablet 10/12/19 05/20/20 05/20/20 Rx Albuterol Sulfate [Proventil Hfa] 2 puff IH Q4HR PRN #1 hfa.aer.ad 01/27/20 05/20/20 05/20/20 Rx ALBUTEROL NEB's [Proventil 0.083% 2.5 mg IH TID PRN #1 box 02/16/20 05/20/20 05/20/20 Rx NEBS] Albuterol Mdi (or & Nicu Only) 2 puff IH Q6H PRN #8.5 gram 05/20/20 Unknown Rx [ProAir HFA Inhaler] Budesonide/Formoterol Fumarate 1 puff IH DAILY PRN #1 inh 05/20/20 Unknown Rx [Symbicort 160-4.5 Mcg Inhaler] predniSONE [Deltasone] 40 mg PO QDAY #8 tab 05/20/20 Unknown Rx Albuterol Sulfate [Proair 90 mcg IH Q4HR PRN #2 aer.pow.ba 05/27/20 Unknown Rx Respiclick] Doxycycline Hyclate 100 mg PO BID #9 tablet. 05/27/20 Unknown Rx Ipratropium (Nf) [Atrovent] 2 puff IH Q6HR PRN #1 inha 05/27/20 Unknown Rx predniSONE [Deltasone] 40 mg PO QDAY #8 tab 05/27/20 Unknown Rx ED Physical Exam - General Limitations: Other General appearance: alert, in no apparent distress - Head Head exam: Present: atraumatic, normocephalic - Eye Eye exam: Present: normal appearance - ENT ENT exam: Present: mucous membranes moist - Neck Neck exam: Present: normal inspection, full ROM - Respiratory Respiratory exam: Present: normal lung sounds bilaterally. Absent: respiratory distress, wheezes, rales, rhonchi - Cardiovascular Cardiovascular Exam: Present: regular rate, normal rhythm, normal heart sounds. Absent: systolic murmur, diastolic murmur, rubs, gallop - GI/Abdominal GI/Abdominal exam: Present: soft, normal bowel sounds. Absent: distended, tenderness, guarding, rebound - Rectal Rectal exam: Present: deferred - Extremities Exam Extremities exam: Present: normal inspection - Neurological Exam Neurological exam: Present: alert, oriented X3 - Psychiatric Psychiatric exam: Present: normal affect, normal mood - Skin Skin exam: Present: warm, dry, intact, normal color. Absent: rash ED Course Vital Signs 05/30/20 03:25 Pulse Rate 88 Respiratory 21 Rate Blood Pressure 141/93 O2 Sat by Pulse 96 Oximetry ED Medical Decision Making - Lab Data Result diagrams: 05/30/20 03:06 05/30/20 03:06 - Radiology Data Radiology results: report reviewed - Medical Decision Making Shortly upon arrival ABG revealed normal pH normal CO2. No respiratory acidosis. Patient received nebulizer treatment in the emergency department. After 90 minutes of treatment in emergency department he is now symptom-free clear breath sounds which he had on upon arrival. He is sleeping laying flat with oxygen saturation 92% on room air. He does not have any indication for further inpatient treatment. He appears well. On initial evaluation he was actually talking for sentences while on non- invasive positive pressure ventilation. Chest radiograph negative for acute infiltrate or pneumothorax. CBC chemistry within normal limits. Critical Care Time: Yes Critical care time in (mins) excluding proc time.: 40 Critical care attestation.: If time is entered above; I have spent that time in minutes in the direct care of this critically ill patient, excluding procedure time. 40 minutes of critical care time excluding procedures were used in the care of the patient. I came immediately to the bedside upon patient's arrival. I obtained history from EMS at the bedside. I discussed treatment plan with the nursing team members and respiratory therapist. I reviewed electronic record. I was concerned for imminent airway compromise considering patient requiring noninvasive positive pressure ventilation. Patient required multiple interventions and reassessments. ED Disposition Clinical Impression: COPD (chronic obstructive pulmonary disease), Acute exacerbation of chronic obstructive pulmonary disease (COPD) Disposition: DC-01 TO HOME OR SELFCARE Is pt being admited?: No Does the pt Need Aspirin: No Condition: Stable Instructions: Chronic Obstructive Pulmonary Disease (ED) Referrals: PRIMARY CAREMD [Primary Care Provider] - 3-5 Days
[2020-05-30 03:22] LABS: Basophils # (Auto) 0.1 K/mm3 (0.0-0.1); Eosinophils # (Auto) 0.4 K/mm3 (0.0-0.4); Eosinophils % (Auto) 4.4 % (0.0-4.3); Hematocrit 47.7 % (35.5-45.6); Hemoglobin 16.2 gm/dl (11.8-15.2); Lymphocytes # (Auto) 2.1 K/mm3 (1.2-5.4); Lymphocytes % (Auto) 24.9 % (13.4-35.0); Mean Corpuscular HGB Conc 34 % (32-34); Mean Corpuscular Volume 85 fl (84-94); Monocytes # (Auto) 1.2 K/mm3 (0.0-0.8); Monocytes % (Auto) 14.4 % (0.0-7.3); Platelet Count 231 K/mm3 (140-440); Red Cell Distribution Width 15.7 % (13.2-15.2)
[2020-05-30 03:38] LABS: BUN/Creatinine Ratio 19; Blood Urea Nitrogen 17 mg/dL (9-20); Calcium 9.5 mg/dL (8.4-10.2); Hemolysis Index 13
[2020-05-30 03:50] LABS: ABG HCO3 24.9 mmol/L (20.0-26.0); ABG Methemoglobin 0.6 % (0.0-1.5); ABG Oxygen Saturation 96.6 % (95.0-99.0); ABG PCO2 41.3 mm Hg; ABG PH 7.397 pH Units (7.350-7.450); ABG PO2 84.1 mm Hg (80.0-90.0)
--- NOTE | 2020-05-30 03:57 | XRay Report ---
CHEST 1 VIEW INDICATION: Dyspnea COMPARISON: 05/27/2020 FINDINGS: Support devices: None Heart: Within normal limits and unchanged Lungs/Pleura: Inspiration is less optimal on today's exam, but I see no convincing evidence of acute disease. IMPRESSION: 1. No acute disease and no interval change. Signer Name: Asim Mackenzie MD Signed: 05/30/2020 3:53 AM Workstation Name: [id number]
[2020-05-30 05:34] VITALS: BP 119/86
== END 2020-05-30 05:35 | disposition home or self-care (01) ==
LOC: ED 02:50
DX: J44.1 Chronic obstructive pulmonary disease with (acute) exacerbation (principal); I11.0 Hypertensive heart disease with heart failure; I50.9 Heart failure, unspecified; F20.9 Schizophrenia, unspecified; E11.9 Type 2 diabetes mellitus without complications; M19.90 Unspecified osteoarthritis, unspecified site; F17.200 Nicotine dependence, unspecified, uncomplicated; F12.90 Cannabis use, unspecified, uncomplicated; Z79.899 Other long term (current) drug therapy; Z86.73 Personal history of transient ischemic attack (TIA), and cerebral infarction without residual deficits; Z90.49 Acquired absence of other specified parts of digestive tract
CPT/HCPCS: 36415; 71045; 80048; 82803; 83880; 85025; 94640; 94644